=== PATIENT | female | born 1940 | race Caucasian/White ===

== ENCOUNTER 2017-05-24 19:36 | Inpatient (IN) | payer MEDICARE, OTHER ==
[2017-05-24 19:54] LABS: Glucose,Whole Blood 84 mg/dL (75-99)
--- NOTE | 2017-05-24 19:54 | ED ---
General Adult HPI - General Chief complaint: Recheck/Abnormal Lab/Rx Stated complaint: anemia Time Seen by Provider: 05/24/17 19:44 Source: patient, EMS, RN notes reviewed, old records reviewed Mode of arrival: EMS - History of Present Illness Initial comments: This is a 76-year-old female to the ER for evaluation of blood loss per staff. Patient's poor historian, sure she is near complains of weakness but states she is always weak. No chest pain or shortness breath or developing no fevers. Patient was transferred for nursing staff and care as well as patient's outpatient family doctor at [facility] for evaluation regarding chronic illness - Related Data Home Medications Medication Instructions Recorded Confirmed Acetaminophen Tab [Tylenol] 500 mg PO Q6H PRN 12/28/15 05/24/17 Ammonium Lactate Lotion 1 applic TOPICAL HS 12/28/15 05/24/17 [Lac-Hydrin 12% Lotion] Atorvastatin [Lipitor] 40 mg PO HS 12/28/15 05/24/17 Bismuth Subsalicylate 524 mg PO Q4H PRN 12/28/15 05/24/17 [Pepto-Bismol] Brimonidine Tartrate/Timolol 1 drop BOTH EYES BID 12/28/15 05/24/17 [Combigan 0.2%/0.5% Ophth Soln] Calcium Carb-Vit D 500Mg-200Un 1 tab PO BID 12/28/15 05/24/17 [Oscal 500+D] Carvedilol [Coreg] 25 mg PO BID-W/MEALS 12/28/15 05/24/17 Donepezil HCl [Aricept] 10 mg PO HS 12/28/15 05/24/17 Insulin Glargine [Lantus] 32 unit SQ HS@2100 12/28/15 05/24/17 Ipratropium-Albuterol Nebulize 3 ml INHALATION RT-Q4H PRN 12/28/15 05/24/17 [Duoneb 0.5 mg-3 mg/3 ml Soln] Latanoprost Ophth [Xalatan 0.005%] 1 drop BOTH EYES HS 12/28/15 05/24/17 Multivitamins, Thera [Multivitamin 1 tab PO DAILY 12/28/15 05/24/17 (formulary)] Nystatin 100,000 Unit/gm Powd 1 applic TOPICAL BID 12/28/15 05/24/17 [Mycostatin Powder] [place]-3 Acid Ethyl Esters [Lovaza] 1 gm PO BID 12/28/15 05/24/17 Pioglitazone HCl [Actos] 15 mg PO DAILY 12/28/15 05/24/17 Sertraline [Zoloft] 75 mg PO HS 12/28/15 05/24/17 Albuterol Nebulized [Ventolin 2.5 mg INHALATION RT-Q6H PRN 01/11/16 05/24/17 Nebulized] Collagenase [Santyl] 1 applic TOPICAL HS 01/11/16 05/24/17 Arginaid Extra 240 ml PO BID 05/24/17 05/24/17 Aspirin EC [Ecotrin Low Dose] 81 mg PO DAILY 05/24/17 05/24/17 Cholecalciferol (Vitamin D3) 2,000 unit PO DAILY 05/24/17 05/24/17 [Vitamin D3] Ferrous Sulfate [Feosol] 325 mg PO BID 05/24/17 05/24/17 Furosemide [Lasix] 20 mg PO DAILY 05/24/17 05/24/17 HYDROcodone/APAP 5-325MG [Robson 1 tab PO Q6HR PRN 05/24/17 05/24/17 5-325] Insulin Glargine [Lantus] 36 unit SQ QAM@0600 05/24/17 05/24/17 Insulin Lispro [humaLOG Kwikpen] 10 unit SQ BID@0800,1100 05/24/17 05/24/17 Insulin Lispro [humaLOG Kwikpen] 12 unit SQ DAILY@1700 05/24/17 05/24/17 Insulin Lispro [humaLOG Kwikpen] See Protocol SQ AC-TID 05/24/17 05/24/17 Lisinopril [Zestril] 2.5 mg PO DAILY 05/24/17 05/24/17 Magnesium Hydroxide [Milk of 2,400 mg PO DAILY PRN 05/24/17 05/24/17 Magnesia] Potassium Chloride ER [K-Dur 10] 10 meq PO DAILY 05/24/17 05/24/17 Allergies Allergy/AdvReac Type Severity Reaction Status Date / Time Quinolones Allergy Unknown Verified 08/02/17 19:55 Review of Systems ROS Statement: Those systems with pertinent positive or pertinent negative responses have been documented in the HPI. ROS Other: All systems not noted in ROS Statement are negative. Past Medical History Past Medical History: Coronary Artery Disease (CAD), Heart Failure, Dementia, Diabetes Mellitus, Eye Disorder, GERD/Reflux, Hyperlipidemia, Hypertension, Memory Impairment, Osteoarthritis (OA), Pneumonia Additional Past Medical History / Comment(s): 01-11-16 admitted with uti/sepsis Glaucoma, severe degenerative arthritis with secondary debility to the point where the patient is unable to ambulate,charcot feet morbid obesity, urinary incontinence with frequent urinary tract. infection - skin breakdown to buttocks, carpal tunnel disease and MRSA in the past. RT UPPER ARM CELLULITIS, rt breast mass,pvd,bronchitis, sinus problems, carpal tunnel, past fx lt ankle History of Any Multi-Drug Resistant Organisms: ESBL, Other MDRO Date of last positivie culture/infection: 01/31/17 MDRO Source:: urine Past Surgical History: Adenoidectomy, Bladder Surgery, Heart Catheterization, Hernia Repair, Hysterectomy, Pacemaker, Tonsillectomy Additional Past Surgical History / Comment(s): arthroscopy laser sx for glaucoma bashir eyes, Cataract extraction with intraocular lens implantations, varicose vein stripping.rt breast bx(mass), colonoscopy, lt knee Past Anesthesia/Blood Transfusion Reactions: No Reported Reaction Type of Cardiac Device: Permanent Pacemaker Device Placement Date:: 2011 Past Psychological History: No Psychological Hx Reported, Depression Smoking Status: Never smoker Past Alcohol Use History: None Reported Past Drug Use History: None Reported - Past Family History Daughter(s) Family Medical History: Cancer, Diabetes Mellitus, Hypertension General Exam Limitations: altered mental status, physical limitation General appearance: alert, in no apparent distress, obese Head exam: Present: atraumatic, normocephalic, normal inspection Eye exam: Present: normal appearance, PERRL, EOMI. Absent: scleral icterus, conjunctival injection, periorbital swelling ENT exam: Present: normal exam, mucous membranes moist Neck exam: Present: normal inspection. Absent: tenderness, meningismus, lymphadenopathy Respiratory exam: Present: normal lung sounds bilaterally. Absent: respiratory distress, wheezes, rales, rhonchi, stridor Cardiovascular Exam: Present: regular rate, normal rhythm, normal heart sounds. Absent: systolic murmur, diastolic murmur, rubs, gallop, clicks GI/Abdominal exam: Present: soft, normal bowel sounds. Absent: distended, tenderness, guarding, rebound, rigid Extremities exam: Present: normal inspection, full ROM, normal capillary refill. Absent: tenderness, pedal edema, joint swelling, calf tenderness Back exam: Present: normal inspection Neurological exam: Present: alert, oriented X3, CN II-XII intact Psychiatric exam: Present: normal affect, normal mood Skin exam: Present: warm, dry, intact, normal color. Absent: rash Course Vital Signs 05/24/17 05/24/17 05/24/17 19:38 20:37 20:52 Temperature 97.3 F L Pulse Rate 76 59 L Pulse Rate [ 59 L Bilateral Radial] Respiratory 18 18 Rate Blood Pressure 97/52 86/47 O2 Sat by Pulse 94 L 95 Oximetry - Reevaluation(s) Reevaluation #1: 05/24/17 20:[address] Grossman who states patient is admitted to the hospital secondary to excessive blood loss EKG Findings - EKG Comments: EKG Findings:: EKG shows paced rhythm rate of 73, SD 134, QRS 2 18, QTC 519 Medical Decision Making - Medical Decision Making 76. ER for evaluation regarding bleeding, significant bleeding from her sacral ulcer, wound bed wounds that are chronic. Anemia, weakness. Patient admitted for trending of hemoglobin as blood loss is apparently excessive per staffing. - Lab Data Result diagrams: 05/24/17 19:55 05/24/17 19:55 Lab Results 05/24/17 05/24/17 05/24/17 Range/Units 19:53 19:55 19:55 WBC 9.1 (3.8-10.6) k/uL RBC 2.54 L (3.80-5.40) m/uL Hgb 7.2 L (11.4-16.0) gm/dL Hct 22.0 L (34.0-46.0) % MCV 86.8 (80.0-100.0) fL MCH 28.5 (25.0-35.0) pg MCHC 32.8 (31.0-37.0) g/dL RDW 17.4 H (11.5-15.5) % Plt Count 321 (150-450) k/uL Neutrophils % 81 % Lymphocytes % 9 % Monocytes % 5 % Eosinophils % 4 % Basophils % 0 % Neutrophils # 7.4 (1.3-7.7) k/uL Lymphocytes # 0.8 L (1.0-4.8) k/uL Monocytes # 0.5 (0-1.0) k/uL Eosinophils # 0.3 (0-0.7) k/uL Basophils # 0.0 (0-0.2) k/uL Hypochromasia Slight Poikilocytosis Slight Anisocytosis Slight PT (9.0-12.0) sec INR (<1.2) APTT (22.0-30.0) sec Sodium (137-145) mmol/L Potassium (3.5-5.1) mmol/L Chloride (98-107) mmol/L Carbon Dioxide (22-30) mmol/L Anion Gap mmol/L BUN (7-17) mg/dL Creatinine (0.52-1.04) mg/dL Est GFR (MDRD) Af Amer (>60 ml/min/1.73 sqM) Est GFR (MDRD) Non-Af (>60 ml/min/1.73 sqM) Glucose (74-99) mg/dL POC Glucose (mg/dL) 84 (75-99) mg/dL POC Glu Tester Compressed Gases ID Raquel Contreras Calcium (8.4-10.2) mg/dL Phosphorus (2.5-4.5) mg/dL Magnesium (1.6-2.3) mg/dL Total Bilirubin (0.2-1.3) mg/dL AST (14-36) U/L ALT (9-52) U/L Alkaline Phosphatase (38-126) U/L Total Creatine Kinase <20 L (30-135) U/L CK-MB (CK-2) 0.6 (0.0-2.4) ng/mL CK-MB (CK-2) Rel Index 0.0 Troponin I <0.012 (0.000-0.034) ng/mL Total Protein (6.3-8.2) g/dL Albumin (3.5-5.0) g/dL 05/24/17 05/24/17 Range/Units 19:55 19:55 WBC (3.8-10.6) k/uL RBC (3.80-5.40) m/uL Hgb (11.4-16.0) gm/dL Hct (34.0-46.0) % MCV (80.0-100.0) fL MCH (25.0-35.0) pg MCHC (31.0-37.0) g/dL RDW (11.5-15.5) % Plt Count (150-450) k/uL Neutrophils % % Lymphocytes % % Monocytes % % Eosinophils % % Basophils % % Neutrophils # (1.3-7.7) k/uL Lymphocytes # (1.0-4.8) k/uL Monocytes # (0-1.0) k/uL Eosinophils # (0-0.7) k/uL Basophils # (0-0.2) k/uL Hypochromasia Poikilocytosis Anisocytosis PT 10.5 (9.0-12.0) sec INR 1.0 (<1.2) APTT 20.6 L (22.0-30.0) sec Sodium 135 L (137-145) mmol/L Potassium 4.9 (3.5-5.1) mmol/L Chloride 100 (98-107) mmol/L Carbon Dioxide 29 (22-30) mmol/L Anion Gap 6 mmol/L BUN 55 H (7-17) mg/dL Creatinine 1.20 H (0.52-1.04) mg/dL Est GFR (MDRD) Af Amer 53 (>60 ml/min/1.73 sqM) Est GFR (MDRD) Non-Af 44 (>60 ml/min/1.73 sqM) Glucose 70 L (74-99) mg/dL POC Glucose (mg/dL) (75-99) mg/dL POC Glu Tester Compressed Gases ID Calcium 9.2 (8.4-10.2) mg/dL Phosphorus 3.3 (2.5-4.5) mg/dL Magnesium 2.3 (1.6-2.3) mg/dL Total Bilirubin 0.3 (0.2-1.3) mg/dL AST 27 (14-36) U/L ALT 29 (9-52) U/L Alkaline Phosphatase 85 (38-126) U/L Total Creatine Kinase (30-135) U/L CK-MB (CK-2) (0.0-2.4) ng/mL CK-MB (CK-2) Rel Index Troponin I (0.000-0.034) ng/mL Total Protein 4.9 L (6.3-8.2) g/dL Albumin 2.4 L (3.5-5.0) g/dL Disposition Clinical Impression: Anemia Narrative: bleeding from sacral ulcer Disposition: ADMITTED IP TO THIS HOSP Condition: Fair Referrals: Cb Grossman MD [Primary Care Provider] - 1-2 days
[2017-05-24] MEDS ORDERED: SODIUM CHLORIDE 0.9% 1,000 ML IV STA (20:06)
[2017-05-24 20:25] LABS: Anisocytosis Slight; Basophils % (A) 0 %; CH 28.6; Eosinophils # (A) 0.3 k/uL (0-0.7); Eosinophils % (A) 4 %; HDW 3.97; HGB 7.2 gm/dL (11.4-16.0); Hypochromasia Slight; Luc % (Auto) 1; Lymphocytes # (A) 0.8 k/uL (1.0-4.8); Lymphocytes % (A) 9 %; MCH 28.5 pg (25.0-35.0); MCHC 32.8 g/dL (31.0-37.0); MCV 86.8 fL (80.0-100.0); Mean Platelet Volume 6.9; Monocytes # (A) 0.5 k/uL (0-1.0); Monocytes % (A) 5 %; Neutrophils # (A) 7.4 k/uL (1.3-7.7); Neutrophils % (A) 81 %; Poikilocytosis Slight; RBC 2.54 m/uL (3.80-5.40); RDW 17.4 % (11.5-15.5); WBC 9.1 k/uL (3.8-10.6); WBC (Perox) 9.74
[2017-05-24 20:33] LABS: Prothrombin Time 10.5 sec (9.0-12.0)
[2017-05-24 20:39] LABS: Calcium 9.2 mg/dL (8.4-10.2); Magnesium 2.3 mg/dL (1.6-2.3); Phosphorous 3.3 mg/dL (2.5-4.5); Potassium 4.9 mmol/L (3.5-5.1); Total Bilirubin 0.3 mg/dL (0.2-1.3); Total Protein 4.9 g/dL (6.3-8.2)
[2017-05-24 20:45] LABS: Creatine Kinase <20 U/L (30-135); Partial Thromboplastin Time 20.6 sec (22.0-30.0)
[2017-05-24 20:58] LABS: Creatine Kinase MB 0.6 ng/mL (0.0-2.4); Troponin I <0.012 ng/mL (0.000-0.034)
[2017-05-24 21:14] LABS: Amorphous Sediment,Urine Rare /hpf; Appearance,Urine Turbid (Clear); Bacteria,Urine Many /hpf; Bilirubin,Urine Negative (Negative); Glucose,Urine (UA) Negative (Negative); Ketones,Urine Negative (Negative); Leukocyte Esterase,Urine Large (Negative); Mucus,Urine Few /hpf; Nitrite,Urine Negative (Negative); PH, Urine 6.5 (5.0-8.0); Particle Count 77737; Protein,Urine 2+ (Negative); RBC,Urine 129 /hpf (0-5); Specific Gravity,Urine 1.013 (1.001-1.035); UA Billing (MACRO vs. MICRO) MICRO; Urobilinogen,Urine <2.0 mg/dL (<2.0); WBC,Urine >182 /hpf (0-5)
[2017-05-24 23:29] LABS: Glucose,Whole Blood 90 mg/dL (75-99)
[2017-05-25] MEDS ORDERED: MAGNESIUM HYDROXIDE 2,400 MG/10 ML CUP PO PRN (03:03)
[2017-05-25] MEDS ORDERED: ALBUTEROL NEBULIZED 2.5 MG/3 ML INHALATION PRN (03:03)
[2017-05-25] MEDS ORDERED: ACETAMINOPHEN TAB 500 MG TAB PO PRN (03:03)
[2017-05-25] MEDS ORDERED: BISMUTH SUBSALICYLATE 4,192 MG/240 ML BOTTLE PO PRN (03:03)
[2017-05-25] MEDS ORDERED: IPRATROPIUM-ALBUTEROL 3 ML NEB INHALATION PRN (03:03)
[2017-05-25] MEDS: HYDROcodone/APAP 5-325MG 1 EACH TAB PO PRN (03:42)
[2017-05-25 05:27] LABS: Glucose,Whole Blood 102 mg/dL (75-99)
[2017-05-25 05:39] LABS: Anisocytosis Slight; Basophils % (A) 0 %; CH 28.5; CHCM 32.2; Eosinophils # (A) 0.2 k/uL (0-0.7); Eosinophils % (A) 3 %; HCT 24.5 % (34.0-46.0); HDW 3.79; HGB 7.7 gm/dL (11.4-16.0); Hypochromasia Slight; Luc # (Auto) 0.09; Luc % (Auto) 1; Lymphocytes # (A) 0.9 k/uL (1.0-4.8); Lymphocytes % (A) 13 %; MCH 27.8 pg (25.0-35.0); MCHC 31.3 g/dL (31.0-37.0); MCV 88.9 fL (80.0-100.0); Mean Platelet Volume 7.2; Monocytes # (A) 0.4 k/uL (0-1.0); Monocytes % (A) 6 %; Neutrophils # (A) 5.1 k/uL (1.3-7.7); Neutrophils % (A) 77 %; Poikilocytosis Slight; RBC 2.76 m/uL (3.80-5.40); RDW 16.9 % (11.5-15.5); WBC 6.6 k/uL (3.8-10.6); WBC (Perox) 6.87
[2017-05-25 05:46] LABS: ALT 29 U/L (9-52); AST 25 U/L (14-36); Alkaline Phosphatase 75 U/L (38-126); Anion Gap 7 mmol/L; Blood Urea Nitrogen 49 mg/dL (7-17); Calcium 8.5 mg/dL (8.4-10.2); Carbon Dioxide 27 mmol/L (22-30); Chloride 102 mmol/L (98-107); Glucose 94 mg/dL (74-99); Non-African American GFR(MDRD) 54 (>60 ml/min/1.73 sqM); Potassium 4.8 mmol/L (3.5-5.1); Sodium 136 mmol/L (137-145); Total Bilirubin 0.3 mg/dL (0.2-1.3); Total Protein 4.3 g/dL (6.3-8.2)
[2017-05-25] MEDS ORDERED: INSULIN GLARGINE 100 UNIT/ML 10 ML VIAL SQ SCH (06:00)
[2017-05-25 07:28] LABS: Glucose,Whole Blood 104 mg/dL (75-99)
[2017-05-25] MEDS: CARVEDILOL 12.5 MG TAB PO SCH ×3 (08:38→17:39)
[2017-05-25] MEDS: INSULIN LISPRO (humaLOG) 300 UNIT/3 ML VIAL SQ SCH ×7 (08:38→21:50)
[2017-05-25] MEDS: NYSTATIN 100,000 UNIT/GM POWD 15 GM TOPICAL SCH ×2 (08:59→21:12)
[2017-05-25] MEDS ORDERED: ARGINAID EXTRA PO SCH (09:00)
[2017-05-25] MEDS ORDERED: NON-FORMULARY DRUG (Omega-3 Acid Ethyl Esters [Lovaza] 1 GM) PO SCH (09:00)
[2017-05-25] MEDS ORDERED: CALCIUM CARB-VIT D 500MG-200UN 1 EACH TAB PO SCH (09:00)
[2017-05-25] MEDS: BRIMONIDINE TARTRATE 0.2% DROPS 5 ML BTL BOTH EYES SCH ×2 (09:00→21:11)
[2017-05-25] MEDS ORDERED: PIOGLITAZONE 15 MG TAB PO SCH (09:00)
[2017-05-25] MEDS ORDERED: LISINOPRIL 2.5 MG TAB PO SCH (09:00)
[2017-05-25] MEDS: MULTIVITAMINS, THERA 1 EACH TAB PO SCH (09:01)
[2017-05-25] MEDS: CHOLECALCIFEROL 1,000 UNIT TAB PO SCH (09:01)
[2017-05-25] MEDS: POTASSIUM CHLORIDE ER 10 MEQ TAB.ER.PRT PO SCH (09:02)
[2017-05-25] MEDS: FUROSEMIDE 20 MG TAB PO SCH (09:02)
[2017-05-25] MEDS: FERROUS SULFATE 325 MG TAB PO SCH ×2 (09:03→21:11)
[2017-05-25] MEDS: ASPIRIN 81 MG CHEW PO SCH (09:03)
[2017-05-25] MEDS: TIMOLOL 0.5% OPHTH DROPS 5 ML BTL BOTH EYES SCH ×2 (09:05→21:12)
[2017-05-25] MEDS ORDERED: ENOXAPARIN 40 MG/0.4 ML SYRINGE SQ SCH (09:30)
[2017-05-25 12:09] LABS: Glucose,Whole Blood 108 mg/dL (75-99)
[2017-05-25 12:10] LABS: Hemoglobin A1C 5.6 % (4.2-6.1)
--- NOTE | 2017-05-25 14:21 | P.GSCN ---
History of Present Illness Consult date: 05/25/17 Reason for Consult: Sacral decubitus ulcer may need debridement History of present illness: 76-year-old female being seen at the request of the attending for surgical eval for possible incision and drainage in a patient who has chronic nonhealing sacral decubitus ulcer the wound bed noted to be showing excessive bleeding with blood loss. Given the above clinical presentation care providers at the [facility] facility were advised to transfer the patient to the emergency room at [facility] for further evaluation. Patient was transferred for monitoring of the hemoglobin blood loss apparently was excessive per care providers at the [facility] facility. The excessive bleeding was coming from the chronic nonhealing sacral decubitus ulcer the hemoglobin on admission was 7.2. Reviewing labs show that the hemoglobin on February 2017 was 12. Physical exam does show a extensive nonhealing sacral decubitus ulcer which is showing excessive bloody drainage from the site. The area is red and tender to the touch no odor noted patient is a poor historian not certain of the duration of the ulcerative area. Patient does have limited mobility is not able to carry out activities of daily living is wheelchair bedbound and lives at an [facility] facility. Review of Systems Not able to adequately obtain patient has poor past medical history recall Past Medical History Past Medical History: Coronary Artery Disease (CAD), Heart Failure, Dementia, Diabetes Mellitus, Eye Disorder, GERD/Reflux, Hyperlipidemia, Hypertension, Memory Impairment, Osteoarthritis (OA), Pneumonia Additional Past Medical History / Comment(s): 3 admitted with uti/sepsis Glaucoma, severe degenerative arthritis with secondary debility to the point where the patient is unable to ambulate,charcot feet morbid obesity, urinary incontinence with frequent urinary tract. infection - skin breakdown to buttocks, carpal tunnel disease and MRSA in the past. RT UPPER ARM CELLULITIS, rt breast mass,pvd,bronchitis, sinus problems, carpal tunnel, past fx lt ankle History of Any Multi-Drug Resistant Organisms: ESBL, Other MDRO Year Discovered:: 01/31/17 MDRO Source:: urine Past Surgical History: Adenoidectomy, Bladder Surgery, Heart Catheterization, Hernia Repair, Hysterectomy, Pacemaker, Tonsillectomy Additional Past Surgical History / Comment(s): arthroscopy laser sx for glaucoma bashir eyes, Cataract extraction with intraocular lens implantations, varicose vein stripping.rt breast bx(mass), colonoscopy, lt knee Past Anesthesia/Blood Transfusion Reactions: No Reported Reaction Type of Cardiac Device: Permanent Pacemaker Device Placement Date:: 2011 Past Psychological History: No Psychological Hx Reported, Depression Additional Psychological History / Comment(s): per [facility] paperwork, major depressive disorder , mood disorder. pt lost a son in 1998(committed suicide and 2014 her daughter from cancer). Smoking Status: Never smoker Past Alcohol Use History: None Reported Additional Past Alcohol Use History / Comment(s): Patient is currently residing at [facility] in the [place]. She did not work outside of the home. She does not have any history of tobacco use but 2nd hand smoked(both parents smoked and her smoked) no alcohol abuse. Past Drug Use History: None Reported - Past Family History Daughter(s) Family Medical History: Cancer, Diabetes Mellitus, Hypertension Medications and Allergies Home Medications Medication Instructions Recorded Confirmed Type Acetaminophen Tab [Tylenol] 500 mg PO Q6H PRN 12/28/15 05/24/17 History Ammonium Lactate Lotion 1 applic TOPICAL HS 12/28/15 05/24/17 History [Lac-Hydrin 12% Lotion] Atorvastatin [Lipitor] 40 mg PO HS 12/28/15 05/24/17 History Bismuth Subsalicylate 524 mg PO Q4H PRN 12/28/15 05/24/17 History [Pepto-Bismol] Brimonidine Tartrate/Timolol 1 drop BOTH EYES BID 12/28/15 05/24/17 History [Combigan 0.2%/0.5% Ophth Soln] Calcium Carb-Vit D 500Mg-200Un 1 tab PO BID 12/28/15 05/24/17 History [Oscal 500+D] Carvedilol [Coreg] 25 mg PO BID-W/MEALS 12/28/15 05/24/17 History Donepezil HCl [Aricept] 10 mg PO HS 12/28/15 05/24/17 History Insulin Glargine [Lantus] 32 unit SQ HS@2100 12/28/15 05/24/17 History Ipratropium-Albuterol Nebulize 3 ml INHALATION RT-Q4H PRN 12/28/15 05/24/17 History [Duoneb 0.5 mg-3 mg/3 ml Soln] Latanoprost Ophth [Xalatan 0.005%] 1 drop BOTH EYES HS 12/28/15 05/24/17 History Multivitamins, Thera [Multivitamin 1 tab PO DAILY 12/28/15 05/24/17 History (formulary)] Nystatin 100,000 Unit/gm Powd 1 applic TOPICAL BID 12/28/15 05/24/17 History [Mycostatin Powder] [place]-3 Acid Ethyl Esters [Lovaza] 1 gm PO BID 12/28/15 05/24/17 History Pioglitazone HCl [Actos] 15 mg PO DAILY 12/28/15 05/24/17 History Sertraline [Zoloft] 75 mg PO HS 12/28/15 05/24/17 History Albuterol Nebulized [Ventolin 2.5 mg INHALATION RT-Q6H PRN 01/11/16 05/24/17 History Nebulized] Collagenase [Santyl] 1 applic TOPICAL HS 01/11/16 05/24/17 History Arginaid Extra 240 ml PO BID 05/24/17 05/24/17 History Aspirin EC [Ecotrin Low Dose] 81 mg PO DAILY 05/24/17 05/24/17 History Cholecalciferol (Vitamin D3) 2,000 unit PO DAILY 05/24/17 05/24/17 History [Vitamin D3] Ferrous Sulfate [Feosol] 325 mg PO BID 05/24/17 05/24/17 History Furosemide [Lasix] 20 mg PO DAILY 05/24/17 05/24/17 History HYDROcodone/APAP 5-325MG [[place] 1 tab PO Q6HR PRN 05/24/17 05/24/17 History 5-325] Insulin Glargine [Lantus] 36 unit SQ QAM@0600 05/24/17 05/24/17 History Insulin Lispro [humaLOG Kwikpen] 10 unit SQ BID@0800,1100 05/24/17 05/24/17 History Insulin Lispro [humaLOG Kwikpen] 12 unit SQ DAILY@1700 05/24/17 05/24/17 History Insulin Lispro [humaLOG Kwikpen] See Protocol SQ AC-TID 05/24/17 05/24/17 History Lisinopril [Zestril] 2.5 mg PO DAILY 05/24/17 05/24/17 History Magnesium Hydroxide [Milk of 2,400 mg PO DAILY PRN 05/24/17 05/24/17 History Magnesia] Potassium Chloride ER [K-Dur 10] 10 meq PO DAILY 05/24/17 05/24/17 History Allergies Allergy/AdvReac Type Severity Reaction Status Date / Time Quinolones Allergy Unknown Verified 05/24/17 19:55 Surgical - Exam Vital Signs Temp Pulse Resp BP Pulse Ox 97.3 F L 76 18 97/52 94 L 05/24/17 19:38 05/24/17 19:38 05/24/17 19:38 05/24/17 19:38 05/24/17 19:38 GENERAL APPEARANCE: 76-year-old female patient is alert, oriented, to self only in no acute distress. Is pleasant cooperative VITAL SIGNS: Reviewed HEENT: Head is normocephalic and atraumatic. Pupils are equal and reactive. The nares are patent. Oropharynx is clear without lesions. NECK: Supple without lymphadenopathy. Traches midline. HEART: S1, S2. Regular rate and rhythm. No murmur noted LUNGS: No crackles or wheezes are heard. Adequate air movement bilaterally nasal cannula 2 L sats are 99% no cough noted ABDOMEN: Soft obese, nontender, nondistended with good bowel sounds. No peritoneal signs. No palpable organomegaly or masses. Indwelling Baires catheter in place no skin excoriation to skin folds EXTREMITIES: Normal skin color and turgor. No cyanosis, rash, ulceration, clubbing or edema. Radial pedal pulses are 2/4 bilaterally.charot feet Skin no skin excoriation to the skin folds sacral area shows an extensive decubitus ulcer nonhealing red draining bloody drainage no odor Results - Labs 05/25/17 05:16 05/25/17 05:16 Abnormal Lab Results - Last 24 Hours (Table) 05/24/17 05/24/17 05/24/17 Range/Units 19:55 19:55 19:55 RBC 2.54 L (3.80-5.40) m/uL Hgb 7.2 L (11.4-16.0) gm/dL Hct 22.0 L (34.0-46.0) % RDW 17.4 H (11.5-15.5) % Lymphocytes # 0.8 L (1.0-4.8) k/uL APTT (22.0-30.0) sec Sodium 135 L (137-145) mmol/L BUN 55 H (7-17) mg/dL Creatinine 1.20 H (0.52-1.04) mg/dL Glucose 70 L (74-99) mg/dL POC Glucose (mg/dL) (75-99) mg/dL Total Creatine Kinase <20 L (30-135) U/L Total Protein 4.9 L (6.3-8.2) g/dL Albumin 2.4 L (3.5-5.0) g/dL Prealbumin (18-36) mg/dL Urine Appearance (Clear) Urine Protein (Negative) Urine Blood (Negative) Ur Leukocyte Esterase (Negative) Urine RBC (0-5) /hpf Urine WBC (0-5) /hpf Urine WBC Clumps (None) /hpf Amorphous Sediment (None) /hpf Urine Bacteria (None) /hpf Urine Mucus (None) /hpf Crossmatch 05/24/17 05/24/17 05/24/17 Range/Units 19:55 19:55 20:58 RBC (3.80-5.40) m/uL Hgb (11.4-16.0) gm/dL Hct (34.0-46.0) % RDW (11.5-15.5) % Lymphocytes # (1.0-4.8) k/uL APTT 20.6 L (22.0-30.0) sec Sodium (137-145) mmol/L BUN (7-17) mg/dL Creatinine (0.52-1.04) mg/dL Glucose (74-99) mg/dL POC Glucose (mg/dL) (75-99) mg/dL Total Creatine Kinase (30-135) U/L Total Protein (6.3-8.2) g/dL Albumin (3.5-5.0) g/dL Prealbumin (18-36) mg/dL Urine Appearance Turbid H (Clear) Urine Protein 2+ H (Negative) Urine Blood Large H (Negative) Ur Leukocyte Esterase Large H (Negative) Urine RBC 129 H (0-5) /hpf Urine WBC >182 H (0-5) /hpf Urine WBC Clumps Many H (None) /hpf Amorphous Sediment Rare H (None) /hpf Urine Bacteria Many H (None) /hpf Urine Mucus Few H (None) /hpf Crossmatch See Detail 05/25/17 05/25/17 05/25/17 Range/Units 05:16 05:16 05:16 RBC 2.76 L (3.80-5.40) m/uL Hgb 7.7 L (11.4-16.0) gm/dL Hct 24.5 L (34.0-46.0) % RDW 16.9 H (11.5-15.5) % Lymphocytes # 0.9 L (1.0-4.8) k/uL APTT (22.0-30.0) sec Sodium 136 L (137-145) mmol/L BUN 49 H (7-17) mg/dL Creatinine (0.52-1.04) mg/dL Glucose (74-99) mg/dL POC Glucose (mg/dL) (75-99) mg/dL Total Creatine Kinase (30-135) U/L Total Protein 4.3 L (6.3-8.2) g/dL Albumin 2.1 L (3.5-5.0) g/dL Prealbumin 8 L (18-36) mg/dL Urine Appearance (Clear) Urine Protein (Negative) Urine Blood (Negative) Ur Leukocyte Esterase (Negative) Urine RBC (0-5) /hpf Urine WBC (0-5) /hpf Urine WBC Clumps (None) /hpf Amorphous Sediment (None) /hpf Urine Bacteria (None) /hpf Urine Mucus (None) /hpf Crossmatch 05/25/17 05/25/17 05/25/17 Range/Units 05:24 07:24 12:04 RBC (3.80-5.40) m/uL Hgb (11.4-16.0) gm/dL Hct (34.0-46.0) % RDW (11.5-15.5) % Lymphocytes # (1.0-4.8) k/uL APTT (22.0-30.0) sec Sodium (137-145) mmol/L BUN (7-17) mg/dL Creatinine (0.52-1.04) mg/dL Glucose (74-99) mg/dL POC Glucose (mg/dL) 102 H 104 H 108 H (75-99) mg/dL Total Creatine Kinase (30-135) U/L Total Protein (6.3-8.2) g/dL Albumin (3.5-5.0) g/dL Prealbumin (18-36) mg/dL Urine Appearance (Clear) Urine Protein (Negative) Urine Blood (Negative) Ur Leukocyte Esterase (Negative) Urine RBC (0-5) /hpf Urine WBC (0-5) /hpf Urine WBC Clumps (None) /hpf Amorphous Sediment (None) /hpf Urine Bacteria (None) /hpf Urine Mucus (None) /hpf Crossmatch Microbiology - Last 24 Hours (Table) 05/24/17 20:58 Urine Culture - Preliminary Urine,Catheterized Diabetes panel 05/24/17 05/25/17 05/25/17 Range/Units 19:55 05:16 05:16 Sodium 135 L 136 L (137-145) mmol/L Potassium 4.9 4.8 (3.5-5.1) mmol/L Chloride 100 102 (98-107) mmol/L Carbon Dioxide 29 27 (22-30) mmol/L BUN 55 H 49 H (7-17) mg/dL Creatinine 1.20 H 1.00 (0.52-1.04) mg/dL Glucose 70 L 94 (74-99) mg/dL Hemoglobin A1c 5.6 (4.2-6.1) % Calcium 9.2 8.5 (8.4-10.2) mg/dL AST 27 25 (14-36) U/L ALT 29 29 (9-52) U/L Alkaline Phosphatase 85 75 (38-126) U/L Total Protein 4.9 L 4.3 L (6.3-8.2) g/dL Albumin 2.4 L 2.1 L (3.5-5.0) g/dL Calcium panel 05/24/17 05/25/17 Range/Units 19:55 05:16 Calcium 9.2 8.5 (8.4-10.2) mg/dL Phosphorus 3.3 (2.5-4.5) mg/dL Albumin 2.4 L 2.1 L (3.5-5.0) g/dL Pituitary panel 05/24/17 05/25/17 Range/Units 19:55 05:16 Sodium 135 L 136 L (137-145) mmol/L Potassium 4.9 4.8 (3.5-5.1) mmol/L Chloride 100 102 (98-107) mmol/L Carbon Dioxide 29 27 (22-30) mmol/L BUN 55 H 49 H (7-17) mg/dL Creatinine 1.20 H 1.00 (0.52-1.04) mg/dL Glucose 70 L 94 (74-99) mg/dL Calcium 9.2 8.5 (8.4-10.2) mg/dL Adrenal panel 05/24/17 05/25/17 Range/Units 19:55 05:16 Sodium 135 L 136 L (137-145) mmol/L Potassium 4.9 4.8 (3.5-5.1) mmol/L Chloride 100 102 (98-107) mmol/L Carbon Dioxide 29 27 (22-30) mmol/L BUN 55 H 49 H (7-17) mg/dL Creatinine 1.20 H 1.00 (0.52-1.04) mg/dL Glucose 70 L 94 (74-99) mg/dL Calcium 9.2 8.5 (8.4-10.2) mg/dL Total Bilirubin 0.3 0.3 (0.2-1.3) mg/dL AST 27 25 (14-36) U/L ALT 29 29 (9-52) U/L Alkaline Phosphatase 85 75 (38-126) U/L Total Protein 4.9 L 4.3 L (6.3-8.2) g/dL Albumin 2.4 L 2.1 L (3.5-5.0) g/dL Assessment and Plan Plan: Impression Present on admission acute blood loss anemia symptomatic suspect due to large sacral decubitus ulcer with excessive oozing of blood necessitating 1 unit of packed red blood cells to be infused via peripheral vein Morbid obesity BMI 46 Chronic debility not able to carry out activities of daily living Alzheimer's dementia without behavioral disturbance charotfoot chronic depressive disorder nonspecified Plan schedule patient for debridement of the multiple sacral decubitus ulcers with possible wound VAC to be placed on May 26 Monitor hemoglobin address as indicated Nothing by mouth after midnight for planned procedure DVT and GI prophylaxis Check a pre-albumin level with a consult for nutritional support for possible nutritional supplements Further recommendations pending will follow surgical course Repeat labs in the morning Transfuse 1 more unit of packed red blood cells for hemoglobin of 7.7 Thank you for allowing us to participate in the surgical management of your patient The above impression and plan of care have been discussed and directed by signing physician. Yas Prakash nurse practitioner acting as scribe for signing physician.
--- NOTE | 2017-05-25 16:28 | P.HPIM ---
History of Present Illness H&P Date: 05/25/17 Chief Complaint: Bleeding infected decubitus ulcer This is a 76 year old patient of Dr. Grossman resident of [facility]. Patient's chronic stable medical conditions include diabetes, Alzheimer's, heart disease, CHF, hypertension, osteoarthritis, permanent pacemaker, chocolate foot, depression, obesity, urinary incontinence, major depression,. Patient is a vague also simple questions but history is given by the at the bedside. Patient admitted with multiple decubitus ulcers some of the more bleeding. According to the patient's appetite has not been good. For quite some time. Only like to eat deserts. Patient's bili much bedbound. Does recognize family. According of life is not good. Patient's blood pressure was running a bit low patient's anemic and hence is being transfused blood. GEN.: Tired EYES: None HEENT: None NECK: None RESPIRATORY: None CARDIOVASCULAR: None GASTROINTESTINAL: None GENITOURINARY: Urinary incontinence MUSCULOSKELETAL: Pain in the joints LYMPHATICS: None HEMATOLOGICAL: Some bleeding from the decub wounds PSYCHIATRY: Forgetful NEUROLOGICAL: Charcot foot, nonambulatory MUSCULOSKELETAL: Pain in different joints Past medical history: Diabetes, Alzheimer's dementia, medical debility, coronary artery disease, congestive heart failure, hypertension, [place] arthritis, permanent pacemaker, Charcot foot, depression, obesity, urinary incontinence, decub wounds, major depression. Past surgical history: Adenoidectomy, bladder surgery, hernia repair, hysterectomy, power and pacemaker , tonsillectomy, laser treatment for glaucoma both the eyes, cataract extraction , medical's with stripping, right breast mass, Social history: This nonsmoker drink alcohol. Resident of [facility]. Family history: Cancer, diabetes, hypertension Home medications, Reviewed in the computer On examination: VITAL SIGNS: [97.5, 61, 16, 92/49, that 8% on 3 L, blood pressure down to 80 x 43] GENERAL: [Well-built, BMI 46.5 laying in bed awake]. EYES: [Pupils equal. Conjunctiva marlena]l. HEENT: [External appearance of nose and ears normal, oral cavity grossly normal] . NECK: [JVD not raised; masses not palpable]. HEART: [First and second heart sounds are normal; no edema]. LUNGS:[ Respiratory rate normal; decreased breath sounds]. ABDOMEN: [Soft, nontender, liver spleen not palpable, no masses palpable]. LYMPHATICS: [No lymph nodes palpable in the axilla and neck]. PSYCH: [Awake on seeing simple questions, cannot tell where she is or what she is here for]l. NEUROLOGICAL: [Cranial nerves grossly intact; no facial asymmetry, limited part of lower extremity, decreased sensation distally MUSCULAR skeletal: Evidence of osteoarthritis in multiple joints Dermatological: See nursing note for description of decubitus ulcers Investigations: White count 9.1, hemoglobin 7.2, potassium 4.9,. 55, creatinine 1.20 albumin 2.4 UA infected appearing Assessment: -Infected decubital ulcers in the lower back, present on admission -Acute symptomatic blood loss anemia from blood loss from bleeding decub ulcers requiring blood transfusion -Hypertension from blood loss -Diabetes mellitus type 2 chronically on insulin -Alzheimer's dementia late onset type -Chronic medical debility from multiple medical problems -Coronary artery disease -Chronic congestive heart failure EF not known -History of hypertension -Primary osteoarthritis multiple joints bilateral -Permanent pacemaker -Charcot foot -Morbid obesity BMI more than 40 -Chronic urinary incontinence -Major depression not otherwise specified -Moderate protein calorie malnutrition from decreased oral intake severe hypoalbuminemia -Chronic urinary stress incontinence -Anorexia due to multiple medical problems and probably side effect of medications Plan: Patient's home medications will be resumed. Patient did get the transfuse 1 unit of blood. Gen. surgery was consulted who will proceed with wound debridement in the morning. Had a lengthy talk with the . Medications are reviewed. Prognosis is guarded. Will stop patient's Actos.. Patient Zestril. Since sugars are running low will cut back the dose of Lantus. cut back the dose of Coreg Advanced care planning: End-of-life care was discussed with the hospice had been [place]. He is thinking about talking to hospice increased according life is not good we'll see how the wound care treatment goals otherwise he is open to looking into hospice. Patient scored status will be DO NOT RESUSCITATE. Time spent in this was about 20 minutes in addition to the H&P Past Medical History Past Medical History: Coronary Artery Disease (CAD), Heart Failure, Dementia, Diabetes Mellitus, Eye Disorder, GERD/Reflux, Hyperlipidemia, Hypertension, Memory Impairment, Osteoarthritis (OA), Pneumonia Additional Past Medical History / Comment(s): 3-21-16 admitted with uti/sepsis Glaucoma, severe degenerative arthritis with secondary debility to the point where the patient is unable to ambulate,charcot feet morbid obesity, urinary incontinence with frequent urinary tract. infection - skin breakdown to buttocks, carpal tunnel disease and MRSA in the past. RT UPPER ARM CELLULITIS, rt breast mass,pvd,bronchitis, sinus problems, carpal tunnel, past fx lt ankle History of Any Multi-Drug Resistant Organisms: ESBL, Other MDRO Date of last positivie culture/infection: 01/31/17 MDRO Source:: urine Past Surgical History: Adenoidectomy, Bladder Surgery, Heart Catheterization, Hernia Repair, Hysterectomy, Pacemaker, Tonsillectomy Additional Past Surgical History / Comment(s): arthroscopy laser sx for glaucoma bashir eyes, Cataract extraction with intraocular lens implantations, varicose vein stripping.rt breast bx(mass), colonoscopy, lt knee Past Anesthesia/Blood Transfusion Reactions: No Reported Reaction Type of Cardiac Device: Permanent Pacemaker Device Placement Date:: 2011 Past Psychological History: No Psychological Hx Reported, Depression Additional Psychological History / Comment(s): per [facility] paperwork, major depressive disorder , mood disorder. pt lost a son in 1998(committed suicide and 2014 her daughter from cancer). Smoking Status: Never smoker Past Alcohol Use History: None Reported Additional Past Alcohol Use History / Comment(s): Patient is currently residing at [facility] in the [place]. She did not work outside of the home. She does not have any history of tobacco use but 2nd hand smoked(both parents smoked and her smoked) no alcohol abuse. Past Drug Use History: None Reported - Past Family History Daughter(s) Family Medical History: Cancer, Diabetes Mellitus, Hypertension Medications and Allergies Home Medications Medication Instructions Recorded Confirmed Type Acetaminophen Tab [Tylenol] 500 mg PO Q6H PRN 12/28/15 05/24/17 History Ammonium Lactate Lotion 1 applic TOPICAL HS 12/28/15 05/24/17 History [Lac-Hydrin 12% Lotion] Atorvastatin [Lipitor] 40 mg PO HS 12/28/15 05/24/17 History Bismuth Subsalicylate 524 mg PO Q4H PRN 12/28/15 05/24/17 History [Pepto-Bismol] Brimonidine Tartrate/Timolol 1 drop BOTH EYES BID 12/28/15 05/24/17 History [Combigan 0.2%/0.5% Ophth Soln] Calcium Carb-Vit D 500Mg-200Un 1 tab PO BID 12/28/15 05/24/17 History [Oscal 500+D] Carvedilol [Coreg] 25 mg PO BID-W/MEALS 12/28/15 05/24/17 History Donepezil HCl [Aricept] 10 mg PO HS 12/28/15 05/24/17 History Insulin Glargine [Lantus] 32 unit SQ HS@2100 12/28/15 05/24/17 History Ipratropium-Albuterol Nebulize 3 ml INHALATION RT-Q4H PRN 12/28/15 05/24/17 History [Duoneb 0.5 mg-3 mg/3 ml Soln] Latanoprost Ophth [Xalatan 0.005%] 1 drop BOTH EYES HS 12/28/15 05/24/17 History Multivitamins, Thera [Multivitamin 1 tab PO DAILY 12/28/15 05/24/17 History (formulary)] Nystatin 100,000 Unit/gm Powd 1 applic TOPICAL BID 12/28/15 05/24/17 History [Mycostatin Powder] Elmira-3 Acid Ethyl Esters [Lovaza] 1 gm PO BID 12/28/15 05/24/17 History Pioglitazone HCl [Actos] 15 mg PO DAILY 12/28/15 05/24/17 History Sertraline [Zoloft] 75 mg PO HS 12/28/15 05/24/17 History Albuterol Nebulized [Ventolin 2.5 mg INHALATION RT-Q6H PRN 01/11/16 05/24/17 History Nebulized] Collagenase [Santyl] 1 applic TOPICAL HS 01/11/16 05/24/17 History Arginaid Extra 240 ml PO BID 05/24/17 05/24/17 History Aspirin EC [Ecotrin Low Dose] 81 mg PO DAILY 05/24/17 05/24/17 History Cholecalciferol (Vitamin D3) 2,000 unit PO DAILY 05/24/17 05/24/17 History [Vitamin D3] Ferrous Sulfate [Feosol] 325 mg PO BID 05/24/17 05/24/17 History Furosemide [Lasix] 20 mg PO DAILY 05/24/17 05/24/17 History HYDROcodone/APAP 5-325MG [Cyrus 1 tab PO Q6HR PRN 05/24/17 05/24/17 History 5-325] Insulin Glargine [Lantus] 36 unit SQ QAM@0600 05/24/17 05/24/17 History Insulin Lispro [humaLOG Kwikpen] 10 unit SQ BID@0800,1100 05/24/17 05/24/17 History Insulin Lispro [humaLOG Kwikpen] 12 unit SQ DAILY@1700 05/24/17 05/24/17 History Insulin Lispro [humaLOG Kwikpen] See Protocol SQ AC-TID 05/24/17 05/24/17 History Lisinopril [Zestril] 2.5 mg PO DAILY 05/24/17 05/24/17 History Magnesium Hydroxide [Milk of 2,400 mg PO DAILY PRN 05/24/17 05/24/17 History Magnesia] Potassium Chloride ER [K-Dur 10] 10 meq PO DAILY 05/24/17 05/24/17 History Allergies Allergy/AdvReac Type Severity Reaction Status Date / Time Quinolones Allergy Unknown Verified 05/24/17 19:55 Physical Exam Vitals: Results CBC & Chem 7: 05/25/17 05:16 05/25/17 05:16
[2017-05-25] MEDS ORDERED: INSULIN LISPRO (humaLOG) 300 UNIT/3 ML VIAL SQ SCH (17:00)
[2017-05-25 17:21] LABS: Glucose,Whole Blood 141 mg/dL (75-99)
[2017-05-25] MEDS: COLLAGENASE 250 UNIT/GM OINTMENT 30 GM TUBE TOPICAL SCH (21:11)
[2017-05-25] MEDS: LATANOPROST 0.005% OPHTH DROPS 2.5 ML BTL BOTH EYES SCH (21:11)
[2017-05-25] MEDS: AMMONIUM LACTATE 12% LOTION 225 GM BTL TOPICAL SCH (21:11)
[2017-05-25] MEDS: SERTRALINE 25 MG TAB PO SCH (21:11)
[2017-05-25] MEDS: ATORVASTATIN 40 MG TAB PO SCH (21:11)
[2017-05-25] MEDS: FAMOTIDINE 20 MG/2 ML VIAL IV SCH (21:11)
[2017-05-25] MEDS: DONEPEZIL 10 MG TAB PO SCH (21:11)
[2017-05-25] MEDS ORDERED: LIDOCAINE 1% 20 ML VIAL (10MG/ML) FOR IV START INTRADERMA PRN (21:19)
[2017-05-25] MEDS ORDERED: fentaNYL (PF) 50 MCG/ML 2 ML AMP IV PRN (21:19)
[2017-05-25] MEDS: LACTATED RINGERS 1,000 ML IV SCH (21:41)
[2017-05-25] MEDS: INSULIN GLARGINE 100 UNIT/ML 10 ML VIAL SQ SCH ×2 (21:49)
[2017-05-25 22:16] LABS: Glucose,Whole Blood 168 mg/dL (75-99)
[2017-05-26] MEDS: HYDROcodone/APAP 5-325MG 1 EACH TAB PO PRN (02:37)
[2017-05-26 07:05] LABS: Glucose,Whole Blood 153 mg/dL (75-99)
[2017-05-26] MEDS: INSULIN LISPRO (humaLOG) 300 UNIT/3 ML VIAL SQ SCH ×7 (07:43→22:06)
[2017-05-26] MEDS: CARVEDILOL 12.5 MG TAB PO SCH ×2 (07:43→17:49)
[2017-05-26] MEDS: FAMOTIDINE 20 MG/2 ML VIAL IV SCH ×2 (07:48→22:05)
[2017-05-26] MEDS: TIMOLOL 0.5% OPHTH DROPS 5 ML BTL BOTH EYES SCH ×2 (07:48→22:03)
[2017-05-26] MEDS: NYSTATIN 100,000 UNIT/GM POWD 15 GM TOPICAL SCH ×2 (07:55→22:04)
[2017-05-26] MEDS: BRIMONIDINE TARTRATE 0.2% DROPS 5 ML BTL BOTH EYES SCH ×2 (07:55→22:05)
[2017-05-26 09:50] LABS: Anisocytosis Slight; Basophils % (A) 1 %; CH 28.2; CHCM 31.8; Eosinophils # (A) 0.3 k/uL (0-0.7); Eosinophils % (A) 5 %; HCT 26.1 % (34.0-46.0); HDW 3.77; HGB 8.1 gm/dL (11.4-16.0); Hypochromasia Moderate; Luc # (Auto) 0.11; Luc % (Auto) 2; Lymphocytes # (A) 0.8 k/uL (1.0-4.8); Lymphocytes % (A) 12 %; MCH 27.8 pg (25.0-35.0); MCHC 31.2 g/dL (31.0-37.0); Mean Platelet Volume 6.9; Monocytes # (A) 0.4 k/uL (0-1.0); Monocytes % (A) 6 %; Neutrophils # (A) 4.7 k/uL (1.3-7.7); Neutrophils % (A) 75 %; Poikilocytosis Slight; RBC 2.93 m/uL (3.80-5.40); RDW 17.3 % (11.5-15.5); WBC 6.3 k/uL (3.8-10.6)
[2017-05-26 10:19] LABS: ALT 27 U/L (9-52); AST 19 U/L (14-36); Alkaline Phosphatase 67 U/L (38-126); Anion Gap 4 mmol/L; Blood Urea Nitrogen 37 mg/dL (7-17); Calcium 8.4 mg/dL (8.4-10.2); Carbon Dioxide 29 mmol/L (22-30); Chloride 104 mmol/L (98-107); Glucose 118 mg/dL (74-99); Non-African American GFR(MDRD) >60 (>60 ml/min/1.73 sqM); Potassium 4.6 mmol/L (3.5-5.1); Sodium 137 mmol/L (137-145); Total Bilirubin 0.4 mg/dL (0.2-1.3)
[2017-05-26] MEDS: LACTATED RINGERS 1,000 ML IV SCH ×2 (12:10→22:04)
[2017-05-26 12:23] LABS: Glucose,Whole Blood 119 mg/dL (75-99)
[2017-05-26] MEDS ORDERED: MIDAZOLAM 2 MG/2 ML VIAL ONE (12:29)
[2017-05-26] MEDS ORDERED: PROPOFOL 10 MG/ML 20 ML VIAL IV ONE (12:29)
[2017-05-26] MEDS ORDERED: fentaNYL (PF) 50 MCG/ML 2 ML AMP ONE (12:29)
[2017-05-26] MEDS ORDERED: GLYCOPYRROLATE 0.2 MG/ML 2 ML VIAL ONE (12:29)
[2017-05-26] MEDS ORDERED: NEOSTIGMINE 1 MG/ML 10 ML VIAL ONE (12:29)
[2017-05-26] MEDS ORDERED: ROCURONIUM BROMIDE 10 MG/ML 10 ML VIAL IV ONE (12:29)
[2017-05-26] MEDS ORDERED: LACTATED RINGERS 1,000 ML IV ONE (12:29)
[2017-05-26] MEDS ORDERED: SODIUM CHLORIDE 0.9% 50 ML with ceFAZolin 3,000 MG IV ONE ×2 (12:50)
--- NOTE | 2017-05-26 14:09 | P.OP ---
Date of Procedure: 05/26/17 Preoperative Diagnosis: 1. Multiple sacral decubitus ulcers 2. Type 2 diabetes mellitus 3. Morbid obesity BMI 46.5 4. Dementia 5. Severe protein energy malnutrition- Prealbumin of 9 Postoperative Diagnosis: Same Procedure(s) Performed: Sharp excisional debridement of sacral decubitus ulcer 3 Application of wound VAC Implants: NA Anesthesia: ESTEBAN Surgeon: Mariah Ward Pathology: other Condition: stable Disposition: PACU Indications for Procedure: 76 years old female with multiple comorbid conditions presents with multiple sacral pressure ulcers. Informed consent obtained and family elected to undergo surgical debridement in the operating room Operative Findings: Stage III pressure ulcersx3 involving skin, subcutaneous tissue and fascia. Post surgical debridement right gluteal ulcer measures 6 x 6 x 1 cm, left gluteal ulcer measures 8.5 x 5 x 1.5 cm and sacral ulcer measures 5 x 8 x 1 cm. There is excoriation and cellulitis involving the entire lower back, gluteal region and upper thighs Description of Procedure: The patient was brought to the operating room and placed in supine position. Gen. anesthesia with endotracheal intubation was performed as per anesthesia team. She was then positioned prone. A timeout was performed to verify correct patient and correct procedure. Patient was confirmed to receive perioperative IV antibiotics. Betadine was used to prep the skin followed by application of sterile drapes. Using cut mode on Bovie electrocautery sharp excisional debridement was performed to remove the necrotic skin, subcutaneous fat and fascia until fresh bleeding was obtained. Hemostasis was checked. The cavities were irrigated with pulse lavage irrigation and all the necrotic skin, subcutaneous tissue and fascia were removed. Stage III pressure ulcer involving skin, subcutaneous tissue and fascia. Post surgical debridement right gluteal ulcer measures 6 x 6 x 1 cm, left gluteal ulcer measures 8.5 x 5 x 1.5 cm and sacral ulcer measures 5 x 8 x 1 cm. There is excoriation and cellulitis involving the entire lower back, gluteal region and upper thighs. Santyl was applied at the base of the wound. Adaptic dressing was applied. Wound VAC was applied to the 3 ulcers and were connected using standard black granulofoam protecting the skin. The wound VAC was connected to a pressure of 125 mm of Hg.
[2017-05-26 14:38] LABS: Glucose,Whole Blood 145 mg/dL (75-99)
[2017-05-26 17:35] LABS: Glucose,Whole Blood 166 mg/dL (75-99)
[2017-05-26] MEDS: FUROSEMIDE 20 MG TAB PO SCH (17:48)
[2017-05-26] MEDS: POTASSIUM CHLORIDE ER 10 MEQ TAB.ER.PRT PO SCH (17:48)
[2017-05-26] MEDS: FERROUS SULFATE 325 MG TAB PO SCH ×2 (17:48→22:06)
[2017-05-26] MEDS: CHOLECALCIFEROL 1,000 UNIT TAB PO SCH (17:48)
[2017-05-26] MEDS: MULTIVITAMINS, THERA 1 EACH TAB PO SCH (17:48)
[2017-05-26] MEDS: ASPIRIN 81 MG CHEW PO SCH (17:50)
[2017-05-26 21:00] LABS: Glucose,Whole Blood 135 mg/dL (75-99)
[2017-05-26] MEDS: SERTRALINE 25 MG TAB PO SCH (22:03)
[2017-05-26] MEDS: AMMONIUM LACTATE 12% LOTION 225 GM BTL TOPICAL SCH (22:04)
[2017-05-26] MEDS: LATANOPROST 0.005% OPHTH DROPS 2.5 ML BTL BOTH EYES SCH (22:04)
[2017-05-26] MEDS: COLLAGENASE 250 UNIT/GM OINTMENT 30 GM TUBE TOPICAL SCH (22:05)
[2017-05-26] MEDS: ATORVASTATIN 40 MG TAB PO SCH (22:05)
[2017-05-26] MEDS: DONEPEZIL 10 MG TAB PO SCH (22:06)
[2017-05-26] MEDS: INSULIN GLARGINE 100 UNIT/ML 10 ML VIAL SQ SCH ×2 (22:15)
[2017-05-27 07:51] LABS: Glucose,Whole Blood 98 mg/dL (75-99)
[2017-05-27] MEDS: INSULIN LISPRO (humaLOG) 300 UNIT/3 ML VIAL SQ SCH ×7 (08:41→21:40)
[2017-05-27] MEDS: COLLAGENASE 250 UNIT/GM OINTMENT 30 GM TUBE TOPICAL SCH ×2 (08:44→21:37)
[2017-05-27] MEDS: FAMOTIDINE 20 MG/2 ML VIAL IV SCH (08:49)
[2017-05-27] MEDS: FUROSEMIDE 20 MG TAB PO SCH (08:49)
[2017-05-27] MEDS: POTASSIUM CHLORIDE ER 10 MEQ TAB.ER.PRT PO SCH (08:49)
[2017-05-27] MEDS: MULTIVITAMINS, THERA 1 EACH TAB PO SCH (08:49)
[2017-05-27] MEDS: CHOLECALCIFEROL 1,000 UNIT TAB PO SCH (08:49)
[2017-05-27] MEDS: FERROUS SULFATE 325 MG TAB PO SCH ×2 (08:49→21:43)
[2017-05-27] MEDS: CARVEDILOL 12.5 MG TAB PO SCH ×2 (08:50→17:16)
[2017-05-27] MEDS: BRIMONIDINE TARTRATE 0.2% DROPS 5 ML BTL BOTH EYES SCH ×2 (08:50→21:44)
[2017-05-27] MEDS: NYSTATIN 100,000 UNIT/GM POWD 15 GM TOPICAL SCH ×2 (08:51→21:44)
[2017-05-27] MEDS: TIMOLOL 0.5% OPHTH DROPS 5 ML BTL BOTH EYES SCH ×2 (08:52→21:43)
[2017-05-27 09:06] LABS: Anisocytosis Slight; Basophils % (A) 0 %; CH 27.8; CHCM 31.9; Eosinophils # (A) 0.3 k/uL (0-0.7); Eosinophils % (A) 3 %; HCT 29.5 % (34.0-46.0); HGB 9.3 gm/dL (11.4-16.0); Hypochromasia Moderate; Luc # (Auto) 0.08; Luc % (Auto) 1; Lymphocytes # (A) 0.7 k/uL (1.0-4.8); Lymphocytes % (A) 8 %; MCH 27.7 pg (25.0-35.0); MCHC 31.6 g/dL (31.0-37.0); MCV 87.6 fL (80.0-100.0); Mean Platelet Volume 6.1; Monocytes # (A) 0.4 k/uL (0-1.0); Monocytes % (A) 4 %; Neutrophils # (A) 7.7 k/uL (1.3-7.7); Neutrophils % (A) 83 %; Poikilocytosis Slight; RBC 3.37 m/uL (3.80-5.40); RDW 16.9 % (11.5-15.5); WBC 9.3 k/uL (3.8-10.6); WBC (Perox) 9.65
--- NOTE | 2017-05-27 09:56 | P.PN ---
Progress Note - Text Patient seen and evaluated. Dressing clean dry and intact. Wound VAC seal intact. Multiple macerations and ecchymosis along the skin and skin folds. Wound VAC dressing changes Monday. No additional surgical intervention needed at this time.
--- NOTE | 2017-05-27 11:38 | PN ---
DATE OF SERVICE: 05/26/2017 PRESENTING COMPLAINT: Infected decub ulcers. INTERVAL HISTORY: This is a patient with multiple decub ulcers. Migdalia to the OR today, had a debridement done. Post procedure back in the room, laying in bed, awaiting her meal. at the bedside. decided to make her full code The patient currently denies any pain. REVIEW OF SYSTEMS: Was attempted but patient does not give much of a ( ). CURRENT MEDICATIONS: Reviewed and include Santyl. On examination, temperature 96.8, pulse 71, respirations 20, blood pressure 140/ 79, pulse ox 93% on 2 liters. GENERAL APPEARANCE: Laying in bed, awake. EYES: Conjunctivae pale. NECK: JVP not raised. Mass not palpable. RESPIRATORY EFFORT: Normal. LUNGS: Decreased breath sounds. CARDIOVASCULAR: First and second sound normal. No edema. ABDOMEN: Soft, nontender. Liver and spleen not palpable. PSYCHIATRY: Awake. Answering simple questions. INVESTIGATIONS: White count 6.3, hemoglobin 8.1. Potassium 4.6. Accu-Cheks are noted. ASSESSMENT: 1. Multiple infected decubitus ulcers of the lower back, present on admission, status post debridement. 2. Acute symptomatic blood loss anemia from blood loss from bleeding decubitus ulcers, requiring blood transfusion. 3. Hypotension from blood loss. 4. Diabetes mellitus type 2, currently on insulin. 5. Alzheimer's dementia, late onset type. 6. Medical debility from multiple medical problems. 7. Coronary artery disease. 8. Chronic congestive heart failure, ejection fraction not known. 9. History of essential hypertension. 10. Primary osteoarthritis of multiple joints bilateral. 11. Permanent pacemaker. 12. Charcot foot. 13. Morbid obesity, body mass index 40. 14. Chronic urinary stress incontinence. 15. Major depression, not otherwise specified. 16. Moderate protein-calorie malnutrition with decreased oral intake and severe hypoalbuminemia. 17. Anorexia due to multiple medical problems and probably side effects to medications. 18. CODE STATUS: FULL. PLAN: Plan was discussed with the at the bedside. He wants a full code. Continue current medication and treatment plan. Await further input from surgery and go from there. [facility] INSANEM[facility]
[2017-05-27 12:02] LABS: Glucose,Whole Blood 98 mg/dL (75-99)
[2017-05-27 17:39] LABS: Glucose,Whole Blood 134 mg/dL (75-99)
--- NOTE | 2017-05-27 18:53 | P.PN ---
<Isa Arriaza - Last Filed: 05/27/17 18:19> Progress Note - Text DATE OF SERVICE: 05/27/2017 PRESENTING COMPLAINT: Infected decubitus ulcers INTERVAL HISTORY: 76-year-old female with multiple decubitus ulcers from a [facility]. Postop day 1 from scar. Excisional debridement of sacral decubitus ulcer 3 and application of a wound VAC. 05/27/2017: Lying in bed, arousable to verbal stimuli. Somewhat lethargic, Pale-appearing. Wound VAC in place, small amount of drainage noted. No family at the bedside. He ate about 50% of her breakfast per the nursing staff, currently bedbound, BM yesterday. REVIEW OF SYSTEMS: Done for constitutional ,cardiovascular, GI, pulmonary with relevant findings as above. CURRENT MEDICATIONS Stella, albuterol, Lipitor, Coreg, Aricept, Pepcid, Lasix, Lantus, Zoloft. PHYSICAL EXAM VITAL SIGNS: Temperature 97.4, pulse 61, blood pressure 144/90 respiratory rate 14, oxygen saturation 95% on 2 L GENERAL APPEARANCE:. Lying in bed, somewhat lethargic, pale-appearing. EYES: Pupils equal. Conjunctiva pale. NECK: JVD not raised. Mass not palpable. RESPIRATORY: Respiratory effort normal. Diminished to auscultation. CARDIOVASCULAR: First and second sounds normal. Generalized edema. ABDOMEN: Soft. Liver and spleen not palpable. No tenderness. No mass palpable. PSYCHIATRY: Alert and oriented x3. Mood and affect lethargic. INTEGUMENT: Negative pressure wound VAC in place with occlusive dressing small amount of dark drainage noted in the wound VAC. INVESTIGATIONS: White blood cell count 9.3, hemoglobin 9.3, Accu-Cheks noted. ASSESSMENT: -Multiple infected decubitus ulcers of the lower back, present on admission, status post debridement .-Acute symptomatic blood loss anemia from bleeding decubitus ulcers, rib requiring blood transfusion. -Hypertension from blood loss. -Diabetes mellitus type 2 currently on insulin. -Alzheimer's dementia, late onset type. -Medical debility from multiple medical problems. -Coronary artery disease. -Chronic just heart failure, ejection fraction unknown. -History of essential hypertension. -Primary osteoarthritis of multiple joints bilateral. -Permanent pacemaker. -Charcot foot -Morbid obesity, body mass index 40. -Chronic urinary stress incontinence. -Major depression not otherwise specified. -Moderate protein calorie malnutrition with decreased oral intake and severe hypoalbuminemia -Anorexia due to multiple medical problems and probably side effects of medication CODE STATUS: Full PLAN: Continue wound VAC therapy, anticipate wound VAC change on Monday. Continue current medication and treatment plan. Plan of care discussed with the patient and at the bedside, will continue to monitor closely. [employer] statement: Patient was seen and examined by nurse practitioner Isa Arriaza and all elements of the case discussed with attending Dr. Mcdaniels <Gonzales Mcdaniels - Last Filed: 05/27/17 20:12> Progress Note - Text Attending note. Date of service-06/06/2017 This patient was seen and examined by me . I reviewed the note of my nurse practitioner, Ms. Arriaza. Discussed with her, additional findings as below. This patient with multiple problems who initially was DO NOT RESUSCITATE but has been has made a full code again. Status post wound debridement. Eating about 25% laying in bed comfortable has been at the bedside On examination: Lungs-decreased breath sounds, patient of a constant simple questions. Wound VAC in place Investigations: Hemoglobin 9.3 Assessment and plan: Multiple medical problems including status post debridement of the wound. Discussed guarded prognosis and her . Looking at getting the patient back to the ECF on Monday
[2017-05-27 21:30] LABS: Glucose,Whole Blood 187 mg/dL (75-99)
[2017-05-27] MEDS: AMMONIUM LACTATE 12% LOTION 225 GM BTL TOPICAL SCH (21:37)
[2017-05-27] MEDS: INSULIN GLARGINE 100 UNIT/ML 10 ML VIAL SQ SCH (21:40)
[2017-05-27] MEDS: DONEPEZIL 10 MG TAB PO SCH (21:41)
[2017-05-27] MEDS: ATORVASTATIN 40 MG TAB PO SCH (21:42)
[2017-05-27] MEDS: SERTRALINE 25 MG TAB PO SCH (21:42)
[2017-05-27] MEDS: LATANOPROST 0.005% OPHTH DROPS 2.5 ML BTL BOTH EYES SCH (21:43)
[2017-05-27] MEDS: FAMOTIDINE 20 MG TAB PO SCH (21:47)
[2017-05-27] MEDS: LACTATED RINGERS 1,000 ML IV SCH (21:48)
[2017-05-28 07:44] LABS: Glucose,Whole Blood 155 mg/dL (75-99)
[2017-05-28] MEDS: BRIMONIDINE TARTRATE 0.2% DROPS 5 ML BTL BOTH EYES SCH ×2 (08:23→21:32)
[2017-05-28] MEDS: POTASSIUM CHLORIDE ER 10 MEQ TAB.ER.PRT PO SCH (08:24)
[2017-05-28] MEDS: FERROUS SULFATE 325 MG TAB PO SCH ×2 (08:24→21:35)
[2017-05-28] MEDS: FUROSEMIDE 20 MG TAB PO SCH (08:24)
[2017-05-28] MEDS: CARVEDILOL 12.5 MG TAB PO SCH ×2 (08:24→16:51)
[2017-05-28] MEDS: TIMOLOL 0.5% OPHTH DROPS 5 ML BTL BOTH EYES SCH ×2 (08:24→21:31)
[2017-05-28] MEDS: FAMOTIDINE 20 MG TAB PO SCH ×2 (08:24→21:35)
[2017-05-28] MEDS: MULTIVITAMINS, THERA 1 EACH TAB PO SCH (08:24)
[2017-05-28] MEDS: CHOLECALCIFEROL 1,000 UNIT TAB PO SCH (08:24)
[2017-05-28] MEDS: NYSTATIN 100,000 UNIT/GM POWD 15 GM TOPICAL SCH ×2 (08:25→21:30)
[2017-05-28] MEDS: INSULIN LISPRO (humaLOG) 300 UNIT/3 ML VIAL SQ SCH ×7 (08:25→21:33)
[2017-05-28] MEDS: COLLAGENASE 250 UNIT/GM OINTMENT 30 GM TUBE TOPICAL SCH ×2 (08:26→21:32)
[2017-05-28 09:51] LABS: Anisocytosis Slight; Basophils % (A) 0 %; CH 28.2; Eosinophils # (A) 0.1 k/uL (0-0.7); Eosinophils % (A) 2 %; HCT 26.9 % (34.0-46.0); HDW 3.67; HGB 8.3 gm/dL (11.4-16.0); Hypochromasia Slight; Luc # (Auto) 0.08; Luc % (Auto) 1; Lymphocytes # (A) 0.5 k/uL (1.0-4.8); Lymphocytes % (A) 7 %; MCH 27.4 pg (25.0-35.0); MCV 88.3 fL (80.0-100.0); Mean Platelet Volume 6.6; Monocytes # (A) 0.4 k/uL (0-1.0); Monocytes % (A) 5 %; Neutrophils # (A) 6.8 k/uL (1.3-7.7); Neutrophils % (A) 85 %; Poikilocytosis Slight; RBC 3.05 m/uL (3.80-5.40); RDW 17.1 % (11.5-15.5); WBC 7.9 k/uL (3.8-10.6); WBC (Perox) 8.33
[2017-05-28 10:15] LABS: Anion Gap 3 mmol/L; Blood Urea Nitrogen 19 mg/dL (7-17); Calcium 8.5 mg/dL (8.4-10.2); Carbon Dioxide 31 mmol/L (22-30); Chloride 103 mmol/L (98-107); Glucose 140 mg/dL (74-99); Non-African American GFR(MDRD) >60 (>60 ml/min/1.73 sqM); Potassium 4.2 mmol/L (3.5-5.1); Sodium 137 mmol/L (137-145)
[2017-05-28 12:16] LABS: Glucose,Whole Blood 145 mg/dL (75-99)
--- NOTE | 2017-05-28 12:56 | P.PN ---
Progress Note - Text Patient seen and evaluated. Wound VAC intact dressing. Agreeable discharge to facility tomorrow with wound VAC dressing changes.
--- NOTE | 2017-05-28 16:46 | P.PN ---
Subjective Principal diagnosis: History of sacral debridement Patient is postop day 1 status post debridement of sacrum by Dr. Ward. Wound VAC intact. No reports of new fevers or chills. Objective - Vital Signs Vital signs: Vital Signs Temp 97.4 F L 05/27/17 07:00 Pulse 106 H 05/27/17 07:00 Resp 14 05/27/17 07:00 BP 144/90 05/27/17 07:00 Pulse Ox 95 05/27/17 07:00 Intake & Output 05/26/17 05/27/17 05/27/17 18:59 06:59 18:59 Intake Total 1100 Output Total 860 600 Balance 240 -600 Weight 120 kg Intake: IV 1100 Oral 0 Output: Urine 850 600 Estimated Blood Loss 10 Other: Voiding Method Indwelling Catheter Indwelling Catheter # Bowel Movements 0 - Exam GENERAL: Well developed and in no acute distress. HEENT: No sclera icterus. Extraocular movements grossly intact. Moist buccal mucosa. Head is atraumatic, normocephalic. Hears conversational speech. No nasal drainage. NECK: Supple without lymphadenopathy. CHEST: Non-labored respirations and equal bilateral excursions. CARDIOVASCULAR: Regular rate and rhythm. Palpable 2+ radial pulses. ABDOMEN: Soft, nontender. Nondistended. MUSCULOSKELETAL: No clubbing, cyanosis or edema. NEUROLOGIC: Generalized weakness. PSYCH: Slow mentation Oriented to self. SKIN: Moderate ecchymoses along the left hand and digits. Wound VAC intact along sacrum. Multiple macerations and ecchymosis along the skin and skin folds. - Labs CBC & Chem 7: 05/28/17 09:14 05/28/17 09:14 Labs: Abnormal Lab Results - Last 24 Hours (Table) 05/24/17 05/26/17 05/26/17 Range/Units 19:55 09:23 09:23 RBC 2.93 L (3.80-5.40) m/uL Hgb 8.1 L (11.4-16.0) gm/dL Hct 26.1 L (34.0-46.0) % RDW 17.3 H (11.5-15.5) % Lymphocytes # 0.8 L (1.0-4.8) k/uL BUN 37 H (7-17) mg/dL Glucose 118 H (74-99) mg/dL POC Glucose (mg/dL) (75-99) mg/dL Total Protein 4.0 L (6.3-8.2) g/dL Albumin 1.9 L (3.5-5.0) g/dL Crossmatch See Detail 05/26/17 05/26/17 05/26/17 Range/Units 12:09 14:25 17:27 RBC (3.80-5.40) m/uL Hgb (11.4-16.0) gm/dL Hct (34.0-46.0) % RDW (11.5-15.5) % Lymphocytes # (1.0-4.8) k/uL BUN (7-17) mg/dL Glucose (74-99) mg/dL POC Glucose (mg/dL) 119 H 145 H 166 H (75-99) mg/dL Total Protein (6.3-8.2) g/dL Albumin (3.5-5.0) g/dL Crossmatch 05/26/17 05/27/17 Range/Units 20:56 08:25 RBC 3.37 L (3.80-5.40) m/uL Hgb 9.3 L (11.4-16.0) gm/dL Hct 29.5 L (34.0-46.0) % RDW 16.9 H (11.5-15.5) % Lymphocytes # 0.7 L (1.0-4.8) k/uL BUN (7-17) mg/dL Glucose (74-99) mg/dL POC Glucose (mg/dL) 135 H (75-99) mg/dL Total Protein (6.3-8.2) g/dL Albumin (3.5-5.0) g/dL Crossmatch Microbiology - Last 24 Hours (Table) 05/26/17 13:24 Gram Stain - Preliminary Tissue - Other Tissue Culture - Preliminary 05/26/17 13:24 Anaerobic Culture - Preliminary Tissue - Other Assessment and Plan (1) Sacral decubitus ulcer Status: Acute (2) Intertriginous candidiasis Status: Acute (3) Mental status change Status: Acute (4) Morbid obesity Status: Acute Plan: 1. Wound VAC dressing changes Monday. 2. No additional surgical intervention needed at this time.
--- NOTE | 2017-05-28 16:48 | P.PN ---
Subjective Principal diagnosis: History of sacral debridement Patient is postop day 2 status post debridement of sacrum by Dr. Ward. No new issues overnight. Wound VAC intact without malfunction. Objective - Vital Signs Vital signs: Vital Signs Temp 98.4 F 05/28/17 07:00 Pulse 61 05/28/17 07:00 Resp 14 05/28/17 07:00 BP 108/46 05/28/17 07:00 Pulse Ox 100 05/28/17 07:00 Intake & Output 05/27/17 05/28/17 05/28/17 18:59 06:59 18:59 Output Total 650 400 Balance -650 -400 Weight 124 kg Output: Urine 650 400 Other: Voiding Method Indwelling Catheter Indwelling Catheter - Exam GENERAL: Well developed and in no acute distress. HEENT: No sclera icterus. Extraocular movements grossly intact. Moist buccal mucosa. Head is atraumatic, normocephalic. Hears conversational speech. No nasal drainage. NECK: Supple without lymphadenopathy. CHEST: Non-labored respirations and equal bilateral excursions. CARDIOVASCULAR: Regular rate and rhythm. Palpable 2+ radial pulses. ABDOMEN: Soft, nontender. Nondistended. MUSCULOSKELETAL: No clubbing, cyanosis or edema. NEUROLOGIC: Generalized weakness. PSYCH: Slow mentation Oriented to self. SKIN: Wound VAC intact along sacrum. - Labs CBC & Chem 7: 05/28/17 09:14 05/28/17 09:14 Labs: Abnormal Lab Results - Last 24 Hours (Table) 05/27/17 05/27/17 05/28/17 Range/Units 17:35 21:18 07:42 RBC (3.80-5.40) m/uL Hgb (11.4-16.0) gm/dL Hct (34.0-46.0) % RDW (11.5-15.5) % Lymphocytes # (1.0-4.8) k/uL Carbon Dioxide (22-30) mmol/L BUN (7-17) mg/dL Glucose (74-99) mg/dL POC Glucose (mg/dL) 134 H 187 H 155 H (75-99) mg/dL 05/28/17 05/28/17 05/28/17 Range/Units 09:14 09:14 12:13 RBC 3.05 L (3.80-5.40) m/uL Hgb 8.3 L (11.4-16.0) gm/dL Hct 26.9 L (34.0-46.0) % RDW 17.1 H (11.5-15.5) % Lymphocytes # 0.5 L (1.0-4.8) k/uL Carbon Dioxide 31 H (22-30) mmol/L BUN 19 H (7-17) mg/dL Glucose 140 H (74-99) mg/dL POC Glucose (mg/dL) 145 H (75-99) mg/dL Microbiology - Last 24 Hours (Table) 05/26/17 13:24 Gram Stain - Preliminary Tissue - Other Tissue Culture - Preliminary Gram Neg Bacilli Assessment and Plan (1) Sacral decubitus ulcer Status: Acute (2) Mental status change Status: Acute (3) Morbid obesity Status: Acute Plan: 1. Wound VAC dressing changes Monday. 2. Patient may be discharged home with follow-up at the wound care center.
[2017-05-28 17:35] LABS: Glucose,Whole Blood 217 mg/dL (75-99)
--- NOTE | 2017-05-28 17:59 | P.PN ---
Progress Note - Text DATE OF SERVICE: 05/28/2017 PRESENTING COMPLAINT: Infected decubitus ulcers INTERVAL HISTORY: 76-year-old female with multiple decubitus ulcers from a long term. Postop day 2 from sharp Excisional debridement of sacral decubitus ulcer 3 and application of a wound VAC. 05/27/2017: Lying in bed, arousable to verbal stimuli. Somewhat lethargic, Pale-appearing. Wound VAC in place, small amount of drainage noted. No family at the bedside. He ate about 50% of her breakfast per the nursing staff, currently bedbound, BM yesterday. 05/28/2017: Lying In bed arousable, breakfast in front of the patient, attempt by ARBITRATOR to have patient eat she flatly refused. According to nursing staff patient does better with family present, this was evidenced at lunch. Wound VAC in place draining dark burgundy drainage, last BM was yesterday. REVIEW OF SYSTEMS: Done for constitutional ,cardiovascular, GI, pulmonary, integument with relevant findings as above. CURRENT MEDICATIONS [place], albuterol, Lipitor, Coreg, Aricept, Pepcid, Lasix, Lantus, Zoloft. PHYSICAL EXAM VITAL SIGNS: Temperature 98.4, pulse 61, respiratory rate 16, blood pressure 108/46, oxygen saturation 100% on 2 L GENERAL APPEARANCE:. Sitting up in bed, somewhat lethargic, pale-appearing. EYES: Pupils equal. Conjunctiva pale. NECK: JVD not raised. Mass not palpable. RESPIRATORY: Respiratory effort normal. Diminished to auscultation. CARDIOVASCULAR: First and second sounds normal. Generalized edema. ABDOMEN: Soft. Liver and spleen not palpable. No tenderness. No mass palpable. PSYCHIATRY: Alert and oriented x3. Mood and affect lethargic. INTEGUMENT: Negative pressure wound VAC in place with occlusive dressing small amount of dark maroon drainage noted in the wound VAC. INVESTIGATIONS: Hemoglobin 8.3, sodium 137, potassium 4.2, BUN 19, creatinine 0.69, Accu-Cheks noted ASSESSMENT: -Multiple infected decubitus ulcers of the lower back, present on admission, status post debridement .-Acute symptomatic blood loss anemia from bleeding decubitus ulcers, requiring blood transfusion. -Hypotension from blood loss. -Diabetes mellitus type 2 currently on insulin. -Alzheimer's dementia, late onset type. -Medical debility from multiple medical problems. -Coronary artery disease. -Chronic just heart failure, ejection fraction unknown. -History of essential hypertension. -Primary osteoarthritis of multiple joints bilateral. -Permanent pacemaker. -Charcot foot secondary to diabetes -Morbid obesity, body mass index 40. -Chronic urinary stress incontinence. -Major depression not otherwise specified. -Moderate protein calorie malnutrition with decreased oral intake and severe hypoalbuminemia -Anorexia due to multiple medical problems and probably side effects of medication -Multiple medical problems including status post debridement of the wound CODE STATUS: Full PLAN: Continue wound VAC therapy, anticipate wound VAC change on Monday patient will transfer back to [facility].surgery is agreeable with this plan.Plan of care discussed with the patient and at the bedside, will continue to monitor closely. 1715: Called by nursing regarding had concerns about patient's current condition and today's hemoglobin. Explained hemoglobin parameters, when we typically transfuse, and criteria used to evaluate symptomatic versus nonsymptomatic hemoglobin drops. Vital signs currently stable, no tachycardia no hypotension, drainage from wound VAC is appropriate. stated "I do not agree with this and feel she should be transfused". ARBITRATOR explained she has no clinical indication for transfusion. Prognosis is poor, patient has been pale and lethargic since day of admission, discussions have been had with regarding this. Offered to have attending physician Dr. Mcdaniels speak with him and he refused stating "He is going to say the same thing you just said ". then stated "We will see what my automatic vulcanizing operator has to say about this." ARBITRATOR statement: Patient was seen and examined by nurse practitioner Isa Arriaza and all elements of the case discussed with attending Dr. Mcdaniels
[2017-05-28 20:50] LABS: Glucose,Whole Blood 181 mg/dL (75-99)
[2017-05-28] MEDS: LACTATED RINGERS 1,000 ML IV SCH (21:31)
[2017-05-28] MEDS: SERTRALINE 25 MG TAB PO SCH (21:31)
[2017-05-28] MEDS: LATANOPROST 0.005% OPHTH DROPS 2.5 ML BTL BOTH EYES SCH (21:32)
[2017-05-28] MEDS: AMMONIUM LACTATE 12% LOTION 225 GM BTL TOPICAL SCH (21:32)
[2017-05-28] MEDS: INSULIN GLARGINE 100 UNIT/ML 10 ML VIAL SQ SCH (21:33)
[2017-05-28] MEDS: ATORVASTATIN 40 MG TAB PO SCH (21:34)
[2017-05-28] MEDS: DONEPEZIL 10 MG TAB PO SCH (21:35)
[2017-05-28] MEDS: HYDROcodone/APAP 5-325MG 1 EACH TAB PO PRN (21:46)
[2017-05-29 07:03] LABS: Glucose,Whole Blood 138 mg/dL (75-99)
[2017-05-29] MEDS: INSULIN LISPRO (humaLOG) 300 UNIT/3 ML VIAL SQ SCH ×4 (07:52→12:46)
[2017-05-29] MEDS: COLLAGENASE 250 UNIT/GM OINTMENT 30 GM TUBE TOPICAL SCH (07:53)
[2017-05-29] MEDS: CARVEDILOL 12.5 MG TAB PO SCH (08:20)
[2017-05-29] MEDS: TIMOLOL 0.5% OPHTH DROPS 5 ML BTL BOTH EYES SCH (08:21)
[2017-05-29] MEDS: FUROSEMIDE 20 MG TAB PO SCH (08:22)
[2017-05-29] MEDS: CHOLECALCIFEROL 1,000 UNIT TAB PO SCH (08:22)
[2017-05-29] MEDS: FERROUS SULFATE 325 MG TAB PO SCH (08:23)
[2017-05-29] MEDS: BRIMONIDINE TARTRATE 0.2% DROPS 5 ML BTL BOTH EYES SCH (08:23)
[2017-05-29] MEDS: FAMOTIDINE 20 MG TAB PO SCH (08:23)
[2017-05-29] MEDS: MULTIVITAMINS, THERA 1 EACH TAB PO SCH (08:24)
[2017-05-29] MEDS: POTASSIUM CHLORIDE ER 10 MEQ TAB.ER.PRT PO SCH (08:24)
[2017-05-29] MEDS: NYSTATIN 100,000 UNIT/GM POWD 15 GM TOPICAL SCH (08:25)
[2017-05-29] MEDS ORDERED: SILVER NITRATE APPLICATOR 1 EACH STICK..EA. TOPICAL ONE (08:44)
[2017-05-29 08:53] LABS: Anisocytosis Slight; Basophils % (A) 0 %; CH 27.6; CHCM 31.6; Eosinophils # (A) 0.3 k/uL (0-0.7); Eosinophils % (A) 3 %; HCT 28.4 % (34.0-46.0); HDW 3.75; HGB 9.1 gm/dL (11.4-16.0); Hypochromasia Moderate; Luc # (Auto) 0.11; Luc % (Auto) 1; Lymphocytes # (A) 0.8 k/uL (1.0-4.8); Lymphocytes % (A) 8 %; MCH 28.1 pg (25.0-35.0); MCV 87.7 fL (80.0-100.0); Mean Platelet Volume 6.5; Monocytes # (A) 0.4 k/uL (0-1.0); Monocytes % (A) 4 %; Neutrophils # (A) 7.5 k/uL (1.3-7.7); Neutrophils % (A) 83 %; Poikilocytosis Slight; RBC 3.24 m/uL (3.80-5.40); RDW 16.4 % (11.5-15.5); WBC 9.1 k/uL (3.8-10.6); WBC (Perox) 9.08
[2017-05-29] MEDS: HYDROcodone/APAP 5-325MG 1 EACH TAB PO PRN ×2 (08:55→15:37)
[2017-05-29 09:11] LABS: Anion Gap 5 mmol/L; Blood Urea Nitrogen 20 mg/dL (7-17); Calcium 8.5 mg/dL (8.4-10.2); Carbon Dioxide 30 mmol/L (22-30); Chloride 103 mmol/L (98-107); Glucose 138 mg/dL (74-99); Non-African American GFR(MDRD) >60 (>60 ml/min/1.73 sqM); Potassium 4.2 mmol/L (3.5-5.1); Sodium 138 mmol/L (137-145)
[2017-05-29 11:53] LABS: Glucose,Whole Blood 285 mg/dL (75-99)
--- NOTE | 2017-05-29 13:11 | P.PN ---
Subjective 76-year-old female being seen on rounds this morning. The discharge plan is in progress. Patient's postop day 3 debridement of a large sacral decubitus ulcer by Dr. Ward. The wound VAC was placed there were no evidence of any malfunctioning. The plan today is for the patient be transferred back to the [facility] facility. Patient's initial presentation was multiple decubitus ulcers from a [facility]. Patient underwent a debridement of the sacral decubitus ulcers 3 with an application of a wound VAC. Hemoglobin this morning 9.1 hemoglobin the day before 8.3. No active bleeding noted from the sacral decubitus ulcers Objective - Vital Signs Vital signs: Vital Signs Temp 97.5 F L 05/29/17 07:00 Pulse 61 05/29/17 07:00 Resp 18 05/29/17 07:00 BP 116/58 05/29/17 07:00 Pulse Ox 100 05/29/17 07:00 Intake & Output 05/28/17 05/29/17 05/29/17 18:59 06:59 18:59 Intake Total 300 240 Output Total 600 500 Balance -600 -200 240 Weight 125.5 kg Intake: Oral 300 240 Output: Urine 600 500 Other: Voiding Method Indwelling Catheter Indwelling Catheter - Exam Physical exam 76-year-old female resting in bed awake alert oriented to self and place Lungs diminished at the bases posterior otherwise adequate air movement sats 100 % on 2 L no cough noted no shortness of breath Heart S1-S2 audible irregular Abdomen obese soft not distended indwelling Baires catheter in place no stool no reports of nausea vomiting Extremities no edema noted Skin wound VAC removed inspected the 3 decubitus ulcers wet-to-dry dressings placed scant amount of bloody drainage noted from the decubitus ulcers stage III pressure ulcers 3 involving the skin and subcutaneous tissue and fascia. Debridement of the right gluteal ulcer measured 6 x 6 x 1 cm, left gluteal ulcer measured 8.5 x 5 by 1.5 cm and the sacral ulcer measured 5 x 8 x 1 cm. There is cellulitis involving the entire lower back and gluteal region and the upper thighs with excoriation noted skin excoriation to the skin folds in the inner thigh - Labs CBC & Chem 7: 05/29/17 08:33 05/29/17 08:33 Labs: Abnormal Lab Results - Last 24 Hours (Table) 05/28/17 05/28/17 05/29/17 Range/Units 17:32 20:44 06:57 RBC (3.80-5.40) m/uL Hgb (11.4-16.0) gm/dL Hct (34.0-46.0) % RDW (11.5-15.5) % Lymphocytes # (1.0-4.8) k/uL BUN (7-17) mg/dL Glucose (74-99) mg/dL POC Glucose (mg/dL) 217 H 181 H 138 H (75-99) mg/dL 05/29/17 05/29/17 05/29/17 Range/Units 08:33 08:33 11:45 RBC 3.24 L (3.80-5.40) m/uL Hgb 9.1 L (11.4-16.0) gm/dL Hct 28.4 L (34.0-46.0) % RDW 16.4 H (11.5-15.5) % Lymphocytes # 0.8 L (1.0-4.8) k/uL BUN 20 H (7-17) mg/dL Glucose 138 H (74-99) mg/dL POC Glucose (mg/dL) 285 H (75-99) mg/dL Microbiology - Last 24 Hours (Table) 05/26/17 13:24 Gram Stain - Preliminary Tissue - Other Tissue Culture - Preliminary Gram Neg Bacilli Klebsiella oxytoca Gram Neg Bacilli#2 05/26/17 13:24 Anaerobic Culture - Preliminary Tissue - Other Assessment and Plan Plan: Impression Present on admission acute blood loss anemia symptomatic suspect due to large sacral decubitus ulcer with excessive oozing of blood necessitating 2 unit of packed red blood cells to be infused via peripheral vein Morbid obesity BMI 46 Chronic debility not able to carry out activities of daily living Alzheimer's dementia without behavioral disturbance charotfoot chronic depressive disorder nonspecified Status post debridement May 26 with application of wound VAC of stage III pressure ulcers involving skin and subcutaneous tissue and fascia Plan No further surgical intervention warranted at this time we'll sign off and re- eval as indicated Defer to the timing of the discharge to medicine service Wound VAC at the [facility] facility to the 3 ulcerative areas Santyl applied to the base of the long Keep offloading the sacral area patient would benefit from an air mattress at the [facility] facility The above impression and plan of care have been discussed and directed by signing physician. Yas Prakash nurse practitioner acting as scribe for signing physician.
[2017-05-29 13:20] VITALS: BMI 47.5
[2017-05-29 14:44] VITALS: BP 131/63; PULSE 64; RESP 16; TEMP 98.9
--- NOTE | 2017-05-29 15:35 | P.DS ---
Providers Date of admission: 05/24/17 20:27 Expected date of discharge: 05/29/17 Attending physician: Gonzales Mcdaniels Consults: 05/25/17 03:18 Consult Physician Urgent Consulting Provider: Mariah Ward Reason/Comments: wound Do you want consulting provider notified?: Yes Primary care physician: Cb Grossman Hospital Course: Final diagnoses: -Multiple infected decubitus ulcers of the sacrum, present on admission, status post debridement .-Acute symptomatic blood loss anemia from bleeding decubitus ulcers, requiring blood transfusion. -Hypotension from blood loss. -Diabetes mellitus type 2 currently on insulin. -Alzheimer's dementia, late onset type. -Medical debility from multiple medical problems. -Coronary artery disease. -Chronic congestive heart failure, ejection fraction unknown. Probably from underlying coronary artery disease -History of essential hypertension. -Primary osteoarthritis of multiple joints bilateral. -Permanent pacemaker. -Charcot foot secondary to diabetes -Morbid obesity, body mass index 40. -Chronic urinary stress incontinence. -Major depression not otherwise specified. -Moderate protein calorie malnutrition with decreased oral intake and severe hypoalbuminemia -Anorexia due to multiple medical problems and probably side effects of medication -Multiple medical problems including status post debridement of the wound CODE STATUS: Full Consultation: Dr. Ward from general surgery Hospital course: This patient transferred from [facility], with multiple medical pollens. Bruising decubitus ulcers. IND was carried out by Dr. Ward. Patient did drop her hemoglobin and blood was transfused as per surgery. Patient overall prognosis is poor. Cardiolite has not been good. Because of Alzheimer's patient barely able to communicate but can answer simple questions. Had a family meeting with the patient's and son. Detail and all prognosis was poor. upon presentation did inform us that he had initially agreed to hospice at the [facility] patient then was reported to 4 though this seemed to been complaining back to his going towards hospice. Patient for many years according to her son has been selective about what she eats. Oral overall prognosis does not remain good. I did talk to Dr. Dr. Grossman patient's PCP yesterday evening and told him what my discussion with the family. Hospice would be the way to go Physical exam: Lungs decreased breath sounds, cardiovascular first seconds are normal, decub ulcers in the sacral area. Psych patient is able to answer simple questions more so yes and no. Patient denies being in pain Patient Condition at Discharge: Fair Plan - Discharge Summary New Discharge Prescriptions: New Acetaminophen Tab [Tylenol] 500 mg PO Q6H PRN tab PRN Reason: Pain Atorvastatin [Lipitor] 40 mg PO HS tab Bismuth Subsalicylate [Bismatrol] 524 mg PO Q4H PRN bottle PRN Reason: Gi Upset Brimonidine Tartrate [Alphagan P 0.2% Ophth Soln] 1 drops BOTH EYES BID bottle Carvedilol [Coreg*] 12.5 mg PO BID-W/MEALS tab Collagenase [Santyl] 1 applic TOPICAL DAILY dose Donepezil [Aricept] 10 mg PO HS tab Famotidine [Pepcid] 20 mg PO BID tab Ferrous Sulfate [Iron (65 MG Elemental)] 325 mg PO BID tab Furosemide [Lasix] 20 mg PO DAILY tab HYDROcodone/APAP 5-325MG [[place] 5-325] 1 each PO Q6HR PRN #20 tab PRN Reason: Severe Pain Insulin Glargine [Lantus] 24 unit SQ HS vial Latanoprost Ophth [Xalatan 0.005%] 1 drops BOTH EYES HS bottle Magnesium Hydroxide [Milk of Magnesia Concentrate] 2,400 mg PO DAILY PRN dose PRN Reason: Constipation Nystatin 100,000 Unit/gm Powd [Mycostatin Powder] 1 applic TOPICAL BID dose Potassium Chloride ER [K-Dur 10] 10 meq PO DAILY tab Sertraline [Zoloft] 75 mg PO HS tab Timolol 0.5% Ophth Soln [Timoptic 0.5% Ophth Soln] 1 drops BOTH EYES BID bottle Continue Ammonium Lactate Lotion [Lac-Hydrin 12% Lotion] 1 applic TOPICAL HS [place]-3 Acid Ethyl Esters [Lovaza] 1 gm PO BID Calcium Carb-Vit D 500Mg-200Un [Oscal 500+D] 1 tab PO BID Multivitamins, Thera [Multivitamin (formulary)] 1 tab PO DAILY Insulin Lispro [humaLOG Kwikpen] See Protocol SQ AC-TID Insulin Lispro [humaLOG Kwikpen] 10 unit SQ BID@0800,1100 Insulin Lispro [humaLOG Kwikpen] 12 unit SQ DAILY@1700 Cholecalciferol (Vitamin D3) [Vitamin D3] 2,000 unit PO DAILY Aspirin EC [Ecotrin Low Dose] 81 mg PO DAILY Discontinued Nystatin 100,000 Unit/gm Powd [Mycostatin Powder] 1 applic TOPICAL BID Bismuth Subsalicylate [Pepto-Bismol] 524 mg PO Q4H PRN PRN Reason: Gi Upset Acetaminophen Tab [Tylenol] 500 mg PO Q6H PRN PRN Reason: Pain Ipratropium-Albuterol Nebulize [Duoneb 0.5 mg-3 mg/3 ml Soln] 3 ml INHALATION RT-Q4H PRN PRN Reason: Cough/Congestion Carvedilol [Coreg] 25 mg PO BID-W/MEALS Brimonidine Tartrate/Timolol [Combigan 0.2%/0.5% Ophth Soln] 1 drop BOTH EYES BID Sertraline [Zoloft] 75 mg PO HS Latanoprost Ophth [Xalatan 0.005%] 1 drop BOTH EYES HS Atorvastatin [Lipitor] 40 mg PO HS Insulin Glargine [Lantus] 32 unit SQ HS@2100 Pioglitazone HCl [Actos] 15 mg PO DAILY Donepezil HCl [Aricept] 10 mg PO HS Albuterol Nebulized [Ventolin Nebulized] 2.5 mg INHALATION RT-Q6H PRN PRN Reason: Shortness Of Breath Collagenase [Santyl] 1 applic TOPICAL HS Magnesium Hydroxide [Milk of Magnesia] 2,400 mg PO DAILY PRN PRN Reason: Constipation HYDROcodone/APAP 5-325MG [[place] 5-325] 1 tab PO Q6HR PRN PRN Reason: Severe Pain Ferrous Sulfate [Feosol] 325 mg PO BID Potassium Chloride ER [K-Dur 10] 10 meq PO DAILY Lisinopril [Zestril] 2.5 mg PO DAILY Insulin Glargine [Lantus] 36 unit SQ QAM@0600 Furosemide [Lasix] 20 mg PO DAILY Arginaid Extra 240 ml PO BID Discharge Medication List Ammonium Lactate Lotion [Lac-Hydrin 12% Lotion] 1 applic TOPICAL HS 12/28/15 [ History] Calcium Carb-Vit D 500Mg-200Un [Oscal 500+D] 1 tab PO BID 12/28/15 [History] Multivitamins, Thera [Multivitamin (formulary)] 1 tab PO DAILY 12/28/15 [History ] [place]-3 Acid Ethyl Esters [Lovaza] 1 gm PO BID 12/28/15 [History] Aspirin EC [Ecotrin Low Dose] 81 mg PO DAILY 05/24/17 [History] Cholecalciferol (Vitamin D3) [Vitamin D3] 2,000 unit PO DAILY 05/24/17 [History] Insulin Lispro [humaLOG Kwikpen] 10 unit SQ BID@0800,1100 05/24/17 [History] Insulin Lispro [humaLOG Kwikpen] 12 unit SQ DAILY@1700 05/24/17 [History] Insulin Lispro [humaLOG Kwikpen] See Protocol SQ AC-TID 05/24/17 [History] Acetaminophen Tab [Tylenol] 500 mg PO Q6H PRN tab 05/29/17 [Rx] Atorvastatin [Lipitor] 40 mg PO HS tab 05/29/17 [Rx] Bismuth Subsalicylate [Bismatrol] 524 mg PO Q4H PRN bottle 05/29/17 [Rx] Brimonidine Tartrate [Alphagan P 0.2% Ophth Soln] 1 drops BOTH EYES BID bottle 05/29/17 [Rx] Carvedilol [Coreg*] 12.5 mg PO BID-W/MEALS tab 05/29/17 [Rx] Collagenase [Santyl] 1 applic TOPICAL DAILY dose 05/29/17 [Rx] Donepezil [Aricept] 10 mg PO HS tab 05/29/17 [Rx] Famotidine [Pepcid] 20 mg PO BID tab 05/29/17 [Rx] Ferrous Sulfate [Iron (65 MG Elemental)] 325 mg PO BID tab 05/29/17 [Rx] Furosemide [Lasix] 20 mg PO DAILY tab 05/29/17 [Rx] HYDROcodone/APAP 5-325MG [[place] 5-325] 1 each PO Q6HR PRN #20 tab 05/29/17 [Rx] Insulin Glargine [Lantus] 24 unit SQ HS vial 05/29/17 [Rx] Latanoprost Ophth [Xalatan 0.005%] 1 drops BOTH EYES HS bottle 05/29/17 [Rx] Magnesium Hydroxide [Milk of Magnesia Concentrate] 2,400 mg PO DAILY PRN dose 05/29/17 [Rx] Nystatin 100,000 Unit/gm Powd [Mycostatin Powder] 1 applic TOPICAL BID dose 05/08 [Rx] Potassium Chloride ER [K-Dur 10] 10 meq PO DAILY tab 05/29/17 [Rx] Sertraline [Zoloft] 75 mg PO HS tab 05/29/17 [Rx] Timolol 0.5% Ophth Soln [Timoptic 0.5% Ophth Soln] 1 drops BOTH EYES BID bottle 05/29/17 [Rx] Follow up Appointment(s)/Referral(s): Cb Grossman MD [Primary Care Provider] - 05/30/17 [facility], [NON-STAFF] - 1 Week Patient Instructions/Handouts: Heart Failure (DC), Type 2 Diabetes in Adults ( DC), Anemia (DC) Activity/Diet/Wound Care/Special Instructions: Cardiac, diabetic diet. Change positions every 2 hours, Head of bead elevated. ESBL contact isolation Wound vac settings: 125 mm/hg Medium Sacral wound Granulofoam black Change M-W-F Right gluteal [id number] Left gluteal 8.5x5x1.5cm Santyl at base of wound with adaptic 2L O2 nasal cannula Gong inserted for sacral wound and incontinence on 05/24/17, maintain gong at ECF per their WOC nurse and physicians recommendations Discharge Disposition: TRANSFER TO SNF/ECF
[2017-05-29 16:56] LABS: Glucose,Whole Blood 204 mg/dL (75-99)
--- NOTE | 2017-05-30 03:29 | PN ---
DATE OF SERVICE: 05/28/2017 ATTENDING NOTE This patient was seen and examined by me. I discussed with my nurse practitioner Ms. Arriaza. INTERVAL HISTORY: This patient had multiple medical problems, had debridement of her ulcers. Lying in bed. Did eat some meal today. ON EXAMINATION: LUNGS: Decreased breath sounds. CARDIOVASCULAR: First and second sounds normal. Denies pain. INVESTIGATIONS: White count 7.9, hemoglobin 8.3. Potassium 4.2. ASSESSMENT: Multiple medical problems including decubitus ulcers. Prognosis not good. was at the bedside. I had a family meeting with the and the son in the evening which lasted close to 45 minutes. Several issues were present. The patient's son did state that he felt that mother was not cared for properly for several years and her nutrition was not the way she wanted and she did not make good choices and he does understand when the patient goes back to the longterm she will be in hospice. He wants better nutrition to be given. We did explain that patient is already getting supplements and as I discussed with the patient's the patient only wants to have desserts and this has been going on for a long time. The patient does seem to eat better when family is present. The son says he does not have time for the same. He does understand overall guarded prognosis for the patient. At this time the followings were decided. 1. Patient will go back to [facility] tomorrow. 2. I will speak to Dr. Grossman who will coordinate with the kitchen, nutritional dietitian and the nurse to see that patient's nutrition is taken care of. 3. will come and aid in the feeding of the patient. 4. Son does feel that patient should be hospice along with the father, but at this point it is not to be done until she gets back to [facility] and they will talk ( ) with Dr. Grossman. JENNIFER
== END 2017-05-29 17:10 | DRG 570 ==
LOC: EC 19:36 → 4MS4W 20:27 → OBSVTOIN 20:27 → 4MS4W 05-26 15:48
PROVIDERS: ADMIT Hospitalist; ATTEND Hospitalist
PROC: 30233N1 Transfusion of Nonautologous Red Blood Cells into Peripheral Vein, Percutaneous Approach (ICD-10-PCS; 2017-05-25)
PROC: 0JB70ZZ Excision of Back Subcutaneous Tissue and Fascia, Open Approach (ICD-10-PCS; principal; 2017-05-26 10:15)
DX: L89.153 Pressure ulcer of sacral region, stage 3 (principal); E43 Unspecified severe protein-calorie malnutrition; E11.610 Type 2 diabetes mellitus with diabetic neuropathic arthropathy; E11.51 Type 2 diabetes mellitus with diabetic peripheral angiopathy without gangrene; I11.0 Hypertensive heart disease with heart failure; D62 Acute posthemorrhagic anemia; G30.1 Alzheimer's disease with late onset; I50.9 Heart failure, unspecified; Z68.42 Body mass index [BMI] 45.0-49.9, adult; L03.312 Cellulitis of back [any part except buttock and flank]; F02.80 Dementia in other diseases classified elsewhere, unspecified severity, without behavioral disturbance, psychotic disturbance, mood disturbance, and anxiety; D50.0 Iron deficiency anemia secondary to blood loss (chronic); E66.01 Morbid (severe) obesity due to excess calories; I25.10 Atherosclerotic heart disease of native coronary artery without angina pectoris; M19.91 Primary osteoarthritis, unspecified site; F32.9 Major depressive disorder, single episode, unspecified; K21.9 Gastro-esophageal reflux disease without esophagitis; E78.5 Hyperlipidemia, unspecified; H40.9 Unspecified glaucoma; N39.3 Stress incontinence (female) (male); Z79.82 Long term (current) use of aspirin; Z79.4 Long term (current) use of insulin; Z79.899 Other long term (current) drug therapy; Z86.14 Personal history of Methicillin resistant Staphylococcus aureus infection; Z95.0 Presence of cardiac pacemaker; Z90.710 Acquired absence of both cervix and uterus; Z98.42 Cataract extraction status, left eye; Z98.41 Cataract extraction status, right eye; Z96.1 Presence of intraocular lens; Z88.8 Allergy status to other drugs, medicaments and biological substances; Z83.3 Family history of diabetes mellitus; B37.2 Candidiasis of skin and nail; Z74.01 Bed confinement status
CPT/HCPCS: 36415; 80048; 80053; 81001; 82550; 82553; 83036; 83735; 84100; 84134; 84484; 85025; 85610; 85730; 86850; 86900; 86901; 86920; 87070; 87075; 87077; 87086; 87186; 87205; 93005; 94002; 94760; 96360; 99285

== ENCOUNTER 2017-06-04 14:39 | Inpatient (IN) | payer MEDICARE, OTHER ==
[2017-06-04 14:53] LABS: Glucose,Whole Blood >600 mg/dL (75-99)
[2017-06-04] MEDS ORDERED: IV VANCOMYCIN PER PHARMACY 1 EACH MISC MISCELLANE PRN (15:01)
[2017-06-04] MEDS ORDERED: PIPERACILLIN-TAZOBACTAM 3.375 GM in DEXTROSE/WATER 1 50ML.BAG IVPB STA (15:01)
--- NOTE | 2017-06-04 15:08 | ED ---
Fever HPI - General Chief Complaint: Fever Stated Complaint: sepsis Time Seen by Provider: 06/04/17 14:39 Source: patient, EMS, RN notes reviewed Mode of arrival: EMS - History of Present Illness Initial Comments: This is a 76-year-old female who was sent in for evaluation for fever and infection of decubitus ulceration. [facility] There appears be cellulitis along with the at least stage III decubitus ulcers. Patient has no cough she does have a history of dementia. She has had decreased oral intake. She was given Tylenol she did have a temperature 101 this morning also started on oral Keflex without any resolution. Per history she is a no code supportive care only. MD Complaint: fever, other - Related Data Home Medications Medication Instructions Recorded Confirmed Ammonium Lactate Lotion 1 applic TOPICAL HS 12/28/15 06/04/17 [Lac-Hydrin 12% Lotion] Calcium Carb-Vit D 500Mg-200Un 1 tab PO BID 12/28/15 06/04/17 [Oscal 500+D] Multivitamins, Thera [Multivitamin 1 tab PO DAILY 12/28/15 06/04/17 (formulary)] [place]-3 Acid Ethyl Esters [Lovaza] 1 gm PO BID 12/28/15 06/04/17 Aspirin EC [Ecotrin Low Dose] 81 mg PO QAM 05/24/17 06/04/17 Cholecalciferol (Vitamin D3) 2,000 unit PO DAILY 05/24/17 06/04/17 [Vitamin D3] Insulin Lispro [humaLOG Kwikpen] 10 unit SQ BID@0800,1100 05/24/17 06/04/17 Insulin Lispro [humaLOG Kwikpen] 12 unit SQ DAILY@1700 05/24/17 06/04/17 Albuterol Nebulized [Ventolin 2.5 mg INHALATION RT-QID PRN 06/04/17 06/04/17 Nebulized] Amino Acids/Protein Hydrolys 30 ml PO QAM 06/04/17 06/04/17 [Pro-Stat Supplement] Bismuth Subsalicylate [Bismatrol] 524 mg PO Q4H PRN 06/04/17 06/04/17 Cephalexin [Keflex] 500 mg PO Q8HR 06/04/17 06/04/17 Furosemide [Lasix] 20 mg PO QAM 06/04/17 06/04/17 HYDROcodone/APAP 5-325MG [[place] 1 tab PO Q6HR PRN 06/04/17 06/04/17 5-325] Insulin Glargine,Hum.rec.anlog 24 unit SQ HS 06/04/17 06/04/17 [Lantus Solostar] Lactose-Reduced Food [Ensure Plus] 120 ml PO BID 06/04/17 06/04/17 Nystatin 100,000 Unit/gm Powd 1 applic TOPICAL BID 06/04/17 06/04/17 [Mycostatin Powder] Potassium Chloride ER [K-Dur 10] 10 meq PO QAM 06/04/17 06/04/17 oxyCODONE ER [OxyCONTIN 10MG E.R] 10 mg PO Q12HR 06/04/17 06/04/17 Previous Rx's Medication Instructions Recorded Acetaminophen Tab [Tylenol] 500 mg PO Q6H PRN tab 05/29/17 Atorvastatin [Lipitor] 40 mg PO HS tab 05/29/17 Brimonidine Tartrate [Alphagan P 1 drops BOTH EYES BID bottle 05/29/17 0.2% Ophth Soln] Carvedilol [Coreg*] 12.5 mg PO BID-W/MEALS tab 05/29/17 Donepezil [Aricept] 10 mg PO HS tab 05/29/17 Famotidine [Pepcid] 20 mg PO BID tab 05/29/17 Ferrous Sulfate [Iron (65 MG 325 mg PO BID tab 05/29/17 Elemental)] Latanoprost Ophth [Xalatan 0.005%] 1 drops BOTH EYES HS bottle 05/29/17 Magnesium Hydroxide [Milk of 2,400 mg PO DAILY PRN dose 05/29/17 Magnesia Concentrate] Sertraline [Zoloft] 75 mg PO HS tab 05/29/17 Timolol 0.5% Ophth Soln [Timoptic 1 drops BOTH EYES BID bottle 05/29/17 0.5% Ophth Soln] Allergies Allergy/AdvReac Type Severity Reaction Status Date / Time Quinolones Allergy Unknown Verified 05/24/17 19:55 Review of Systems ROS Statement: Those systems with pertinent positive or pertinent negative responses have been documented in the HPI. ROS Other: All systems not noted in ROS Statement are negative. Limitations: ROS unobtainable due to patients medical condition Past Medical History Past Medical History: Coronary Artery Disease (CAD), Heart Failure, Dementia, Diabetes Mellitus, Eye Disorder, GERD/Reflux, Hyperlipidemia, Hypertension, Memory Impairment, Osteoarthritis (OA), Pneumonia Additional Past Medical History / Comment(s): 01-11-16 admitted with uti/sepsis Glaucoma, severe degenerative arthritis with secondary debility to the point where the patient is unable to ambulate,charcot feet morbid obesity, urinary incontinence with frequent urinary tract. infection - skin breakdown to buttocks, carpal tunnel disease and MRSA in the past. RT UPPER ARM CELLULITIS, rt breast mass,pvd,bronchitis, sinus problems, carpal tunnel, past fx lt ankle History of Any Multi-Drug Resistant Organisms: ESBL, Other MDRO Date of last positivie culture/infection: 05/26/17 MDRO Source:: tissue ESBL E.COLI AND KL,OXYTOCA Past Surgical History: Adenoidectomy, Bladder Surgery, Heart Catheterization, Hernia Repair, Hysterectomy, Pacemaker, Tonsillectomy Additional Past Surgical History / Comment(s): arthroscopy laser sx for glaucoma bashir eyes, Cataract extraction with intraocular lens implantations, varicose vein stripping.rt breast bx(mass), colonoscopy, lt knee Past Anesthesia/Blood Transfusion Reactions: No Reported Reaction Type of Cardiac Device: Permanent Pacemaker Device Placement Date:: 2011 Past Psychological History: No Psychological Hx Reported, Depression Smoking Status: Never smoker Past Alcohol Use History: None Reported Past Drug Use History: None Reported - Past Family History Daughter(s) Family Medical History: Cancer, Diabetes Mellitus, Hypertension General Exam - General Exam Comments Initial Comments: This is a well-developed morbidly obese female who is lethargic General appearance: alert, lethargic Head exam: Present: atraumatic, normocephalic, normal inspection Eye exam: Present: normal appearance, PERRL, EOMI. Absent: scleral icterus, conjunctival injection, periorbital swelling ENT exam: Present: mucous membranes dry Neck exam: Present: normal inspection. Absent: tenderness, meningismus, lymphadenopathy Respiratory exam: Present: decreased breath sounds. Absent: respiratory distress, wheezes, rales, rhonchi, stridor Cardiovascular Exam: Present: regular rate, normal rhythm, normal heart sounds. Absent: systolic murmur, diastolic murmur, rubs, gallop, clicks GI/Abdominal exam: Present: soft, normal bowel sounds, other (Obese abdomen). Absent: distended, tenderness, guarding, rebound, rigid Rectal exam: Present: heme (+) stool, other (Sacral decubitus ulcer with localized cellulitis.) Extremities exam: Present: full ROM, normal capillary refill, other (Ecchymosis seen to the right hand secondary to hematoma likely from prior blood draws). Absent: tenderness, pedal edema, joint swelling, calf tenderness Back exam: Present: other (Sacral decubiti is mentioned above) Neurological exam: Present: alert, altered, CN II-XII intact Psychiatric exam: Present: other (Unable to accurately perform) Skin exam: Present: warm, dry. Absent: intact, rash Course Vital Signs 06/04/17 06/04/17 06/04/17 14:44 15:01 15:16 Temperature 98.5 F Pulse Rate 74 72 70 Respiratory 18 16 16 Rate Blood Pressure 94/50 85/47 90/51 O2 Sat by Pulse 98 95 95 Oximetry 06/04/17 06/04/17 06/04/17 15:24 15:31 15:46 Temperature Pulse Rate 71 73 76 Respiratory 16 18 16 Rate Blood Pressure 90/46 91/50 95/47 O2 Sat by Pulse 95 95 95 Oximetry - Reevaluation(s) Reevaluation #1: 06/04/17 16:02 I did discuss findings with the patient's family. Reevaluation #2: 06/04/17 16:02 I did discuss case with Dr. Mazariegos. Dr. Ward will be consulted. Medical Decision Making - Lab Data Result diagrams: 06/04/17 15:00 06/04/17 15:00 Lab Results 06/04/17 06/04/17 06/04/17 Range/Units 14:50 15:00 15:00 WBC 7.3 (3.8-10.6) k/uL RBC 2.80 L (3.80-5.40) m/uL Hgb 7.7 L (11.4-16.0) gm/dL Hct 26.0 L (34.0-46.0) % MCV 93.0 D (80.0-100.0) fL MCH 27.6 (25.0-35.0) pg MCHC 29.6 L (31.0-37.0) g/dL RDW 16.7 H (11.5-15.5) % Plt Count 277 (150-450) k/uL Neutrophils % 96 % Lymphocytes % 2 % Monocytes % 1 % Eosinophils % 0 % Basophils % 0 % Neutrophils # 7.0 (1.3-7.7) k/uL Lymphocytes # 0.1 L (1.0-4.8) k/uL Monocytes # 0.1 (0-1.0) k/uL Eosinophils # 0.0 (0-0.7) k/uL Basophils # 0.0 (0-0.2) k/uL Hypochromasia Marked Poikilocytosis Slight Anisocytosis Slight PT (9.0-12.0) sec INR (<1.2) APTT (22.0-30.0) sec Sodium (137-145) mmol/L Potassium (3.5-5.1) mmol/L Chloride (98-107) mmol/L Carbon Dioxide (22-30) mmol/L Anion Gap mmol/L BUN (7-17) mg/dL Creatinine (0.52-1.04) mg/dL Est GFR (MDRD) Af Amer (>60 ml/min/1.73 sqM) Est GFR (MDRD) Non-Af (>60 ml/min/1.73 sqM) Glucose (74-99) mg/dL POC Glucose (mg/dL) >600 H (75-99) mg/dL POC Glu Weld Technician ID Tima Iyer Plasma Lactic Acid Roni (0.7-2.0) mmol/L Calcium (8.4-10.2) mg/dL Total Bilirubin (0.2-1.3) mg/dL AST (14-36) U/L ALT (9-52) U/L Alkaline Phosphatase (38-126) U/L Total Creatine Kinase <20 L (30-135) U/L Total Protein (6.3-8.2) g/dL Albumin (3.5-5.0) g/dL Urine Color Urine Appearance (Clear) Urine pH (5.0-8.0) Ur Specific [place] (1.001-1.035) Urine Protein (Negative) Urine Glucose (UA) (Negative) Urine Ketones (Negative) Urine Blood (Negative) Urine Nitrite (Negative) Urine Bilirubin (Negative) Urine Urobilinogen (<2.0) mg/dL Ur Leukocyte Esterase (Negative) Urine RBC (0-5) /hpf Urine WBC (0-5) /hpf Urine WBC Clumps (None) /hpf Ur Squamous Epith Cells (0-4) /hpf Amorphous Sediment (None) /hpf Urine Bacteria (None) /hpf Hyaline Casts (0-2) /lpf Granular Casts (0) /lpf Urine Mucus (None) /hpf 06/04/17 06/04/17 06/04/17 Range/Units 15:00 15:00 15:00 WBC (3.8-10.6) k/uL RBC (3.80-5.40) m/uL Hgb (11.4-16.0) gm/dL Hct (34.0-46.0) % MCV (80.0-100.0) fL MCH (25.0-35.0) pg MCHC (31.0-37.0) g/dL RDW (11.5-15.5) % Plt Count (150-450) k/uL Neutrophils % % Lymphocytes % % Monocytes % % Eosinophils % % Basophils % % Neutrophils # (1.3-7.7) k/uL Lymphocytes # (1.0-4.8) k/uL Monocytes # (0-1.0) k/uL Eosinophils # (0-0.7) k/uL Basophils # (0-0.2) k/uL Hypochromasia Poikilocytosis Anisocytosis PT 10.8 (9.0-12.0) sec INR 1.1 (<1.2) APTT 20.3 L (22.0-30.0) sec Sodium 135 L (137-145) mmol/L Potassium 4.5 (3.5-5.1) mmol/L Chloride 101 (98-107) mmol/L Carbon Dioxide 24 (22-30) mmol/L Anion Gap 10 mmol/L BUN 46 H (7-17) mg/dL Creatinine 1.00 (0.52-1.04) mg/dL Est GFR (MDRD) Af Amer >60 (>60 ml/min/1.73 sqM) Est GFR (MDRD) Non-Af 54 (>60 ml/min/1.73 sqM) Glucose 718 H* (74-99) mg/dL POC Glucose (mg/dL) (75-99) mg/dL POC Glu Weld Technician ID Plasma Lactic Acid Roni 4.0 H* (0.7-2.0) mmol/L Calcium 8.5 (8.4-10.2) mg/dL Total Bilirubin 0.3 (0.2-1.3) mg/dL AST 61 H (14-36) U/L ALT 36 (9-52) U/L Alkaline Phosphatase 142 H (38-126) U/L Total Creatine Kinase (30-135) U/L Total Protein 4.1 L (6.3-8.2) g/dL Albumin 1.9 L (3.5-5.0) g/dL Urine Color Urine Appearance (Clear) Urine pH (5.0-8.0) Ur Specific [place] (1.001-1.035) Urine Protein (Negative) Urine Glucose (UA) (Negative) Urine Ketones (Negative) Urine Blood (Negative) Urine Nitrite (Negative) Urine Bilirubin (Negative) Urine Urobilinogen (<2.0) mg/dL Ur Leukocyte Esterase (Negative) Urine RBC (0-5) /hpf Urine WBC (0-5) /hpf Urine WBC Clumps (None) /hpf Ur Squamous Epith Cells (0-4) /hpf Amorphous Sediment (None) /hpf Urine Bacteria (None) /hpf Hyaline Casts (0-2) /lpf Granular Casts (0) /lpf Urine Mucus (None) /hpf 06/04/17 Range/Units 15:00 WBC (3.8-10.6) k/uL RBC (3.80-5.40) m/uL Hgb (11.4-16.0) gm/dL Hct (34.0-46.0) % MCV (80.0-100.0) fL MCH (25.0-35.0) pg MCHC (31.0-37.0) g/dL RDW (11.5-15.5) % Plt Count (150-450) k/uL Neutrophils % % Lymphocytes % % Monocytes % % Eosinophils % % Basophils % % Neutrophils # (1.3-7.7) k/uL Lymphocytes # (1.0-4.8) k/uL Monocytes # (0-1.0) k/uL Eosinophils # (0-0.7) k/uL Basophils # (0-0.2) k/uL Hypochromasia Poikilocytosis Anisocytosis PT (9.0-12.0) sec INR (<1.2) APTT (22.0-30.0) sec Sodium (137-145) mmol/L Potassium (3.5-5.1) mmol/L Chloride (98-107) mmol/L Carbon Dioxide (22-30) mmol/L Anion Gap mmol/L BUN (7-17) mg/dL Creatinine (0.52-1.04) mg/dL Est GFR (MDRD) Af Amer (>60 ml/min/1.73 sqM) Est GFR (MDRD) Non-Af (>60 ml/min/1.73 sqM) Glucose (74-99) mg/dL POC Glucose (mg/dL) (75-99) mg/dL POC Glu Weld Technician ID Plasma Lactic Acid Roni (0.7-2.0) mmol/L Calcium (8.4-10.2) mg/dL Total Bilirubin (0.2-1.3) mg/dL AST (14-36) U/L ALT (9-52) U/L Alkaline Phosphatase (38-126) U/L Total Creatine Kinase (30-135) U/L Total Protein (6.3-8.2) g/dL Albumin (3.5-5.0) g/dL Urine Color Yellow Urine Appearance Cloudy H (Clear) Urine pH 5.0 (5.0-8.0) Ur Specific [place] 1.015 (1.001-1.035) Urine Protein Trace H (Negative) Urine Glucose (UA) 4+ H (Negative) Urine Ketones Negative (Negative) Urine Blood Small H (Negative) Urine Nitrite Positive H (Negative) Urine Bilirubin Negative (Negative) Urine Urobilinogen 2.0 (<2.0) mg/dL Ur Leukocyte Esterase Large H (Negative) Urine RBC 11 H (0-5) /hpf Urine WBC 132 H (0-5) /hpf Urine WBC Clumps Occasional H (None) /hpf Ur Squamous Epith Cells 3 (0-4) /hpf Amorphous Sediment Occasional H (None) /hpf Urine Bacteria Many H (None) /hpf Hyaline Casts 12 H (0-2) /lpf Granular Casts 35 (0) /lpf Urine Mucus Occasional H (None) /hpf - EKG Data -: EKG Interpreted by Me (AV dual pacemaker rhythm of 69 SD interval 134 QRS 204 QT since QTC of ) Critical Care Time Critical Care Time: Yes Critical Care Time: 39 minutes of critical care time which includes initial monitoring of the EMS run and discussed with paramedics discussion with the sending physician. Review of old charting reevaluation patient and discussed with the patient and her . Initial orders documentation of the above. Disposition Clinical Impression: Sepsis affecting skin, Urinary tract infection, Anemia, Dehydration, Uncontrolled diabetes mellitus, Decubitus skin ulcer Disposition: ADMITTED IP TO THIS HOSP Condition: Serious Referrals: Cb Grossman MD [Primary Care Provider] - 1-2 days
[2017-06-04] MEDS ORDERED: VANCOMYCIN 2,000 MG in SODIUM CHLORIDE 0.9% 500 ML IVPB STA (15:14)
[2017-06-04] MEDS: SODIUM CHLORIDE 0.9% 500 ML IV SCH ×3 (15:15→16:57)
[2017-06-04 15:22] LABS: Anisocytosis Slight; Basophils % (A) 0 %; CH 26.8; CHCM 28.9; Eosinophils % (A) 0 %; HDW 3.54; HGB 7.7 gm/dL (11.4-16.0); Hypochromasia Marked; Luc # (Auto) 0.02; Luc % (Auto) 0; Lymphocytes # (A) 0.1 k/uL (1.0-4.8); Lymphocytes % (A) 2 %; MCH 27.6 pg (25.0-35.0); MCHC 29.6 g/dL (31.0-37.0); Mean Platelet Volume 7.3; Monocytes # (A) 0.1 k/uL (0-1.0); Monocytes % (A) 1 %; Neutrophils % (A) 96 %; Poikilocytosis Slight; RDW 16.7 % (11.5-15.5); WBC 7.3 k/uL (3.8-10.6); WBC (Perox) 7.29
[2017-06-04 15:25] LABS: Amorphous Sediment,Urine Occasional /hpf; Appearance,Urine Cloudy (Clear); Bacteria,Urine Many /hpf; Bilirubin,Urine Negative (Negative); Glucose,Urine (UA) 4+ (Negative); Granular Casts,Urine 35 /lpf (0); Ketones,Urine Negative (Negative); Leukocyte Esterase,Urine Large (Negative); Mucus,Urine Occasional /hpf; Nitrite,Urine Positive (Negative); Particle Count 37593; Protein,Urine Trace (Negative); RBC,Urine 11 /hpf (0-5); Specific Gravity,Urine 1.015 (1.001-1.035); Squamous Epithelial Cell,Urine 3 /hpf (0-4); UA Billing (MACRO vs. MICRO) MICRO; WBC,Urine 132 /hpf (0-5)
[2017-06-04 15:33] LABS: ALT 36 U/L (9-52); AST 61 U/L (14-36); Alkaline Phosphatase 142 U/L (38-126); Anion Gap 10 mmol/L; Blood Urea Nitrogen 46 mg/dL (7-17); Calcium 8.5 mg/dL (8.4-10.2); Carbon Dioxide 24 mmol/L (22-30); Chloride 101 mmol/L (98-107); Non-African American GFR(MDRD) 54 (>60 ml/min/1.73 sqM); Potassium 4.5 mmol/L (3.5-5.1); Sodium 135 mmol/L (137-145); Total Bilirubin 0.3 mg/dL (0.2-1.3); Total Protein 4.1 g/dL (6.3-8.2)
[2017-06-04 15:37] LABS: INR 1.1 (<1.2); Prothrombin Time 10.8 sec (9.0-12.0)
--- NOTE | 2017-06-04 15:46 | XR ---
EXAMINATION TYPE: XR chest 1V portable DATE OF EXAM: 06/04/2017 COMPARISON: December 14 2015. HISTORY: Chest pain TECHNIQUE: Single frontal view of the chest is obtained. FINDINGS: There is minimal cardiac device with 4 leads in the heart. This is unchanged. Lung bases a re obscured. There is no pneumothorax. The cardiac silhouette is mildly enlarged and stable. IMPRESSION: Suboptimal examination. No acute process.
[2017-06-04 15:49] LABS: Glucose 718 mg/dL (74-99)
[2017-06-04 15:53] LABS: Creatine Kinase <20 U/L (30-135)
[2017-06-04 15:55] LABS: Partial Thromboplastin Time 20.3 sec (22.0-30.0)
[2017-06-04] MEDS ORDERED: INSULIN REGULAR 100 UNIT/ML VIAL IV ONE (15:59)
[2017-06-04 16:06] LABS: Creatine Kinase MB 0.5 ng/mL (0.0-2.4)
[2017-06-04 16:07] LABS: Troponin I 0.058 ng/mL (0.000-0.034)
[2017-06-04] MEDS ORDERED: MAGNESIUM HYDROXIDE 2,400 MG/10 ML CUP PO PRN (16:09)
[2017-06-04] MEDS ORDERED: ACETAMINOPHEN TAB 500 MG TAB PO PRN (16:09)
[2017-06-04] MEDS ORDERED: BISMUTH SUBSALICYLATE 4,192 MG/240 ML BOTTLE PO PRN (16:09)
[2017-06-04] MEDS ORDERED: ALBUTEROL NEBULIZED 2.5 MG/3 ML INHALATION PRN (16:09)
[2017-06-04] MEDS ORDERED: Magnesium Replacement Protocol 1 EACH MISC MISCELLANE PRN (16:11)
[2017-06-04] MEDS ORDERED: Potassium Replacement Protocol 1 EACH MISC MISCELLANE PRN (16:11)
[2017-06-04] MEDS ORDERED: INSULIN REGULAR BOLUS (FROM DRIP BAG) IV ONE (16:11)
[2017-06-04 16:46] LABS: Glucose,Whole Blood >600 mg/dL (75-99)
[2017-06-04] MEDS: INSULIN REGULAR 100 UNIT in SODIUM CHLORIDE 0.9% 100 ML IV SCH (17:26)
[2017-06-04 17:37] LABS: Glucose,Whole Blood 577 mg/dL (75-99)
[2017-06-04 18:30] LABS: Glucose,Whole Blood 592 mg/dL (75-99)
[2017-06-04 19:39] LABS: Glucose,Whole Blood 554 mg/dL (75-99)
[2017-06-04] MEDS: CARVEDILOL 12.5 MG TAB PO SCH (19:42)
[2017-06-04] MEDS: SODIUM CHLORIDE 0.9% 1,000 ML IV SCH ×4 (20:11→20:32)
[2017-06-04] MEDS ORDERED: SODIUM CHLORIDE 0.9% 250 ML IV ONE (20:13)
[2017-06-04 20:36] LABS: Glucose,Whole Blood 529 mg/dL (75-99)
[2017-06-04] MEDS ORDERED: NON-FORMULARY DRUG (Omega-3 Acid Ethyl Esters [Lovaza] 1 GM) PO SCH (21:00)
[2017-06-04 21:33] LABS: Glucose,Whole Blood 497 mg/dL (75-99)
[2017-06-04 22:44] LABS: Glucose,Whole Blood 479 mg/dL (75-99)
[2017-06-05 00:09] LABS: Glucose,Whole Blood 416 mg/dL (75-99)
[2017-06-05] MEDS: PIPERACILLIN-TAZOBACTAM 3.375 GM in DEXTROSE/WATER 1 50ML.BAG IVPB SCH ×3 (00:57→17:53)
[2017-06-05] MEDS: INSULIN REGULAR 100 UNIT in SODIUM CHLORIDE 0.9% 100 ML IV SCH (00:57)
[2017-06-05 01:03] LABS: Glucose,Whole Blood 328 mg/dL (75-99)
[2017-06-05] MEDS: ATORVASTATIN 40 MG TAB PO SCH ×2 (01:59→20:12)
[2017-06-05] MEDS: DONEPEZIL 10 MG TAB PO SCH ×2 (01:59→20:13)
[2017-06-05] MEDS: CALCIUM CARB-VIT D 500MG-200UN 1 EACH TAB PO SCH ×3 (01:59→20:13)
[2017-06-05] MEDS: FAMOTIDINE 20 MG TAB PO SCH ×2 (02:00→12:28)
[2017-06-05] MEDS: HEPARIN SODIUM,PORCINE 5,000 UNIT/ML 1 ML VIAL SQ SCH ×3 (02:00→21:15)
[2017-06-05] MEDS: SODIUM CHLORIDE 0.9% 1,000 ML IV SCH ×7 (02:00→21:17)
[2017-06-05] MEDS: AMMONIUM LACTATE 12% LOTION 225 GM BTL TOPICAL SCH (02:09)
[2017-06-05] MEDS: FERROUS SULFATE 325 MG TAB PO SCH ×3 (02:09→20:13)
[2017-06-05] MEDS: BRIMONIDINE TARTRATE 0.2% DROPS 5 ML BTL BOTH EYES SCH ×3 (02:09→21:16)
[2017-06-05] MEDS: LATANOPROST 0.005% OPHTH DROPS 2.5 ML BTL BOTH EYES SCH ×2 (02:09→21:16)
[2017-06-05 02:10] LABS: Glucose,Whole Blood 289 mg/dL (75-99)
[2017-06-05] MEDS: TIMOLOL 0.5% OPHTH DROPS 5 ML BTL BOTH EYES SCH ×3 (02:10→21:17)
[2017-06-05] MEDS: oxyCODONE ER 10 MG TAB.ER.12H PO SCH ×3 (02:11→21:16)
[2017-06-05] MEDS: SERTRALINE 25 MG TAB PO SCH ×2 (02:11→20:13)
[2017-06-05] MEDS: NYSTATIN 100,000 UNIT/GM POWD 15 GM TOPICAL SCH ×3 (02:12→22:50)
[2017-06-05] MEDS ORDERED: INSULIN REGULAR 100 UNIT in SODIUM CHLORIDE 0.9% 100 ML IV SCH (02:30)
[2017-06-05 03:11] LABS: Glucose,Whole Blood 200 mg/dL (75-99)
[2017-06-05 04:12] LABS: Glucose,Whole Blood 166 mg/dL (75-99)
[2017-06-05 05:17] LABS: Glucose,Whole Blood 137 mg/dL (75-99)
[2017-06-05 06:06] LABS: Glucose,Whole Blood 120 mg/dL (75-99)
[2017-06-05] MEDS: CARVEDILOL 12.5 MG TAB PO SCH (06:47)
[2017-06-05 07:20] LABS: Glucose,Whole Blood 123 mg/dL (75-99)
[2017-06-05] MEDS ORDERED: INSULIN LISPRO (humaLOG) 300 UNIT/3 ML VIAL SQ SCH ×2 (07:30→12:30)
[2017-06-05 08:27] LABS: Anion Gap 6 mmol/L; Blood Urea Nitrogen 47 mg/dL (7-17); Calcium 8.5 mg/dL (8.4-10.2); Carbon Dioxide 25 mmol/L (22-30); Chloride 108 mmol/L (98-107); Glucose 125 mg/dL (74-99); Non-African American GFR(MDRD) 52 (>60 ml/min/1.73 sqM); Potassium 4.7 mmol/L (3.5-5.1); Sodium 139 mmol/L (137-145)
[2017-06-05 08:29] LABS: Glucose,Whole Blood 134 mg/dL (75-99)
[2017-06-05 08:55] LABS: Anisocytosis Slight; Basophils % (A) 0 %; CH 26.8; CHCM 30.7; Eosinophils % (A) 0 %; HCT 26.1 % (34.0-46.0); HDW 3.73; HGB 8.2 gm/dL (11.4-16.0); Hypochromasia Marked; Luc # (Auto) 0.12; Luc % (Auto) 1; Lymphocytes # (A) 0.2 k/uL (1.0-4.8); Lymphocytes % (A) 2 %; MCH 27.4 pg (25.0-35.0); MCHC 31.3 g/dL (31.0-37.0); Mean Platelet Volume 7.3; Monocytes # (A) 0.3 k/uL (0-1.0); Monocytes % (A) 3 %; Neutrophils % (A) 94 %; Poikilocytosis Slight; RBC 2.98 m/uL (3.80-5.40); RDW 16.6 % (11.5-15.5); WBC 11.7 k/uL (3.8-10.6); WBC (Perox) 12.35
[2017-06-05 09:00] LABS: MCV 87.6 fL (80.0-100.0)
[2017-06-05] MEDS ORDERED: NON-FORMULARY DRUG (Amino Acids/Protein Hydrolys [Pro-Stat Supplement] 30 ML) PO SCH (09:00)
[2017-06-05] MEDS ORDERED: SODIUM CHLORIDE 0.9% 500 ML IV ONE ×3 (09:14→12:27)
[2017-06-05] MEDS: PANTOPRAZOLE 40 MG/10 ML VIAL IV SCH (10:39)
[2017-06-05] MEDS: FUROSEMIDE 20 MG TAB PO SCH (10:41)
[2017-06-05] MEDS: INSULIN LISPRO (humaLOG) 300 UNIT/3 ML VIAL SQ SCH ×3 (10:44→17:59)
[2017-06-05 11:03] LABS: Glucose,Whole Blood 152 mg/dL (75-99)
[2017-06-05] MEDS ORDERED: ACETAMINOPHEN IV (For NPO) 1,000 MG in EMPTY BAG 1 BAG IVPB ONE (11:24)
[2017-06-05 11:55] LABS: Hemoglobin A1C 6.3 % (4.2-6.1)
[2017-06-05] MEDS ORDERED: ACETAMINOPHEN IV (For NPO) 1,000 MG in EMPTY BAG 1 BAG IVPB PRN (12:03)
[2017-06-05 12:05] LABS: Glucose,Whole Blood 152 mg/dL (75-99)
--- NOTE | 2017-06-05 12:23 | P.GSCN ---
<Yas Prakash - Last Filed: 06/05/17 12:06> History of Present Illness Consult date: 06/05/17 History of present illness: 76-year-old female was transferred via EMS from the [facility] facility after care providers were concerned patient had had decreased oral intake febrile. Patient has a known stage III decubitus ulcer. Patient was seen in the emergency room admitted to the services of the attending with a surgical consultation requested. It was noted that the patient was seen on May 25 for a surgical consultation by The reason for the consult was for a sacral decubitus ulcer stage III which needed debridement. On May 26 Dr. Ward did a debridement of the multiple sacral decubitus ulcers with a wound VAC placed. At that time there were no further surgical recommendations. On admission to the emergency room the temp is 98.5 patient was hypotensive systolic blood pressure in the 80s there is a large stage III sacral decubitus ulcer with localized cellulitis dressing to the site moderate amount of serous drainage did note this morning the nursing staff activated A team. Patient's systolic blood pressure was in the 70s heart rate in the 80s patient was less responsive. Did note the patient has advanced directives indicating patient is a no CODE STATUS. The spouse is at the bedside. Dr. Ward did discuss with the spouse that there would be no further surgical recommendations no further debridement of the sacral decubitus ulcer at this time patient does open eyes to name only Review of Systems Not able to obtain patient can give no adequate recall Past Medical History Past Medical History: Coronary Artery Disease (CAD), Heart Failure, Dementia, Diabetes Mellitus, Eye Disorder, GERD/Reflux, Hyperlipidemia, Hypertension, Memory Impairment, Osteoarthritis (OA), Pneumonia Additional Past Medical History / Comment(s): 01-11-16 admitted with uti/sepsis Glaucoma, severe degenerative arthritis with secondary debility to the point where the patient is unable to ambulate,charcot feet morbid obesity, urinary incontinence with frequent urinary tract. infection - skin breakdown to buttocks, carpal tunnel disease and MRSA in the past. RT UPPER ARM CELLULITIS, rt breast mass,pvd,bronchitis, sinus problems, carpal tunnel, past fx lt ankle History of Any Multi-Drug Resistant Organisms: ESBL, Other MDRO Year Discovered:: 05/26/17 MDRO Source:: tissue ESBL E.COLI AND KL,OXYTOCA Past Surgical History: Adenoidectomy, Bladder Surgery, Heart Catheterization, Hernia Repair, Hysterectomy, Pacemaker, Tonsillectomy Additional Past Surgical History / Comment(s): arthroscopy laser sx for glaucoma bashir eyes, Cataract extraction with intraocular lens implantations, varicose vein stripping.rt breast bx(mass), colonoscopy, lt knee Past Anesthesia/Blood Transfusion Reactions: No Reported Reaction Type of Cardiac Device: Permanent Pacemaker Device Placement Date:: 2011 Past Psychological History: No Psychological Hx Reported, Depression Additional Psychological History / Comment(s): per [facility] paperwork, major depressive disorder , mood disorder. pt lost a son in 1998(committed suicide and 2014 her daughter from cancer). Smoking Status: Never smoker Past Alcohol Use History: None Reported Additional Past Alcohol Use History / Comment(s): Patient is currently residing at [facility] in the [place]. She did not work outside of the home. She does not have any history of tobacco use but 2nd hand smoked(both parents smoked and her smoked) no alcohol abuse. Past Drug Use History: None Reported - Past Family History Daughter(s) Family Medical History: Cancer, Diabetes Mellitus, Hypertension Medications and Allergies Home Medications Medication Instructions Recorded Confirmed Type Ammonium Lactate Lotion 1 applic TOPICAL HS 12/28/15 06/04/17 History [Lac-Hydrin 12% Lotion] Calcium Carb-Vit D 500Mg-200Un 1 tab PO BID 12/28/15 06/04/17 History [Oscal 500+D] Multivitamins, Thera [Multivitamin 1 tab PO DAILY 12/28/15 06/04/17 History (formulary)] [place]-3 Acid Ethyl Esters [Lovaza] 1 gm PO BID 12/28/15 06/04/17 History Aspirin EC [Ecotrin Low Dose] 81 mg PO QAM 05/24/17 06/04/17 History Cholecalciferol (Vitamin D3) 2,000 unit PO DAILY 05/24/17 06/04/17 History [Vitamin D3] Albuterol Nebulized [Ventolin 2.5 mg INHALATION RT-QID PRN 06/04/17 06/04/17 History Nebulized] Amino Acids/Protein Hydrolys 30 ml PO QAM 06/04/17 06/04/17 History [Pro-Stat Supplement] Bismuth Subsalicylate [Bismatrol] 524 mg PO Q4H PRN 06/04/17 06/04/17 History Furosemide [Lasix] 20 mg PO QAM 06/04/17 06/04/17 History Lactose-Reduced Food [Ensure Plus] 120 ml PO BID 06/04/17 06/04/17 History Nystatin 100,000 Unit/gm Powd 1 applic TOPICAL BID 06/04/17 06/04/17 History [Mycostatin Powder] Potassium Chloride ER [K-Dur 10] 10 meq PO QAM 06/04/17 06/04/17 History Allergies Allergy/AdvReac Type Severity Reaction Status Date / Time Quinolones Allergy Unknown Verified 05/24/17 19:55 Surgical - Exam Vital Signs Temp Pulse Resp BP Pulse Ox 98.5 F 74 18 94/50 98 06/04/17 14:44 06/04/17 14:44 06/04/17 14:44 06/04/17 14:44 06/04/17 14:44 GENERAL APPEARANCE: 76-year-old female patient is obese lethargic opens eyes to name only VITAL SIGNS: Reviewed HEENT: Head is normocephalic and atraumatic. Pupils are equal and reactive. The nares are patent. Oropharynx is clear without lesions. NECK: Supple without lymphadenopathy. Traches midline. HEART: S1, S2. Regular rate and rhythm. No murmur noted LUNGS: No crackles or wheezes are heard. Posterior diminished at the bases ABDOMEN: Soft, obese nontender, nondistended with good bowel sounds. No peritoneal signs. No palpable organomegaly or masses. EXTREMITIES: Bilateral edema to the upper and lower extremities med boots on to the bilateral lower extremities skin there is a large stage III sacral decubitus pressure ulcer with a dressing pressure ulcer with a dressing to the site Results - Labs 06/05/17 08:03 06/05/17 07:58 Abnormal Lab Results - Last 24 Hours (Table) 06/04/17 06/04/17 06/04/17 Range/Units 14:50 15:00 15:00 WBC (3.8-10.6) k/uL RBC 2.80 L (3.80-5.40) m/uL Hgb 7.7 L (11.4-16.0) gm/dL Hct 26.0 L (34.0-46.0) % MCHC 29.6 L (31.0-37.0) g/dL RDW 16.7 H (11.5-15.5) % Neutrophils # (1.3-7.7) k/uL Lymphocytes # 0.1 L (1.0-4.8) k/uL APTT (22.0-30.0) sec Sodium (137-145) mmol/L Chloride (98-107) mmol/L BUN (7-17) mg/dL Glucose (74-99) mg/dL POC Glucose (mg/dL) >600 H (75-99) mg/dL Plasma Lactic Acid Roni (0.7-2.0) mmol/L AST (14-36) U/L Alkaline Phosphatase (38-126) U/L Total Creatine Kinase <20 L (30-135) U/L Troponin I 0.058 H* (0.000-0.034) ng/mL Total Protein (6.3-8.2) g/dL Albumin (3.5-5.0) g/dL Urine Appearance (Clear) Urine Protein (Negative) Urine Glucose (UA) (Negative) Urine Blood (Negative) Urine Nitrite (Negative) Ur Leukocyte Esterase (Negative) Urine RBC (0-5) /hpf Urine WBC (0-5) /hpf Urine WBC Clumps (None) /hpf Amorphous Sediment (None) /hpf Urine Bacteria (None) /hpf Hyaline Casts (0-2) /lpf Urine Mucus (None) /hpf Stool Occult Blood (Negative) 06/04/17 06/04/17 06/04/17 Range/Units 15:00 15:00 15:00 WBC (3.8-10.6) k/uL RBC (3.80-5.40) m/uL Hgb (11.4-16.0) gm/dL Hct (34.0-46.0) % MCHC (31.0-37.0) g/dL RDW (11.5-15.5) % Neutrophils # (1.3-7.7) k/uL Lymphocytes # (1.0-4.8) k/uL APTT 20.3 L (22.0-30.0) sec Sodium 135 L (137-145) mmol/L Chloride (98-107) mmol/L BUN 46 H (7-17) mg/dL Glucose 718 H* (74-99) mg/dL POC Glucose (mg/dL) (75-99) mg/dL Plasma Lactic Acid Roni 4.0 H* (0.7-2.0) mmol/L AST 61 H (14-36) U/L Alkaline Phosphatase 142 H (38-126) U/L Total Creatine Kinase (30-135) U/L Troponin I (0.000-0.034) ng/mL Total Protein 4.1 L (6.3-8.2) g/dL Albumin 1.9 L (3.5-5.0) g/dL Urine Appearance (Clear) Urine Protein (Negative) Urine Glucose (UA) (Negative) Urine Blood (Negative) Urine Nitrite (Negative) Ur Leukocyte Esterase (Negative) Urine RBC (0-5) /hpf Urine WBC (0-5) /hpf Urine WBC Clumps (None) /hpf Amorphous Sediment (None) /hpf Urine Bacteria (None) /hpf Hyaline Casts (0-2) /lpf Urine Mucus (None) /hpf Stool Occult Blood (Negative) 06/04/17 06/04/17 06/04/17 Range/Units 15:00 15:30 16:44 WBC (3.8-10.6) k/uL RBC (3.80-5.40) m/uL Hgb (11.4-16.0) gm/dL Hct (34.0-46.0) % MCHC (31.0-37.0) g/dL RDW (11.5-15.5) % Neutrophils # (1.3-7.7) k/uL Lymphocytes # (1.0-4.8) k/uL APTT (22.0-30.0) sec Sodium (137-145) mmol/L Chloride (98-107) mmol/L BUN (7-17) mg/dL Glucose (74-99) mg/dL POC Glucose (mg/dL) >600 H (75-99) mg/dL Plasma Lactic Acid Roni (0.7-2.0) mmol/L AST (14-36) U/L Alkaline Phosphatase (38-126) U/L Total Creatine Kinase (30-135) U/L Troponin I (0.000-0.034) ng/mL Total Protein (6.3-8.2) g/dL Albumin (3.5-5.0) g/dL Urine Appearance Cloudy H (Clear) Urine Protein Trace H (Negative) Urine Glucose (UA) 4+ H (Negative) Urine Blood Small H (Negative) Urine Nitrite Positive H (Negative) Ur Leukocyte Esterase Large H (Negative) Urine RBC 11 H (0-5) /hpf Urine WBC 132 H (0-5) /hpf Urine WBC Clumps Occasional H (None) /hpf Amorphous Sediment Occasional H (None) /hpf Urine Bacteria Many H (None) /hpf Hyaline Casts 12 H (0-2) /lpf Urine Mucus Occasional H (None) /hpf Stool Occult Blood Positive H (Negative) 06/04/17 06/04/17 06/04/17 Range/Units 17:34 18:27 19:37 WBC (3.8-10.6) k/uL RBC (3.80-5.40) m/uL Hgb (11.4-16.0) gm/dL Hct (34.0-46.0) % MCHC (31.0-37.0) g/dL RDW (11.5-15.5) % Neutrophils # (1.3-7.7) k/uL Lymphocytes # (1.0-4.8) k/uL APTT (22.0-30.0) sec Sodium (137-145) mmol/L Chloride (98-107) mmol/L BUN (7-17) mg/dL Glucose (74-99) mg/dL POC Glucose (mg/dL) 577 H 592 H 554 H (75-99) mg/dL Plasma Lactic Acid Roni (0.7-2.0) mmol/L AST (14-36) U/L Alkaline Phosphatase (38-126) U/L Total Creatine Kinase (30-135) U/L Troponin I (0.000-0.034) ng/mL Total Protein (6.3-8.2) g/dL Albumin (3.5-5.0) g/dL Urine Appearance (Clear) Urine Protein (Negative) Urine Glucose (UA) (Negative) Urine Blood (Negative) Urine Nitrite (Negative) Ur Leukocyte Esterase (Negative) Urine RBC (0-5) /hpf Urine WBC (0-5) /hpf Urine WBC Clumps (None) /hpf Amorphous Sediment (None) /hpf Urine Bacteria (None) /hpf Hyaline Casts (0-2) /lpf Urine Mucus (None) /hpf Stool Occult Blood (Negative) 06/04/17 06/04/17 06/04/17 Range/Units 20:34 21:31 22:41 WBC (3.8-10.6) k/uL RBC (3.80-5.40) m/uL Hgb (11.4-16.0) gm/dL Hct (34.0-46.0) % MCHC (31.0-37.0) g/dL RDW (11.5-15.5) % Neutrophils # (1.3-7.7) k/uL Lymphocytes # (1.0-4.8) k/uL APTT (22.0-30.0) sec Sodium (137-145) mmol/L Chloride (98-107) mmol/L BUN (7-17) mg/dL Glucose (74-99) mg/dL POC Glucose (mg/dL) 529 H 497 H 479 H (75-99) mg/dL Plasma Lactic Acid Roni (0.7-2.0) mmol/L AST (14-36) U/L Alkaline Phosphatase (38-126) U/L Total Creatine Kinase (30-135) U/L Troponin I (0.000-0.034) ng/mL Total Protein (6.3-8.2) g/dL Albumin (3.5-5.0) g/dL Urine Appearance (Clear) Urine Protein (Negative) Urine Glucose (UA) (Negative) Urine Blood (Negative) Urine Nitrite (Negative) Ur Leukocyte Esterase (Negative) Urine RBC (0-5) /hpf Urine WBC (0-5) /hpf Urine WBC Clumps (None) /hpf Amorphous Sediment (None) /hpf Urine Bacteria (None) /hpf Hyaline Casts (0-2) /lpf Urine Mucus (None) /hpf Stool Occult Blood (Negative) 06/05/17 06/05/17 06/05/17 Range/Units 00:07 01:01 01:58 WBC (3.8-10.6) k/uL RBC (3.80-5.40) m/uL Hgb (11.4-16.0) gm/dL Hct (34.0-46.0) % MCHC (31.0-37.0) g/dL RDW (11.5-15.5) % Neutrophils # (1.3-7.7) k/uL Lymphocytes # (1.0-4.8) k/uL APTT (22.0-30.0) sec Sodium (137-145) mmol/L Chloride (98-107) mmol/L BUN (7-17) mg/dL Glucose (74-99) mg/dL POC Glucose (mg/dL) 416 H 328 H 289 H (75-99) mg/dL Plasma Lactic Acid Roni (0.7-2.0) mmol/L AST (14-36) U/L Alkaline Phosphatase (38-126) U/L Total Creatine Kinase (30-135) U/L Troponin I (0.000-0.034) ng/mL Total Protein (6.3-8.2) g/dL Albumin (3.5-5.0) g/dL Urine Appearance (Clear) Urine Protein (Negative) Urine Glucose (UA) (Negative) Urine Blood (Negative) Urine Nitrite (Negative) Ur Leukocyte Esterase (Negative) Urine RBC (0-5) /hpf Urine WBC (0-5) /hpf Urine WBC Clumps (None) /hpf Amorphous Sediment (None) /hpf Urine Bacteria (None) /hpf Hyaline Casts (0-2) /lpf Urine Mucus (None) /hpf Stool Occult Blood (Negative) 06/05/17 06/05/17 06/05/17 Range/Units 03:09 03:59 05:05 WBC (3.8-10.6) k/uL RBC (3.80-5.40) m/uL Hgb (11.4-16.0) gm/dL Hct (34.0-46.0) % MCHC (31.0-37.0) g/dL RDW (11.5-15.5) % Neutrophils # (1.3-7.7) k/uL Lymphocytes # (1.0-4.8) k/uL APTT (22.0-30.0) sec Sodium (137-145) mmol/L Chloride (98-107) mmol/L BUN (7-17) mg/dL Glucose (74-99) mg/dL POC Glucose (mg/dL) 200 H 166 H 137 H (75-99) mg/dL Plasma Lactic Acid Roni (0.7-2.0) mmol/L AST (14-36) U/L Alkaline Phosphatase (38-126) U/L Total Creatine Kinase (30-135) U/L Troponin I (0.000-0.034) ng/mL Total Protein (6.3-8.2) g/dL Albumin (3.5-5.0) g/dL Urine Appearance (Clear) Urine Protein (Negative) Urine Glucose (UA) (Negative) Urine Blood (Negative) Urine Nitrite (Negative) Ur Leukocyte Esterase (Negative) Urine RBC (0-5) /hpf Urine WBC (0-5) /hpf Urine WBC Clumps (None) /hpf Amorphous Sediment (None) /hpf Urine Bacteria (None) /hpf Hyaline Casts (0-2) /lpf Urine Mucus (None) /hpf Stool Occult Blood (Negative) 06/05/17 06/05/17 06/05/17 Range/Units 06:05 07:00 07:58 WBC (3.8-10.6) k/uL RBC (3.80-5.40) m/uL Hgb (11.4-16.0) gm/dL Hct (34.0-46.0) % MCHC (31.0-37.0) g/dL RDW (11.5-15.5) % Neutrophils # (1.3-7.7) k/uL Lymphocytes # (1.0-4.8) k/uL APTT (22.0-30.0) sec Sodium (137-145) mmol/L Chloride 108 H (98-107) mmol/L BUN 47 H (7-17) mg/dL Glucose 125 H (74-99) mg/dL POC Glucose (mg/dL) 120 H 123 H (75-99) mg/dL Plasma Lactic Acid Roni (0.7-2.0) mmol/L AST (14-36) U/L Alkaline Phosphatase (38-126) U/L Total Creatine Kinase (30-135) U/L Troponin I (0.000-0.034) ng/mL Total Protein (6.3-8.2) g/dL Albumin (3.5-5.0) g/dL Urine Appearance (Clear) Urine Protein (Negative) Urine Glucose (UA) (Negative) Urine Blood (Negative) Urine Nitrite (Negative) Ur Leukocyte Esterase (Negative) Urine RBC (0-5) /hpf Urine WBC (0-5) /hpf Urine WBC Clumps (None) /hpf Amorphous Sediment (None) /hpf Urine Bacteria (None) /hpf Hyaline Casts (0-2) /lpf Urine Mucus (None) /hpf Stool Occult Blood (Negative) 06/05/17 06/05/17 06/05/17 Range/Units 08:03 08:09 10:43 WBC 11.7 H (3.8-10.6) k/uL RBC 2.98 L (3.80-5.40) m/uL Hgb 8.2 L (11.4-16.0) gm/dL Hct 26.1 L (34.0-46.0) % MCHC (31.0-37.0) g/dL RDW 16.6 H (11.5-15.5) % Neutrophils # 11.0 H (1.3-7.7) k/uL Lymphocytes # 0.2 L (1.0-4.8) k/uL APTT (22.0-30.0) sec Sodium (137-145) mmol/L Chloride (98-107) mmol/L BUN (7-17) mg/dL Glucose (74-99) mg/dL POC Glucose (mg/dL) 134 H 152 H (75-99) mg/dL Plasma Lactic Acid Roni (0.7-2.0) mmol/L AST (14-36) U/L Alkaline Phosphatase (38-126) U/L Total Creatine Kinase (30-135) U/L Troponin I (0.000-0.034) ng/mL Total Protein (6.3-8.2) g/dL Albumin (3.5-5.0) g/dL Urine Appearance (Clear) Urine Protein (Negative) Urine Glucose (UA) (Negative) Urine Blood (Negative) Urine Nitrite (Negative) Ur Leukocyte Esterase (Negative) Urine RBC (0-5) /hpf Urine WBC (0-5) /hpf Urine WBC Clumps (None) /hpf Amorphous Sediment (None) /hpf Urine Bacteria (None) /hpf Hyaline Casts (0-2) /lpf Urine Mucus (None) /hpf Stool Occult Blood (Negative) 06/05/17 Range/Units 11:43 WBC (3.8-10.6) k/uL RBC (3.80-5.40) m/uL Hgb (11.4-16.0) gm/dL Hct (34.0-46.0) % MCHC (31.0-37.0) g/dL RDW (11.5-15.5) % Neutrophils # (1.3-7.7) k/uL Lymphocytes # (1.0-4.8) k/uL APTT (22.0-30.0) sec Sodium (137-145) mmol/L Chloride (98-107) mmol/L BUN (7-17) mg/dL Glucose (74-99) mg/dL POC Glucose (mg/dL) 152 H (75-99) mg/dL Plasma Lactic Acid Roni (0.7-2.0) mmol/L AST (14-36) U/L Alkaline Phosphatase (38-126) U/L Total Creatine Kinase (30-135) U/L Troponin I (0.000-0.034) ng/mL Total Protein (6.3-8.2) g/dL Albumin (3.5-5.0) g/dL Urine Appearance (Clear) Urine Protein (Negative) Urine Glucose (UA) (Negative) Urine Blood (Negative) Urine Nitrite (Negative) Ur Leukocyte Esterase (Negative) Urine RBC (0-5) /hpf Urine WBC (0-5) /hpf Urine WBC Clumps (None) /hpf Amorphous Sediment (None) /hpf Urine Bacteria (None) /hpf Hyaline Casts (0-2) /lpf Urine Mucus (None) /hpf Stool Occult Blood (Negative) Microbiology - Last 24 Hours (Table) 06/04/17 15:30 Gram Stain - Preliminary Coccyx Wound Culture - Preliminary 06/04/17 15:00 Urine Culture - Preliminary Urine,Catheterized Diabetes panel 06/04/17 06/05/17 Range/Units 15:00 07:58 Sodium 135 L 139 (137-145) mmol/L Potassium 4.5 4.7 (3.5-5.1) mmol/L Chloride 101 108 H (98-107) mmol/L Carbon Dioxide 24 25 (22-30) mmol/L BUN 46 H 47 H (7-17) mg/dL Creatinine 1.00 1.04 (0.52-1.04) mg/dL Glucose 718 H* 125 H (74-99) mg/dL Calcium 8.5 8.5 (8.4-10.2) mg/dL AST 61 H (14-36) U/L ALT 36 (9-52) U/L Alkaline Phosphatase 142 H (38-126) U/L Total Protein 4.1 L (6.3-8.2) g/dL Albumin 1.9 L (3.5-5.0) g/dL Calcium panel 06/04/17 06/05/17 Range/Units 15:00 07:58 Calcium 8.5 8.5 (8.4-10.2) mg/dL Albumin 1.9 L (3.5-5.0) g/dL Pituitary panel 06/04/17 06/05/17 Range/Units 15:00 07:58 Sodium 135 L 139 (137-145) mmol/L Potassium 4.5 4.7 (3.5-5.1) mmol/L Chloride 101 108 H (98-107) mmol/L Carbon Dioxide 24 25 (22-30) mmol/L BUN 46 H 47 H (7-17) mg/dL Creatinine 1.00 1.04 (0.52-1.04) mg/dL Glucose 718 H* 125 H (74-99) mg/dL Calcium 8.5 8.5 (8.4-10.2) mg/dL Adrenal panel 06/04/17 06/05/17 Range/Units 15:00 07:58 Sodium 135 L 139 (137-145) mmol/L Potassium 4.5 4.7 (3.5-5.1) mmol/L Chloride 101 108 H (98-107) mmol/L Carbon Dioxide 24 25 (22-30) mmol/L BUN 46 H 47 H (7-17) mg/dL Creatinine 1.00 1.04 (0.52-1.04) mg/dL Glucose 718 H* 125 H (74-99) mg/dL Calcium 8.5 8.5 (8.4-10.2) mg/dL Total Bilirubin 0.3 (0.2-1.3) mg/dL AST 61 H (14-36) U/L ALT 36 (9-52) U/L Alkaline Phosphatase 142 H (38-126) U/L Total Protein 4.1 L (6.3-8.2) g/dL Albumin 1.9 L (3.5-5.0) g/dL Assessment and Plan Plan: Impression Present on admission stage IV sacral decubitus ulcer with localized cellulitis Morbid obesity BMI 45 Hypotensive present on admission Alzheimer's dementia late onset Medical debility from multi-medical problems Multiple infected decubitus ulcer of the sacrum present on admission status post debridement May 26 Present on admission acute blood loss anemia suspect due to sacral decubitus ulcer sites oozing blood Present on admission febrile leukocytosis hypotensive sepsis suspect due to stage IV sacral decubitus pressure ulcer Plan CODE STATUS noted patient is a no code with attempt to optimize comfort measures There is no surgical intervention warranted this time will re-eval on an as- needed basis Wound care will be Santyl no wound VAC Nutritional support possible nutritional supplements as indicated Monitor hemoglobin attempt keep greater than 7.5 Continue with the current medical regime per medicine service defer to The above impression and plan of care have been discussed and directed by signing physician. Yas Prakash nurse practitioner acting as scribe for signing physician. <Mariah Wrad - Last Filed: 06/14/17 10:44> Surgical - Exam Vital Signs Temp Pulse Resp BP Pulse Ox 98.5 F 74 18 94/50 98 06/04/17 14:44 06/04/17 14:44 06/04/17 14:44 06/04/17 14:44 06/04/17 14:44 Results - Labs 06/12/17 05:17 06/13/17 07:40 Assessment and Plan Plan: Patient examined. Wound care with Santyl application. Presssure offloading mattress. No further surgical intervention
[2017-06-05] MEDS: MULTIVITAMINS, THERA 1 EACH TAB PO SCH (12:28)
[2017-06-05] MEDS: CHOLECALCIFEROL 1,000 UNIT TAB PO SCH (12:28)
[2017-06-05] MEDS: ASPIRIN 81 MG CHEW PO SCH (12:28)
[2017-06-05] MEDS: POTASSIUM CHLORIDE ER 10 MEQ TAB.ER.PRT PO SCH (12:29)
--- NOTE | 2017-06-05 13:47 | HP ---
CHIEF COMPLAINT: Fever and sacral decubitus. HISTORY OF PRESENT ILLNESS: This 76-year-old woman with the past medical history of CAD, CHF, dementia, diabetes mellitus, GERD, being followed by Dr. Grossman, is a resident of [facility]. The patient was complaining of decubitus ulcer for some time. The patient was recently admitted to [facility] with features of a decubitus ulcer. The patient underwent debridement by Dr. Ward. The patient also had symptomatic blood loss from the anemia from the decubitus ulcer. Patient had transfusion. The patient went to [facility]. The patient currently running fever and because of possibility of sepsis, the patient was sent to [facility] and admitted for further evaluation and treatment. Currently the patient is stuporous, unable to get current history. Most of the history is taken by discussion with the staff and ER physician, review of the chart as well as discussion with the at the bedside as well as Dr. Grossman on the phone. Blood glucose level was 718 on admission. PAST MEDICAL HISTORY: History of CHF, dementia, history of hypertension, hyperlipidemia, history of memory impairment. HOME MEDICATIONS: 1. OxyContin 10 mg p.o. b.i.d. 2. Timolol 0.0 b.i.d. 3 . Zoloft 75 mg q.h.s. 4. K-Dur 10 mEq p.o. q.h.s. 5. Lovaza 1 mg p.o. b.i.d. 6. Mycostatin b.i.d. 7. Multivitamin one p.o. daily. 8. Xalatan 0.04 in both eyes q.h.s. 9. Ensure p.o. b.i.d. 11. Lantus 24 units subcu q.h.s. 12. [place] 5 mg p.o. q 6.h. p.r.n. 13. Lasix 20 mg q h.s. 14. Iron 325 mg p.o. b.i.d. 15. Pepcid 20 mg p.o. b.i.d 17. Aricept 10 mg q.h.s. 18. Vitamin D 2,000 daily. 19. Keflex 500 mg p.o. 20. Coreg 12.5 mg p.o. b.i.d. 22. Alphagan. 23. Bismatrol 524 mg q24h. 24. Lipitor 40 mg q6. 25. Ecotrin 81 mg q.a.m. 26. Amino acids. 27. Albuterol. 28. Tylenol. ALLERGIES: QUINOLONES. Family history, social history and review of systems could not be taken at length because of the patient's change in mental status. There is family history of diabetes and hypertension. PHYSICAL EXAMINATION: The patient is stuporous. Pulse 70, blood pressure 109/ 50, respirations 24, temperature 99 degrees, pulse ox 96% on 4 liters. HEENT: Conjunctivae normal. Oral mucosa is dry. NECK: No jugular venous distention. No thyroid enlargement. CARDIOVASCULAR: S1/.S2. RESPIRATIONS: Diminished breath sounds, especially at the bases. A few scattered rhonchi and crackles. Expiratory wheezing also present. ABDOMEN: Soft, obese, nontender. No mass palpable. LEGS: No edema, no swelling. NERVOUS SYSTEM: Diffusely weak. BACK: Sacral decubitus ulceration, erythema and discharge was present. LABS: Glucose 592. Albumin is 7.9. Cortisol is 45. Hemoglobin 7.6. ASSESSMENT: 1. Decubitus ulcer, sacral, stage 3-4, present on admission with sepsis. 2. Change in mental status, metabolic encephalopathy. 3. Diabetes mellitus type 2, uncontrolled with hyperglycemic state, nonketotic state. 4. Gait dysfunction. 5. Dementia. 6. History of hypertension. 7. History of hyperlipidemia. 8. Obesity with body mass index of 37.8. 9. NO CODE, NO CPR, NO VENT. RECOMMENDATIONS AND DISCUSSION: [id number] woman presented with multiple complex medical issues, will monitor the patient closely, continue current medications, continue symptomatic treatment. Otherwise, at this time I would recommend broad spectrum IV antibiotics/ The patient will be started on vancomycin and Zosyn and I will also get surgical evaluation. Otherwise, guarded prognosis because of multiple complex medical issues. Further recommendations to follow. Discussed with the family at length and prognosis guarded. Currently the patient is no code, no CPR, no vent. [facility]
[2017-06-05] MEDS: NOREPINEPHRIN 4 MG-0.9% NS PMX 4 MG/250 ML ML IV SCH (14:09)
[2017-06-05] MEDS ORDERED: NALOXONE 0.4 MG/ML 1 ML VIAL IV PRN (14:27)
[2017-06-05] MEDS: VANCOMYCIN 1,750 MG in SODIUM CHLORIDE 0.9% 250 ML IVPB SCH (14:42)
--- NOTE | 2017-06-05 14:58 | P.CNPUL ---
History of Present Illness Consult date: 06/05/17 Requesting physician: Rasta Mazariegos Reason for consult: other (Critical care management) Chief complaint: Altered mental status History of present illness: This is a 76-year-old female patient who resides at [facility] on the [facility]. She has a history of dementia, hypertension, hyperlipidemia, congestive heart failure status post Bi V pacemaker implantation , diabetes mellitus, morbid obesity, chronic stage III decubitus ulcers. She was recently discharged from here on 05/29/2017 secondary to polymicrobial infection of the decubitus ulcer which included E. coli, Klebsiella oxytoca, Proteus mirabilis along with blood loss anemia from the bleeding decubitus ulcers. She is status post debridement and wound VAC placement and she was returned to [facility] with some discussion regarding possible hospice. The patient was brought back here again yesterday afternoon with concerns regarding cellulitis along with the stage III decubitus ulcers and the development of fever. She was originally on the selective care unit. Today she had altered mental status and hypotension blood pressure 68/36 and an A was called and she was transferred here to the intensive care unit. We're consulted for the same. Initial lactate 4.0, currently 1.9. She has received 5 L of fluid resuscitation. Presently, she is only arousing to painful stimuli. She's been initiated on norepinephrine to keep the mean arterial pressure greater than 65. Her respirations are shallow and she's been initiated on BiPAP 10/5 at 50% FiO2. Her and son are at the bedside. They are agreeing to the DO NOT RESUSCITATE/DO NOT INTUBATE CODE STATUS however they would like full supportive care for now. She has been initiated on vancomycin and Zosyn. Her chest x-ray did not reveal any acute pulmonary process. Blood, urine and wound cultures are pending. Her white count is 11.7. Hemoglobin 8.2. Creatinine 1.04. Review of Systems ROS unobtainable: due to mental status Past Medical History Past Medical History: Coronary Artery Disease (CAD), Heart Failure, Dementia, Diabetes Mellitus, Eye Disorder, GERD/Reflux, Hyperlipidemia, Hypertension, Memory Impairment, Osteoarthritis (OA), Pneumonia Additional Past Medical History / Comment(s): 01-11-16 admitted with uti/sepsis Glaucoma, severe degenerative arthritis with secondary debility to the point where the patient is unable to ambulate,charcot feet morbid obesity, urinary incontinence with frequent urinary tract. infection - skin breakdown to buttocks, carpal tunnel disease and MRSA in the past. RT UPPER ARM CELLULITIS, rt breast mass,pvd,bronchitis, sinus problems, carpal tunnel, past fx lt ankle History of Any Multi-Drug Resistant Organisms: ESBL, Other MDRO Date of last positivie culture/infection: 05/26/17 MDRO Source:: tissue ESBL E.COLI AND KL,OXYTOCA Past Surgical History: Adenoidectomy, Bladder Surgery, Heart Catheterization, Hernia Repair, Hysterectomy, Pacemaker, Tonsillectomy Additional Past Surgical History / Comment(s): arthroscopy laser sx for glaucoma bashir eyes, Cataract extraction with intraocular lens implantations, varicose vein stripping.rt breast bx(mass), colonoscopy, lt knee Past Anesthesia/Blood Transfusion Reactions: No Reported Reaction Type of Cardiac Device: Permanent Pacemaker Device Placement Date:: 2011 Past Psychological History: No Psychological Hx Reported, Depression Additional Psychological History / Comment(s): per [facility] paperwork, major depressive disorder , mood disorder. pt lost a son in 1998(committed suicide and 2014 her daughter from cancer). Smoking Status: Never smoker Past Alcohol Use History: None Reported Additional Past Alcohol Use History / Comment(s): Patient is currently residing at [facility] in the [place]. She did not work outside of the home. She does not have any history of tobacco use but 2nd hand smoked(both parents smoked and her smoked) no alcohol abuse. Past Drug Use History: None Reported - Past Family History Daughter(s) Family Medical History: Cancer, Diabetes Mellitus, Hypertension Medications and Allergies Home Medications Medication Instructions Recorded Confirmed Type Ammonium Lactate Lotion 1 applic TOPICAL HS 12/28/15 06/04/17 History [Lac-Hydrin 12% Lotion] Calcium Carb-Vit D 500Mg-200Un 1 tab PO BID 12/28/15 06/04/17 History [Oscal 500+D] Multivitamins, Thera [Multivitamin 1 tab PO DAILY 12/28/15 06/04/17 History (formulary)] [place]-3 Acid Ethyl Esters [Lovaza] 1 gm PO BID 12/28/15 06/04/17 History Aspirin EC [Ecotrin Low Dose] 81 mg PO QAM 05/24/17 06/04/17 History Cholecalciferol (Vitamin D3) 2,000 unit PO DAILY 05/24/17 06/04/17 History [Vitamin D3] Insulin Lispro [humaLOG Kwikpen] 10 unit SQ BID@0800,1100 05/24/17 06/04/17 History Insulin Lispro [humaLOG Kwikpen] 12 unit SQ DAILY@1700 05/24/17 06/04/17 History Albuterol Nebulized [Ventolin 2.5 mg INHALATION RT-QID PRN 06/04/17 06/04/17 History Nebulized] Amino Acids/Protein Hydrolys 30 ml PO QAM 06/04/17 06/04/17 History [Pro-Stat Supplement] Bismuth Subsalicylate [Bismatrol] 524 mg PO Q4H PRN 06/04/17 06/04/17 History Cephalexin [Keflex] 500 mg PO Q8HR 06/04/17 06/04/17 History Furosemide [Lasix] 20 mg PO QAM 06/04/17 06/04/17 History HYDROcodone/APAP 5-325MG [[place] 1 tab PO Q6HR PRN 06/04/17 06/04/17 History 5-325] Insulin Glargine,Hum.rec.anlog 24 unit SQ HS 06/04/17 06/04/17 History [Lantus Solostar] Lactose-Reduced Food [Ensure Plus] 120 ml PO BID 06/04/17 06/04/17 History Nystatin 100,000 Unit/gm Powd 1 applic TOPICAL BID 06/04/17 06/04/17 History [Mycostatin Powder] Potassium Chloride ER [K-Dur 10] 10 meq PO QAM 06/04/17 06/04/17 History oxyCODONE ER [OxyCONTIN 10MG E.R] 10 mg PO Q12HR 06/04/17 06/04/17 History Allergies Allergy/AdvReac Type Severity Reaction Status Date / Time Quinolones Allergy Unknown Verified 05/24/17 19:55 Physical Exam Vitals: Vital Signs Temp Pulse Pulse Resp BP BP Pulse Ox 06/05/17 12:30 20 68/36 96 06/05/17 12:00 71 18 73/40 06/05/17 11:21 99.2 F 06/05/17 09:50 71 18 72/39 98 06/05/17 09:30 87/43 06/05/17 09:00 76/32 06/05/17 08:49 78 06/05/17 08:30 77 06/05/17 08:00 100.1 F H 85 18 73/40 98 06/05/17 04:00 100.4 F H 82 24 164/100 98 06/04/17 22:46 97.9 F 66 22 119/54 95 06/04/17 21:36 60 22 98/52 96 06/04/17 20:21 64 18 92/53 96 06/04/17 19:55 64 22 97/52 98 06/04/17 18:23 98.3 F 61 22 97/61 98 06/04/17 17:33 99.0 F 70 24 109/50 96 06/04/17 17:00 80 24 93/64 96 06/04/17 16:30 72 22 100/58 96 06/04/17 16:00 74 18 93/50 96 06/04/17 15:46 76 16 95/47 95 06/04/17 15:31 73 18 91/50 95 06/04/17 15:24 71 16 90/46 95 06/04/17 15:16 70 16 90/51 95 06/04/17 15:01 72 16 85/47 95 06/04/17 14:44 98.5 F 74 18 94/50 98 Intake and Output 06/04/17 06/05/17 06/05/17 22:59 06:59 14:59 Intake Total 63.603 48.155 Output Total 100 Balance 63.603 -51.845 Intake: Intake, IV Titration 63.603 48.155 Amount Insulin Regular 100 unit 63.603 38.589 In Sodium Chloride 0.9% 100 ml @ 0.1 UNITS/KG/HR 10.07 mls/hr IV .Q10H2M DELORIS Rx#:[id number] Insulin Regular 100 unit 9.566 In Sodium Chloride 0.9% 100 ml @ Titrate IV .Q0M DELORIS Rx#:[id number] Output: Urine 100 Other: Voiding Method Indwelling Catheter Indwelling Catheter Weight 99.79 kg 119.7 kg 119.7 kg Patient Weight 06/06/17 06:59 Weight 119.7 kg GENERAL EXAM: Morbidly obese. Arouses to painful stimuli only. HEAD: Normocephalic. EYES: Normal reaction of pupils, equal size. NOSE: Clear with pink turbinates. THROAT: There is crowding the posterior pharynx. No erythema or exudates. NECK: Short. No masses, no JVD. CHEST: No chest wall deformity. LUNGS: Equal air entry with no crackles, wheeze, rhonchi or dullness. CVS: S1 and S2 normal with no audible murmurs, regular rhythm. ABDOMEN: Obese unable to appreciate organs, normal bowel sounds, no guarding or rigidity. SKIN: Stage III decubiti on the coccyx multiple areas of ecchymosis Extremities: There is 2-3+ peripheral edema. No clubbing, no cyanosis. Peripheral pulses are intact. Results - Laboratory Findings CBC and BMP: 06/05/17 08:03 06/05/17 07:58 PT/INR, D-dimer PT 10.8 sec (9.0-12.0) 06/04/17 15:00 INR 1.1 (<1.2) 06/04/17 15:00 Abnormal lab findings: Abnormal Labs 06/04/17 06/04/17 06/04/17 14:50 15:00 15:00 WBC RBC 2.80 L Hgb 7.7 L Hct 26.0 L MCHC 29.6 L RDW 16.7 H Neutrophils # Lymphocytes # 0.1 L APTT Sodium Chloride BUN Glucose POC Glucose (mg/dL) >600 H Hemoglobin A1c Plasma Lactic Acid Roni AST Alkaline Phosphatase Total Creatine Kinase <20 L Troponin I 0.058 H* Total Protein Albumin Urine Appearance Urine Protein Urine Glucose (UA) Urine Blood Urine Nitrite Ur Leukocyte Esterase Urine RBC Urine WBC Urine WBC Clumps Amorphous Sediment Urine Bacteria Hyaline Casts Urine Mucus Stool Occult Blood 06/04/17 06/04/17 06/04/17 15:00 15:00 15:00 WBC RBC Hgb Hct MCHC RDW Neutrophils # Lymphocytes # APTT 20.3 L Sodium 135 L Chloride BUN 46 H Glucose 718 H* POC Glucose (mg/dL) Hemoglobin A1c Plasma Lactic Acid Roin 4.0 H* AST 61 H Alkaline Phosphatase 142 H Total Creatine Kinase Troponin I Total Protein 4.1 L Albumin 1.9 L Urine Appearance Urine Protein Urine Glucose (UA) Urine Blood Urine Nitrite Ur Leukocyte Esterase Urine RBC Urine WBC Urine WBC Clumps Amorphous Sediment Urine Bacteria Hyaline Casts Urine Mucus Stool Occult Blood 06/04/17 06/04/17 06/04/17 15:00 15:00 15:30 WBC RBC Hgb Hct MCHC RDW Neutrophils # Lymphocytes # APTT Sodium Chloride BUN Glucose POC Glucose (mg/dL) Hemoglobin A1c 6.3 H Plasma Lactic Acid Roni AST Alkaline Phosphatase Total Creatine Kinase Troponin I Total Protein Albumin Urine Appearance Cloudy H Urine Protein Trace H Urine Glucose (UA) 4+ H Urine Blood Small H Urine Nitrite Positive H Ur Leukocyte Esterase Large H Urine RBC 11 H Urine WBC 132 H Urine WBC Clumps Occasional H Amorphous Sediment Occasional H Urine Bacteria Many H Hyaline Casts 12 H Urine Mucus Occasional H Stool Occult Blood Positive H 06/04/17 06/04/17 06/04/17 16:44 17:34 18:27 WBC RBC Hgb Hct MCHC RDW Neutrophils # Lymphocytes # APTT Sodium Chloride BUN Glucose POC Glucose (mg/dL) >600 H 577 H 592 H Hemoglobin A1c Plasma Lactic Acid Roni AST Alkaline Phosphatase Total Creatine Kinase Troponin I Total Protein Albumin Urine Appearance Urine Protein Urine Glucose (UA) Urine Blood Urine Nitrite Ur Leukocyte Esterase Urine RBC Urine WBC Urine WBC Clumps Amorphous Sediment Urine Bacteria Hyaline Casts Urine Mucus Stool Occult Blood 06/04/17 06/04/17 06/04/17 19:37 20:34 21:31 WBC RBC Hgb Hct MCHC RDW Neutrophils # Lymphocytes # APTT Sodium Chloride BUN Glucose POC Glucose (mg/dL) 554 H 529 H 497 H Hemoglobin A1c Plasma Lactic Acid Roni AST Alkaline Phosphatase Total Creatine Kinase Troponin I Total Protein Albumin Urine Appearance Urine Protein Urine Glucose (UA) Urine Blood Urine Nitrite Ur Leukocyte Esterase Urine RBC Urine WBC Urine WBC Clumps Amorphous Sediment Urine Bacteria Hyaline Casts Urine Mucus Stool Occult Blood 06/04/17 06/05/17 06/05/17 22:41 00:07 01:01 WBC RBC Hgb Hct MCHC RDW Neutrophils # Lymphocytes # APTT Sodium Chloride BUN Glucose POC Glucose (mg/dL) 479 H 416 H 328 H Hemoglobin A1c Plasma Lactic Acid Roni AST Alkaline Phosphatase Total Creatine Kinase Troponin I Total Protein Albumin Urine Appearance Urine Protein Urine Glucose (UA) Urine Blood Urine Nitrite Ur Leukocyte Esterase Urine RBC Urine WBC Urine WBC Clumps Amorphous Sediment Urine Bacteria Hyaline Casts Urine Mucus Stool Occult Blood 06/05/17 06/05/17 06/05/17 01:58 03:09 03:59 WBC RBC Hgb Hct MCHC RDW Neutrophils # Lymphocytes # APTT Sodium Chloride BUN Glucose POC Glucose (mg/dL) 289 H 200 H 166 H Hemoglobin A1c Plasma Lactic Acid Roni AST Alkaline Phosphatase Total Creatine Kinase Troponin I Total Protein Albumin Urine Appearance Urine Protein Urine Glucose (UA) Urine Blood Urine Nitrite Ur Leukocyte Esterase Urine RBC Urine WBC Urine WBC Clumps Amorphous Sediment Urine Bacteria Hyaline Casts Urine Mucus Stool Occult Blood 06/05/17 06/05/17 06/05/17 05:05 06:05 07:00 WBC RBC Hgb Hct MCHC RDW Neutrophils # Lymphocytes # APTT Sodium Chloride BUN Glucose POC Glucose (mg/dL) 137 H 120 H 123 H Hemoglobin A1c Plasma Lactic Acid Roni AST Alkaline Phosphatase Total Creatine Kinase Troponin I Total Protein Albumin Urine Appearance Urine Protein Urine Glucose (UA) Urine Blood Urine Nitrite Ur Leukocyte Esterase Urine RBC Urine WBC Urine WBC Clumps Amorphous Sediment Urine Bacteria Hyaline Casts Urine Mucus Stool Occult Blood 06/05/17 06/05/17 06/05/17 07:58 08:03 08:09 WBC 11.7 H RBC 2.98 L Hgb 8.2 L Hct 26.1 L MCHC RDW 16.6 H Neutrophils # 11.0 H Lymphocytes # 0.2 L APTT Sodium Chloride 108 H BUN 47 H Glucose 125 H POC Glucose (mg/dL) 134 H Hemoglobin A1c Plasma Lactic Acid Roni AST Alkaline Phosphatase Total Creatine Kinase Troponin I Total Protein Albumin Urine Appearance Urine Protein Urine Glucose (UA) Urine Blood Urine Nitrite Ur Leukocyte Esterase Urine RBC Urine WBC Urine WBC Clumps Amorphous Sediment Urine Bacteria Hyaline Casts Urine Mucus Stool Occult Blood 06/05/17 06/05/17 10:43 11:43 WBC RBC Hgb Hct MCHC RDW Neutrophils # Lymphocytes # APTT Sodium Chloride BUN Glucose POC Glucose (mg/dL) 152 H 152 H Hemoglobin A1c Plasma Lactic Acid Roni AST Alkaline Phosphatase Total Creatine Kinase Troponin I Total Protein Albumin Urine Appearance Urine Protein Urine Glucose (UA) Urine Blood Urine Nitrite Ur Leukocyte Esterase Urine RBC Urine WBC Urine WBC Clumps Amorphous Sediment Urine Bacteria Hyaline Casts Urine Mucus Stool Occult Blood - Diagnostic Findings Chest x-ray: image reviewed (No acute pulmonary process.) Assessment and Plan Plan: Impression: #1 Altered mental status secondary to suspected sepsis with hypotension secondary to decubitus ulcers with recent cultures positive for Proteus mirabilis, E. coli, Klebsiella oxytoca. #2 Septic shock with hypotension requiring pressor support. #3 Acute hypoxic respiratory failure secondary to above. Currently on BiPAP 10/ 5 at 50% FiO2. #4 Acute on chronic anemia, current hemoglobin 8.2. #5 Coronary artery disease. #6 History of congestive heart failure, status post biventricular pacemaker. #7 Hypertension, history of. #8 Hyperlipidemia. #9 Diabetes mellitus. #10 Alzheimer's dementia. #11 group home resident, bedridden. #12 Poor overall functional performance secondary to the above-mentioned multiple comorbidities. Plan: The patient was seen and evaluated by Dr. Avalos. We did initiate norepinephrine to maintain mean arterial pressures greater than 65. She remains on vancomycin and Zosyn for now. We will initiate BiPAP support. ID has been consulted. Surgical services have been consulted on the decubitus ulcers and there is no plans for intervention at this point. The patient's and son are at the bedside. She will remain a DO NOT RESUSCITATE/DO NOT INTUBATE CODE STATUS. They're considering possible hospice which was brought up at her last admission as well. Social work is involved in the case. In the interim, we'll continue with full supportive care. We'll make further recommendations based on her clinical status. Time with Patient: Greater than 30
[2017-06-05] MEDS: IPRATROPIUM-ALBUTEROL 3 ML NEB INHALATION SCH ×3 (16:10→23:21)
[2017-06-05] MEDS: COLLAGENASE 250 UNIT/GM OINTMENT 30 GM TUBE TOPICAL SCH (16:42)
[2017-06-05 18:00] LABS: Glucose,Whole Blood 189 mg/dL (75-99)
--- NOTE | 2017-06-05 22:12 | P.CONS ---
History of Present Illness - Reason for Consult Consult date: 06/05/17 - Chief Complaint Increasing weakness ,altered mental status - History of Present Illness 83-year-old female who is comfortable but a poor historian HEENT: Anicteric conjunctiva are pink and moist nasal mucosa grossly intact without significant lesions, there is no thrush. Oral cavity is dry Neck: The neck is supple without significant lymphadenopathy or thyromegaly. Lungs: Symmetrical air entry. Few basilar crackles are heard. Heart: Irregular with a soft S4 There is no significant murmur click or rub, PMI was nondisplaced. Abdomen: Ostomy is noted to be in place and functioning well. Extensive abdominal wall herniation is noted that his peristomal in nature Positive bowel sounds soft and nontender without palpable masses or organomegaly. There was no guarding or rebound. Extremities: The upper extremities have equal pulses they are symmetric, no significant petechiae or telangiectasia. No splinter hemorrhages were noted. Lower extremities have some trace edema. Evidence of some bruising apparently from recent fall Neuro: She is arousable, she is oriented to person only, attempts to answer questions but has a bit of echolalia however is able to move extremities spontaneously, no cesilia hallucinations at this time Review of Systems ROS unobtainable: due to mental status Past Medical History Past Medical History: Coronary Artery Disease (CAD), Heart Failure, Dementia, Diabetes Mellitus, Eye Disorder, GERD/Reflux, Hyperlipidemia, Hypertension, Memory Impairment, Osteoarthritis (OA), Pneumonia Additional Past Medical History / Comment(s): 01-11-16 admitted with uti/sepsis Glaucoma, severe degenerative arthritis with secondary debility to the point where the patient is unable to ambulate,charcot feet morbid obesity, urinary incontinence with frequent urinary tract. infection - skin breakdown to buttocks, carpal tunnel disease and MRSA in the past. RT UPPER ARM CELLULITIS, rt breast mass,pvd,bronchitis, sinus problems, carpal tunnel, past fx lt ankle History of Any Multi-Drug Resistant Organisms: ESBL, Other MDRO Year Discovered:: 05/26/17 MDRO Source:: tissue ESBL E.COLI AND KL,OXYTOCA Past Surgical History: Adenoidectomy, Bladder Surgery, Heart Catheterization, Hernia Repair, Hysterectomy, Pacemaker, Tonsillectomy Additional Past Surgical History / Comment(s): arthroscopy laser sx for glaucoma bashir eyes, Cataract extraction with intraocular lens implantations, varicose vein stripping.rt breast bx(mass), colonoscopy, lt knee Past Anesthesia/Blood Transfusion Reactions: No Reported Reaction Type of Cardiac Device: Permanent Pacemaker Device Placement Date:: 2011 Past Psychological History: No Psychological Hx Reported, Depression Additional Psychological History / Comment(s): per [facility] paperwork, major depressive disorder , mood disorder. pt lost a son in 1998(committed suicide and 2014 her daughter from cancer). Smoking Status: Never smoker Past Alcohol Use History: None Reported Additional Past Alcohol Use History / Comment(s): Patient is currently residing at [facility] in the [place]. She did not work outside of the home. She does not have any history of tobacco use but 2nd hand smoked(both parents smoked and her smoked) no alcohol abuse. Past Drug Use History: None Reported - Past Family History Daughter(s) Family Medical History: Cancer, Diabetes Mellitus, Hypertension Medications and Allergies Home Medications and Allergies Comment(s): Current Medications Acetaminophen (Tylenol Tab) 500 mg PO Q6H PRN PRN Reason: Pain Hydrocodone Bitart/Acetaminophen (Solon 5-325) 1 each PO Q6HR PRN PRN Reason: Severe Pain Albuterol Sulfate (Ventolin Nebulized) 2.5 mg INHALATION RT-QID PRN PRN Reason: Shortness Of Breath Last Admin: 06/05/17 08:30 Dose: 2.5 mg Albuterol/Ipratropium (Duoneb 0.5 Mg-3 Mg/3 Ml Soln) 3 ml INHALATION RT-Q4H [facility] Last Admin: 06/05/17 19:29 Dose: 3 ml Aspirin (Aspirin) 81 mg PO QAM [facility] Last Admin: 06/05/17 12:28 Dose: Not Given Atorvastatin Calcium (Lipitor) 40 mg PO HS [facility] Last Admin: 06/05/17 20:12 Dose: Not Given Bismuth Subsalicylate (Bismatrol) 524 mg PO Q4H PRN PRN Reason: Indigestion Brimonidine Tartrate (Alphagan P 0.2% Ophth Soln) 1 drops BOTH EYES BID [facility] Last Admin: 06/05/17 21:16 Dose: 1 drops Calcium Carbonate (Oscal 500+D) 1 each PO BID [facility] Last Admin: 06/05/17 20:13 Dose: Not Given Cholecalciferol (Vitamin D3) 2,000 unit PO DAILY [facility] Last Admin: 06/05/17 12:28 Dose: Not Given Collagenase (Santyl) 1 applic TOPICAL DAILY [facility] Last Admin: 06/05/17 16:42 Dose: Not Given Donepezil HCl (Aricept) 10 mg PO HS [facility] Last Admin: 06/05/17 20:13 Dose: Not Given Famotidine (Pepcid) 20 mg PO DAILY [facility] Ferrous Sulfate (Feosol) 325 mg PO BID [facility] Last Admin: 06/05/17 20:13 Dose: Not Given Furosemide (Lasix) 20 mg PO QAM [facility] Last Admin: 06/05/17 10:41 Dose: Not Given Heparin Sodium (Porcine) (Heparin) 5,000 unit SQ Q12HR [facility] Last Admin: 06/05/17 21:15 Dose: 5,000 unit Piperacillin/Tazobactam/ (Dextrose 3.375 gm/ IV Solution) 50 mls @ 12.5 mls/hr IVPB Q8HR [facility] Last Admin: 06/05/17 17:53 Dose: 12.5 mls/hr Vancomycin HCl 1,750 mg/ (Sodium Chloride) 250 mls @ 125 mls/hr IVPB Q16H [facility] Last Admin: 06/05/17 14:42 Dose: 125 mls/hr Sodium Chloride (Saline 0.9%) 1,000 mls @ 75 mls/hr IV .[id number] [facility] Last Admin: 06/05/17 21:17 Dose: 75 mls/hr Acetaminophen 1,000 mg/ IV (Solution) 100 mls @ 400 mls/hr IVPB Q6HR PRN PRN Reason: Fever and/ or Pain Stop: 06/06/17 12:14 Norepinephrine Bitartrate (Levophed-0.9% Nacl 4 Mg/250ml Pmx) 4 mg in 250 mls @ 0 mls/hr IV .Q0M [facility]; Titrate PRN Reason: Protocol Last Titration: 06/05/17 17:33 Dose: 8 mcg/min, 30 mls/hr Insulin Human Lispro (Humalog) 0 unit SQ Q6H [facility] PRN Reason: Protocol Last Admin: 06/05/17 17:59 Dose: 3 unit Lactic Acid (Lac-Hydrin 12%) 1 applic TOPICAL [facility] Last Admin: 06/05/17 02:09 Dose: Not Given Latanoprost (Xalatan 0.005%) 1 drops BOTH EYES [facility] Last Admin: 06/05/17 21:16 Dose: 1 drops Magnesium Hydroxide (Milk Of Magnesia) 2,400 mg PO DAILY PRN PRN Reason: Constipation Miscellaneous Information (Magnesium Per Protocol) 1 each MISCELLANE DAILY PRN ; Protocol PRN Reason: Per Protocol Miscellaneous Information (Potassium Per Protocol) 1 each MISCELLANE DAILY PRN PRN Reason: Per Protocol Multivitamins (Theragran) 1 each PO DAILY [facility] Last Admin: 06/05/17 12:28 Dose: Not Given Naloxone HCl (Narcan) 0.2 mg IV Q2M PRN PRN Reason: Opioid Reversal Nystatin (Mycostatin Powder) 1 applic TOPICAL BID [facility] Last Admin: 06/05/17 10:28 Dose: 1 applic Oxycodone HCl (Oxycontin 10mg E.R.) 10 mg PO Q12HR [facility] Last Admin: 06/05/17 21:16 Dose: Not Given Pantoprazole Sodium (Protonix) 40 mg IV DAILY [facility] Last Admin: 06/05/17 10:39 Dose: 40 mg Potassium Chloride (K-Dur 10) 10 meq PO QAM [facility] Last Admin: 06/05/17 12:29 Dose: Not Given Sertraline HCl (Zoloft) 75 mg PO [facility] Last Admin: 06/05/17 20:13 Dose: Not Given Timolol Maleate (Timoptic) 1 drops BOTH EYES BID [facility] Last Admin: 06/05/17 21:17 Dose: 1 drops Home Medications Medication Instructions Recorded Confirmed Type Ammonium Lactate Lotion 1 applic TOPICAL 12/28/15 06/04/17 History [Lac-Hydrin 12% Lotion] Calcium Carb-Vit D 500Mg-200Un 1 tab PO BID 12/28/15 06/04/17 History [Oscal 500+D] Multivitamins, Thera [Multivitamin 1 tab PO DAILY 12/28/15 06/04/17 History (formulary)] [place]-3 Acid Ethyl Esters [Lovaza] 1 gm PO BID 12/28/15 06/04/17 History Aspirin EC [Ecotrin Low Dose] 81 mg PO QAM 05/24/17 06/04/17 History Cholecalciferol (Vitamin D3) 2,000 unit PO DAILY 05/24/17 06/04/17 History [Vitamin D3] Insulin Lispro [humaLOG Kwikpen] 10 unit SQ BID@0800,1100 05/24/17 06/04/17 History Insulin Lispro [humaLOG Kwikpen] 12 unit SQ DAILY@1700 05/24/17 06/04/17 History Albuterol Nebulized [Ventolin 2.5 mg INHALATION RT-QID PRN 06/04/17 06/04/17 History Nebulized] Amino Acids/Protein Hydrolys 30 ml PO QAM 06/04/17 06/04/17 History [Pro-Stat Supplement] Bismuth Subsalicylate [Bismatrol] 524 mg PO Q4H PRN 06/04/17 06/04/17 History Cephalexin [Keflex] 500 mg PO Q8HR 06/04/17 06/04/17 History Furosemide [Lasix] 20 mg PO QAM 06/04/17 06/04/17 History HYDROcodone/APAP 5-325MG [Solon 1 tab PO Q6HR PRN 06/04/17 06/04/17 History 5-325] Insulin Glargine,Hum.rec.anlog 24 unit SQ HS 06/04/17 06/04/17 History [Lantus Solostar] Lactose-Reduced Food [Ensure Plus] 120 ml PO BID 06/04/17 06/04/17 History Nystatin 100,000 Unit/gm Powd 1 applic TOPICAL BID 06/04/17 06/04/17 History [Mycostatin Powder] Potassium Chloride ER [K-Dur 10] 10 meq PO QAM 06/04/17 06/04/17 History oxyCODONE ER [OxyCONTIN 10MG E.R] 10 mg PO Q12HR 06/04/17 06/04/17 History Allergies Allergy/AdvReac Type Severity Reaction Status Date / Time Quinolones Allergy Unknown Verified 05/24/17 19:55 Physical Exam Vitals: Vital Signs Temp Pulse Pulse Resp BP BP Pulse Ox 06/05/17 19:50 59 L 06/05/17 19:31 60 06/05/17 19:00 59 L 13 117/59 100 06/05/17 18:30 59 L 12 112/56 99 06/05/17 18:00 59 L 12 97/46 100 06/05/17 17:45 59 L 18 112/50 100 06/05/17 17:30 60 13 72/42 100 06/05/17 17:15 59 L 11 L 93/48 100 06/05/17 17:00 59 L 13 78/42 98 06/05/17 16:45 59 L 12 87/47 100 06/05/17 16:30 59 L 13 81/46 06/05/17 16:21 66 06/05/17 16:15 59 L 18 78/41 99 06/05/17 16:13 59 L 06/05/17 16:00 97.2 F L 59 L 12 79/46 98 06/05/17 15:45 59 L 11 L 121/65 99 06/05/17 15:30 59 L 16 104/46 97 06/05/17 15:15 59 L 16 109/49 95 06/05/17 15:00 60 59 L 14 118/55 99 06/05/17 14:45 60 14 105/52 98 06/05/17 14:30 61 15 72/43 91 L 06/05/17 14:15 59 L 14 81/42 98 06/05/17 14:00 97.8 F 59 L 10 L 76/37 92 L 06/05/17 12:30 20 68/36 96 06/05/17 12:00 71 18 73/40 06/05/17 11:21 99.2 F 06/05/17 09:50 71 18 72/39 98 06/05/17 09:30 87/43 06/05/17 09:00 76/32 06/05/17 08:49 78 06/05/17 08:30 77 06/05/17 08:00 100.1 F H 85 18 73/40 98 06/05/17 04:00 100.4 F H 82 24 164/100 98 06/04/17 22:46 97.9 F 66 22 119/54 95 Intake and Output 06/05/17 06/05/17 06/05/17 06:59 14:59 22:59 Intake Total 48.155 328.75 511.562 Output Total 400 125 Balance -351.845 328.75 386.562 Intake: IV 325 425 Piperacillin-Tazobactam 3 50 .375 gm In Dextrose/Water 1 50ml.bag @ 12.5 mls/hr IVPB Q8HR [facility] Rx#: [id number] Sodium Chloride 0.9% 1, 75 375 000 ml @ 75 mls/hr IV . [id number] [facility] Rx#:[id number] Vancomycin 1,750 mg In 250 Sodium Chloride 0.9% 250 ml @ 125 mls/hr IVPB Q16H [facility] Rx#:[id number] Intake, IV Titration 48.155 3.75 86.562 Amount Insulin Regular 100 unit 38.589 In Sodium Chloride 0.9% 100 ml @ 0.1 UNITS/KG/HR 10.07 mls/hr IV .Q10H2M [facility] Rx#:[id number] Insulin Regular 100 unit 9.566 In Sodium Chloride 0.9% 100 ml @ Titrate IV .Q0M [facility] Rx#:[id number] Norepinephrin 4 mg-0.9% 3.75 86.562 Ns Pmx 4 mg In 250 ml @ Titrate IV .Q0M [facility] Rx#: [id number] Output: Urine 400 125 Other: Voiding Method Indwelling Catheter Indwelling Catheter Indwelling Catheter Weight 119.7 kg 119.7 kg Patient Weight 06/06/17 06:59 Weight 119.7 kg Superobese 76-year-old female who has BiPAP in place and seems comfortable. With the assistance of nursing staff she is rolled so that her pressure ulcerations can be evaluated. Of note she does hold onto the rail on her hand is placed onto it. She however is really not communicating any other fashion. She did cry out in pain upon initially being moved and then settle down rapidly. HEENT: Anicteric conjunctiva are pink and moist nasal mucosa grossly intact without significant lesions, there is no thrush. Dentition is poor Neck: The neck is supple without significant lymphadenopathy or thyromegaly. Lungs: Symmetrical air entry with basilar crackles no bronchial sounds no dullness. Heart: Heart rate is slow at just 60,. She 100% paced by the monitor. Audible S1 and S2 soft S4 no murmur click or rub Abdomen: Superobese Positive bowel sounds soft and nontender without palpable masses or organomegaly. There was no guarding or rebound. Extremities: The extremities have some generalized edema and no significant open ulcerations are seen. The heels are intact at this time. Neuro: Patient has BiPAP in place. Follow no commands. However when she was rolled to her side she did hold onto the rail. Skin: Patient is evidence the extensive pressor ulceration to the coccyx and buttocks. Please see the nursing documentation for the photography and measurements of these extensive ulcerations are grossly necrotic. There is still some odor. There some surrounding erythema. Results CBC & Chem 7: 06/05/17 08:03 06/05/17 07:58 Labs: Abnormal Lab Results - Last 24 Hours (Table) 06/04/17 06/04/17 06/05/17 Range/Units 15:00 22:41 00:07 WBC (3.8-10.6) k/uL RBC (3.80-5.40) m/uL Hgb (11.4-16.0) gm/dL Hct (34.0-46.0) % RDW (11.5-15.5) % Neutrophils # (1.3-7.7) k/uL Lymphocytes # (1.0-4.8) k/uL Chloride (98-107) mmol/L BUN (7-17) mg/dL Glucose (74-99) mg/dL POC Glucose (mg/dL) 479 H 416 H (75-99) mg/dL Hemoglobin A1c 6.3 H (4.2-6.1) % 06/05/17 06/05/17 06/05/17 Range/Units 01:01 01:58 03:09 WBC (3.8-10.6) k/uL RBC (3.80-5.40) m/uL Hgb (11.4-16.0) gm/dL Hct (34.0-46.0) % RDW (11.5-15.5) % Neutrophils # (1.3-7.7) k/uL Lymphocytes # (1.0-4.8) k/uL Chloride (98-107) mmol/L BUN (7-17) mg/dL Glucose (74-99) mg/dL POC Glucose (mg/dL) 328 H 289 H 200 H (75-99) mg/dL Hemoglobin A1c (4.2-6.1) % 06/05/17 06/05/17 06/05/17 Range/Units 03:59 05:05 06:05 WBC (3.8-10.6) k/uL RBC (3.80-5.40) m/uL Hgb (11.4-16.0) gm/dL Hct (34.0-46.0) % RDW (11.5-15.5) % Neutrophils # (1.3-7.7) k/uL Lymphocytes # (1.0-4.8) k/uL Chloride (98-107) mmol/L BUN (7-17) mg/dL Glucose (74-99) mg/dL POC Glucose (mg/dL) 166 H 137 H 120 H (75-99) mg/dL Hemoglobin A1c (4.2-6.1) % 06/05/17 06/05/17 06/05/17 Range/Units 07:00 07:58 08:03 WBC 11.7 H (3.8-10.6) k/uL RBC 2.98 L (3.80-5.40) m/uL Hgb 8.2 L (11.4-16.0) gm/dL Hct 26.1 L (34.0-46.0) % RDW 16.6 H (11.5-15.5) % Neutrophils # 11.0 H (1.3-7.7) k/uL Lymphocytes # 0.2 L (1.0-4.8) k/uL Chloride 108 H (98-107) mmol/L BUN 47 H (7-17) mg/dL Glucose 125 H (74-99) mg/dL POC Glucose (mg/dL) 123 H (75-99) mg/dL Hemoglobin A1c (4.2-6.1) % 06/05/17 06/05/17 06/05/17 Range/Units 08:09 10:43 11:43 WBC (3.8-10.6) k/uL RBC (3.80-5.40) m/uL Hgb (11.4-16.0) gm/dL Hct (34.0-46.0) % RDW (11.5-15.5) % Neutrophils # (1.3-7.7) k/uL Lymphocytes # (1.0-4.8) k/uL Chloride (98-107) mmol/L BUN (7-17) mg/dL Glucose (74-99) mg/dL POC Glucose (mg/dL) 134 H 152 H 152 H (75-99) mg/dL Hemoglobin A1c (4.2-6.1) % 06/05/17 Range/Units 17:58 WBC (3.8-10.6) k/uL RBC (3.80-5.40) m/uL Hgb (11.4-16.0) gm/dL Hct (34.0-46.0) % RDW (11.5-15.5) % Neutrophils # (1.3-7.7) k/uL Lymphocytes # (1.0-4.8) k/uL Chloride (98-107) mmol/L BUN (7-17) mg/dL Glucose (74-99) mg/dL POC Glucose (mg/dL) 189 H (75-99) mg/dL Hemoglobin A1c (4.2-6.1) % Microbiology - Last 24 Hours (Table) 06/04/17 15:00 Blood Culture - Preliminary Blood No Growth after 24 hours 06/04/17 15:30 Gram Stain - Preliminary Coccyx Wound Culture - Preliminary 06/04/17 15:00 Urine Culture - Preliminary Urine,Catheterized Laboratory Results WBC 11.7 k/uL (3.8-10.6) H 06/05/17 08:03 RBC 2.98 m/uL (3.80-5.40) L 06/05/17 08:03 Hgb 8.2 gm/dL (11.4-16.0) L 06/05/17 08:03 Hct 26.1 % (34.0-46.0) L 06/05/17 08:03 MCV 87.6 fL (80.0-100.0) D 06/05/17 08:03 MCH 27.4 pg (25.0-35.0) 06/05/17 08:03 MCHC 31.3 g/dL (31.0-37.0) 06/05/17 08:03 RDW 16.6 % (11.5-15.5) H 06/05/17 08:03 Plt Count 225 k/uL (150-450) 06/05/17 08:03 Neutrophils % 94 % 06/05/17 08:03 Lymphocytes % 2 % 06/05/17 08:03 Monocytes % 3 % 06/05/17 08:03 Eosinophils % 0 % 06/05/17 08:03 Basophils % 0 % 06/05/17 08:03 Neutrophils # 11.0 k/uL (1.3-7.7) H 06/05/17 08:03 Lymphocytes # 0.2 k/uL (1.0-4.8) L 06/05/17 08:03 Monocytes # 0.3 k/uL (0-1.0) 06/05/17 08:03 Eosinophils # 0.0 k/uL (0-0.7) 06/05/17 08:03 Basophils # 0.0 k/uL (0-0.2) 06/05/17 08:03 Hypochromasia Marked 06/05/17 08:03 Poikilocytosis Slight 06/05/17 08:03 Anisocytosis Slight 06/05/17 08:03 PT 10.8 sec (9.0-12.0) 06/04/17 15:00 INR 1.1 (<1.2) 06/04/17 15:00 APTT 20.3 sec (22.0-30.0) L 06/04/17 15:00 Sodium 139 mmol/L (137-145) 06/05/17 07:58 Potassium 4.7 mmol/L (3.5-5.1) 06/05/17 07:58 Chloride 108 mmol/L (98-107) H 06/05/17 07:58 Carbon Dioxide 25 mmol/L (22-30) 06/05/17 07:58 Anion Gap 6 mmol/L 06/05/17 07:58 BUN 47 mg/dL (7-17) H 06/05/17 07:58 Creatinine 1.04 mg/dL (0.52-1.04) 06/05/17 07:58 Est GFR (MDRD) Af Amer >60 (>60 ml/min/1.73 sqM) 06/05/17 07:58 Est GFR (MDRD) Non-Af 52 (>60 ml/min/1.73 sqM) 06/05/17 07:58 Glucose 125 mg/dL (74-99) H 06/05/17 07:58 POC Glucose (mg/dL) 189 mg/dL (75-99) H 06/05/17 17:58 POC Glu [employer] Clerk Andra Harrison 06/05/17 17:[address] Glu mg/dL 134 mg/dL 06/04/17 15:00 Hemoglobin A1c 6.3 % (4.2-6.1) H 06/04/17 15:00 Lactic Ac Sepsis Rflx Y 06/04/17 15:50 Plasma Lactic Acid Roni 1.9 mmol/L (0.7-2.0) 06/04/17 19:04 Calcium 8.5 mg/dL (8.4-10.2) 06/05/17 07:58 Total Bilirubin 0.3 mg/dL (0.2-1.3) 06/04/17 15:00 AST 61 U/L (14-36) H 06/04/17 15:00 ALT 36 U/L (9-52) 06/04/17 15:00 Alkaline Phosphatase 142 U/L (38-126) H 06/04/17 15:00 Total Creatine Kinase <20 U/L (30-135) L 06/04/17 15:00 CK-MB (CK-2) 0.5 ng/mL (0.0-2.4) 06/04/17 15:00 CK-MB (CK-2) Rel Index 0.0 06/04/17 15:00 Troponin I 0.058 ng/mL (0.000-0.034) H* 06/04/17 15:00 Total Protein 4.1 g/dL (6.3-8.2) L 06/04/17 15:00 Albumin 1.9 g/dL (3.5-5.0) L 06/04/17 15:00 Cortisol 45 ug/dL 06/04/17 15:00 Urine Color Yellow 06/04/17 15:00 Urine Appearance Cloudy (Clear) H 06/04/17 15:00 Urine pH 5.0 (5.0-8.0) 06/04/17 15:00 Ur Specific [place] 1.015 (1.001-1.035) 06/04/17 15:00 Urine Protein Trace (Negative) H 06/04/17 15:00 Urine Glucose (UA) 4+ (Negative) H 06/04/17 15:00 Urine Ketones Negative (Negative) 06/04/17 15:00 Urine Blood Small (Negative) H 06/04/17 15:00 Urine Nitrite Positive (Negative) H 06/04/17 15:00 Urine Bilirubin Negative (Negative) 06/04/17 15:00 Urine Urobilinogen 2.0 mg/dL (<2.0) 06/04/17 15:00 Ur Leukocyte Esterase Large (Negative) H 06/04/17 15:00 Urine RBC 11 /hpf (0-5) H 06/04/17 15:00 Urine WBC 132 /hpf (0-5) H 06/04/17 15:00 Urine WBC Clumps Occasional /hpf (None) H 06/04/17 15:00 Ur Squamous Epith Cells 3 /hpf (0-4) 06/04/17 15:00 Amorphous Sediment Occasional /hpf (None) H 06/04/17 15:00 Urine Bacteria Many /hpf (None) H 06/04/17 15:00 Hyaline Casts 12 /lpf (0-2) H 06/04/17 15:00 Granular Casts 35 /lpf (0) 06/04/17 15:00 Urine Mucus Occasional /hpf (None) H 06/04/17 15:00 Stool Occult Blood Positive (Negative) H 06/04/17 15:30 Acetone, Qual Negative (Negative) 06/04/17 15:00 Blood Type O Positive 06/04/17 15:00 Blood Type Recheck No 06/04/17 15:00 Antibody Screen NEGATIVE 06/04/17 15:00 Spec Expiration Date 06/07/2017 - 23006/04/17 15:00 Microbiology 06/04/17 15:00 Blood Blood Culture - Preliminary No Growth after 24 hours 06/04/17 15:30 Coccyx Gram Stain - Preliminary 06/04/17 15:30 Coccyx Wound Culture - Preliminary 06/04/17 15:00 Urine,Catheterized Urine Culture - Preliminary Recent wound culture shows evidence of E. coli ESBL, Klebsiella oxytoca ESBL, and Proteus mirabilis. Assessment and Plan (1) Shock, septic, Gram negative Narrative/Plan: 76-year-old female who suffers from superobesity and also medical complaints presents from extended care facility with altered mental status. He does appear to admission the patient had evidence of sepsis and then evidence of shock in that she had lack of improvement after fluid resuscitation and required vasopressor therapy. She is progressed on to respiratory failure requiring BiPAP. She is a DO NOT INTUBATE status. Status discussed with the family. Discussing that pressure ulceration in this situation is a symptom of a person that is chronically ill and declining. The current bout of sepsis is likely related to the infection from the pressure ulcerations. But her progressively declining medical condition remains etiology of the pressure ulcerations. Consequently other procedures are not possible at this point in time. She certainly has surgical debridement. Antibiotic therapy is initiated with Zosyn which recent cultures reveal evidence of susceptibility. Local wound care with Dakin solution will be started. She's on air mattress. Ongoing turning. Supportive care. Her prognosis is extremely poor. Status: Acute (2) Pressure ulcer of coccygeal region, stage 4 Status: Acute
[2017-06-05 23:59] LABS: Glucose,Whole Blood 217 mg/dL (75-99)
[2017-06-06] MEDS: INSULIN LISPRO (humaLOG) 300 UNIT/3 ML VIAL SQ SCH ×5 (00:26→23:59)
[2017-06-06] MEDS: SODIUM HYPOCHLORITE 0.5% 480 ML BOT MISCELLANE SCH ×3 (00:26→22:02)
[2017-06-06] MEDS: AMMONIUM LACTATE 12% LOTION 225 GM BTL TOPICAL SCH ×3 (00:27→21:59)
[2017-06-06] MEDS: NOREPINEPHRIN 4 MG-0.9% NS PMX 4 MG/250 ML ML IV SCH ×2 (00:38→12:19)
[2017-06-06] MEDS: PIPERACILLIN-TAZOBACTAM 3.375 GM in DEXTROSE/WATER 1 50ML.BAG IVPB SCH ×4 (02:45→23:59)
[2017-06-06] MEDS: IPRATROPIUM-ALBUTEROL 3 ML NEB INHALATION SCH ×6 (03:24→23:29)
[2017-06-06 04:59] LABS: Anisocytosis Slight; Basophils % (A) 0 %; CH 26.9; CHCM 29.4; Eosinophils # (A) 0.1 k/uL (0-0.7); Eosinophils % (A) 1 %; HCT 27.4 % (34.0-46.0); HDW 3.62; HGB 8.3 gm/dL (11.4-16.0); Hypochromasia Marked; Luc # (Auto) 0.27; Luc % (Auto) 2; Lymphocytes # (A) 0.7 k/uL (1.0-4.8); Lymphocytes % (A) 5 %; MCH 27.6 pg (25.0-35.0); MCHC 30.1 g/dL (31.0-37.0); MCV 91.8 fL (80.0-100.0); Mean Platelet Volume 7.6; Monocytes # (A) 0.4 k/uL (0-1.0); Monocytes % (A) 3 %; Neutrophils # (A) 12.6 k/uL (1.3-7.7); Neutrophils % (A) 89 %; Poikilocytosis Slight; RBC 2.99 m/uL (3.80-5.40); WBC 14.1 k/uL (3.8-10.6); WBC (Perox) 13.93
[2017-06-06 05:11] LABS: Anion Gap 6 mmol/L; Blood Urea Nitrogen 45 mg/dL (7-17); Calcium 8.5 mg/dL (8.4-10.2); Carbon Dioxide 23 mmol/L (22-30); Chloride 113 mmol/L (98-107); Glucose 192 mg/dL (74-99); Magnesium 1.9 mg/dL (1.6-2.3); Non-African American GFR(MDRD) >60 (>60 ml/min/1.73 sqM); Phosphorous 3.2 mg/dL (2.5-4.5); Potassium 4.8 mmol/L (3.5-5.1); Sodium 142 mmol/L (137-145)
[2017-06-06] MEDS: VANCOMYCIN 1,750 MG in SODIUM CHLORIDE 0.9% 250 ML IVPB SCH ×2 (05:44→22:04)
[2017-06-06 05:53] LABS: Glucose,Whole Blood 200 mg/dL (75-99)
[2017-06-06] MEDS: MAGNESIUM SULFATE-D5W PMX 1 GM in DEXTROSE/WATER 1 100ML.BAG IVPB SCH ×2 (07:08→07:48)
--- NOTE | 2017-06-06 07:39 | XR ---
EXAMINATION TYPE: XR chest 1V DATE OF EXAM: 06/06/2017 HISTORY: Shortness of breath. COMPARISON: June 04, 2017 TECHNIQUE: Single view of the chest is submitted. FINDINGS: Demonstrated are scattered senescent parenchymal change. There is no evidence for focal infiltrate. The heart is enlarged without evidence for overt failure. Hilar and mediastinal structures are within normal limits. Degenerative changes are seen of the dorsal spine. IMPRESSION: 1. Chronic changes without evidence for acute pulmonary disease.
[2017-06-06] MEDS: COLLAGENASE 250 UNIT/GM OINTMENT 30 GM TUBE TOPICAL SCH (07:48)
[2017-06-06] MEDS: BRIMONIDINE TARTRATE 0.2% DROPS 5 ML BTL BOTH EYES SCH ×2 (07:49→22:00)
[2017-06-06] MEDS: POTASSIUM CHLORIDE ER 10 MEQ TAB.ER.PRT PO SCH (07:50)
[2017-06-06] MEDS: CHOLECALCIFEROL 1,000 UNIT TAB PO SCH (07:50)
[2017-06-06] MEDS: FERROUS SULFATE 325 MG TAB PO SCH ×2 (07:51→21:59)
[2017-06-06] MEDS: ASPIRIN 81 MG CHEW PO SCH (07:52)
[2017-06-06] MEDS: CALCIUM CARB-VIT D 500MG-200UN 1 EACH TAB PO SCH ×2 (07:53→21:59)
[2017-06-06] MEDS: PANTOPRAZOLE 40 MG/10 ML VIAL IV SCH (07:53)
[2017-06-06] MEDS: HEPARIN SODIUM,PORCINE 5,000 UNIT/ML 1 ML VIAL SQ SCH ×2 (07:53→22:01)
[2017-06-06] MEDS: TIMOLOL 0.5% OPHTH DROPS 5 ML BTL BOTH EYES SCH ×2 (07:54→22:00)
[2017-06-06] MEDS: MULTIVITAMINS, THERA 1 EACH TAB PO SCH (07:54)
[2017-06-06] MEDS: FUROSEMIDE 20 MG TAB PO SCH (07:54)
[2017-06-06] MEDS: NYSTATIN 100,000 UNIT/GM POWD 15 GM TOPICAL SCH ×2 (07:56→22:01)
[2017-06-06] MEDS: oxyCODONE ER 10 MG TAB.ER.12H PO SCH ×2 (07:58→22:04)
--- NOTE | 2017-06-06 08:15 | PN ---
DATE OF SERVICE: 06/05/2017 This 76-year-old woman who was admitted with fever, sacral decubitus and sepsis also hypotensive. A team was today this morning. The patient continues to be unresponsive. The patient was seen by Dr. Ward's team and recommended no further debridement of the sacral wound at this time. PAST MEDICAL HISTORY: Reviewed. REVIEW OF SYSTEMS: Could not be taken. The patient is unresponsive. The current medications are reviewed and include: 1. Tylenol 500 mg q.6 p.r.n. 2. Oakes 5 mg. 3. DuoNeb q.i.d. and p.r.n. 4. Lipitor. 5. Alphagan. 6. Vitamin D3. 7. Os-Talat. 8. Santyl. 9. Aricept. 10. Pepcid. 11. Lasix. 12. Humalog. 13. Xalatan. 14. Milk of magnesia. 15. Multivitamins. 16. Narcan. PHYSICAL EXAMINATION: Patient is unresponsive. Pulse is 59, blood pressure 78/ 42, respirations 13, temperature normal, pulse ox 98% on BiPAP. HEENT: Conjunctivae normal. Oral mucosa moist. NECK: No jugular venous distention. No carotid bruit. No lymph node enlargement. CARDIOVASCULAR: S1 and S2, muffled. RESPIRATORY: Breath sounds diminished at the bases. A few scattered rhonchi and crackles. ABDOMEN: Soft, obese, nontender. LEGS: edema. NERVOUS SYSTEM: Diffusely weak. The patient has significant sacral decubitus ulcers. Otherwise, nervous system unresponsive, could not be examined. SKIN: As mentioned earlier. LAB INVESTIGATIONS: WBC 11.7, hemoglobin 8.2. Accu-Cheks noted. ASSESSMENT: 1. Decubitus ulcers, sacral, stage III to IV, polymicrobial jaz with sepsis and septic shock and hypotension; severe sepsis and septic shock. 2. Change in mental status, acute metabolic encephalopathy secondary to sepsis. 3. Diabetes mellitus type 2 uncontrolled with hyperglycemia state, nonketotic state secondary to sepsis. 4. Acute hypoxic respiratory failure, possibly secondary to sepsis. 5. Gait dysfunction. 6. Dementia. 7. Hypertension history. 8. Hyperlipidemia. 9. Obesity with body mass index of 37.8. 10. NO CODE, NO CPR, NO VENT. RECOMMENDATIONS AND DISCUSSION: Recommend to continue current medications, continue symptomatic treatment. Will transfer the patient to ICU. IV fluids. The patient has had. I would also recommend pressor support if the pressure is low. Dr. Avalos will be consulted for ICU management. Otherwise, broad- spectrum IV antibiotics. Infectious Disease also will be consulted. Further recommendations to follow. We will hold the blood pressure medications at this time. DVT prophylaxis. MTDD
[2017-06-06] MEDS ORDERED: FAMOTIDINE 20 MG TAB PO SCH (09:00)
--- NOTE | 2017-06-06 10:40 | P.PN ---
Subjective Principal diagnosis: Acute septic shock This is a 76-year-old female patient who resides at [facility] on the [facility]. She has a history of dementia, hypertension, hyperlipidemia, congestive heart failure status post Bi V pacemaker implantation , diabetes mellitus, morbid obesity, chronic stage III decubitus ulcers. She was recently discharged from here on 05/29/2017 secondary to polymicrobial infection of the decubitus ulcer which included E. coli, Klebsiella oxytoca, Proteus mirabilis along with blood loss anemia from the bleeding decubitus ulcers. She is status post debridement and wound VAC placement and she was returned to [facility] with some discussion regarding possible hospice. The patient was brought back here again yesterday afternoon with concerns regarding cellulitis along with the stage III decubitus ulcers and the development of fever. She was originally on the selective care unit. Today she had altered mental status and hypotension blood pressure 68/36 and an A was called and she was transferred here to the intensive care unit. We're consulted for the same. Initial lactate 4.0, currently 1.9. She has received 5 L of fluid resuscitation. Presently, she is only arousing to painful stimuli. She's been initiated on norepinephrine to keep the mean arterial pressure greater than 65. Her respirations are shallow and she's been initiated on BiPAP 10/5 at 50% FiO2. Her and son are at the bedside. They are agreeing to the DO NOT RESUSCITATE/DO NOT INTUBATE CODE STATUS however they would like full supportive care for now. She has been initiated on vancomycin and Zosyn. Her chest x-ray did not reveal any acute pulmonary process. Blood, urine and wound cultures are pending. Her white count is 11.7. Hemoglobin 8.2. Creatinine 1.04. Patient was reevaluated today on 06/06/2017, remains on norepinephrine at 9 mcg/ m. Blood pressure seems to be marginal, patient continues to have good urine output, mental status seems to be a bit improved, chest x-ray shows no evidence of acute pulmonary disease, she does have chronic changes WBC count is 14.1 hemoglobin 8.3 electrolytes are normal BUN is 45 creatinine is 0.80. Urine output has been excellent. Preliminary report on the blood cultures is positive for gram-negative bacilli which is expected. Feistel identification and sensitivity is pending. Patient mental status seems to be a bit improved, however she looks generally weak and frail and pale. Objective - Vital Signs Vital signs: Vital Signs Temp 96.4 F L 06/06/17 09:00 Pulse 59 L 06/06/17 10:00 Resp 14 06/06/17 10:00 BP 93/41 06/06/17 10:00 Pulse Ox 100 06/06/17 10:00 Intake & Output 06/05/17 06/06/17 06/06/17 18:59 06:59 18:59 Intake Total 069.337 5377.688 300 Output Total 85 695 230 Balance 680.312 664.688 70 Weight 119.7 kg 128.3 kg Intake: IV 675 1200 300 Piperacillin-Tazobactam 3 50 50 .375 gm In Dextrose/Water 1 50ml.bag @ 12.5 mls/hr IVPB Q8HR [facility] Rx#: [id number] Sodium Chloride 0.9% 1, 375 900 300 000 ml @ 75 mls/hr IV . [id number] [facility] Rx#:[id number] Vancomycin 1,750 mg In 250 250 Sodium Chloride 0.9% 250 ml @ 125 mls/hr IVPB Q16H [facility] Rx#:[id number] Intake, IV Titration 90.312 159.688 Amount Norepinephrin 4 mg-0.9% 90.312 159.688 Ns Pmx 4 mg In 250 ml @ Titrate IV .Q0M [facility] Rx#: [id number] Output: Urine 85 695 230 Other: Voiding Method Indwelling Catheter Indwelling Catheter Indwelling Catheter # Bowel Movements 0 0 - Exam GENERAL EXAM: Morbidly obese. Arouses to painful stimuli only. HEAD: Normocephalic. EYES: Normal reaction of pupils, equal size. NOSE: Clear with pink turbinates. THROAT: There is crowding the posterior pharynx. No erythema or exudates. NECK: Short. No masses, no JVD. CHEST: No chest wall deformity. LUNGS: Equal air entry with no crackles, wheeze, rhonchi or dullness. CVS: S1 and S2 normal with no audible murmurs, regular rhythm. ABDOMEN: Obese unable to appreciate organs, normal bowel sounds, no guarding or rigidity. SKIN: Stage III decubiti on the coccyx multiple areas of ecchymosis Extremities: There is 2-3+ peripheral edema. No clubbing, no cyanosis. Peripheral pulses are intact. - Labs CBC & Chem 7: 06/06/17 04:39 06/06/17 04:39 Labs: Abnormal Lab Results - Last 24 Hours (Table) 06/04/17 06/05/17 06/05/17 Range/Units 15:00 10:43 11:43 WBC (3.8-10.6) k/uL RBC (3.80-5.40) m/uL Hgb (11.4-16.0) gm/dL Hct (34.0-46.0) % MCHC (31.0-37.0) g/dL RDW (11.5-15.5) % Neutrophils # (1.3-7.7) k/uL Lymphocytes # (1.0-4.8) k/uL Chloride (98-107) mmol/L BUN (7-17) mg/dL Glucose (74-99) mg/dL POC Glucose (mg/dL) 152 H 152 H (75-99) mg/dL Hemoglobin A1c 6.3 H (4.2-6.1) % 06/05/17 06/05/17 06/06/17 Range/Units 17:58 23:57 04:39 WBC 14.1 H (3.8-10.6) k/uL RBC 2.99 L (3.80-5.40) m/uL Hgb 8.3 L (11.4-16.0) gm/dL Hct 27.4 L (34.0-46.0) % MCHC 30.1 L (31.0-37.0) g/dL RDW 17.0 H (11.5-15.5) % Neutrophils # 12.6 H (1.3-7.7) k/uL Lymphocytes # 0.7 L (1.0-4.8) k/uL Chloride (98-107) mmol/L BUN (7-17) mg/dL Glucose (74-99) mg/dL POC Glucose (mg/dL) 189 H 217 H (75-99) mg/dL Hemoglobin A1c (4.2-6.1) % 06/06/17 06/06/17 Range/Units 04:39 05:51 WBC (3.8-10.6) k/uL RBC (3.80-5.40) m/uL Hgb (11.4-16.0) gm/dL Hct (34.0-46.0) % MCHC (31.0-37.0) g/dL RDW (11.5-15.5) % Neutrophils # (1.3-7.7) k/uL Lymphocytes # (1.0-4.8) k/uL Chloride 113 H (98-107) mmol/L BUN 45 H (7-17) mg/dL Glucose 192 H (74-99) mg/dL POC Glucose (mg/dL) 200 H (75-99) mg/dL Hemoglobin A1c (4.2-6.1) % Microbiology - Last 24 Hours (Table) 06/04/17 15:00 Blood Culture Gram Stain - Preliminary Blood 06/04/17 15:00 Blood Culture - Preliminary Blood 06/04/17 15:00 Urine Culture - Final Urine,Catheterized Assessment and Plan Plan: #1 Altered mental status secondary to suspected sepsis with hypotension secondary to decubitus ulcers with recent cultures positive for Proteus mirabilis, E. coli, Klebsiella oxytoca. #2 Septic shock with hypotension requiring pressor support. #3 Acute hypoxic respiratory failure secondary to above. Currently on BiPAP 10/ 5 at 50% FiO2. #4 Acute on chronic anemia, current hemoglobin 8.2. #5 Coronary artery disease. #6 History of congestive heart failure, status post biventricular pacemaker. #7 Hypertension, history of. #8 Hyperlipidemia. #9 Diabetes mellitus. #10 Alzheimer's dementia. #11 assisted resident, bedridden. #12 Poor overall functional performance secondary to the above-mentioned multiple comorbidities. Plan: Continue present treatment plan including broad-spectrum antibiotics, she is now on vancomycin and Zosyn, continue norepinephrine, maintain a mean arterial pressure of 65, continue BiPAP as needed, patient remains DO NOT RESUSCITATE CODE STATUS, we will discuss with the family her condition again, and at one point I felt that the patient was being considered for hospice, however I will verify this with the family members specifically her . In the meantime we'll arrange for PICC line, and continue SUPPORTIVE care measures, but no intubation. Critical care time is 33 minutes. Time with Patient: Greater than 30
[2017-06-06 12:15] LABS: Glucose,Whole Blood 218 mg/dL (75-99)
[2017-06-06] MEDS: SODIUM CHLORIDE 0.9% 1,000 ML IV SCH (12:18)
[2017-06-06] MEDS ORDERED: LIDOCAINE 2% INJ 20 MG/ML (20 ML MDV) ONE (14:48)
[2017-06-06] MEDS ORDERED: LIDOCAINE 2% INJ 20 MG/ML SQ ONE ×2 (15:16→15:49)
--- NOTE | 2017-06-06 15:47 | XR ---
EXAMINATION TYPE: XR chest 1V portable DATE OF EXAM: 06/06/2017 COMPARISON: Prior chest x-ray 06/06/2017 HISTORY: PICC line placement TECHNIQUE: Single frontal view of the chest is obtained. FINDINGS: Interval placement of a PICC line in the left upper extremity shows coiling in the left up per extremity. No other interval change is evident.. IMPRESSION: PICC line placement as described
--- NOTE | 2017-06-06 16:28 | XR ---
EXAMINATION TYPE: XR chest 1V confirm line [facility] DATE OF EXAM: 06/06/2017 COMPARISON: Prior chest x-ray same date earlier time HISTORY: PICC line placement TECHNIQUE: Single frontal view of the chest is obtained. FINDINGS: There is been interval removal of left-sided PICC line. Right-sided PICC line has been tito ce, distal tip is coursing towards the innominate vein on the left. IMPRESSION: Interval PICC line reposition
--- NOTE | 2017-06-06 16:33 | XR ---
EXAMINATION TYPE: XR chest 1V confirm line [facility] DATE OF EXAM: 06/06/2017 COMPARISON: Prior chest x-ray 06/06/2017 HISTORY: Status post PICC line repositioned TECHNIQUE: Single frontal view of the chest is obtained. FINDINGS: There is been interval repositioning of the PICC line, distal tip is overlying the superio r vena cava. No other interval change. IMPRESSION: PICC line overlying the superior vena cava.
--- NOTE | 2017-06-06 17:50 | P.PN ---
Subjective Date of service 06/06/2017. Progress Note being dictated for Dr. Mazariegos. General history: This a 76-year-old female admitted in the ICU with severe sepsis, septic shock secondary to decubitus ulcers stages 3-4, polymicrobial jaz, hypotension, diabetes mellitus, acute hypoxic respiratory failure and multiple other medical issues. Chest x-ray reporting chronic changes without evidence of acute pulmonary disease.preliminary blood cultures reporting gram- negative bacilli .Maintained on antibiotics as per infectious disease. Maintaining mean arterial pressure of mid 60s on Levophed. Arousable to stimulation, confused. Family at bedside and states patient does not respond to their verbal probing. Unable to perform review of systems as patient currently on BiPAP, confused. Active Medications Acetaminophen (Tylenol Tab) 500 mg PO Q6H PRN PRN Reason: Pain Hydrocodone Bitart/Acetaminophen ([place] 5-325) 1 each PO Q6HR PRN PRN Reason: Severe Pain Albuterol Sulfate (Ventolin Nebulized) 2.5 mg INHALATION RT-QID PRN PRN Reason: Shortness Of Breath Last Admin: 06/05/17 08:30 Dose: 2.5 mg Albuterol/Ipratropium (Duoneb 0.5 Mg-3 Mg/3 Ml Soln) 3 ml INHALATION RT-Q4H [facility] Last Admin: 06/06/17 15:40 Dose: Not Given Aspirin (Aspirin) 81 mg PO QAM [facility] Last Admin: 06/06/17 07:52 Dose: 81 mg Atorvastatin Calcium (Lipitor) 40 mg PO HS [facility] Last Admin: 06/05/17 20:12 Dose: Not Given Bismuth Subsalicylate (Bismatrol) 524 mg PO Q4H PRN PRN Reason: Indigestion Brimonidine Tartrate (Alphagan P 0.2% Ophth Soln) 1 drops BOTH EYES BID [facility] Last Admin: 06/06/17 07:49 Dose: 1 drops Calcium Carbonate (Oscal 500+D) 1 each PO BID [facility] Last Admin: 06/06/17 07:53 Dose: 1 each Cholecalciferol (Vitamin D3) 2,000 unit PO DAILY [facility] Last Admin: 06/06/17 07:50 Dose: 2,000 unit Collagenase (Santyl) 1 applic TOPICAL DAILY [facility] Last Admin: 06/06/17 07:48 Dose: 1 applic Donepezil HCl (Aricept) 10 mg PO HS [facility] Last Admin: 06/05/17 20:13 Dose: Not Given Famotidine (Pepcid) 20 mg PO BID [facility] Ferrous Sulfate (Feosol) 325 mg PO BID [facility] Last Admin: 06/06/17 07:51 Dose: 325 mg Furosemide (Lasix) 20 mg PO QAM [facility] Last Admin: 06/06/17 07:54 Dose: 20 mg Heparin Sodium (Porcine) (Heparin) 5,000 unit SQ Q12HR [facility] Last Admin: 06/06/17 07:53 Dose: 5,000 unit Piperacillin/Tazobactam/ (Dextrose 3.375 gm/ IV Solution) 50 mls @ 12.5 mls/hr IVPB Q8HR [facility] Last Admin: 06/06/17 17:19 Dose: 12.5 mls/hr Vancomycin HCl 1,750 mg/ (Sodium Chloride) 250 mls @ 125 mls/hr IVPB Q16H [facility] Last Admin: 06/06/17 05:44 Dose: 125 mls/hr Sodium Chloride (Saline 0.9%) 1,000 mls @ 75 mls/hr IV .[id number] [facility] Last Admin: 06/06/17 12:18 Dose: 75 mls/hr Norepinephrine Bitartrate (Levophed-0.9% Nacl 4 Mg/250ml Pmx) 4 mg in 250 mls @ 0 mls/hr IV .Q0M [facility]; Titrate PRN Reason: Protocol Last Admin: 06/06/17 12:19 Dose: 8 mcg/min, 30 mls/hr Insulin Human Lispro (Humalog) 0 unit SQ Q6H [facility] PRN Reason: Protocol Last Admin: 06/06/17 12:17 Dose: 4 unit Lactic Acid (Lac-Hydrin 12%) 1 applic TOPICAL [facility] Last Admin: 06/06/17 00:38 Dose: 1 applic Latanoprost (Xalatan 0.005%) 1 drops BOTH EYES [facility] Last Admin: 06/05/17 21:16 Dose: 1 drops Magnesium Hydroxide (Milk Of Magnesia) 2,400 mg PO DAILY PRN PRN Reason: Constipation Miscellaneous Information (Magnesium Per Protocol) 1 each MISCELLANE DAILY PRN ; Protocol PRN Reason: Per Protocol Miscellaneous Information (Potassium Per Protocol) 1 each MISCELLANE DAILY PRN PRN Reason: Per Protocol Miscellaneous Information (Vancomycin Trough Due) 0 each MISCELLANE DIRECTED ONE Stop: 06/07/17 13:01 Multivitamins (Theragran) 1 each PO DAILY [facility] Last Admin: 06/06/17 07:54 Dose: 1 each Naloxone HCl (Narcan) 0.2 mg IV Q2M PRN PRN Reason: Opioid Reversal Nystatin (Mycostatin Powder) 1 applic TOPICAL BID [facility] Last Admin: 06/06/17 07:56 Dose: 1 applic Oxycodone HCl (Oxycontin 10mg E.R.) 10 mg PO Q12HR [facility] Last Admin: 06/06/17 07:58 Dose: 10 mg Pantoprazole Sodium (Protonix) 40 mg IV DAILY [facility] Last Admin: 06/06/17 07:53 Dose: 40 mg Potassium Chloride (K-Dur 10) 10 meq PO QAM [facility] Last Admin: 06/06/17 07:50 Dose: 10 meq Sertraline HCl (Zoloft) 75 mg PO HS [facility] Last Admin: 06/05/17 20:13 Dose: Not Given Sodium Chloride (Saline Flush) 20 ml IV Q4HR PRN PRN Reason: PICC Line Sodium Chloride (Saline Flush) 10 ml IV WEEKLY [facility] Sodium Chloride (Saline Flush) 10 ml IV Q4HR PRN PRN Reason: PICC Line Sodium Hypochlorite (Dakin's 0.5% (Full Strength)) 30 ml MISCELLANE BID [facility] Last Admin: 06/06/17 07:56 Dose: 30 ml Timolol Maleate (Timoptic) 1 drops BOTH EYES BID [facility] Last Admin: 06/06/17 07:54 Dose: 1 drops Objective - Vital Signs Vital signs: Vital Signs Temp 97.9 F 06/06/17 12:00 Pulse 59 L 06/06/17 13:30 Resp 11 L 06/06/17 13:30 BP 100/56 06/06/17 13:30 Pulse Ox 100 06/06/17 13:30 Intake & Output 06/05/17 06/06/17 06/06/17 18:59 06:59 18:59 Intake Total 514.802 5075.688 775 Output Total 85 695 535 Balance 680.312 664.688 240 Weight 119.7 kg 128.3 kg Intake: IV 675 1200 525 Piperacillin-Tazobactam 3 50 50 .375 gm In Dextrose/Water 1 50ml.bag @ 12.5 mls/hr IVPB Q8HR [facility] Rx#: [id number] Sodium Chloride 0.9% 1, 375 900 525 000 ml @ 75 mls/hr IV . [id number] [facility] Rx#:[id number] Vancomycin 1,750 mg In 250 250 Sodium Chloride 0.9% 250 ml @ 125 mls/hr IVPB Q16H [facility] Rx#:[id number] Intake, IV Titration 90.312 159.688 250 Amount Norepinephrin 4 mg-0.9% 90.312 159.688 250 Ns Pmx 4 mg In 250 ml @ Titrate IV .Q0M [facility] Rx#: [id number] Output: Urine 85 695 535 Other: Voiding Method Indwelling Catheter Indwelling Catheter Indwelling Catheter # Bowel Movements 0 0 - Exam PHYSICAL EXAM: VITAL SIGNS: As above GENERAL: [Sitting up in bed, on BiPAP confused, arousable to noxious stimuli] HEENT: [Pupils equal conjunctiva normal.] NECK: [Supple, no JVD] RESPIRATORY EFFORT:[ Increased] LUNGS: [Lower bases diminished, scattered rhonchi, no crackles, no wheezing] CARDIOVASCULAR[ regular S1-S2, telemetry 100% dual paced,] GI: [Abdomen soft, nontender, positive bowel sounds.] PSYCH/NEURO: Unable to assess, wearing BiPAP and confused [ SKIN: [Significant sacral decubitus ulcers as prior mentioned, please refer to chart pictures/documentation of sizes] ] Microbiology 06/04/17 15:30 Coccyx Gram Stain - Final 06/04/17 15:30 Coccyx Wound Culture - Final 06/04/17 15:00 Blood Blood Culture Gram Stain - Preliminary 06/04/17 15:00 Blood Blood Culture - Preliminary 06/04/17 15:00 Urine,Catheterized Urine Culture - Final - Labs CBC & Chem 7: 06/06/17 04:39 06/06/17 04:39 Labs: Abnormal Lab Results - Last 24 Hours (Table) 06/05/17 06/05/17 06/06/17 Range/Units 17:58 23:57 04:39 WBC 14.1 H (3.8-10.6) k/uL RBC 2.99 L (3.80-5.40) m/uL Hgb 8.3 L (11.4-16.0) gm/dL Hct 27.4 L (34.0-46.0) % MCHC 30.1 L (31.0-37.0) g/dL RDW 17.0 H (11.5-15.5) % Neutrophils # 12.6 H (1.3-7.7) k/uL Lymphocytes # 0.7 L (1.0-4.8) k/uL Chloride (98-107) mmol/L BUN (7-17) mg/dL Glucose (74-99) mg/dL POC Glucose (mg/dL) 189 H 217 H (75-99) mg/dL 06/06/17 06/06/17 06/06/17 Range/Units 04:39 05:51 12:13 WBC (3.8-10.6) k/uL RBC (3.80-5.40) m/uL Hgb (11.4-16.0) gm/dL Hct (34.0-46.0) % MCHC (31.0-37.0) g/dL RDW (11.5-15.5) % Neutrophils # (1.3-7.7) k/uL Lymphocytes # (1.0-4.8) k/uL Chloride 113 H (98-107) mmol/L BUN 45 H (7-17) mg/dL Glucose 192 H (74-99) mg/dL POC Glucose (mg/dL) 200 H 218 H (75-99) mg/dL Microbiology - Last 24 Hours (Table) 06/04/17 15:00 Blood Culture Gram Stain - Preliminary Blood 06/04/17 15:00 Blood Culture - Preliminary Blood 06/04/17 15:00 Urine Culture - Final Urine,Catheterized Assessment and Plan Plan: 1. Decubitus ulcers, sacral stage 3-4, polymicrobial jaz with severe sepsis, septic shock, hypotension. Recent cultures positive for Proteus mirabilis, E. coli, Klebsiella oxytoca. 2. Change in mental status, acute metabolic encephalopathy secondary to sepsis]. 3. [ Diabetes mellitus type 2, uncontrolled, nonketotic state secondary to sepsis]. 4. [ Acute hypoxic respiratory failure possibly secondary to sepsis]. 5. [ Dementia]. 6. [ Obesity, BMI 48.6]. 7. No code, no CPR, no vent Plan: Continue on current medication regime, vancomycin, Zosyn,, IV fluids, pressor support, monitoring and symptomatic treatment. PICC line placement pending. Prognosis guarded. Follow closely with pulmonary and infectious disease. Further recommendations to follow. The impression and plan of care has been dictated as directed. : I performed a H&P examination of this patient and discussed the same with the dictator. I agree with the dictator's note. Any additional findings/opinions/ etc. will be noted.
[2017-06-06 18:00] LABS: Glucose,Whole Blood 203 mg/dL (75-99)
[2017-06-06] MEDS: NOREPINEPHRIN 16 MG-0.9%NS PMX 16 MG/250 ML ML IV SCH (20:30)
--- NOTE | 2017-06-06 21:10 | P.PN ---
Subjective Principal diagnosis: Increasing weakness ,altered mental status 76-year-old female who suffers from superobesity and has multiple medical conditions that include dementia, coronary artery disease congestive heart failure and diabetes mellitus presents to Hospital from the extended care facility for altered mental status. The patient has a recent hospitalization where she was found evidence of pressure ulceration of the coccyx and buttocks. She underwent surgical debridement during that stay. She was treated with local wound care. However she now had a marked worsening of her status the time of admission. Evidence of sepsis with hypotension, did not respond to fluids and required vasopressor therapy showing evidence of septic shock. She has had difficulties with respiratory failure requiring BiPAP to be placed. With fluid resuscitation her lactic acid did decrease from 4.0-1.9. Wound cultures are available from the recent hospital stay. There is evidence of leukocytosis but fortunately no acute renal failure at this time More awake today Still on vasopressor therapy Objective - Vital Signs Vital signs: Vital Signs Temp 97.6 F 06/06/17 20:00 Pulse 59 L 06/06/17 20:30 Resp 12 06/06/17 20:30 BP 112/51 06/06/17 20:30 Pulse Ox 100 06/06/17 20:30 Intake & Output 06/06/17 06/06/17 06/07/17 06:59 18:59 06:59 Intake Total 3303.086 9158 150 Output Total 695 980 225 Balance 664.688 170 -75 Weight 128.3 kg Intake: IV 1200 900 150 Piperacillin-Tazobactam 3 50 .375 gm In Dextrose/Water 1 50ml.bag @ 12.5 mls/hr IVPB Q8HR [facility] Rx#: [id number] Sodium Chloride 0.9% 1, 900 900 150 000 ml @ 75 mls/hr IV . [id number] [facility] Rx#:[id number] Vancomycin 1,750 mg In 250 Sodium Chloride 0.9% 250 ml @ 125 mls/hr IVPB Q16H [facility] Rx#:[id number] Intake, IV Titration 159.688 250 Amount Norepinephrin 4 mg-0.9% 159.688 250 Ns Pmx 4 mg In 250 ml @ Titrate IV .Q0M [facility] Rx#: [id number] Output: Urine 695 980 225 Other: Voiding Method Indwelling Catheter Indwelling Catheter Indwelling Catheter # Bowel Movements 0 0 0 - Exam Superobese 76-year-old female who has BiPAP in place and seems comfortable. With the assistance of nursing staff she is rolled so that her pressure ulcerations can be evaluated. Of note she does hold onto the rail on her hand is placed onto it. She however is really not communicating any other fashion. She did cry out in pain upon initially being moved and then settle down rapidly. HEENT: Anicteric conjunctiva are pink and moist nasal mucosa grossly intact without significant lesions, there is no thrush. Dentition is poor Neck: The neck is supple without significant lymphadenopathy or thyromegaly. Lungs: Symmetrical air entry with basilar crackles no bronchial sounds no dullness. Heart: Heart rate is slow at just 60,. She 100% paced by the monitor. Audible S1 and S2 soft S4 no murmur click or rub Abdomen: Superobese Positive bowel sounds soft and nontender without palpable masses or organomegaly. There was no guarding or rebound. Extremities: The extremities have some generalized edema and no significant open ulcerations are seen. The heels are intact at this time. Neuro: Patient has BiPAP in place. more awake eyes open swallowed pills without problem Skin: Patient is evidence the extensive pressor ulceration to the coccyx and buttocks. Please see the nursing documentation for the photography and measurements of these extensive ulcerations are grossly necrotic. There is still some odor. There some surrounding erythema. - Labs CBC & Chem 7: 06/06/17 04:39 06/06/17 04:39 Labs: Abnormal Lab Results - Last 24 Hours (Table) 06/05/17 06/06/17 06/06/17 Range/Units 23:57 04:39 04:39 WBC 14.1 H (3.8-10.6) k/uL RBC 2.99 L (3.80-5.40) m/uL Hgb 8.3 L (11.4-16.0) gm/dL Hct 27.4 L (34.0-46.0) % MCHC 30.1 L (31.0-37.0) g/dL RDW 17.0 H (11.5-15.5) % Neutrophils # 12.6 H (1.3-7.7) k/uL Lymphocytes # 0.7 L (1.0-4.8) k/uL Chloride 113 H (98-107) mmol/L BUN 45 H (7-17) mg/dL Glucose 192 H (74-99) mg/dL POC Glucose (mg/dL) 217 H (75-99) mg/dL 06/06/17 06/06/17 06/06/17 Range/Units 05:51 12:13 17:57 WBC (3.8-10.6) k/uL RBC (3.80-5.40) m/uL Hgb (11.4-16.0) gm/dL Hct (34.0-46.0) % MCHC (31.0-37.0) g/dL RDW (11.5-15.5) % Neutrophils # (1.3-7.7) k/uL Lymphocytes # (1.0-4.8) k/uL Chloride (98-107) mmol/L BUN (7-17) mg/dL Glucose (74-99) mg/dL POC Glucose (mg/dL) 200 H 218 H 203 H (75-99) mg/dL Microbiology - Last 24 Hours (Table) 06/04/17 15:30 Gram Stain - Final Coccyx Wound Culture - Final 06/04/17 15:00 Blood Culture Gram Stain - Preliminary Blood 06/04/17 15:00 Blood Culture - Preliminary Blood 06/04/17 15:00 Urine Culture - Final Urine,Catheterized Laboratory Results WBC 14.1 k/uL (3.8-10.6) H 06/06/17 04:39 RBC 2.99 m/uL (3.80-5.40) L 06/06/17 04:39 Hgb 8.3 gm/dL (11.4-16.0) L 06/06/17 04:39 Hct 27.4 % (34.0-46.0) L 06/06/17 04:39 MCV 91.8 fL (80.0-100.0) 06/06/17 04:39 MCH 27.6 pg (25.0-35.0) 06/06/17 04:39 MCHC 30.1 g/dL (31.0-37.0) L 06/06/17 04:39 RDW 17.0 % (11.5-15.5) H 06/06/17 04:39 Plt Count 214 k/uL (150-450) 06/06/17 04:39 Neutrophils % 89 % 06/06/17 04:39 Lymphocytes % 5 % 06/06/17 04:39 Monocytes % 3 % 06/06/17 04:39 Eosinophils % 1 % 06/06/17 04:39 Basophils % 0 % 06/06/17 04:39 Neutrophils # 12.6 k/uL (1.3-7.7) H 06/06/17 04:39 Lymphocytes # 0.7 k/uL (1.0-4.8) L 06/06/17 04:39 Monocytes # 0.4 k/uL (0-1.0) 06/06/17 04:39 Eosinophils # 0.1 k/uL (0-0.7) 06/06/17 04:39 Basophils # 0.0 k/uL (0-0.2) 06/06/17 04:39 Hypochromasia Marked 06/06/17 04:39 Poikilocytosis Slight 06/06/17 04:39 Anisocytosis Slight 06/06/17 04:39 PT 10.8 sec (9.0-12.0) 06/04/17 15:00 INR 1.1 (<1.2) 06/04/17 15:00 APTT 20.3 sec (22.0-30.0) L 06/04/17 15:00 Sodium 142 mmol/L (137-145) 06/06/17 04:39 Potassium 4.8 mmol/L (3.5-5.1) 06/06/17 04:39 Chloride 113 mmol/L (98-107) H 06/06/17 04:39 Carbon Dioxide 23 mmol/L (22-30) 06/06/17 04:39 Anion Gap 6 mmol/L 06/06/17 04:39 BUN 45 mg/dL (7-17) H 06/06/17 04:39 Creatinine 0.80 mg/dL (0.52-1.04) 06/06/17 04:39 Est GFR (MDRD) Af Amer >60 (>60 ml/min/1.73 sqM) 06/06/17 04:39 Est GFR (MDRD) Non-Af >60 (>60 ml/min/1.73 sqM) 06/06/17 04:39 Glucose 192 mg/dL (74-99) H 06/06/17 04:39 POC Glucose (mg/dL) 203 mg/dL (75-99) H 06/06/17 17:57 POC Glu Bus Boy ID Andra Iyer 06/06/17 17:[address] Glu mg/dL 134 mg/dL 06/04/17 15:00 Hemoglobin A1c 6.3 % (4.2-6.1) H 06/04/17 15:00 Lactic Ac Sepsis Rflx Y 06/04/17 15:50 Plasma Lactic Acid Roni 1.9 mmol/L (0.7-2.0) 06/04/17 19:04 Calcium 8.5 mg/dL (8.4-10.2) 06/06/17 04:39 Phosphorus 3.2 mg/dL (2.5-4.5) 06/06/17 04:39 Magnesium 1.9 mg/dL (1.6-2.3) 06/06/17 04:39 Total Bilirubin 0.3 mg/dL (0.2-1.3) 06/04/17 15:00 AST 61 U/L (14-36) H 06/04/17 15:00 ALT 36 U/L (9-52) 06/04/17 15:00 Alkaline Phosphatase 142 U/L (38-126) H 06/04/17 15:00 Total Creatine Kinase <20 U/L (30-135) L 06/04/17 15:00 CK-MB (CK-2) 0.5 ng/mL (0.0-2.4) 06/04/17 15:00 CK-MB (CK-2) Rel Index 0.0 06/04/17 15:00 Troponin I 0.058 ng/mL (0.000-0.034) H* 06/04/17 15:00 Total Protein 4.1 g/dL (6.3-8.2) L 06/04/17 15:00 Albumin 1.9 g/dL (3.5-5.0) L 06/04/17 15:00 Cortisol 45 ug/dL 06/04/17 15:00 Urine Color Yellow 06/04/17 15:00 Urine Appearance Cloudy (Clear) H 06/04/17 15:00 Urine pH 5.0 (5.0-8.0) 06/04/17 15:00 Ur Specific [place] 1.015 (1.001-1.035) 06/04/17 15:00 Urine Protein Trace (Negative) H 06/04/17 15:00 Urine Glucose (UA) 4+ (Negative) H 06/04/17 15:00 Urine Ketones Negative (Negative) 06/04/17 15:00 Urine Blood Small (Negative) H 06/04/17 15:00 Urine Nitrite Positive (Negative) H 06/04/17 15:00 Urine Bilirubin Negative (Negative) 06/04/17 15:00 Urine Urobilinogen 2.0 mg/dL (<2.0) 06/04/17 15:00 Ur Leukocyte Esterase Large (Negative) H 06/04/17 15:00 Urine RBC 11 /hpf (0-5) H 06/04/17 15:00 Urine WBC 132 /hpf (0-5) H 06/04/17 15:00 Urine WBC Clumps Occasional /hpf (None) H 06/04/17 15:00 Ur Squamous Epith Cells 3 /hpf (0-4) 06/04/17 15:00 Amorphous Sediment Occasional /hpf (None) H 06/04/17 15:00 Urine Bacteria Many /hpf (None) H 06/04/17 15:00 Hyaline Casts 12 /lpf (0-2) H 06/04/17 15:00 Granular Casts 35 /lpf (0) 06/04/17 15:00 Urine Mucus Occasional /hpf (None) H 06/04/17 15:00 Stool Occult Blood Positive (Negative) H 06/04/17 15:30 Acetone, Qual Negative (Negative) 06/04/17 15:00 Blood Type O Positive 06/04/17 15:00 Blood Type Recheck No 06/04/17 15:00 Antibody Screen NEGATIVE 06/04/17 15:00 Spec Expiration Date 06/07/2017 - 229906/04/17 15:00 Microbiology 06/04/17 15:30 Coccyx Gram Stain - Final 06/04/17 15:30 Coccyx Wound Culture - Final 06/04/17 15:00 Blood Blood Culture Gram Stain - Preliminary 06/04/17 15:00 Blood Blood Culture - Preliminary 06/04/17 15:00 Urine,Catheterized Urine Culture - Final Assessment and Plan (1) Shock, septic, Gram negative Narrative/Plan: 76-year-old female who suffers from superobesity and also medical complaints presents from extended care facility with altered mental status. He does appear to admission the patient had evidence of sepsis and then evidence of shock in that she had lack of improvement after fluid resuscitation and required vasopressor therapy. She is progressed on to respiratory failure requiring BiPAP. She is a DO NOT INTUBATE status. Status discussed with the family. Discussing that pressure ulceration in this situation is a symptom of a person that is chronically ill and declining. The current bout of sepsis is likely related to the infection from the pressure ulcerations. But her progressively declining medical condition remains etiology of the pressure ulcerations. Consequently other procedures are not possible at this point in time. She certainly has surgical debridement. Antibiotic therapy is initiated with Zosyn which recent cultures reveal evidence of susceptibility. Local wound care with Dakin solution . She's on air mattress. Ongoing turning. Supportive care. Her prognosis is extremely poor. Status: Acute (2) Pressure ulcer of coccygeal region, stage 4 Status: Acute
[2017-06-06] MEDS: ATORVASTATIN 40 MG TAB PO SCH (21:59)
[2017-06-06] MEDS: DONEPEZIL 10 MG TAB PO SCH (21:59)
[2017-06-06] MEDS: FAMOTIDINE 20 MG TAB PO SCH (21:59)
[2017-06-06] MEDS: LATANOPROST 0.005% OPHTH DROPS 2.5 ML BTL BOTH EYES SCH (22:00)
[2017-06-06] MEDS: SERTRALINE 25 MG TAB PO SCH (22:02)
[2017-06-07] LABS: Glucose,Whole Blood 213 mg/dL (75-99)
[2017-06-07] MEDS: IPRATROPIUM-ALBUTEROL 3 ML NEB INHALATION SCH ×6 (03:30→23:17)
[2017-06-07 05:06] LABS: Anisocytosis Slight; Basophils % (A) 0 %; CH 27.1; CHCM 30.2; Eosinophils # (A) 0.1 k/uL (0-0.7); Eosinophils % (A) 1 %; HCT 27.6 % (34.0-46.0); HGB 8.3 gm/dL (11.4-16.0); Hypochromasia Marked; Luc # (Auto) 0.17; Luc % (Auto) 2; Lymphocytes # (A) 0.7 k/uL (1.0-4.8); Lymphocytes % (A) 6 %; MCHC 30.1 g/dL (31.0-37.0); MCV 89.9 fL (80.0-100.0); Mean Platelet Volume 8.1; Monocytes # (A) 0.3 k/uL (0-1.0); Monocytes % (A) 3 %; Neutrophils # (A) 9.9 k/uL (1.3-7.7); Neutrophils % (A) 89 %; Poikilocytosis Slight; RBC 3.07 m/uL (3.80-5.40); RDW 17.1 % (11.5-15.5); WBC 11.2 k/uL (3.8-10.6)
[2017-06-07 05:18] LABS: Anion Gap 13 mmol/L; Blood Urea Nitrogen 34 mg/dL (7-17); Carbon Dioxide 23 mmol/L (22-30); Chloride 109 mmol/L (98-107); Glucose 194 mg/dL (74-99); INR 1.2 (<1.2); Magnesium 2.2 mg/dL (1.6-2.3); Non-African American GFR(MDRD) >60 (>60 ml/min/1.73 sqM); Potassium 3.9 mmol/L (3.5-5.1); Prothrombin Time 12.1 sec (9.0-12.0); Sodium 145 mmol/L (137-145)
[2017-06-07 05:54] LABS: Glucose,Whole Blood 184 mg/dL (75-99)
[2017-06-07] MEDS: INSULIN LISPRO (humaLOG) 300 UNIT/3 ML VIAL SQ SCH ×4 (06:09→20:51)
[2017-06-07] MEDS: SODIUM CHLORIDE 0.9% 1,000 ML IV SCH ×3 (06:09→22:05)
[2017-06-07] MEDS: POTASSIUM CHLORIDE 10 MEQ in WATER FOR INJECTION 1 100ML.BAG IVPB SCH ×2 (07:01→07:56)
[2017-06-07] MEDS: HEPARIN SODIUM,PORCINE 5,000 UNIT/ML 1 ML VIAL SQ SCH ×2 (08:15→20:11)
[2017-06-07] MEDS: PANTOPRAZOLE 40 MG/10 ML VIAL IV SCH (08:15)
[2017-06-07] MEDS: PIPERACILLIN-TAZOBACTAM 3.375 GM in DEXTROSE/WATER 1 50ML.BAG IVPB SCH ×2 (08:21→16:40)
[2017-06-07] MEDS: BRIMONIDINE TARTRATE 0.2% DROPS 5 ML BTL BOTH EYES SCH ×2 (08:24→20:10)
[2017-06-07] MEDS: TIMOLOL 0.5% OPHTH DROPS 5 ML BTL BOTH EYES SCH ×2 (08:25→20:13)
[2017-06-07] MEDS: NYSTATIN 100,000 UNIT/GM POWD 15 GM TOPICAL SCH ×2 (08:25→20:15)
[2017-06-07] MEDS: SODIUM HYPOCHLORITE 0.5% 480 ML BOT MISCELLANE SCH (08:25)
[2017-06-07] MEDS: COLLAGENASE 250 UNIT/GM OINTMENT 30 GM TUBE TOPICAL SCH (08:26)
[2017-06-07] MEDS: MULTIVITAMINS, THERA 1 EACH TAB PO SCH (08:26)
[2017-06-07] MEDS: CALCIUM CARB-VIT D 500MG-200UN 1 EACH TAB PO SCH ×2 (08:27→20:11)
[2017-06-07] MEDS: FAMOTIDINE 20 MG TAB PO SCH ×2 (08:27→20:11)
[2017-06-07] MEDS: CHOLECALCIFEROL 1,000 UNIT TAB PO SCH (08:27)
[2017-06-07] MEDS: FUROSEMIDE 20 MG TAB PO SCH (08:28)
[2017-06-07] MEDS: ASPIRIN 81 MG CHEW PO SCH (08:28)
[2017-06-07] MEDS: FERROUS SULFATE 325 MG TAB PO SCH ×2 (08:28→20:11)
[2017-06-07] MEDS: POTASSIUM CHLORIDE ER 10 MEQ TAB.ER.PRT PO SCH (08:29)
[2017-06-07] MEDS: oxyCODONE ER 10 MG TAB.ER.12H PO SCH ×2 (08:29→20:50)
--- NOTE | 2017-06-07 08:43 | XR ---
EXAMINATION TYPE: XR chest 1V DATE OF EXAM: 06/07/2017 COMPARISON: 06/06/2017 HISTORY: 76-year-old female with heart failure TECHNIQUE: Single frontal view of the chest is obtained. FINDINGS: Right PICC tip obscured by overlying leads. Tip probably at the mid SVC level. Left anterior chest wa ll pacemaker generator with 2 right atrial and 2 right ventricular leads. Somewhat low lung volumes. Heart is mildly enlarged. Diffuse interstitial prominence. Increasing patc hy retrocardiac and peripheral left basilar opacity. IMPRESSION: 1. Slightly worsening lung volumes. There is cardiomegaly with pulmonary vascular congestion. 3. Possible small left effusion. There is worsening atelectasis and/or consolidation in the retrocard iac region.
--- NOTE | 2017-06-07 08:51 | IR ---
EXAMINATION TYPE: IR cvc insert >=5 years DATE OF EXAM: 06/06/2017 COMPARISON: NONE HISTORY: Infection, needs long-term intravenous access for antibiotics FINDINGS: Maximal barrier technique was utilized. Failed attempts performed on the left upper extremi ty likely due to pacemaker. The skin overlying the right basilic vein was localized with ultrasound a nd noted to be compressible and patent by ultrasound. An ultrasound image was obtained and submitted on patient's chart. Sterile technique utilized with the ultrasound machine. The skin overlying was p repped and draped and Lidocaine used for local anesthesia. A skin jing was made with a scalpel. Acc ess was gained to the vein under direct ultrasound guidance with a 21-gauge needle and a 0.018 inch w janie was advanced. Access site was dilated with a peel-away sheath and the catheter tailored to lengt h. Catheter advanced centrally and a post procedure chest x-ray verified placement with the tip with in the superior vena cava. Catheter was fixed to the skin with suture and a sterile dressing placed. Hemostasis achieved and the catheter was aspirated and flushed with sterile saline. The patient re mained in stable condition. IMPRESSION: STATUS POST ULTRASOUND GUIDED PICC LINE PLACEMENT, READY FOR USE. THIS PROCEDURE WAS PER FORMED BY THE UNDERSIGNED.
--- NOTE | 2017-06-07 11:27 | P.PN ---
Subjective Principal diagnosis: Acute septic shock This is a 76-year-old female patient who resides at [facility] on the [facility]. She has a history of dementia, hypertension, hyperlipidemia, congestive heart failure status post Bi V pacemaker implantation , diabetes mellitus, morbid obesity, chronic stage III decubitus ulcers. She was recently discharged from here on 05/29/2017 secondary to polymicrobial infection of the decubitus ulcer which included E. coli, Klebsiella oxytoca, Proteus mirabilis along with blood loss anemia from the bleeding decubitus ulcers. She is status post debridement and wound VAC placement and she was returned to [facility] with some discussion regarding possible hospice. The patient was brought back here again yesterday afternoon with concerns regarding cellulitis along with the stage III decubitus ulcers and the development of fever. She was originally on the selective care unit. Today she had altered mental status and hypotension blood pressure 68/36 and an A was called and she was transferred here to the intensive care unit. We're consulted for the same. Initial lactate 4.0, currently 1.9. She has received 5 L of fluid resuscitation. Presently, she is only arousing to painful stimuli. She's been initiated on norepinephrine to keep the mean arterial pressure greater than 65. Her respirations are shallow and she's been initiated on BiPAP 10/5 at 50% FiO2. Her and son are at the bedside. They are agreeing to the DO NOT RESUSCITATE/DO NOT INTUBATE CODE STATUS however they would like full supportive care for now. She has been initiated on vancomycin and Zosyn. Her chest x-ray did not reveal any acute pulmonary process. Blood, urine and wound cultures are pending. Her white count is 11.7. Hemoglobin 8.2. Creatinine 1.04. Patient was reevaluated today on 06/06/2017, remains on norepinephrine at 9 mcg/ m. Blood pressure seems to be marginal, patient continues to have good urine output, mental status seems to be a bit improved, chest x-ray shows no evidence of acute pulmonary disease, she does have chronic changes WBC count is 14.1 hemoglobin 8.3 electrolytes are normal BUN is 45 creatinine is 0.80. Urine output has been excellent. Preliminary report on the blood cultures is positive for gram-negative bacilli which is expected. [place] identification and sensitivity is pending. Patient mental status seems to be a bit improved, however she looks generally weak and frail and pale. Reevaluated today on 06/07/2017, remains on norepinephrine, present dose however is 7.5 mcg/m. Patient seems to be more awake, responsive and seems to be appropriate. She is off BiPAP, presently on nasal cannula at 5 L. Her O2 saturations are in the mid 90s. Urine output seems to be excellent. Labs were reviewed WBC count is 11.2 hemoglobin is 8.3 basic metabolic profile is relatively unremarkable, bicarb is 23. Blood sugar is 194. Chest x-ray is showing mild interstitial edema and left lower lobe atelectasis. Objective - Vital Signs Vital signs: Vital Signs Temp 99.7 F H 06/07/17 04:00 Pulse 59 L 06/07/17 07:30 Resp 16 06/07/17 07:00 BP 114/50 06/07/17 07:00 Pulse Ox 100 06/07/17 07:00 Intake & Output 06/06/17 06/07/17 06/07/17 18:59 06:59 18:59 Intake Total 1150 1362.283 175.646 Output Total 980 885 50 Balance 170 477.283 125.646 Weight 129.5 kg Intake: IV 900 1200 75 Piperacillin-Tazobactam 3 50 .375 gm In Dextrose/Water 1 50ml.bag @ 12.5 mls/hr IVPB Q8HR [facility] Rx#: [id number] Sodium Chloride 0.9% 1, 900 900 75 000 ml @ 75 mls/hr IV . [id number] [facility] Rx#:[id number] Vancomycin 1,750 mg In 250 Sodium Chloride 0.9% 250 ml @ 125 mls/hr IVPB Q16H [facility] Rx#:[id number] Intake, IV Titration 250 42.283 100.646 Amount Norepinephrin 16 mg-0.9% 42.283 100.646 Ns Pmx 16 mg In 250 ml @ Titrate IV .Q0M [facility] Rx#: [id number] Norepinephrin 4 mg-0.9% 250 Ns Pmx 4 mg In 250 ml @ Titrate IV .Q0M [facility] Rx#: [id number] Oral 120 Output: Urine 980 885 50 Other: Voiding Method Indwelling Catheter Indwelling Catheter # Bowel Movements 0 0 - Exam GENERAL EXAM: Morbidly obese. Arouses to painful stimuli only. HEAD: Normocephalic. EYES: Normal reaction of pupils, equal size. NOSE: Clear with pink turbinates. THROAT: There is crowding the posterior pharynx. No erythema or exudates. NECK: Short. No masses, no JVD. CHEST: No chest wall deformity. LUNGS: Equal air entry with no crackles, wheeze, rhonchi or dullness. CVS: S1 and S2 normal with no audible murmurs, regular rhythm. ABDOMEN: Obese unable to appreciate organs, normal bowel sounds, no guarding or rigidity. SKIN: Stage III decubiti on the coccyx multiple areas of ecchymosis Extremities: There is 2+ peripheral edema. No clubbing, no cyanosis. Peripheral pulses are intact. - Labs CBC & Chem 7: 06/07/17 05:00 06/07/17 05:00 Labs: Abnormal Lab Results - Last 24 Hours (Table) 06/06/17 06/06/17 06/06/17 Range/Units 12:13 17:57 23:57 WBC (3.8-10.6) k/uL RBC (3.80-5.40) m/uL Hgb (11.4-16.0) gm/dL Hct (34.0-46.0) % MCHC (31.0-37.0) g/dL RDW (11.5-15.5) % Neutrophils # (1.3-7.7) k/uL Lymphocytes # (1.0-4.8) k/uL PT (9.0-12.0) sec INR (<1.2) Chloride (98-107) mmol/L BUN (7-17) mg/dL Glucose (74-99) mg/dL POC Glucose (mg/dL) 218 H 203 H 213 H (75-99) mg/dL Calcium (8.4-10.2) mg/dL 06/07/17 06/07/17 06/07/17 Range/Units 05:00 05:00 05:00 WBC 11.2 H (3.8-10.6) k/uL RBC 3.07 L (3.80-5.40) m/uL Hgb 8.3 L (11.4-16.0) gm/dL Hct 27.6 L (34.0-46.0) % MCHC 30.1 L (31.0-37.0) g/dL RDW 17.1 H (11.5-15.5) % Neutrophils # 9.9 H (1.3-7.7) k/uL Lymphocytes # 0.7 L (1.0-4.8) k/uL PT 12.1 H (9.0-12.0) sec INR 1.2 H (<1.2) Chloride 109 H (98-107) mmol/L BUN 34 H (7-17) mg/dL Glucose 194 H (74-99) mg/dL POC Glucose (mg/dL) (75-99) mg/dL Calcium 8.0 L (8.4-10.2) mg/dL 06/07/17 Range/Units 05:52 WBC (3.8-10.6) k/uL RBC (3.80-5.40) m/uL Hgb (11.4-16.0) gm/dL Hct (34.0-46.0) % MCHC (31.0-37.0) g/dL RDW (11.5-15.5) % Neutrophils # (1.3-7.7) k/uL Lymphocytes # (1.0-4.8) k/uL PT (9.0-12.0) sec INR (<1.2) Chloride (98-107) mmol/L BUN (7-17) mg/dL Glucose (74-99) mg/dL POC Glucose (mg/dL) 184 H (75-99) mg/dL Calcium (8.4-10.2) mg/dL Microbiology - Last 24 Hours (Table) 06/04/17 15:30 Gram Stain - Final Coccyx Wound Culture - Final 06/04/17 15:00 Blood Culture Gram Stain - Preliminary Blood Assessment and Plan Plan: #1 Altered mental status secondary to suspected sepsis with hypotension secondary to decubitus ulcers with recent cultures positive for Proteus mirabilis, E. coli, Klebsiella oxytoca. #2 Septic shock with hypotension requiring pressor support. #3 Acute hypoxic respiratory failure secondary to above. Currently on BiPAP 10/ 5 at 50% FiO2. #4 Acute on chronic anemia, current hemoglobin 8.2. #5 Coronary artery disease. #6 History of congestive heart failure, status post biventricular pacemaker. #7 Hypertension, history of. #8 Hyperlipidemia. #9 Diabetes mellitus. #10 Alzheimer's dementia. #11 shelter resident, bedridden. #12 Poor overall functional performance secondary to the above-mentioned multiple comorbidities. 13 positive bacteremia with gram-negative bacilli, final identification and sensitivity is pending. Plan: Continue present treatment plan including broad-spectrum antibiotics, she is now on vancomycin and Zosyn, continue norepinephrine, maintain a mean arterial pressure of 65, continue BiPAP as needed, patient remains DO NOT RESUSCITATE CODE STATUS, overall the patient has made some improvement over the last couple of days, hence we'll continue present treatment plan, we will keep the patient in the ICU as long as she is requiring norepinephrine. Critical care time is 32 minutes. Time with Patient: Greater than 30
[2017-06-07 12:32] LABS: Glucose,Whole Blood 207 mg/dL (75-99)
[2017-06-07] MEDS ORDERED: VANCOMYCIN TROUGH DUE 1 EACH MISC MISCELLANE ONE (13:00)
[2017-06-07] MEDS: VANCOMYCIN 1,750 MG in SODIUM CHLORIDE 0.9% 250 ML IVPB SCH ×2 (13:35→22:04)
[2017-06-07 17:53] LABS: Glucose,Whole Blood 239 mg/dL (75-99)
[2017-06-07] MEDS: AMMONIUM LACTATE 12% LOTION 225 GM BTL TOPICAL SCH (20:10)
[2017-06-07] MEDS: ATORVASTATIN 40 MG TAB PO SCH (20:10)
[2017-06-07] MEDS: DONEPEZIL 10 MG TAB PO SCH (20:11)
[2017-06-07] MEDS: SERTRALINE 25 MG TAB PO SCH (20:12)
[2017-06-07] MEDS: LATANOPROST 0.005% OPHTH DROPS 2.5 ML BTL BOTH EYES SCH (20:12)
[2017-06-07 20:48] LABS: Glucose,Whole Blood 246 mg/dL (75-99)
[2017-06-08] MEDS: PIPERACILLIN-TAZOBACTAM 3.375 GM in DEXTROSE/WATER 1 50ML.BAG IVPB SCH ×3 (00:34→16:31)
[2017-06-08] MEDS: SODIUM HYPOCHLORITE 0.5% 480 ML BOT MISCELLANE SCH ×3 (00:34→20:47)
[2017-06-08] MEDS: IPRATROPIUM-ALBUTEROL 3 ML NEB INHALATION SCH ×6 (03:12→23:33)
[2017-06-08] MEDS: HYDROcodone/APAP 5-325MG 1 EACH TAB PO PRN (04:40)
[2017-06-08 05:20] LABS: Anisocytosis Slight; Basophils % (A) 0 %; CHCM 29.9; Eosinophils # (A) 0.2 k/uL (0-0.7); Eosinophils % (A) 2 %; HDW 3.66; HGB 8.1 gm/dL (11.4-16.0); Hypochromasia Marked; Luc # (Auto) 0.19; Luc % (Auto) 2; Lymphocytes # (A) 0.8 k/uL (1.0-4.8); Lymphocytes % (A) 8 %; MCH 27.2 pg (25.0-35.0); MCV 90.6 fL (80.0-100.0); Mean Platelet Volume 7.8; Monocytes # (A) 0.2 k/uL (0-1.0); Monocytes % (A) 2 %; Neutrophils # (A) 8.6 k/uL (1.3-7.7); Neutrophils % (A) 86 %; Poikilocytosis Slight; RBC 2.98 m/uL (3.80-5.40); RDW 17.3 % (11.5-15.5); WBC (Perox) 10.37
[2017-06-08] MEDS: NOREPINEPHRIN 16 MG-0.9%NS PMX 16 MG/250 ML ML IV SCH (05:24)
[2017-06-08 05:26] LABS: INR 1.2 (<1.2); Prothrombin Time 11.8 sec (9.0-12.0)
[2017-06-08 05:40] LABS: Anion Gap 5 mmol/L; Blood Urea Nitrogen 30 mg/dL (7-17); Calcium 8.2 mg/dL (8.4-10.2); Carbon Dioxide 25 mmol/L (22-30); Chloride 113 mmol/L (98-107); Glucose 239 mg/dL (74-99); Magnesium 1.9 mg/dL (1.6-2.3); Non-African American GFR(MDRD) >60 (>60 ml/min/1.73 sqM); Phosphorous 2.8 mg/dL (2.5-4.5); Potassium 3.9 mmol/L (3.5-5.1); Sodium 143 mmol/L (137-145)
[2017-06-08] MEDS ORDERED: POTASSIUM CHLORIDE ER 20 MEQ TAB.ER PO SCH (06:00)
[2017-06-08] MEDS: MAGNESIUM SULFATE-D5W PMX 1 GM in DEXTROSE/WATER 1 100ML.BAG IVPB SCH ×2 (06:27→07:53)
--- NOTE | 2017-06-08 07:23 | XR ---
EXAMINATION TYPE: XR chest 1V DATE OF EXAM: 06/08/2017 COMPARISON: 06/07/2017 HISTORY: 76-year-old female heart failure TECHNIQUE: Single frontal view of the chest is obtained. FINDINGS: Lung volumes remain low. Left anterior chest wall pacemaker generator with right atrial and 2 right v entricular leads. Right PICC tip appears to be at the cavoatrial junction. Heart remains enlarged wit h diffuse interstitial and vascular prominence and strandy atelectasis at the left base with patchy r etrocardiac opacity that shows slight improved aeration. IMPRESSION: 1. Continued hypoventilatory changes and suggestion of CHF with pulmonary vascular congestion. 2. Some improving aeration at the left base.
[2017-06-08 07:26] LABS: Glucose,Whole Blood 217 mg/dL (75-99)
[2017-06-08] MEDS: INSULIN LISPRO (humaLOG) 300 UNIT/3 ML VIAL SQ SCH ×4 (07:57→20:46)
[2017-06-08] MEDS: CALCIUM CARB-VIT D 500MG-200UN 1 EACH TAB PO SCH ×2 (08:00→20:45)
[2017-06-08] MEDS: ASPIRIN 81 MG CHEW PO SCH (08:00)
[2017-06-08] MEDS: BRIMONIDINE TARTRATE 0.2% DROPS 5 ML BTL BOTH EYES SCH ×2 (08:00→20:44)
[2017-06-08] MEDS: CHOLECALCIFEROL 1,000 UNIT TAB PO SCH (08:01)
[2017-06-08] MEDS: FUROSEMIDE 20 MG TAB PO SCH (08:02)
[2017-06-08] MEDS: MULTIVITAMINS, THERA 1 EACH TAB PO SCH (08:05)
[2017-06-08] MEDS: POTASSIUM CHLORIDE ER 10 MEQ TAB.ER.PRT PO SCH (08:05)
[2017-06-08] MEDS: FERROUS SULFATE 325 MG TAB PO SCH ×2 (08:05→20:46)
[2017-06-08] MEDS: FAMOTIDINE 20 MG TAB PO SCH ×2 (08:05→20:46)
[2017-06-08] MEDS: TIMOLOL 0.5% OPHTH DROPS 5 ML BTL BOTH EYES SCH ×2 (08:11→20:44)
[2017-06-08] MEDS: HEPARIN SODIUM,PORCINE 5,000 UNIT/ML 1 ML VIAL SQ SCH ×2 (08:12→20:46)
[2017-06-08] MEDS: NYSTATIN 100,000 UNIT/GM POWD 15 GM TOPICAL SCH ×2 (08:12→20:47)
[2017-06-08] MEDS: COLLAGENASE 250 UNIT/GM OINTMENT 30 GM TUBE TOPICAL SCH (08:12)
[2017-06-08] MEDS: oxyCODONE ER 10 MG TAB.ER.12H PO SCH ×2 (08:13→20:59)
[2017-06-08] MEDS ORDERED: FUROSEMIDE 10 MG/ML 4 ML VIAL IV STA (10:14)
--- NOTE | 2017-06-08 11:54 | P.PN ---
Subjective Principal diagnosis: Acute septic shock This is a 76-year-old female patient who resides at [facility] on the [facility]. She has a history of dementia, hypertension, hyperlipidemia, congestive heart failure status post Bi V pacemaker implantation , diabetes mellitus, morbid obesity, chronic stage III decubitus ulcers. She was recently discharged from here on 05/29/2017 secondary to polymicrobial infection of the decubitus ulcer which included E. coli, Klebsiella oxytoca, Proteus mirabilis along with blood loss anemia from the bleeding decubitus ulcers. She is status post debridement and wound VAC placement and she was returned to [facility] with some discussion regarding possible hospice. The patient was brought back here again yesterday afternoon with concerns regarding cellulitis along with the stage III decubitus ulcers and the development of fever. She was originally on the selective care unit. Today she had altered mental status and hypotension blood pressure 68/36 and an A was called and she was transferred here to the intensive care unit. We're consulted for the same. Initial lactate 4.0, currently 1.9. She has received 5 L of fluid resuscitation. Presently, she is only arousing to painful stimuli. She's been initiated on norepinephrine to keep the mean arterial pressure greater than 65. Her respirations are shallow and she's been initiated on BiPAP 10/5 at 50% FiO2. Her and son are at the bedside. They are agreeing to the DO NOT RESUSCITATE/DO NOT INTUBATE CODE STATUS however they would like full supportive care for now. She has been initiated on vancomycin and Zosyn. Her chest x-ray did not reveal any acute pulmonary process. Blood, urine and wound cultures are pending. Her white count is 11.7. Hemoglobin 8.2. Creatinine 1.04. Patient was reevaluated today on 06/06/2017, remains on norepinephrine at 9 mcg/ m. Blood pressure seems to be marginal, patient continues to have good urine output, mental status seems to be a bit improved, chest x-ray shows no evidence of acute pulmonary disease, she does have chronic changes WBC count is 14.1 hemoglobin 8.3 electrolytes are normal BUN is 45 creatinine is 0.80. Urine output has been excellent. Preliminary report on the blood cultures is positive for gram-negative bacilli which is expected. Feistel identification and sensitivity is pending. Patient mental status seems to be a bit improved, however she looks generally weak and frail and pale. Reevaluated today on 06/07/2017, remains on norepinephrine, present dose however is 7.5 mcg/m. Patient seems to be more awake, responsive and seems to be appropriate. She is off BiPAP, presently on nasal cannula at 5 L. Her O2 saturations are in the mid 90s. Urine output seems to be excellent. Labs were reviewed WBC count is 11.2 hemoglobin is 8.3 basic metabolic profile is relatively unremarkable, bicarb is 23. Blood sugar is 194. Chest x-ray is showing mild interstitial edema and left lower lobe atelectasis. Patient was reevaluated today on 06/08/2017, remains on about 5 g of norepinephrine, urine output is now marginal, hence Lasix will be given. Patient seems to be quite edematous, she is on nasal cannula, at 2 L and O2 saturation seems to be in the high 90s. Labs were reviewed, WBC count is 10 hemoglobin is 8.1 basic metabolic profile is relatively normal. Blood cultures are positive for Bacteroides species. Chest x-ray continues to show some pulmonary vascular congestion some improvement of aeration of the left base was noted. Objective - Vital Signs Vital signs: Vital Signs Temp 97.6 F 06/08/17 08:30 Pulse 59 L 06/08/17 10:30 Resp 24 06/08/17 10:30 BP 93/54 06/08/17 10:30 Pulse Ox 100 06/08/17 10:30 Intake & Output 06/07/17 06/08/17 06/08/17 18:59 06:59 18:59 Intake Total 8184.220 3046.066 692.112 Output Total 1205 670 95 Balance 065.269 0200.066 597.112 Weight 129.5 kg 124.6 kg Intake: IV 1000.0 1062.5 320.0 Magnesium Sulfate-D5w Pmx 200 1 gm In Dextrose/Water 1 100ml.bag @ 100 mls/hr IVPB Q1H [facility] Rx#: [id number] Piperacillin-Tazobactam 3 100.0 62.5 25.0 .375 gm In Dextrose/Water 1 50ml.bag @ 12.5 mls/hr IVPB Q8HR [facility] Rx#: [id number] Sodium Chloride 0.9% 1, 900 750 95 000 ml @ 75 mls/hr IV . [id number] [facility] Rx#:[id number] Vancomycin 1,750 mg In 250 Sodium Chloride 0.9% 250 ml @ 125 mls/hr IVPB Q16H [facility] Rx#:[id number] Intake, IV Titration 152.195 49.566 17.112 Amount Norepinephrin 16 mg-0.9% 152.195 49.566 17.112 Ns Pmx 16 mg In 250 ml @ Titrate IV .Q0M [facility] Rx#: [id number] Oral 709 600 355 Output: Urine 1205 670 95 Other: Voiding Method Indwelling Catheter Indwelling Catheter Indwelling Catheter - Exam GENERAL EXAM: Morbidly obese. Arouses to painful stimuli only. HEAD: Normocephalic. EYES: Normal reaction of pupils, equal size. NOSE: Clear with pink turbinates. THROAT: There is crowding the posterior pharynx. No erythema or exudates. NECK: Short. No masses, no JVD. CHEST: No chest wall deformity. LUNGS: Equal air entry with no crackles, wheeze, rhonchi or dullness. CVS: S1 and S2 normal with no audible murmurs, regular rhythm. ABDOMEN: Obese unable to appreciate organs, normal bowel sounds, no guarding or rigidity. SKIN: Stage III decubiti on the coccyx multiple areas of ecchymosis Extremities: There is 2+ peripheral edema. No clubbing, no cyanosis. Peripheral pulses are intact. - Labs CBC & Chem 7: 06/08/17 05:05 06/08/17 05:05 Labs: Abnormal Lab Results - Last 24 Hours (Table) 06/07/17 06/07/17 06/07/17 Range/Units 12:29 17:52 20:41 RBC (3.80-5.40) m/uL Hgb (11.4-16.0) gm/dL Hct (34.0-46.0) % MCHC (31.0-37.0) g/dL RDW (11.5-15.5) % Neutrophils # (1.3-7.7) k/uL Lymphocytes # (1.0-4.8) k/uL INR (<1.2) Chloride (98-107) mmol/L BUN (7-17) mg/dL Glucose (74-99) mg/dL POC Glucose (mg/dL) 207 H 239 H 246 H (75-99) mg/dL Calcium (8.4-10.2) mg/dL 06/08/17 06/08/17 06/08/17 Range/Units 05:05 05:05 05:05 RBC 2.98 L (3.80-5.40) m/uL Hgb 8.1 L (11.4-16.0) gm/dL Hct 27.0 L (34.0-46.0) % MCHC 30.0 L (31.0-37.0) g/dL RDW 17.3 H (11.5-15.5) % Neutrophils # 8.6 H (1.3-7.7) k/uL Lymphocytes # 0.8 L (1.0-4.8) k/uL INR 1.2 H (<1.2) Chloride 113 H (98-107) mmol/L BUN 30 H (7-17) mg/dL Glucose 239 H (74-99) mg/dL POC Glucose (mg/dL) (75-99) mg/dL Calcium 8.2 L (8.4-10.2) mg/dL 06/08/17 Range/Units 07:25 RBC (3.80-5.40) m/uL Hgb (11.4-16.0) gm/dL Hct (34.0-46.0) % MCHC (31.0-37.0) g/dL RDW (11.5-15.5) % Neutrophils # (1.3-7.7) k/uL Lymphocytes # (1.0-4.8) k/uL INR (<1.2) Chloride (98-107) mmol/L BUN (7-17) mg/dL Glucose (74-99) mg/dL POC Glucose (mg/dL) 217 H (75-99) mg/dL Calcium (8.4-10.2) mg/dL Microbiology - Last 24 Hours (Table) 06/04/17 15:00 Blood Culture Gram Stain - Final Blood Blood Culture - Final Bacteroides distasonis Assessment and Plan Plan: #1 Altered mental status secondary to suspected sepsis with hypotension secondary to decubitus ulcers with recent cultures positive for Proteus mirabilis, E. coli, Klebsiella oxytoca. #2 acute Septic shock with hypotension requiring pressor support. #3 Acute hypoxic respiratory failure secondary to above. Currently on BiPAP 10/ 5 at 50% FiO2. #4 Acute on chronic anemia, current hemoglobin 8.2. #5 Coronary artery disease. #6 History of congestive heart failure, status post biventricular pacemaker. #7 Hypertension, history of. #8 Hyperlipidemia. #9 Diabetes mellitus. #10 Alzheimer's dementia. #11 [facility] resident, bedridden. #12 Poor overall functional performance secondary to the above-mentioned multiple comorbidities. 13 positive bacteremia with positive blood cultures as noted above. Plan: Continue present treatment plan including broad-spectrum antibiotics, she is now on vancomycin and Zosyn, continue norepinephrine, maintain a mean arterial pressure of 65, continue oxygen via nasal cannula, patient remains DO NOT RESUSCITATE CODE STATUS, overall the patient has made some improvement over the last couple of days, hence we'll continue present treatment plan, we will keep the patient in the ICU as long as she is requiring norepinephrine. Critical care time is 32 minutes. Time with Patient: Greater than 30
[2017-06-08 12:08] LABS: Glucose,Whole Blood 281 mg/dL (75-99)
--- NOTE | 2017-06-08 15:06 | P.PN ---
Subjective Progress Note being dictated for Dr. Mazariegos. 06/06/2017. Interval history: This a 76-year-old female admitted in the ICU with severe sepsis, septic shock secondary to decubitus ulcers stages 3-4, polymicrobial jaz, hypotension, diabetes mellitus, acute hypoxic respiratory failure and multiple other medical issues. Chest x-ray reporting chronic changes without evidence of acute pulmonary disease.preliminary blood cultures reporting gram- negative bacilli .Maintained on antibiotics as per infectious disease. Maintaining mean arterial pressure of mid 60s on Levophed. Arousable to stimulation, confused. Family at bedside and states patient does not respond to their verbal probing. 06/07/17 weaned from BiPAP, now maintaining on 6 L nasal cannula. Chest x-ray reporting slightly worsening lung volumes, worsening atelectasis/consolidation. Much more alert, and oriented 2 ,consuming dietary supplements of ensure. Telemetry dual paced. Levophed weaning in progress, currently down to 5mcg. blood sugars currently 180s to 190s. Blood cultures positive for Bacteroides species. Review of systems: HEENT: Denies headache or focal deficits. Denies any dizziness or lightheadedness. Respiratory: Denies any increased shortness of breath. Cardiac: Denies any chest pain, palpitations. GI: Denies any nausea, vomiting, or diarrhea. Denies any abdominal tenderness. : Denies any dysuria. Psychiatry: Denies any anxiety or depression. Active Medications Generic Name Dose Route Start Last Admin Trade Name Freq PRN Reason Stop Dose Admin Acetaminophen 500 mg 06/04/17 16:09 Tylenol Tab PO Q6H PRN Pain Hydrocodone Bitart/Acetaminophen 1 each 06/04/17 16:09 Minot 5-325 PO Q6HR PRN Severe Pain Albuterol Sulfate 2.5 mg 06/04/17 16:09 06/05/17 08:30 Ventolin Nebulized INHALATION 2.5 mg RT-QID PRN Administration Shortness Of Breath Albuterol/Ipratropium 3 ml 06/05/17 16:00 06/07/17 15:54 Duoneb 0.5 Mg-3 Mg/3 Ml Soln INHALATION 3 ml RT-Q4H [facility] Administration Aspirin 81 mg 06/05/17 09:00 06/07/17 08:28 Aspirin PO 81 mg QAM [facility] Administration Atorvastatin Calcium 40 mg 06/04/17 21:00 06/06/17 21:59 Lipitor PO 40 mg HS [facility] Administration Bismuth Subsalicylate 524 mg 06/04/17 16:09 Bismatrol PO Q4H PRN Indigestion Brimonidine Tartrate 1 drops 06/04/17 21:00 06/07/17 08:24 Alphagan P 0.2% Ophth Soln BOTH EYES 1 drops BID [facility] Administration Calcium Carbonate 1 each 06/04/17 21:00 06/07/17 08:27 Oscal 500+D PO 1 each BID [facility] Administration Cholecalciferol 2,000 unit 06/05/17 09:00 06/07/17 08:27 Vitamin D3 PO 2,000 unit DAILY [facility] Administration Collagenase 1 applic 06/05/17 12:30 06/07/17 08:26 Santyl TOPICAL 1 applic DAILY [facility] Administration Donepezil HCl 10 mg 06/04/17 21:00 06/06/17 21:59 Aricept PO 10 mg HS [facility] Administration Famotidine 20 mg 06/06/17 21:00 06/07/17 08:27 Pepcid PO 20 mg BID [facility] Administration Ferrous Sulfate 325 mg 06/04/17 21:00 06/07/17 08:28 Feosol PO 325 mg BID [facility] Administration Furosemide 20 mg 06/05/17 09:00 06/07/17 08:28 Lasix PO 20 mg QAM [facility] Administration Heparin Sodium (Porcine) 5,000 unit 06/04/17 21:00 06/07/17 08:15 Heparin SQ 5,000 unit Q12HR [facility] Administration Piperacillin/Tazobactam/ 50 mls @ 12.5 mls/hr 06/05/17 00:00 06/07/17 16:40 Dextrose 3.375 gm/ IV Solution IVPB 12.5 mls/hr Q8HR [facility] Administration Sodium Chloride 1,000 mls @ 75 mls/hr 06/04/17 20:15 06/07/17 15:14 Saline 0.9% IV Not Given .[id number] [facility] Norepinephrine Bitartrate 16 mg in 250 mls @ 0 mls/hr 06/06/17 19:00 16:47 Levophed-0.9% Nacl 16 Mg/250ml Pmx IV 6 mcg/min .Q0M [facility] 5.625 mls/hr Protocol Titration Titrate Vancomycin HCl 1,750 mg/ 250 mls @ 125 mls/hr 06/07/17 22:00 Sodium Chloride IVPB Q24H [facility] Insulin Human Lispro 0 unit 06/05/17 18:00 06/07/17 17:53 Humalog SQ 5 unit Q6H [facility] Administration Protocol Lactic Acid 1 applic 06/04/17 21:00 06/06/17 21:59 Lac-Hydrin 12% TOPICAL 1 applic HS [facility] Administration Latanoprost 1 drops 06/04/17 21:00 06/06/17 22:00 Xalatan 0.005% BOTH EYES 1 drops HS [facility] Administration Magnesium Hydroxide 2,400 mg 06/04/17 16:09 Milk Of Magnesia PO DAILY PRN Constipation Miscellaneous Information 1 each 06/04/17 16:11 Magnesium Per Protocol MISCELLANE DAILY PRN Per Protocol Protocol Miscellaneous Information 1 each 06/04/17 16:11 Potassium Per Protocol MISCELLANE DAILY PRN Per Protocol Multivitamins 1 each 06/05/17 09:00 06/07/17 08:26 Theragran PO 1 each DAILY [facility] Administration Naloxone HCl 0.2 mg 06/05/17 14:27 Narcan IV Q2M PRN Opioid Reversal Nystatin 1 applic 06/04/17 21:00 06/07/17 08:25 Mycostatin Powder TOPICAL 1 applic BID [facility] Administration Oxycodone HCl 10 mg 06/04/17 21:00 06/07/17 08:29 Oxycontin 10mg E.R. PO Not Given Q12HR [facility] Potassium Chloride 10 meq 06/05/17 09:00 06/07/17 08:29 K-Dur 10 PO Not Given QAM [facility] Sertraline HCl 75 mg 06/04/17 21:00 06/06/17 22:02 Zoloft PO 75 mg HS [facility] Administration Sodium Chloride 20 ml 06/06/17 16:24 Saline Flush IV Q4HR PRN PICC Line Sodium Chloride 10 ml 06/13/17 09:00 Saline Flush IV WEEKLY [facility] Sodium Chloride 10 ml 06/06/17 16:24 Saline Flush IV Q4HR PRN PICC Line Sodium Hypochlorite 30 ml 06/05/17 22:30 06/07/17 08:25 Dakin's 0.5% (Full Strength) MISCELLANE 30 ml BID [facility] Administration Timolol Maleate 1 drops 06/04/17 21:00 06/07/17 08:25 Timoptic BOTH EYES 1 drops BID [facility] Administration Objective - Vital Signs Vital signs: Vital Signs Temp 98.2 F 06/07/17 16:00 Pulse 59 L 06/07/17 16:10 Resp 16 06/07/17 16:00 BP 120/62 06/07/17 16:00 Pulse Ox 100 06/07/17 16:00 Intake & Output 06/06/17 06/07/17 06/07/17 18:59 06:59 18:59 Intake Total 1150 3409.815 5607.945 Output Total 017 349 8308 Balance 170 477.283 292.945 Weight 129.5 kg 129.5 kg Intake: IV 900 1200 825.0 Piperacillin-Tazobactam 3 50 75.0 .375 gm In Dextrose/Water 1 50ml.bag @ 12.5 mls/hr IVPB Q8HR [facility] Rx#: [id number] Sodium Chloride 0.9% 1, 900 900 750 000 ml @ 75 mls/hr IV . [id number] [facility] Rx#:[id number] Vancomycin 1,750 mg In 250 Sodium Chloride 0.9% 250 ml @ 125 mls/hr IVPB Q16H [facility] Rx#:[id number] Intake, IV Titration 250 42.283 143.945 Amount Norepinephrin 16 mg-0.9% 42.283 143.945 Ns Pmx 16 mg In 250 ml @ Titrate IV .Q0M [facility] Rx#: [id number] Norepinephrin 4 mg-0.9% 250 Ns Pmx 4 mg In 250 ml @ Titrate IV .Q0M [facility] Rx#: [id number] Oral 120 354 Output: Urine 662 [id number] [id number] Other: Voiding Method Indwelling Catheter Indwelling Catheter Indwelling Catheter # Bowel Movements 0 0 - Exam PHYSICAL EXAM: VITAL SIGNS: As above GENERAL: [Sitting up in bed, more alert, no acute distress, off bipap HEENT: [Pupils equal conjunctiva normal. Oral mucosa moist] NECK: [Supple, no JVD] RESPIRATORY EFFORT:[ Increased] LUNGS: [Lower bases diminished, no rhonchi, no crackles, no wheezing] CARDIOVASCULAR[ regular S1-S2, telemetry 100% dual paced, positive edema] GI: [Abdomen obese, soft, nontender, positive bowel sounds. No guarding, no rigidity.] PSYCH/NEURO: alert and oriented X2, disoriented to year, moves all extremities, follows simple commands, no focal deficits SKIN: [Stage III sacral/coccyx decubitus ulcers as prior mentioned, please refer to chart pictures/documentation of sizes] ] Microbiology 06/04/17 15:00 Blood Blood Culture Gram Stain - Final 06/04/17 15:00 Blood Blood Culture - Final Bacteroides distasonis 06/04/17 15:30 Coccyx Gram Stain - Final 06/04/17 15:30 Coccyx Wound Culture - Final 06/04/17 15:00 Blood Blood Culture - Preliminary 06/04/17 15:00 Urine,Catheterized Urine Culture - Final - Labs CBC & Chem 7: 06/08/17 05:05 06/08/17 05:05 Labs: Abnormal Lab Results - Last 24 Hours (Table) 06/06/17 06/06/17 06/07/17 Range/Units 17:57 23:57 05:00 WBC 11.2 H (3.8-10.6) k/uL RBC 3.07 L (3.80-5.40) m/uL Hgb 8.3 L (11.4-16.0) gm/dL Hct 27.6 L (34.0-46.0) % MCHC 30.1 L (31.0-37.0) g/dL RDW 17.1 H (11.5-15.5) % Neutrophils # 9.9 H (1.3-7.7) k/uL Lymphocytes # 0.7 L (1.0-4.8) k/uL PT (9.0-12.0) sec INR (<1.2) Chloride (98-107) mmol/L BUN (7-17) mg/dL Glucose (74-99) mg/dL POC Glucose (mg/dL) 203 H 213 H (75-99) mg/dL Calcium (8.4-10.2) mg/dL 06/07/17 06/07/17 06/07/17 Range/Units 05:00 05:00 05:52 WBC (3.8-10.6) k/uL RBC (3.80-5.40) m/uL Hgb (11.4-16.0) gm/dL Hct (34.0-46.0) % MCHC (31.0-37.0) g/dL RDW (11.5-15.5) % Neutrophils # (1.3-7.7) k/uL Lymphocytes # (1.0-4.8) k/uL PT 12.1 H (9.0-12.0) sec INR 1.2 H (<1.2) Chloride 109 H (98-107) mmol/L BUN 34 H (7-17) mg/dL Glucose 194 H (74-99) mg/dL POC Glucose (mg/dL) 184 H (75-99) mg/dL Calcium 8.0 L (8.4-10.2) mg/dL 06/07/17 06/07/17 Range/Units 12:29 17:52 WBC (3.8-10.6) k/uL RBC (3.80-5.40) m/uL Hgb (11.4-16.0) gm/dL Hct (34.0-46.0) % MCHC (31.0-37.0) g/dL RDW (11.5-15.5) % Neutrophils # (1.3-7.7) k/uL Lymphocytes # (1.0-4.8) k/uL PT (9.0-12.0) sec INR (<1.2) Chloride (98-107) mmol/L BUN (7-17) mg/dL Glucose (74-99) mg/dL POC Glucose (mg/dL) 207 H 239 H (75-99) mg/dL Calcium (8.4-10.2) mg/dL Microbiology - Last 24 Hours (Table) 06/04/17 15:00 Blood Culture Gram Stain - Final Blood Blood Culture - Final Bacteroides distasonis 06/04/17 15:30 Gram Stain - Final Coccyx Wound Culture - Final Assessment and Plan Plan: 1. Decubitus ulcers, sacral stage 3-4, polymicrobial jaz with severe sepsis, septic shock, hypotension. Recent cultures positive for Proteus mirabilis, E. coli, Klebsiella oxytoca. Gram-negative bacilli Bacteremia-Bacteroides species. 2. Change in mental status, acute metabolic encephalopathy secondary to sepsis]. 3. [ Diabetes mellitus type 2, uncontrolled, nonketotic state secondary to sepsis]. 4. [ Acute hypoxic respiratory failure possibly secondary to sepsis]. 5. [ Dementia]. 6. [ Obesity, BMI 48.6]. 7. No code, no CPR, no vent Plan: Continue on current medication regime, vancomycin, Zosyn,,IV fluids, pressor support, monitoring and symptomatic treatment. Bacteremia-Bacteroides species, continue on Zosyn and vancomycin as per infectious disease. Pressor support weaning in progress. Prognosis guarded. Follow closely with pulmonary and infectious disease. Further recommendations to follow. The impression and plan of care has been dictated as directed. : I performed a H&P examination of this patient and discussed the same with the dictator. I agree with the dictator's note. Any additional findings/opinions/ etc. will be noted.
--- NOTE | 2017-06-08 15:30 | P.PN ---
Subjective Progress Note being dictated for Dr. Mazariegos. 06/06/2017. Interval history: This a 76-year-old female admitted in the ICU with severe sepsis, septic shock secondary to decubitus ulcers stages 3-4, polymicrobial jaz, hypotension, diabetes mellitus, acute hypoxic respiratory failure and multiple other medical issues. Chest x-ray reporting chronic changes without evidence of acute pulmonary disease.preliminary blood cultures reporting gram- negative bacilli .Maintained on antibiotics as per infectious disease. Maintaining mean arterial pressure of mid 60s on Levophed. Arousable to stimulation, confused. Family at bedside and states patient does not respond to their verbal probing. 06/07/17 weaned from BiPAP, now maintaining on 6 L nasal cannula. Chest x-ray reporting slightly worsening lung volumes, worsening atelectasis/consolidation. Much more alert, and oriented 2 ,consuming dietary supplements of ensure. Telemetry dual paced. Levophed weaning in progress, currently down to 5mcg. blood sugars currently 180s to 190s. Blood cultures positive for Bacteroides species. 06/08/2017 during the night required increased amounts of Levophed, weaned back down to 5 mics this morning. Received a single dose of Lasix for decreased urine output.. Remains off BiPAP and currently on 2 L nasal cannula. Chest x- ray reporting improved aeration left base. Tolerating full liquid diet along with ensure supplements, blood sugars increased in the 200s. Maintained on Zosyn and vancomycin for blood cultures- Bacteroides distasonis. Review of systems: HEENT: Denies headache or focal deficits. Denies any dizziness or lightheadedness. Respiratory: Improving shortness of breath. Cardiac: Denies any chest pain, palpitations. GI: Denies any nausea, vomiting, or diarrhea. Denies any abdominal tenderness. : Denies any dysuria. Psychiatry: Denies any anxiety or depression. Active Medications Generic Name Dose Route Start Last Admin Trade Name Freq PRN Reason Stop Dose Admin Acetaminophen 500 mg 06/04/17 16:09 Tylenol Tab PO Q6H PRN Pain Hydrocodone Bitart/Acetaminophen 1 each 06/04/17 16:09 [place] 5-325 PO Q6HR PRN Severe Pain Albuterol Sulfate 2.5 mg 06/04/17 16:09 06/05/17 08:30 Ventolin Nebulized INHALATION 2.5 mg RT-QID PRN Administration Shortness Of Breath Albuterol/Ipratropium 3 ml 06/05/17 16:00 06/07/17 15:54 Duoneb 0.5 Mg-3 Mg/3 Ml Soln INHALATION 3 ml RT-Q4H [facility] Administration Aspirin 81 mg 06/05/17 09:00 06/07/17 08:28 Aspirin PO 81 mg QAM [facility] Administration Atorvastatin Calcium 40 mg 06/04/17 21:00 06/06/17 21:59 Lipitor PO 40 mg HS [facility] Administration Bismuth Subsalicylate 524 mg 06/04/17 16:09 Bismatrol PO Q4H PRN Indigestion Brimonidine Tartrate 1 drops 06/04/17 21:00 06/07/17 08:24 Alphagan P 0.2% Ophth Soln BOTH EYES 1 drops BID [facility] Administration Calcium Carbonate 1 each 06/04/17 21:00 06/07/17 08:27 Oscal 500+D PO 1 each BID [facility] Administration Cholecalciferol 2,000 unit 06/05/17 09:00 06/07/17 08:27 Vitamin D3 PO 2,000 unit DAILY [facility] Administration Collagenase 1 applic 06/05/17 12:30 06/07/17 08:26 Santyl TOPICAL 1 applic DAILY [facility] Administration Donepezil HCl 10 mg 06/04/17 21:00 06/06/17 21:59 Aricept PO 10 mg HS [facility] Administration Famotidine 20 mg 06/06/17 21:00 06/07/17 08:27 Pepcid PO 20 mg BID [facility] Administration Ferrous Sulfate 325 mg 06/04/17 21:00 06/07/17 08:28 Feosol PO 325 mg BID [facility] Administration Furosemide 20 mg 06/05/17 09:00 06/07/17 08:28 Lasix PO 20 mg QAM [facility] Administration Heparin Sodium (Porcine) 5,000 unit 06/04/17 21:00 06/07/17 08:15 Heparin SQ 5,000 unit Q12HR [facility] Administration Piperacillin/Tazobactam/ 50 mls @ 12.5 mls/hr 06/05/17 00:00 06/07/17 16:40 Dextrose 3.375 gm/ IV Solution IVPB 12.5 mls/hr Q8HR [facility] Administration Sodium Chloride 1,000 mls @ 75 mls/hr 06/04/17 20:15 08/16/17 15:14 Saline 0.9% IV Not Given .[id number] [facility] Norepinephrine Bitartrate 16 mg in 250 mls @ 0 mls/hr 06/06/17 19:00 16:47 Levophed-0.9% Nacl 16 Mg/250ml Pmx IV 6 mcg/min .Q0M [facility] 5.625 mls/hr Protocol Titration Titrate Vancomycin HCl 1,750 mg/ 250 mls @ 125 mls/hr 06/07/17 22:00 Sodium Chloride IVPB Q24H [facility] Insulin Human Lispro 0 unit 06/05/17 18:00 06/07/17 17:53 Humalog SQ 5 unit Q6H [facility] Administration Protocol Lactic Acid 1 applic 06/04/17 21:00 06/06/17 21:59 Lac-Hydrin 12% TOPICAL 1 applic HS [facility] Administration Latanoprost 1 drops 06/04/17 21:00 06/06/17 22:00 Xalatan 0.005% BOTH EYES 1 drops HS [facility] Administration Magnesium Hydroxide 2,400 mg 06/04/17 16:09 Milk Of Magnesia PO DAILY PRN Constipation Miscellaneous Information 1 each 06/04/17 16:11 Magnesium Per Protocol MISCELLANE DAILY PRN Per Protocol Protocol Miscellaneous Information 1 each 06/04/17 16:11 Potassium Per Protocol MISCELLANE DAILY PRN Per Protocol Multivitamins 1 each 06/05/17 09:00 06/07/17 08:26 Theragran PO 1 each DAILY [facility] Administration Naloxone HCl 0.2 mg 06/05/17 14:27 Narcan IV Q2M PRN Opioid Reversal Nystatin 1 applic 06/04/17 21:00 06/07/17 08:25 Mycostatin Powder TOPICAL 1 applic BID [facility] Administration Oxycodone HCl 10 mg 06/04/17 21:00 06/07/17 08:29 Oxycontin 10mg E.R. PO Not Given Q12HR [facility] Potassium Chloride 10 meq 06/05/17 09:00 06/07/17 08:29 K-Dur 10 PO Not Given QAM [facility] Sertraline HCl 75 mg 06/04/17 21:00 06/06/17 22:02 Zoloft PO 75 mg HS [facility] Administration Sodium Chloride 20 ml 06/06/17 16:24 Saline Flush IV Q4HR PRN PICC Line Sodium Chloride 10 ml 06/13/17 09:00 Saline Flush IV WEEKLY [facility] Sodium Chloride 10 ml 06/06/17 16:24 Saline Flush IV Q4HR PRN PICC Line Sodium Hypochlorite 30 ml 06/05/17 22:30 06/07/17 08:25 Dakin's 0.5% (Full Strength) MISCELLANE 30 ml BID [facility] Administration Timolol Maleate 1 drops 06/04/17 21:00 06/07/17 08:25 Timoptic BOTH EYES 1 drops BID [facility] Administration Objective - Vital Signs Vital signs: Vital Signs Temp 97.6 F 06/08/17 12:00 Pulse 60 06/08/17 14:00 Resp 14 06/08/17 14:00 BP 135/63 06/08/17 14:00 Pulse Ox 100 06/08/17 14:00 Intake & Output 06/07/17 06/08/17 06/08/17 18:59 06:59 18:59 Intake Total 8405.229 1168.066 1119.051 Output Total 8539 198 3432 Balance 008.373 2486.066 -25.949 Weight 129.5 kg 124.6 kg 124.6 kg Intake: IV 1000.0 1062.5 720.0 Magnesium Sulfate-D5w Pmx 200 1 gm In Dextrose/Water 1 100ml.bag @ 100 mls/hr IVPB Q1H [facility] Rx#: [id number] Piperacillin-Tazobactam 3 100.0 62.5 50.0 .375 gm In Dextrose/Water 1 50ml.bag @ 12.5 mls/hr IVPB Q8HR [facility] Rx#: [id number] Sodium Chloride 0.9% 1, 900 750 470 000 ml @ 75 mls/hr IV . [id number] [facility] Rx#:[id number] Vancomycin 1,750 mg In 250 Sodium Chloride 0.9% 250 ml @ 125 mls/hr IVPB Q16H [facility] Rx#:[id number] Intake, IV Titration 152.195 49.566 44.051 Amount Norepinephrin 16 mg-0.9% 152.195 49.566 44.051 Ns Pmx 16 mg In 250 ml @ Titrate IV .Q0M [facility] Rx#: [id number] Oral 709 600 355 Output: Urine 6381 620 4833 Other: Voiding Method Indwelling Catheter Indwelling Catheter Indwelling Catheter # Bowel Movements 0 - Exam PHYSICAL EXAM: VITAL SIGNS: As above GENERAL: [Sitting up in bed, more alert, no acute distress HEENT: [Pupils equal conjunctiva normal. Oral mucosa moist] NECK: [Supple, no JVD] RESPIRATORY EFFORT:[normal LUNGS: [Lower bases diminished, no rhonchi, no crackles, no wheezing] CARDIOVASCULAR[ regular S1-S2, telemetry 100% dual paced, positive edema] GI: [Abdomen obese, soft, nontender, positive bowel sounds. No guarding, no rigidity.] PSYCH/NEURO: alert and oriented X2-3, moves all extremities, follows simple commands, no focal deficits SKIN: [Stage III sacral/coccyx decubitus ulcers as prior mentioned, please refer to chart pictures/documentation of sizes] ] Microbiology 06/04/17 15:00 Blood Blood Culture Gram Stain - Final 06/04/17 15:00 Blood Blood Culture - Final Bacteroides distasonis 06/04/17 15:30 Coccyx Gram Stain - Final 06/04/17 15:30 Coccyx Wound Culture - Final 06/04/17 15:00 Blood Blood Culture - Preliminary 06/04/17 15:00 Urine,Catheterized Urine Culture - Final - Labs CBC & Chem 7: 06/08/17 05:05 06/08/17 05:05 Labs: Abnormal Lab Results - Last 24 Hours (Table) 06/07/17 06/07/17 06/08/17 Range/Units 17:52 20:41 05:05 RBC 2.98 L (3.80-5.40) m/uL Hgb 8.1 L (11.4-16.0) gm/dL Hct 27.0 L (34.0-46.0) % MCHC 30.0 L (31.0-37.0) g/dL RDW 17.3 H (11.5-15.5) % Neutrophils # 8.6 H (1.3-7.7) k/uL Lymphocytes # 0.8 L (1.0-4.8) k/uL INR (<1.2) Chloride (98-107) mmol/L BUN (7-17) mg/dL Glucose (74-99) mg/dL POC Glucose (mg/dL) 239 H 246 H (75-99) mg/dL Calcium (8.4-10.2) mg/dL 06/08/17 06/08/17 06/08/17 Range/Units 05:05 05:05 07:25 RBC (3.80-5.40) m/uL Hgb (11.4-16.0) gm/dL Hct (34.0-46.0) % MCHC (31.0-37.0) g/dL RDW (11.5-15.5) % Neutrophils # (1.3-7.7) k/uL Lymphocytes # (1.0-4.8) k/uL INR 1.2 H (<1.2) Chloride 113 H (98-107) mmol/L BUN 30 H (7-17) mg/dL Glucose 239 H (74-99) mg/dL POC Glucose (mg/dL) 217 H (75-99) mg/dL Calcium 8.2 L (8.4-10.2) mg/dL 06/08/17 Range/Units 12:07 RBC (3.80-5.40) m/uL Hgb (11.4-16.0) gm/dL Hct (34.0-46.0) % MCHC (31.0-37.0) g/dL RDW (11.5-15.5) % Neutrophils # (1.3-7.7) k/uL Lymphocytes # (1.0-4.8) k/uL INR (<1.2) Chloride (98-107) mmol/L BUN (7-17) mg/dL Glucose (74-99) mg/dL POC Glucose (mg/dL) 281 H (75-99) mg/dL Calcium (8.4-10.2) mg/dL Microbiology - Last 24 Hours (Table) 06/04/17 15:00 Blood Culture Gram Stain - Final Blood Blood Culture - Final Bacteroides distasonis Assessment and Plan Plan: 1. Decubitus ulcers, sacral stage 3-4, polymicrobial jaz with severe sepsis, septic shock, hypotension. Recent cultures positive for Proteus mirabilis, E. coli, Klebsiella oxytoca. Gram-negative bacilli Bacteremia-Bacteroides distasonis. 2. Change in mental status, acute metabolic encephalopathy secondary to sepsis]. 3. [ Diabetes mellitus type 2, uncontrolled, nonketotic state secondary to sepsis]. 4. [ Acute hypoxic respiratory failure possibly secondary to sepsis]. 5. [ Dementia]. 6. [ Obesity, BMI 48.6]. 7. No code, no CPR, no vent Plan: Continue on current medication regime, vancomycin, Zosyn,IV fluids, pressor support, monitoring and symptomatic treatment. Bacteremia-Bacteroides species, antibiotics as per infectious disease. Prognosis guarded. Follow closely with pulmonary and infectious disease. Further recommendations to follow. The impression and plan of care has been dictated as directed. : I performed a H&P examination of this patient and discussed the same with the dictator. I agree with the dictator's note. Any additional findings/opinions/ etc. will be noted.
[2017-06-08] MEDS: SODIUM CHLORIDE 0.9% 1,000 ML IV SCH (16:32)
[2017-06-08] MEDS ORDERED: Potassium Replacement Protocol 1 EACH MISC MISCELLANE PRN (17:12)
[2017-06-08 17:29] LABS: Glucose,Whole Blood 204 mg/dL (75-99)
[2017-06-08] MEDS: POTASSIUM CHLORIDE 10 MEQ in WATER FOR INJECTION 1 100ML.BAG IVPB SCH ×2 (17:35→18:35)
[2017-06-08 20:09] LABS: Glucose,Whole Blood 227 mg/dL (75-99)
[2017-06-08] MEDS: ATORVASTATIN 40 MG TAB PO SCH (20:44)
[2017-06-08] MEDS: AMMONIUM LACTATE 12% LOTION 225 GM BTL TOPICAL SCH (20:44)
[2017-06-08] MEDS: LATANOPROST 0.005% OPHTH DROPS 2.5 ML BTL BOTH EYES SCH (20:44)
[2017-06-08] MEDS: DONEPEZIL 10 MG TAB PO SCH (20:46)
[2017-06-08] MEDS: SERTRALINE 25 MG TAB PO SCH (20:47)
[2017-06-08] MEDS: INSULIN GLARGINE 100 UNIT/ML 10 ML VIAL SQ SCH (20:59)
[2017-06-08] MEDS: VANCOMYCIN 1,750 MG in SODIUM CHLORIDE 0.9% 250 ML IVPB SCH (21:00)
--- NOTE | 2017-06-08 22:43 | P.PN ---
Subjective Principal diagnosis: Increasing weakness ,altered mental status 76-year-old female who suffers from superobesity and has multiple medical conditions that include dementia, coronary artery disease congestive heart failure and diabetes mellitus presents to Hospital from the extended care facility for altered mental status. The patient has a recent hospitalization where she was found evidence of pressure ulceration of the coccyx and buttocks. She underwent surgical debridement during that stay. She was treated with local wound care. However she now had a marked worsening of her status the time of admission. Evidence of sepsis with hypotension, did not respond to fluids and required vasopressor therapy showing evidence of septic shock. She has had difficulties with respiratory failure requiring BiPAP to be placed. With fluid resuscitation her lactic acid did decrease from 4.0-1.9. Wound cultures are available from the recent hospital stay. There is evidence of leukocytosis but fortunately no acute renal failure at this time More awake today Still on vasopressor therapy Objective - Vital Signs Vital signs: Vital Signs Temp 97.7 F 06/08/17 20:00 Pulse 60 06/08/17 22:00 Resp 26 H 06/08/17 22:00 BP 86/58 06/08/17 22:00 Pulse Ox 100 06/08/17 22:00 Intake & Output 06/08/17 06/08/17 06/09/17 06:59 18:59 06:59 Intake Total 6537.118 0126.551 887.5 Output Total 670 1895 560 Balance 1042.066 -277.449 327.5 Weight 124.6 kg 124.6 kg Intake: IV 1062.5 992.5 307.5 Magnesium Sulfate-D5w Pmx 200 1 gm In Dextrose/Water 1 100ml.bag @ 100 mls/hr IVPB Q1H [facility] Rx#: [id number] Piperacillin-Tazobactam 3 62.5 87.5 12.5 .375 gm In Dextrose/Water 1 50ml.bag @ 12.5 mls/hr IVPB Q8HR [facility] Rx#: [id number] Sodium Chloride 0.9% 1, 750 705 170 000 ml @ 75 mls/hr IV . [id number] [facility] Rx#:[id number] Vancomycin 1,750 mg In 250 125 Sodium Chloride 0.9% 250 ml @ 125 mls/hr IVPB Q16H [facility] Rx#:[id number] Intake, IV Titration 49.566 152.051 100 Amount Norepinephrin 16 mg-0.9% 49.566 52.051 Ns Pmx 16 mg In 250 ml @ Titrate IV .Q0M [facility] Rx#: [id number] Potassium Chloride 10 meq 100 100 In Water For Injection 1 100ml.bag @ 100 mls/hr IVPB Q1H [facility] Rx#: [id number] Oral 600 473 480 Output: Urine 670 1895 560 Other: Voiding Method Indwelling Catheter Indwelling Catheter Indwelling Catheter # Bowel Movements 0 - Exam Superobese 76-year-old female who is off BiPap With the assistance of nursing staff she is rolled so that her pressure ulcerations can be evaluated. HEENT: Anicteric conjunctiva are pink and moist nasal mucosa grossly intact without significant lesions, there is no thrush. Dentition is poor Neck: The neck is supple without significant lymphadenopathy or thyromegaly. Lungs: Symmetrical air entry with basilar crackles no bronchial sounds no dullness. Heart: Heart rate is slow at just 60,. She 100% paced by the monitor. Audible S1 and S2 soft S4 no murmur click or rub Abdomen: Superobese Positive bowel sounds soft and nontender without palpable masses or organomegaly. There was no guarding or rebound. Extremities: The extremities have some generalized edema and no significant open ulcerations are seen. The heels are intact at this time. Neuro: Patient . more awake eyes open swallowed pills without problem did have some speech upon questoning Skin: Patient is evidence the extensive pressor ulceration to the coccyx and buttocks. Please see the nursing documentation for the photography and measurements of these extensive ulcerations are grossly necrotic. There is still some odor. There some surrounding erythema. - Labs CBC & Chem 7: 06/08/17 05:05 06/08/17 21:15 Labs: Abnormal Lab Results - Last 24 Hours (Table) 06/08/17 06/08/17 06/08/17 Range/Units 05:05 05:05 05:05 RBC 2.98 L (3.80-5.40) m/uL Hgb 8.1 L (11.4-16.0) gm/dL Hct 27.0 L (34.0-46.0) % MCHC 30.0 L (31.0-37.0) g/dL RDW 17.3 H (11.5-15.5) % Neutrophils # 8.6 H (1.3-7.7) k/uL Lymphocytes # 0.8 L (1.0-4.8) k/uL INR 1.2 H (<1.2) Chloride 113 H (98-107) mmol/L BUN 30 H (7-17) mg/dL Glucose 239 H (74-99) mg/dL POC Glucose (mg/dL) (75-99) mg/dL Calcium 8.2 L (8.4-10.2) mg/dL 06/08/17 06/08/17 06/08/17 Range/Units 07:25 12:07 17:26 RBC (3.80-5.40) m/uL Hgb (11.4-16.0) gm/dL Hct (34.0-46.0) % MCHC (31.0-37.0) g/dL RDW (11.5-15.5) % Neutrophils # (1.3-7.7) k/uL Lymphocytes # (1.0-4.8) k/uL INR (<1.2) Chloride (98-107) mmol/L BUN (7-17) mg/dL Glucose (74-99) mg/dL POC Glucose (mg/dL) 217 H 281 H 204 H (75-99) mg/dL Calcium (8.4-10.2) mg/dL 06/08/17 Range/Units 20:07 RBC (3.80-5.40) m/uL Hgb (11.4-16.0) gm/dL Hct (34.0-46.0) % MCHC (31.0-37.0) g/dL RDW (11.5-15.5) % Neutrophils # (1.3-7.7) k/uL Lymphocytes # (1.0-4.8) k/uL INR (<1.2) Chloride (98-107) mmol/L BUN (7-17) mg/dL Glucose (74-99) mg/dL POC Glucose (mg/dL) 227 H (75-99) mg/dL Calcium (8.4-10.2) mg/dL Laboratory Results WBC 10.0 k/uL (3.8-10.6) 06/08/17 05:05 RBC 2.98 m/uL (3.80-5.40) L 06/08/17 05:05 Hgb 8.1 gm/dL (11.4-16.0) L 06/08/17 05:05 Hct 27.0 % (34.0-46.0) L 06/08/17 05:05 MCV 90.6 fL (80.0-100.0) 06/08/17 05:05 MCH 27.2 pg (25.0-35.0) 06/08/17 05:05 MCHC 30.0 g/dL (31.0-37.0) L 06/08/17 05:05 RDW 17.3 % (11.5-15.5) H 06/08/17 05:05 Plt Count 212 k/uL (150-450) 06/08/17 05:05 Neutrophils % 86 % 06/08/17 05:05 Lymphocytes % 8 % 06/08/17 05:05 Monocytes % 2 % 06/08/17 05:05 Eosinophils % 2 % 06/08/17 05:05 Basophils % 0 % 06/08/17 05:05 Neutrophils # 8.6 k/uL (1.3-7.7) H 06/08/17 05:05 Lymphocytes # 0.8 k/uL (1.0-4.8) L 06/08/17 05:05 Monocytes # 0.2 k/uL (0-1.0) 06/08/17 05:05 Eosinophils # 0.2 k/uL (0-0.7) 06/08/17 05:05 Basophils # 0.0 k/uL (0-0.2) 06/08/17 05:05 Hypochromasia Marked 06/08/17 05:05 Poikilocytosis Slight 06/08/17 05:05 Anisocytosis Slight 06/08/17 05:05 PT 11.8 sec (9.0-12.0) 06/08/17 05:05 INR 1.2 (<1.2) H 06/08/17 05:05 APTT 20.3 sec (22.0-30.0) L 06/04/17 15:00 Sodium 143 mmol/L (137-145) 06/08/17 05:05 Potassium 4.1 mmol/L (3.5-5.1) 06/08/17 21:15 Chloride 113 mmol/L (98-107) H 06/08/17 05:05 Carbon Dioxide 25 mmol/L (22-30) 06/08/17 05:05 Anion Gap 5 mmol/L 06/08/17 05:05 BUN 30 mg/dL (7-17) H 06/08/17 05:05 Creatinine 0.69 mg/dL (0.52-1.04) 06/08/17 05:05 Est GFR (MDRD) Af Amer >60 (>60 ml/min/1.73 sqM) 06/08/17 05:05 Est GFR (MDRD) Non-Af >60 (>60 ml/min/1.73 sqM) 06/08/17 05:05 Glucose 239 mg/dL (74-99) H 06/08/17 05:05 POC Glucose (mg/dL) 227 mg/dL (75-99) H 06/08/17 20:07 POC Glu Pull Over ID Ora Hendricks 06/08/17 20:[address] Glu mg/dL 134 mg/dL 06/04/17 15:00 Hemoglobin A1c 6.3 % (4.2-6.1) H 06/04/17 15:00 Lactic Ac Sepsis Rflx Y 06/04/17 15:50 Plasma Lactic Acid Roni 1.9 mmol/L (0.7-2.0) 06/04/17 19:04 Calcium 8.2 mg/dL (8.4-10.2) L 06/08/17 05:05 Phosphorus 2.8 mg/dL (2.5-4.5) 06/08/17 05:05 Magnesium 2.1 mg/dL (1.6-2.3) 06/08/17 16:28 Total Bilirubin 0.3 mg/dL (0.2-1.3) 06/04/17 15:00 AST 61 U/L (14-36) H 06/04/17 15:00 ALT 36 U/L (9-52) 06/04/17 15:00 Alkaline Phosphatase 142 U/L (38-126) H 06/04/17 15:00 Total Creatine Kinase <20 U/L (30-135) L 06/04/17 15:00 CK-MB (CK-2) 0.5 ng/mL (0.0-2.4) 06/04/17 15:00 CK-MB (CK-2) Rel Index 0.0 06/04/17 15:00 Troponin I 0.058 ng/mL (0.000-0.034) H* 06/04/17 15:00 Total Protein 4.1 g/dL (6.3-8.2) L 06/04/17 15:00 Albumin 1.9 g/dL (3.5-5.0) L 06/04/17 15:00 Cortisol 45 ug/dL 06/04/17 15:00 Urine Color Yellow 06/04/17 15:00 Urine Appearance Cloudy (Clear) H 06/04/17 15:00 Urine pH 5.0 (5.0-8.0) 06/04/17 15:00 Ur Specific [place] 1.015 (1.001-1.035) 06/04/17 15:00 Urine Protein Trace (Negative) H 06/04/17 15:00 Urine Glucose (UA) 4+ (Negative) H 06/04/17 15:00 Urine Ketones Negative (Negative) 06/04/17 15:00 Urine Blood Small (Negative) H 06/04/17 15:00 Urine Nitrite Positive (Negative) H 06/04/17 15:00 Urine Bilirubin Negative (Negative) 06/04/17 15:00 Urine Urobilinogen 2.0 mg/dL (<2.0) 06/04/17 15:00 Ur Leukocyte Esterase Large (Negative) H 06/04/17 15:00 Urine RBC 11 /hpf (0-5) H 06/04/17 15:00 Urine WBC 132 /hpf (0-5) H 06/04/17 15:00 Urine WBC Clumps Occasional /hpf (None) H 06/04/17 15:00 Ur Squamous Epith Cells 3 /hpf (0-4) 06/04/17 15:00 Amorphous Sediment Occasional /hpf (None) H 06/04/17 15:00 Urine Bacteria Many /hpf (None) H 06/04/17 15:00 Hyaline Casts 12 /lpf (0-2) H 06/04/17 15:00 Granular Casts 35 /lpf (0) 06/04/17 15:00 Urine Mucus Occasional /hpf (None) H 06/04/17 15:00 Stool Occult Blood Positive (Negative) H 06/04/17 15:30 Vancomycin Trough 27.1 ug/mL 06/07/17 12:49 Acetone, Qual Negative (Negative) 06/04/17 15:00 Blood Type O Positive 06/04/17 15:00 Blood Type Recheck No 06/04/17 15:00 Antibody Screen NEGATIVE 06/04/17 15:00 Spec Expiration Date 06/07/2017 - 229906/04/17 15:00 Microbiology 06/04/17 15:00 Blood Blood Culture Gram Stain - Final 06/04/17 15:00 Blood Blood Culture - Final Bacteroides distasonis 06/04/17 15:30 Coccyx Gram Stain - Final 06/04/17 15:30 Coccyx Wound Culture - Final 06/04/17 15:00 Blood Blood Culture - Preliminary 06/04/17 15:00 Urine,Catheterized Urine Culture - Final Assessment and Plan (1) Shock, septic, Gram negative Narrative/Plan: 76-year-old female who suffers from superobesity and also medical complaints presents from [facility] care [facility] with altered mental status. He does appear to admission the patient had evidence of sepsis and then evidence of shock in that she had lack of improvement after fluid resuscitation and required vasopressor therapy. She is progressed on to respiratory failure requiring BiPAP. She is a DO NOT INTUBATE status. Status discussed with the family. Discussing that pressure ulceration in this situation is a symptom of a person that is chronically ill and declining. The current bout of sepsis is likely related to the infection from the pressure ulcerations. But her progressively declining medical condition remains etiology of the pressure ulcerations. Consequently other procedures are not possible at this point in time. She certainly has surgical debridement. Antibiotic therapy is initiated with Zosyn which recent cultures reveal evidence of susceptibility. Local wound care with Dakin solution .Santyl discontinued She's on air mattress. Ongoing turning. Supportive care. Her prognosis is extremely poor. Status: Acute (2) Pressure ulcer of coccygeal region, stage 4 Status: Acute
[2017-06-09] MEDS: PIPERACILLIN-TAZOBACTAM 3.375 GM in DEXTROSE/WATER 1 50ML.BAG IVPB SCH ×3 (00:18→16:38)
[2017-06-09] MEDS: IPRATROPIUM-ALBUTEROL 3 ML NEB INHALATION SCH ×5 (03:27→19:17)
[2017-06-09 04:43] LABS: Anisocytosis Slight; Basophils % (A) 0 %; CH 26.3; Eosinophils # (A) 0.2 k/uL (0-0.7); Eosinophils % (A) 3 %; HDW 3.83; HGB 7.8 gm/dL (11.4-16.0); Hypochromasia Marked; Luc # (Auto) 0.17; Luc % (Auto) 2; Lymphocytes # (A) 0.8 k/uL (1.0-4.8); Lymphocytes % (A) 9 %; MCH 26.6 pg (25.0-35.0); MCHC 30.2 g/dL (31.0-37.0); MCV 88.2 fL (80.0-100.0); Mean Platelet Volume 7.4; Monocytes # (A) 0.3 k/uL (0-1.0); Monocytes % (A) 3 %; Neutrophils % (A) 84 %; Poikilocytosis Slight; RBC 2.95 m/uL (3.80-5.40); WBC 9.6 k/uL (3.8-10.6)
[2017-06-09 04:54] LABS: Anion Gap 5 mmol/L; Blood Urea Nitrogen 27 mg/dL (7-17); Calcium 8.3 mg/dL (8.4-10.2); Carbon Dioxide 25 mmol/L (22-30); Chloride 112 mmol/L (98-107); Glucose 149 mg/dL (74-99); Non-African American GFR(MDRD) >60 (>60 ml/min/1.73 sqM); Phosphorous 2.9 mg/dL (2.5-4.5); Potassium 4.1 mmol/L (3.5-5.1); Sodium 142 mmol/L (137-145)
[2017-06-09 07:29] LABS: Glucose,Whole Blood 138 mg/dL (75-99)
[2017-06-09] MEDS: SODIUM CHLORIDE 0.9% 1,000 ML IV SCH ×4 (08:18→22:38)
[2017-06-09] MEDS: INSULIN LISPRO (humaLOG) 300 UNIT/3 ML VIAL SQ SCH ×4 (08:18→22:14)
[2017-06-09] MEDS: ASPIRIN 81 MG CHEW PO SCH (08:19)
[2017-06-09] MEDS: TIMOLOL 0.5% OPHTH DROPS 5 ML BTL BOTH EYES SCH ×2 (08:19→22:14)
[2017-06-09] MEDS: CHOLECALCIFEROL 1,000 UNIT TAB PO SCH (08:20)
[2017-06-09] MEDS: BRIMONIDINE TARTRATE 0.2% DROPS 5 ML BTL BOTH EYES SCH ×2 (08:20→22:11)
[2017-06-09] MEDS: CALCIUM CARB-VIT D 500MG-200UN 1 EACH TAB PO SCH ×2 (08:20→22:11)
[2017-06-09] MEDS: FERROUS SULFATE 325 MG TAB PO SCH ×2 (08:21→22:13)
[2017-06-09] MEDS: FAMOTIDINE 20 MG TAB PO SCH ×2 (08:21→22:13)
[2017-06-09] MEDS: FUROSEMIDE 20 MG TAB PO SCH (08:22)
[2017-06-09] MEDS: NYSTATIN 100,000 UNIT/GM POWD 15 GM TOPICAL SCH ×2 (08:22→22:14)
[2017-06-09] MEDS: MULTIVITAMINS, THERA 1 EACH TAB PO SCH (08:22)
[2017-06-09] MEDS: HEPARIN SODIUM,PORCINE 5,000 UNIT/ML 1 ML VIAL SQ SCH ×2 (08:22→22:12)
[2017-06-09] MEDS: POTASSIUM CHLORIDE ER 10 MEQ TAB.ER.PRT PO SCH (08:22)
[2017-06-09] MEDS: SODIUM HYPOCHLORITE 0.5% 480 ML BOT MISCELLANE SCH ×2 (08:23→22:15)
[2017-06-09] MEDS: oxyCODONE ER 10 MG TAB.ER.12H PO SCH ×2 (08:26→22:22)
--- NOTE | 2017-06-09 09:00 | XR ---
EXAMINATION TYPE: XR chest 1V DATE OF EXAM: 06/09/2017 COMPARISON: 1717 HISTORY: Shortness of breath TECHNIQUE: Single frontal view of the chest is obtained. FINDINGS: New right upper lobe opacity is appreciated superior to the right minor fissure. There is right hemithorax volume loss suggesting right basilar atelectasis. Blunting of the chest phrenic angl es is appreciated relating to trace pleural effusion on the right and small pleural effusion on the l eft with associated left subsegmental compressive atelectasis. Degenerative changes of the glenohumer al joints, thoracic spine, and acromioclavicular joint are seen. Cardiac size is stable with a multil ead left-sided cardiac device. Right PICC is unchanged in position. Pulmonary vascular congestion has improved. IMPRESSION: 1. Improved pulmonary vascular congestion. 2. New right upper lobe opacity layering along the right minor fissure which may relate to loculated pleural effusion or new airspace disease. 3. Trace right and small left pleural effusions with bibasilar atelectasis.
[2017-06-09] MEDS ORDERED: FUROSEMIDE 10 MG/ML 4 ML VIAL IV STA (09:31)
[2017-06-09 09:41] VITALS: BMI 47.7
--- NOTE | 2017-06-09 11:41 | P.PN ---
Subjective Principal diagnosis: Acute septic shock This is a 76-year-old female patient who resides at [facility] on the [facility]. She has a history of dementia, hypertension, hyperlipidemia, congestive heart failure status post Bi V pacemaker implantation , diabetes mellitus, morbid obesity, chronic stage III decubitus ulcers. She was recently discharged from here on 05/29/2017 secondary to polymicrobial infection of the decubitus ulcer which included E. coli, Klebsiella oxytoca, Proteus mirabilis along with blood loss anemia from the bleeding decubitus ulcers. She is status post debridement and wound VAC placement and she was returned to [facility] with some discussion regarding possible hospice. The patient was brought back here again yesterday afternoon with concerns regarding cellulitis along with the stage III decubitus ulcers and the development of fever. She was originally on the selective care unit. Today she had altered mental status and hypotension blood pressure 68/36 and an A was called and she was transferred here to the intensive care unit. We're consulted for the same. Initial lactate 4.0, currently 1.9. She has received 5 L of fluid resuscitation. Presently, she is only arousing to painful stimuli. She's been initiated on norepinephrine to keep the mean arterial pressure greater than 65. Her respirations are shallow and she's been initiated on BiPAP 10/5 at 50% FiO2. Her and son are at the bedside. They are agreeing to the DO NOT RESUSCITATE/DO NOT INTUBATE CODE STATUS however they would like full supportive care for now. She has been initiated on vancomycin and Zosyn. Her chest x-ray did not reveal any acute pulmonary process. Blood, urine and wound cultures are pending. Her white count is 11.7. Hemoglobin 8.2. Creatinine 1.04. Patient was reevaluated today on 06/06/2017, remains on norepinephrine at 9 mcg/ m. Blood pressure seems to be marginal, patient continues to have good urine output, mental status seems to be a bit improved, chest x-ray shows no evidence of acute pulmonary disease, she does have chronic changes WBC count is 14.1 hemoglobin 8.3 electrolytes are normal BUN is 45 creatinine is 0.80. Urine output has been excellent. Preliminary report on the blood cultures is positive for gram-negative bacilli which is expected. Feistel identification and sensitivity is pending. Patient mental status seems to be a bit improved, however she looks generally weak and frail and pale. Reevaluated today on 06/07/2017, remains on norepinephrine, present dose however is 7.5 mcg/m. Patient seems to be more awake, responsive and seems to be appropriate. She is off BiPAP, presently on nasal cannula at 5 L. Her O2 saturations are in the mid 90s. Urine output seems to be excellent. Labs were reviewed WBC count is 11.2 hemoglobin is 8.3 basic metabolic profile is relatively unremarkable, bicarb is 23. Blood sugar is 194. Chest x-ray is showing mild interstitial edema and left lower lobe atelectasis. Patient was reevaluated today on 06/08/2017, remains on about 5 g of norepinephrine, urine output is now marginal, hence Lasix will be given. Patient seems to be quite edematous, she is on nasal cannula, at 2 L and O2 saturation seems to be in the high 90s. Labs were reviewed, WBC count is 10 hemoglobin is 8.1 basic metabolic profile is relatively normal. Blood cultures are positive for Bacteroides species. Chest x-ray continues to show some pulmonary vascular congestion some improvement of aeration of the left base was noted. Reevaluated today on 06/09/2017, patient is now off norepinephrine, good urine output, chest x-ray showing mild congestive changes, hence she'll get be given a dose of Lasix 40 mg 1 today. O2 saturation is excellent on 2 L nasal cannula. Labs were reviewed hemoglobin is 7.8. SGOT is 9.6 renal profile is normal basic metabolic profile is unremarkable. Objective - Vital Signs Vital signs: Vital Signs Temp 97.8 F 06/09/17 08:00 Pulse 59 L 06/09/17 11:15 Resp 19 06/09/17 10:00 BP 139/55 06/09/17 10:00 Pulse Ox 94 L 06/09/17 10:00 Intake & Output 06/08/17 06/09/17 06/09/17 18:59 06:59 18:59 Intake Total 8291.829 9970.129 300 Output Total 1895 985 320 Balance -277.449 640.129 -20 Weight 124.6 kg 126.3 kg 126.3 kg Intake: IV 992.5 1017.5 300 Magnesium Sulfate-D5w Pmx 200 1 gm In Dextrose/Water 1 100ml.bag @ 100 mls/hr IVPB Q1H [facility] Rx#: [id number] Piperacillin-Tazobactam 3 87.5 62.5 50 .375 gm In Dextrose/Water 1 50ml.bag @ 12.5 mls/hr IVPB Q8HR [facility] Rx#: [id number] Sodium Chloride 0.9% 1, 705 705 250 000 ml @ 50 mls/hr IV . Q20H [facility] Rx#:[id number] Vancomycin 1,750 mg In 250 Sodium Chloride 0.9% 250 ml @ 125 mls/hr IVPB Q16H [facility] Rx#:[id number] Intake, IV Titration 152.051 127.629 Amount Norepinephrin 16 mg-0.9% 52.051 27.629 Ns Pmx 16 mg In 250 ml @ Titrate IV .Q0M [facility] Rx#: [id number] Potassium Chloride 10 meq 100 100 In Water For Injection 1 100ml.bag @ 100 mls/hr IVPB Q1H [facility] Rx#: [id number] Oral 473 480 Output: Urine 1895 985 320 Other: Voiding Method Indwelling Catheter Indwelling Catheter Indwelling Catheter # Bowel Movements 0 - Exam GENERAL EXAM: Morbidly obese. Arouses to painful stimuli only. HEAD: Normocephalic. EYES: Normal reaction of pupils, equal size. NOSE: Clear with pink turbinates. THROAT: There is crowding the posterior pharynx. No erythema or exudates. NECK: Short. No masses, no JVD. CHEST: No chest wall deformity. LUNGS: Equal air entry with no crackles, wheeze, rhonchi or dullness. CVS: S1 and S2 normal with no audible murmurs, regular rhythm. ABDOMEN: Obese unable to appreciate organs, normal bowel sounds, no guarding or rigidity. SKIN: Stage III decubiti on the coccyx multiple areas of ecchymosis Extremities: There is 2+ peripheral edema. No clubbing, no cyanosis. Peripheral pulses are intact. - Labs CBC & Chem 7: 06/09/17 04:25 06/09/17 04:25 Labs: Abnormal Lab Results - Last 24 Hours (Table) 06/08/17 06/08/17 06/08/17 Range/Units 12:07 17:26 20:07 RBC (3.80-5.40) m/uL Hgb (11.4-16.0) gm/dL Hct (34.0-46.0) % MCHC (31.0-37.0) g/dL RDW (11.5-15.5) % Neutrophils # (1.3-7.7) k/uL Lymphocytes # (1.0-4.8) k/uL Chloride (98-107) mmol/L BUN (7-17) mg/dL Glucose (74-99) mg/dL POC Glucose (mg/dL) 281 H 204 H 227 H (75-99) mg/dL Calcium (8.4-10.2) mg/dL 06/09/17 06/09/17 06/09/17 Range/Units 04:25 04:25 07:27 RBC 2.95 L (3.80-5.40) m/uL Hgb 7.8 L (11.4-16.0) gm/dL Hct 26.0 L (34.0-46.0) % MCHC 30.2 L (31.0-37.0) g/dL RDW 17.0 H (11.5-15.5) % Neutrophils # 8.0 H (1.3-7.7) k/uL Lymphocytes # 0.8 L (1.0-4.8) k/uL Chloride 112 H (98-107) mmol/L BUN 27 H (7-17) mg/dL Glucose 149 H (74-99) mg/dL POC Glucose (mg/dL) 138 H (75-99) mg/dL Calcium 8.3 L (8.4-10.2) mg/dL Assessment and Plan Plan: #1 Altered mental status secondary to suspected sepsis with hypotension secondary to decubitus ulcers with recent cultures positive for Proteus mirabilis, E. coli, Klebsiella oxytoca. #2 acute Septic shock with hypotension requiring pressor support. #3 Acute hypoxic respiratory failure secondary to above. Currently on BiPAP 10/ 5 at 50% FiO2. #4 Acute on chronic anemia, current hemoglobin 8.2. #5 Coronary artery disease. #6 History of congestive heart failure, status post biventricular pacemaker. #7 Hypertension, history of. #8 Hyperlipidemia. #9 Diabetes mellitus. #10 Alzheimer's dementia. #11 snf resident, bedridden. #12 Poor overall functional performance secondary to the above-mentioned multiple comorbidities. 13 positive bacteremia with positive blood cultures as noted above. Plan: Continue present course of treatment, patient could be safely transferred out of the ICU today, she will be monitored on a monitored bed on selective, continue antibiotics as per infectious disease on the case, continue local care for the sacral decubitus ulcer, continue GI and DVT prophylaxis, prognosis remains guarded, but the patient does not need to stay in the ICU at this point. We'll continue to follow. Time with Patient: Less than 30
[2017-06-09 12:33] LABS: Glucose,Whole Blood 231 mg/dL (75-99)
[2017-06-09 17:00] LABS: Glucose,Whole Blood 191 mg/dL (75-99)
--- NOTE | 2017-06-09 19:25 | P.PN ---
Subjective Progress Note being dictated for Dr. Mazariegos. 06/06/2017. Interval history: This a 76-year-old female admitted in the ICU with severe sepsis, septic shock secondary to decubitus ulcers stages 3-4, polymicrobial jaz, hypotension, diabetes mellitus, acute hypoxic respiratory failure and multiple other medical issues. Chest x-ray reporting chronic changes without evidence of acute pulmonary disease.preliminary blood cultures reporting gram- negative bacilli .Maintained on antibiotics as per infectious disease. Maintaining mean arterial pressure of mid 60s on Levophed. Arousable to stimulation, confused. Family at bedside and states patient does not respond to their verbal probing. 06/07/17 weaned from BiPAP, now maintaining on 6 L nasal cannula. Chest x-ray reporting slightly worsening lung volumes, worsening atelectasis/consolidation. Much more alert, and oriented 2 ,consuming dietary supplements of ensure. Telemetry dual paced. Levophed weaning in progress, currently down to 5mcg. blood sugars currently 180s to 190s. Blood cultures positive for Bacteroides species. 06/08/2017 during the night required increased amounts of Levophed, weaned back down to 5 mics this morning. Received a single dose of Lasix for decreased urine output.. Remains off BiPAP and currently on 2 L nasal cannula. Chest x- ray reporting improved aeration left base. Tolerating full liquid diet along with ensure supplements, blood sugars increased in the 200s. Maintained on Zosyn and vancomycin for blood cultures- Bacteroides distasonis. 06/09/17 Levophed weaned off as of 0400, maintaining systolic blood pressures in the 130s, good urine output. Chest x-ray noted included possible new airspace disease . Received a dose of Lasix and home dose of oral Lasix resumed.reporting Maintained on Zosyn. Telemetry dual paced. Review of systems: Alert but currently not wanting to converse, in a patient with dementia. Active Medications Generic Name Dose Route Start Last Admin Trade Name Freq PRN Reason Stop Dose Admin Acetaminophen 500 mg 06/04/17 16:09 Tylenol Tab PO Q6H PRN Pain Hydrocodone Bitart/Acetaminophen 1 each 06/04/17 16:09 Blairs 5-325 PO Q6HR PRN Severe Pain Albuterol Sulfate 2.5 mg 06/04/17 16:09 06/05/17 08:30 Ventolin Nebulized INHALATION 2.5 mg RT-QID PRN Administration Shortness Of Breath Albuterol/Ipratropium 3 ml 06/05/17 16:00 06/07/17 15:54 Duoneb 0.5 Mg-3 Mg/3 Ml Soln INHALATION 3 ml RT-Q4H [facility] Administration Aspirin 81 mg 06/05/17 09:00 06/07/17 08:28 Aspirin PO 81 mg QAM [facility] Administration Atorvastatin Calcium 40 mg 06/04/17 21:00 06/06/17 21:59 Lipitor PO 40 mg HS [facility] Administration Bismuth Subsalicylate 524 mg 06/04/17 16:09 Bismatrol PO Q4H PRN Indigestion Brimonidine Tartrate 1 drops 06/04/17 21:00 06/07/17 08:24 Alphagan P 0.2% Ophth Soln BOTH EYES 1 drops BID [facility] Administration Calcium Carbonate 1 each 06/04/17 21:00 06/07/17 08:27 Oscal 500+D PO 1 each BID [facility] Administration Cholecalciferol 2,000 unit 06/05/17 09:00 06/07/17 08:27 Vitamin D3 PO 2,000 unit DAILY [facility] Administration Collagenase 1 applic 06/05/17 12:30 06/07/17 08:26 Santyl TOPICAL 1 applic DAILY [facility] Administration Donepezil HCl 10 mg 06/04/17 21:00 06/06/17 21:59 Aricept PO 10 mg HS [facility] Administration Famotidine 20 mg 06/06/17 21:00 06/07/17 08:27 Pepcid PO 20 mg BID [facility] Administration Ferrous Sulfate 325 mg 06/04/17 21:00 06/07/17 08:28 Feosol PO 325 mg BID [facility] Administration Furosemide 20 mg 06/05/17 09:00 06/07/17 08:28 Lasix PO 20 mg QAM [facility] Administration Heparin Sodium (Porcine) 5,000 unit 06/04/17 21:00 06/07/17 08:15 Heparin SQ 5,000 unit Q12HR [facility] Administration Piperacillin/Tazobactam/ 50 mls @ 12.5 mls/hr 06/05/17 00:00 06/07/17 16:40 Dextrose 3.375 gm/ IV Solution IVPB 12.5 mls/hr Q8HR [facility] Administration Sodium Chloride 1,000 mls @ 75 mls/hr 06/04/17 20:15 06/07/17 15:14 Saline 0.9% IV Not Given .[id number] [facility] Norepinephrine Bitartrate 16 mg in 250 mls @ 0 mls/hr 06/06/17 19:00 16:47 Levophed-0.9% Nacl 16 Mg/250ml Pmx IV 6 mcg/min .Q0M [facility] 5.625 mls/hr Protocol Titration Titrate Vancomycin HCl 1,750 mg/ 250 mls @ 125 mls/hr 06/07/17 22:00 Sodium Chloride IVPB Q24H [facility] Insulin Human Lispro 0 unit 06/05/17 18:00 06/07/17 17:53 Humalog SQ 5 unit Q6H [facility] Administration Protocol Lactic Acid 1 applic 06/04/17 21:00 06/06/17 21:59 Lac-Hydrin 12% TOPICAL 1 applic HS [facility] Administration Latanoprost 1 drops 06/04/17 21:00 06/06/17 22:00 Xalatan 0.005% BOTH EYES 1 drops HS [facility] Administration Magnesium Hydroxide 2,400 mg 06/04/17 16:09 Milk Of Magnesia PO DAILY PRN Constipation Miscellaneous Information 1 each 06/04/17 16:11 Magnesium Per Protocol MISCELLANE DAILY PRN Per Protocol Protocol Miscellaneous Information 1 each 06/04/17 16:11 Potassium Per Protocol MISCELLANE DAILY PRN Per Protocol Multivitamins 1 each 06/05/17 09:00 06/07/17 08:26 Theragran PO 1 each DAILY [facility] Administration Naloxone HCl 0.2 mg 06/05/17 14:27 Narcan IV Q2M PRN Opioid Reversal Nystatin 1 applic 06/04/17 21:00 06/07/17 08:25 Mycostatin Powder TOPICAL 1 applic BID [facility] Administration Oxycodone HCl 10 mg 06/04/17 21:00 06/07/17 08:29 Oxycontin 10mg E.R. PO Not Given Q12HR [facility] Potassium Chloride 10 meq 06/05/17 09:00 06/07/17 08:29 K-Dur 10 PO Not Given QAM [facility] Sertraline HCl 75 mg 06/04/17 21:00 06/06/17 22:02 Zoloft PO 75 mg HS [facility] Administration Sodium Chloride 20 ml 06/06/17 16:24 Saline Flush IV Q4HR PRN PICC Line Sodium Chloride 10 ml 06/13/17 09:00 Saline Flush IV WEEKLY [facility] Sodium Chloride 10 ml 06/06/17 16:24 Saline Flush IV Q4HR PRN PICC Line Sodium Hypochlorite 30 ml 06/05/17 22:30 06/07/17 08:25 Dakin's 0.5% (Full Strength) MISCELLANE 30 ml BID [facility] Administration Timolol Maleate 1 drops 06/04/17 21:00 06/07/17 08:25 Timoptic BOTH EYES 1 drops BID [facility] Administration Objective - Vital Signs Vital signs: Vital Signs Temp 97.8 F 06/09/17 08:00 Pulse 60 06/09/17 10:00 Resp 19 06/09/17 10:00 BP 139/55 06/09/17 10:00 Pulse Ox 94 L 06/09/17 10:00 Intake & Output 06/08/17 06/09/17 06/09/17 18:59 06:59 18:59 Intake Total 9025.281 3513.129 300 Output Total 1895 985 320 Balance -277.449 640.129 -20 Weight 124.6 kg 126.3 kg 126.3 kg Intake: IV 992.5 1017.5 300 Magnesium Sulfate-D5w Pmx 200 1 gm In Dextrose/Water 1 100ml.bag @ 100 mls/hr IVPB Q1H [facility] Rx#: [id number] Piperacillin-Tazobactam 3 87.5 62.5 50 .375 gm In Dextrose/Water 1 50ml.bag @ 12.5 mls/hr IVPB Q8HR [facility] Rx#: [id number] Sodium Chloride 0.9% 1, 705 705 250 000 ml @ 50 mls/hr IV . Q20H [facility] Rx#:[id number] Vancomycin 1,750 mg In 250 Sodium Chloride 0.9% 250 ml @ 125 mls/hr IVPB Q16H [facility] Rx#:[id number] Intake, IV Titration 152.051 127.629 Amount Norepinephrin 16 mg-0.9% 52.051 27.629 Ns Pmx 16 mg In 250 ml @ Titrate IV .Q0M [facility] Rx#: [id number] Potassium Chloride 10 meq 100 100 In Water For Injection 1 100ml.bag @ 100 mls/hr IVPB Q1H [facility] Rx#: [id number] Oral 473 480 Output: Urine 1895 985 320 Other: Voiding Method Indwelling Catheter Indwelling Catheter Indwelling Catheter # Bowel Movements 0 - Exam PHYSICAL EXAM: VITAL SIGNS: As above GENERAL: [Sitting up in bed, more alert, no acute distress HEENT: [Pupils equal conjunctiva normal. Oral mucosa moist] NECK: [Supple, no JVD] RESPIRATORY EFFORT:[normal LUNGS: [Lower bases diminished, no rhonchi, no crackles, no wheezing] CARDIOVASCULAR[ regular S1-S2, telemetry 100% dual paced, positive edema] GI: [Abdomen obese, soft, nontender, positive bowel sounds. No guarding, no rigidity.] PSYCH/NEURO: alert and oriented X2, moves all extremities, follows simple commands, no focal deficits SKIN: [Stage III sacral/coccyx decubitus ulcers as prior mentioned, please refer to chart pictures/documentation of sizes] ] Microbiology 06/04/17 15:00 Blood Blood Culture Gram Stain - Final 06/04/17 15:00 Blood Blood Culture - Final Bacteroides distasonis 06/04/17 15:30 Coccyx Gram Stain - Final 06/04/17 15:30 Coccyx Wound Culture - Final 06/04/17 15:00 Blood Blood Culture - Preliminary 06/04/17 15:00 Urine,Catheterized Urine Culture - Final - Labs CBC & Chem 7: 06/09/17 04:25 06/09/17 04:25 Labs: Abnormal Lab Results - Last 24 Hours (Table) 06/08/17 06/08/17 06/08/17 Range/Units 12:07 17:26 20:07 RBC (3.80-5.40) m/uL Hgb (11.4-16.0) gm/dL Hct (34.0-46.0) % MCHC (31.0-37.0) g/dL RDW (11.5-15.5) % Neutrophils # (1.3-7.7) k/uL Lymphocytes # (1.0-4.8) k/uL Chloride (98-107) mmol/L BUN (7-17) mg/dL Glucose (74-99) mg/dL POC Glucose (mg/dL) 281 H 204 H 227 H (75-99) mg/dL Calcium (8.4-10.2) mg/dL 06/09/17 06/09/17 06/09/17 Range/Units 04:25 04:25 07:27 RBC 2.95 L (3.80-5.40) m/uL Hgb 7.8 L (11.4-16.0) gm/dL Hct 26.0 L (34.0-46.0) % MCHC 30.2 L (31.0-37.0) g/dL RDW 17.0 H (11.5-15.5) % Neutrophils # 8.0 H (1.3-7.7) k/uL Lymphocytes # 0.8 L (1.0-4.8) k/uL Chloride 112 H (98-107) mmol/L BUN 27 H (7-17) mg/dL Glucose 149 H (74-99) mg/dL POC Glucose (mg/dL) 138 H (75-99) mg/dL Calcium 8.3 L (8.4-10.2) mg/dL Assessment and Plan Plan: 1. Decubitus ulcers, sacral stage 3-4, polymicrobial jaz with severe sepsis, septic shock, hypotension. Recent cultures positive for Proteus mirabilis, E. coli, Klebsiella oxytoca. Gram-negative bacilli Bacteremia-Bacteroides distasonis. 2. Change in mental status, acute metabolic encephalopathy secondary to sepsis]. 3. [ Diabetes mellitus type 2, uncontrolled, nonketotic state secondary to sepsis]. 4. [ Acute hypoxic respiratory failure possibly secondary to sepsis]. 5. [ Dementia]. 6. [ Obesity, BMI 48.6]. 7. No code, no CPR, no vent Plan: Continue on current medication regime, vancomycin, Zosyn, monitoring and symptomatic treatment.continue with Glucerna supplements between meals. Antibiotics as per infectious disease. Cleared by manager export for transfer out of ICU to [facility]. Prognosis guarded. Follow closely with pulmonary and infectious disease. The impression and plan of care has been dictated as directed. : I performed a H&P examination of this patient and discussed the same with the dictator. I agree with the dictator's note. Any additional findings/opinions/ etc. will be noted.
[2017-06-09 20:29] LABS: Glucose,Whole Blood 175 mg/dL (75-99)
[2017-06-09] MEDS: DONEPEZIL 10 MG TAB PO SCH (22:11)
[2017-06-09] MEDS: ATORVASTATIN 40 MG TAB PO SCH (22:11)
[2017-06-09] MEDS: INSULIN GLARGINE 100 UNIT/ML 10 ML VIAL SQ SCH (22:13)
[2017-06-09] MEDS: SERTRALINE 25 MG TAB PO SCH (22:13)
[2017-06-09] MEDS: LATANOPROST 0.005% OPHTH DROPS 2.5 ML BTL BOTH EYES SCH (22:15)
[2017-06-09] MEDS: AMMONIUM LACTATE 12% LOTION 225 GM BTL TOPICAL SCH (22:34)
[2017-06-09] MEDS: VANCOMYCIN 1,750 MG in SODIUM CHLORIDE 0.9% 250 ML IVPB SCH (22:37)
[2017-06-10] MEDS: PIPERACILLIN-TAZOBACTAM 3.375 GM in DEXTROSE/WATER 1 50ML.BAG IVPB SCH ×3 (01:30→17:30)
[2017-06-10 05:49] LABS: Glucose,Whole Blood 101 mg/dL (75-99)
[2017-06-10] MEDS: INSULIN LISPRO (humaLOG) 300 UNIT/3 ML VIAL SQ SCH ×4 (06:25→21:05)
[2017-06-10 06:53] LABS: Anisocytosis Slight; Basophils % (A) 0 %; CH 26.3; CHCM 29.9; Eosinophils # (A) 0.3 k/uL (0-0.7); Eosinophils % (A) 3 %; HCT 25.8 % (34.0-46.0); HDW 3.66; Hypochromasia Marked; Luc # (Auto) 0.23; Luc % (Auto) 2; Lymphocytes % (A) 9 %; MCH 27.2 pg (25.0-35.0); MCHC 30.8 g/dL (31.0-37.0); MCV 88.1 fL (80.0-100.0); Mean Platelet Volume 7.6; Monocytes # (A) 0.4 k/uL (0-1.0); Monocytes % (A) 3 %; Neutrophils # (A) 8.7 k/uL (1.3-7.7); Neutrophils % (A) 82 %; Poikilocytosis Slight; RBC 2.93 m/uL (3.80-5.40); RDW 16.9 % (11.5-15.5); WBC 10.6 k/uL (3.8-10.6); WBC (Perox) 11.43
[2017-06-10 06:58] LABS: Anion Gap 5 mmol/L; Blood Urea Nitrogen 22 mg/dL (7-17); Calcium 8.1 mg/dL (8.4-10.2); Carbon Dioxide 26 mmol/L (22-30); Chloride 111 mmol/L (98-107); Glucose 93 mg/dL (74-99); Magnesium 1.8 mg/dL (1.6-2.3); Non-African American GFR(MDRD) >60 (>60 ml/min/1.73 sqM); Phosphorous 2.9 mg/dL (2.5-4.5); Potassium 3.8 mmol/L (3.5-5.1); Sodium 142 mmol/L (137-145)
--- NOTE | 2017-06-10 07:53 | XR ---
EXAMINATION TYPE: XR chest 1V DATE OF EXAM: 06/10/2017 COMPARISON: Yesterday HISTORY: Heart failure TECHNIQUE: Single frontal view of the chest is obtained. FINDINGS: Heart is enlarged. There is a infiltrate in the right upper lobe in the right midlung fiel d. Thoracic aorta is atheromatous. There is no gross heart failure. There is left axillary pacemaker with the lead tips in the right ventricle. There is mild subsegmental atelectasis at the left lung ba se. IMPRESSION: Chest appears slightly improved compared to yesterday. No gross heart failure. Infiltrat e in the right lung is improved.
[2017-06-10] MEDS: IPRATROPIUM-ALBUTEROL 3 ML NEB INHALATION SCH ×4 (08:33→20:35)
[2017-06-10] MEDS: ASPIRIN 81 MG CHEW PO SCH (09:24)
[2017-06-10] MEDS: CHOLECALCIFEROL 1,000 UNIT TAB PO SCH (09:25)
[2017-06-10] MEDS: CALCIUM CARB-VIT D 500MG-200UN 1 EACH TAB PO SCH ×2 (09:25→21:05)
[2017-06-10] MEDS: BRIMONIDINE TARTRATE 0.2% DROPS 5 ML BTL BOTH EYES SCH ×2 (09:25→21:04)
[2017-06-10] MEDS: FAMOTIDINE 20 MG TAB PO SCH ×2 (09:25→21:05)
[2017-06-10] MEDS: FERROUS SULFATE 325 MG TAB PO SCH ×2 (09:25→21:05)
[2017-06-10] MEDS: MULTIVITAMINS, THERA 1 EACH TAB PO SCH (09:26)
[2017-06-10] MEDS: FUROSEMIDE 20 MG TAB PO SCH (09:26)
[2017-06-10] MEDS: TIMOLOL 0.5% OPHTH DROPS 5 ML BTL BOTH EYES SCH ×2 (09:26→21:04)
[2017-06-10] MEDS: POTASSIUM CHLORIDE ER 10 MEQ TAB.ER.PRT PO SCH (09:26)
[2017-06-10] MEDS: NYSTATIN 100,000 UNIT/GM POWD 15 GM TOPICAL SCH ×2 (09:26→21:04)
[2017-06-10] MEDS: HEPARIN SODIUM,PORCINE 5,000 UNIT/ML 1 ML VIAL SQ SCH ×2 (09:26→21:04)
[2017-06-10] MEDS: oxyCODONE ER 10 MG TAB.ER.12H PO SCH ×2 (09:29→21:06)
--- NOTE | 2017-06-10 11:26 | P.PN ---
Subjective Principal diagnosis: Acute septic shock This is a 76-year-old female patient who resides at [facility] on the [facility]. She has a history of dementia, hypertension, hyperlipidemia, congestive heart failure status post Bi V pacemaker implantation , diabetes mellitus, morbid obesity, chronic stage III decubitus ulcers. She was recently discharged from here on 05/29/2017 secondary to polymicrobial infection of the decubitus ulcer which included E. coli, Klebsiella oxytoca, Proteus mirabilis along with blood loss anemia from the bleeding decubitus ulcers. She is status post debridement and wound VAC placement and she was returned to [facility] with some discussion regarding possible hospice. The patient was brought back here again yesterday afternoon with concerns regarding cellulitis along with the stage III decubitus ulcers and the development of fever. She was originally on the selective care unit. Today she had altered mental status and hypotension blood pressure 68/36 and an A was called and she was transferred here to the intensive care unit. We're consulted for the same. Initial lactate 4.0, currently 1.9. She has received 5 L of fluid resuscitation. Presently, she is only arousing to painful stimuli. She's been initiated on norepinephrine to keep the mean arterial pressure greater than 65. Her respirations are shallow and she's been initiated on BiPAP 10/5 at 50% FiO2. Her and son are at the bedside. They are agreeing to the DO NOT RESUSCITATE/DO NOT INTUBATE CODE STATUS however they would like full supportive care for now. She has been initiated on vancomycin and Zosyn. Her chest x-ray did not reveal any acute pulmonary process. Blood, urine and wound cultures are pending. Her white count is 11.7. Hemoglobin 8.2. Creatinine 1.04. Patient was reevaluated today on 06/06/2017, remains on norepinephrine at 9 mcg/ m. Blood pressure seems to be marginal, patient continues to have good urine output, mental status seems to be a bit improved, chest x-ray shows no evidence of acute pulmonary disease, she does have chronic changes WBC count is 14.1 hemoglobin 8.3 electrolytes are normal BUN is 45 creatinine is 0.80. Urine output has been excellent. Preliminary report on the blood cultures is positive for gram-negative bacilli which is expected. Feistel identification and sensitivity is pending. Patient mental status seems to be a bit improved, however she looks generally weak and frail and pale. Reevaluated today on 06/07/2017, remains on norepinephrine, present dose however is 7.5 mcg/m. Patient seems to be more awake, responsive and seems to be appropriate. She is off BiPAP, presently on nasal cannula at 5 L. Her O2 saturations are in the mid 90s. Urine output seems to be excellent. Labs were reviewed WBC count is 11.2 hemoglobin is 8.3 basic metabolic profile is relatively unremarkable, bicarb is 23. Blood sugar is 194. Chest x-ray is showing mild interstitial edema and left lower lobe atelectasis. Patient was reevaluated today on 06/08/2017, remains on about 5 g of norepinephrine, urine output is now marginal, hence Lasix will be given. Patient seems to be quite edematous, she is on nasal cannula, at 2 L and O2 saturation seems to be in the high 90s. Labs were reviewed, WBC count is 10 hemoglobin is 8.1 basic metabolic profile is relatively normal. Blood cultures are positive for Bacteroides species. Chest x-ray continues to show some pulmonary vascular congestion some improvement of aeration of the left base was noted. Reevaluated today on 06/09/2017, patient is now off norepinephrine, good urine output, chest x-ray showing mild congestive changes, hence she'll get be given a dose of Lasix 40 mg 1 today. O2 saturation is excellent on 2 L nasal cannula. Labs were reviewed hemoglobin is 7.8. SGOT is 9.6 renal profile is normal basic metabolic profile is unremarkable. On 06/10/2017, patient continues to do relatively well, she is now on selective/ monitor bed, in no distress, asymptomatic. Hemodynamically stable. CBC showed WBC count 10.6 hemoglobin is 8.0 electrolytes and renal profile are normal. Blood sugar is 101. Urine output is good. And the patient is afebrile. Objective - Vital Signs Vital signs: Vital Signs Temp 98.1 F 06/10/17 09:21 Pulse 60 06/10/17 09:21 Resp 18 06/10/17 09:21 BP 131/68 06/10/17 09:21 Pulse Ox 100 06/10/17 09:21 Intake & Output 06/09/17 06/10/17 06/10/17 18:59 06:59 18:59 Intake Total 550 100 Output Total 1740 1350 Balance -1190 -1250 Weight 126.3 kg Intake: IV 550 Piperacillin-Tazobactam 3 50 .375 gm In Dextrose/Water 1 50ml.bag @ 12.5 mls/hr IVPB Q8HR [facility] Rx#: [id number] Sodium Chloride 0.9% 1, 500 000 ml @ 50 mls/hr IV . Q20H [facility] Rx#:[id number] Oral 100 Output: Urine 1740 1350 Other: Voiding Method Indwelling Catheter Indwelling Catheter Indwelling Catheter - Exam GENERAL EXAM: Morbidly obese. Awake, in no distress. HEAD: Normocephalic. EYES: Normal reaction of pupils, equal size. NOSE: Clear with pink turbinates. THROAT: There is crowding the posterior pharynx. No erythema or exudates. NECK: Short. No masses, no JVD. CHEST: No chest wall deformity. LUNGS: Equal air entry with no crackles, wheeze, rhonchi or dullness. CVS: S1 and S2 normal with no audible murmurs, regular rhythm. ABDOMEN: Obese unable to appreciate organs, normal bowel sounds, no guarding or rigidity. SKIN: Stage III decubiti on the coccyx multiple areas of ecchymosis Extremities: There is 1+ peripheral edema. No clubbing, no cyanosis. Peripheral pulses are intact. - Labs CBC & Chem 7: 06/10/17 05:25 06/10/17 05:19 Labs: Abnormal Lab Results - Last 24 Hours (Table) 06/09/17 06/09/17 06/09/17 Range/Units 12:31 16:52 20:28 RBC (3.80-5.40) m/uL Hgb (11.4-16.0) gm/dL Hct (34.0-46.0) % MCHC (31.0-37.0) g/dL RDW (11.5-15.5) % Neutrophils # (1.3-7.7) k/uL Chloride (98-107) mmol/L BUN (7-17) mg/dL POC Glucose (mg/dL) 231 H 191 H 175 H (75-99) mg/dL Calcium (8.4-10.2) mg/dL 06/10/17 06/10/17 06/10/17 Range/Units 05:19 05:25 05:48 RBC 2.93 L (3.80-5.40) m/uL Hgb 8.0 L (11.4-16.0) gm/dL Hct 25.8 L (34.0-46.0) % MCHC 30.8 L (31.0-37.0) g/dL RDW 16.9 H (11.5-15.5) % Neutrophils # 8.7 H (1.3-7.7) k/uL Chloride 111 H (98-107) mmol/L BUN 22 H (7-17) mg/dL POC Glucose (mg/dL) 101 H (75-99) mg/dL Calcium 8.1 L (8.4-10.2) mg/dL Assessment and Plan Plan: #1 Altered mental status secondary to suspected sepsis with hypotension secondary to decubitus ulcers with recent cultures positive for Proteus mirabilis, E. coli, Klebsiella oxytoca. #2 acute Septic shock with hypotension requiring pressor support. Presently the patient is hemodynamically stable. #3 Acute hypoxic respiratory failure secondary to above. Currently on nasal cannula not requiring BiPAP anymore. #4 Acute on chronic anemia, current hemoglobin 8.0 #5 Coronary artery disease. #6 History of congestive heart failure, status post biventricular pacemaker. #7 Hypertension, history of. #8 Hyperlipidemia. #9 Diabetes mellitus. #10 Alzheimer's dementia. #11 residential resident, bedridden. #12 Poor overall functional performance secondary to the above-mentioned multiple comorbidities. 13 positive bacteremia with positive blood cultures as noted above. Positive Bacteroides species and the blood. Plan: Continue present course of treatment, continue present antibiotics, IV fluids, O2 at 2 L nasal cannula, physical therapy is suggested, prognosis remains poor and guarded in spite of all her improvement and transferred out of the ICU. We' ll continue to follow. Time with Patient: Less than 30
[2017-06-10 12:25] LABS: Glucose,Whole Blood 90 mg/dL (75-99)
--- NOTE | 2017-06-10 13:36 | P.PN ---
Subjective Progress Note being dictated for Dr. Mazariegos. 06/06/2017. Interval history: This a 76-year-old female admitted in the ICU with severe sepsis, septic shock secondary to decubitus ulcers stages 3-4, polymicrobial jaz, hypotension, diabetes mellitus, acute hypoxic respiratory failure and multiple other medical issues. Chest x-ray reporting chronic changes without evidence of acute pulmonary disease.preliminary blood cultures reporting gram- negative bacilli .Maintained on antibiotics as per infectious disease. Maintaining mean arterial pressure of mid 60s on Levophed. Arousable to stimulation, confused. Family at bedside and states patient does not respond to their verbal probing. 06/07/17 weaned from BiPAP, now maintaining on 6 L nasal cannula. Chest x-ray reporting slightly worsening lung volumes, worsening atelectasis/consolidation. Much more alert, and oriented 2 ,consuming dietary supplements of ensure. Telemetry dual paced. Levophed weaning in progress, currently down to 5mcg. blood sugars currently 180s to 190s. Blood cultures positive for Bacteroides species. 06/08/2017 during the night required increased amounts of Levophed, weaned back down to 5 mics this morning. Received a single dose of Lasix for decreased urine output.. Remains off BiPAP and currently on 2 L nasal cannula. Chest x- ray reporting improved aeration left base. Tolerating full liquid diet along with ensure supplements, blood sugars increased in the 200s. Maintained on Zosyn and vancomycin for blood cultures- Bacteroides distasonis. 06/09/17 Levophed weaned off as of 0400, maintaining systolic blood pressures in the 130s, good urine output. Chest x-ray noted included possible new airspace disease . Received a dose of Lasix and home dose of oral Lasix resumed.reporting Maintained on Zosyn. Telemetry dual paced. 06/10/2017 transferred out of ICU and currently on telemetry unit. Maintained on specialty bed. Chest x-ray reporting improvement. Maintaining O2 sats of 98 %on 2 L nasal cannula. Blood sugars continue to improve, currently down to 90. Afebrile, WBC normal, hemoglobin 8. Objective - Vital Signs Vital signs: Vital Signs Temp 98.1 F 06/10/17 09:21 Pulse 76 06/10/17 12:12 Resp 16 06/10/17 11:45 BP 121/57 06/10/17 11:45 Pulse Ox 98 06/10/17 11:45 Intake & Output 06/09/17 06/10/17 06/10/17 18:59 06:59 18:59 Intake Total 550 100 Output Total 1740 1350 Balance -1190 -1250 Weight 126.3 kg Intake: IV 550 Piperacillin-Tazobactam 3 50 .375 gm In Dextrose/Water 1 50ml.bag @ 12.5 mls/hr IVPB Q8HR [facility] Rx#: [id number] Sodium Chloride 0.9% 1, 500 000 ml @ 50 mls/hr IV . Q20H [facility] Rx#:[id number] Oral 100 Output: Urine 1740 1350 Other: Voiding Method Indwelling Catheter Indwelling Catheter Indwelling Catheter - Exam PHYSICAL EXAM: VITAL SIGNS: As above GENERAL: [Sitting up in bed, no acute distress, sleepy HEENT: [Pupils equal conjunctiva normal. Oral mucosa moist] NECK: [Supple, no JVD] RESPIRATORY EFFORT:[normal LUNGS: [Lower bases diminished, no rhonchi, no crackles, no wheezing] CARDIOVASCULAR[ regular S1-S2, telemetry 100% dual paced, positive edema of all 4 extremities] GI: [Abdomen obese, soft, nontender, positive bowel sounds. No guarding, no rigidity.] PSYCH/NEURO: alert and oriented X2, moves all extremities, follows simple commands, no focal deficits SKIN: [Stage III sacral/coccyx decubitus ulcers as prior mentioned, please refer to chart pictures/documentation of sizes] ] Microbiology 06/04/17 15:00 Blood Blood Culture Gram Stain - Final 06/04/17 15:00 Blood Blood Culture - Final Bacteroides distasonis 06/04/17 15:30 Coccyx Gram Stain - Final 06/04/17 15:30 Coccyx Wound Culture - Final 06/04/17 15:00 Blood Blood Culture - Preliminary 06/04/17 15:00 Urine,Catheterized Urine Culture - Final - Labs CBC & Chem 7: 06/10/17 05:25 06/10/17 05:19 Labs: Abnormal Lab Results - Last 24 Hours (Table) 06/09/17 06/09/17 06/10/17 Range/Units 16:52 20:28 05:19 RBC (3.80-5.40) m/uL Hgb (11.4-16.0) gm/dL Hct (34.0-46.0) % MCHC (31.0-37.0) g/dL RDW (11.5-15.5) % Neutrophils # (1.3-7.7) k/uL Chloride 111 H (98-107) mmol/L BUN 22 H (7-17) mg/dL POC Glucose (mg/dL) 191 H 175 H (75-99) mg/dL Calcium 8.1 L (8.4-10.2) mg/dL 06/10/17 06/10/17 Range/Units 05:25 05:48 RBC 2.93 L (3.80-5.40) m/uL Hgb 8.0 L (11.4-16.0) gm/dL Hct 25.8 L (34.0-46.0) % MCHC 30.8 L (31.0-37.0) g/dL RDW 16.9 H (11.5-15.5) % Neutrophils # 8.7 H (1.3-7.7) k/uL Chloride (98-107) mmol/L BUN (7-17) mg/dL POC Glucose (mg/dL) 101 H (75-99) mg/dL Calcium (8.4-10.2) mg/dL Assessment and Plan Plan: 1. Decubitus ulcers, sacral stage 3-4, polymicrobial jaz with severe sepsis, septic shock, hypotension. Recent cultures positive for Proteus mirabilis, E. coli, Klebsiella oxytoca. Gram-negative bacilli Bacteremia-Bacteroides distasonis. 2. Change in mental status, acute metabolic encephalopathy secondary to sepsis]. 3. [ Diabetes mellitus type 2, uncontrolled, nonketotic state secondary to sepsis, early controlled]. 4. [ Acute hypoxic respiratory failure possibly secondary to sepsis, improved]. 5. [ Dementia]. 6. [ Obesity, BMI 48.6]. 7. No code, no CPR, no vent Plan: Continue on current medication regime, vancomycin, Zosyn, monitoring and symptomatic treatment.Lantus decreased to 21 units with close monitoring of Accu -Cheks .PT/OT .Antibiotics as per infectious disease. Prognosis guarded. The impression and plan of care has been dictated as directed. : I performed a H&P examination of this patient and discussed the same with the dictator. I agree with the dictator's note. Any additional findings/opinions/ etc. will be noted.
[2017-06-10 17:18] LABS: Glucose,Whole Blood 238 mg/dL (75-99)
[2017-06-10] MEDS: SODIUM CHLORIDE 0.9% 1,000 ML IV SCH (17:30)
[2017-06-10] MEDS: SODIUM HYPOCHLORITE 0.5% 480 ML BOT MISCELLANE SCH ×2 (17:30→21:12)
[2017-06-10 20:34] LABS: Glucose,Whole Blood 294 mg/dL (75-99)
[2017-06-10] MEDS ORDERED: VANCOMYCIN TROUGH DUE 1 EACH MISC MISCELLANE ONE (21:00)
[2017-06-10] MEDS: LATANOPROST 0.005% OPHTH DROPS 2.5 ML BTL BOTH EYES SCH (21:04)
[2017-06-10] MEDS: DONEPEZIL 10 MG TAB PO SCH (21:05)
[2017-06-10] MEDS: ATORVASTATIN 40 MG TAB PO SCH (21:05)
[2017-06-10] MEDS: SERTRALINE 25 MG TAB PO SCH (21:05)
[2017-06-10] MEDS: INSULIN GLARGINE 100 UNIT/ML 10 ML VIAL SQ SCH (21:05)
[2017-06-10] MEDS: AMMONIUM LACTATE 12% LOTION 225 GM BTL TOPICAL SCH (21:30)
[2017-06-11] MEDS: PIPERACILLIN-TAZOBACTAM 3.375 GM in DEXTROSE/WATER 1 50ML.BAG IVPB SCH ×4 (00:03→23:12)
[2017-06-11 06:08] LABS: Glucose,Whole Blood 152 mg/dL (75-99)
[2017-06-11 06:28] LABS: Anisocytosis Slight; Basophils % (A) 0 %; CH 27.2; CHCM 30.3; Eosinophils # (A) 0.3 k/uL (0-0.7); Eosinophils % (A) 3 %; HCT 26.3 % (34.0-46.0); HDW 3.63; HGB 7.8 gm/dL (11.4-16.0); Hypochromasia Marked; Luc # (Auto) 0.16; Luc % (Auto) 2; Lymphocytes % (A) 10 %; MCH 26.6 pg (25.0-35.0); MCHC 29.5 g/dL (31.0-37.0); MCV 90.1 fL (80.0-100.0); Mean Platelet Volume 7.6; Monocytes # (A) 0.3 k/uL (0-1.0); Monocytes % (A) 3 %; Neutrophils # (A) 8.4 k/uL (1.3-7.7); Neutrophils % (A) 83 %; Poikilocytosis Slight; RBC 2.92 m/uL (3.80-5.40); RDW 18.4 % (11.5-15.5); WBC 10.2 k/uL (3.8-10.6); WBC (Perox) 10.48
[2017-06-11] MEDS: INSULIN LISPRO (humaLOG) 300 UNIT/3 ML VIAL SQ SCH ×4 (06:30→21:08)
[2017-06-11] MEDS: VANCOMYCIN 1,750 MG in SODIUM CHLORIDE 0.9% 250 ML IVPB SCH (06:31)
[2017-06-11 06:45] LABS: Anion Gap 7 mmol/L; Blood Urea Nitrogen 19 mg/dL (7-17); Calcium 8.4 mg/dL (8.4-10.2); Carbon Dioxide 24 mmol/L (22-30); Chloride 110 mmol/L (98-107); Glucose 143 mg/dL (74-99); Non-African American GFR(MDRD) >60 (>60 ml/min/1.73 sqM); Potassium 4.3 mmol/L (3.5-5.1); Sodium 141 mmol/L (137-145)
[2017-06-11] MEDS: IPRATROPIUM-ALBUTEROL 3 ML NEB INHALATION SCH ×4 (08:00→19:30)
[2017-06-11] MEDS: oxyCODONE ER 10 MG TAB.ER.12H PO SCH ×2 (09:11→21:12)
[2017-06-11] MEDS: NYSTATIN 100,000 UNIT/GM POWD 15 GM TOPICAL SCH ×2 (09:11→21:07)
[2017-06-11] MEDS: BRIMONIDINE TARTRATE 0.2% DROPS 5 ML BTL BOTH EYES SCH ×2 (09:12→21:06)
[2017-06-11] MEDS: POTASSIUM CHLORIDE ER 10 MEQ TAB.ER.PRT PO SCH (09:12)
[2017-06-11] MEDS: TIMOLOL 0.5% OPHTH DROPS 5 ML BTL BOTH EYES SCH ×2 (09:12→21:07)
[2017-06-11] MEDS: ASPIRIN 81 MG CHEW PO SCH (09:12)
[2017-06-11] MEDS: CHOLECALCIFEROL 1,000 UNIT TAB PO SCH (09:12)
[2017-06-11] MEDS: CALCIUM CARB-VIT D 500MG-200UN 1 EACH TAB PO SCH ×2 (09:12→21:06)
[2017-06-11] MEDS: FUROSEMIDE 20 MG TAB PO SCH (09:13)
[2017-06-11] MEDS: FERROUS SULFATE 325 MG TAB PO SCH ×2 (09:13→21:07)
[2017-06-11] MEDS: HEPARIN SODIUM,PORCINE 5,000 UNIT/ML 1 ML VIAL SQ SCH ×2 (09:13→21:07)
[2017-06-11] MEDS: FAMOTIDINE 20 MG TAB PO SCH ×2 (09:13→21:07)
[2017-06-11] MEDS: MULTIVITAMINS, THERA 1 EACH TAB PO SCH (09:13)
--- NOTE | 2017-06-11 10:49 | P.PN ---
Subjective Principal diagnosis: Acute septic shock This is a 76-year-old female patient who resides at [facility] on the [facility]. She has a history of dementia, hypertension, hyperlipidemia, congestive heart failure status post Bi V pacemaker implantation , diabetes mellitus, morbid obesity, chronic stage III decubitus ulcers. She was recently discharged from here on 05/29/2017 secondary to polymicrobial infection of the decubitus ulcer which included E. coli, Klebsiella oxytoca, Proteus mirabilis along with blood loss anemia from the bleeding decubitus ulcers. She is status post debridement and wound VAC placement and she was returned to [facility] with some discussion regarding possible hospice. The patient was brought back here again yesterday afternoon with concerns regarding cellulitis along with the stage III decubitus ulcers and the development of fever. She was originally on the selective care unit. Today she had altered mental status and hypotension blood pressure 68/36 and an A was called and she was transferred here to the intensive care unit. We're consulted for the same. Initial lactate 4.0, currently 1.9. She has received 5 L of fluid resuscitation. Presently, she is only arousing to painful stimuli. She's been initiated on norepinephrine to keep the mean arterial pressure greater than 65. Her respirations are shallow and she's been initiated on BiPAP 10/5 at 50% FiO2. Her and son are at the bedside. They are agreeing to the DO NOT RESUSCITATE/DO NOT INTUBATE CODE STATUS however they would like full supportive care for now. She has been initiated on vancomycin and Zosyn. Her chest x-ray did not reveal any acute pulmonary process. Blood, urine and wound cultures are pending. Her white count is 11.7. Hemoglobin 8.2. Creatinine 1.04. Patient was reevaluated today on 06/06/2017, remains on norepinephrine at 9 mcg/ m. Blood pressure seems to be marginal, patient continues to have good urine output, mental status seems to be a bit improved, chest x-ray shows no evidence of acute pulmonary disease, she does have chronic changes WBC count is 14.1 hemoglobin 8.3 electrolytes are normal BUN is 45 creatinine is 0.80. Urine output has been excellent. Preliminary report on the blood cultures is positive for gram-negative bacilli which is expected. Feistel identification and sensitivity is pending. Patient mental status seems to be a bit improved, however she looks generally weak and frail and pale. Reevaluated today on 06/07/2017, remains on norepinephrine, present dose however is 7.5 mcg/m. Patient seems to be more awake, responsive and seems to be appropriate. She is off BiPAP, presently on nasal cannula at 5 L. Her O2 saturations are in the mid 90s. Urine output seems to be excellent. Labs were reviewed WBC count is 11.2 hemoglobin is 8.3 basic metabolic profile is relatively unremarkable, bicarb is 23. Blood sugar is 194. Chest x-ray is showing mild interstitial edema and left lower lobe atelectasis. Patient was reevaluated today on 06/08/2017, remains on about 5 g of norepinephrine, urine output is now marginal, hence Lasix will be given. Patient seems to be quite edematous, she is on nasal cannula, at 2 L and O2 saturation seems to be in the high 90s. Labs were reviewed, WBC count is 10 hemoglobin is 8.1 basic metabolic profile is relatively normal. Blood cultures are positive for Bacteroides species. Chest x-ray continues to show some pulmonary vascular congestion some improvement of aeration of the left base was noted. Reevaluated today on 06/09/2017, patient is now off norepinephrine, good urine output, chest x-ray showing mild congestive changes, hence she'll get be given a dose of Lasix 40 mg 1 today. O2 saturation is excellent on 2 L nasal cannula. Labs were reviewed hemoglobin is 7.8. SGOT is 9.6 renal profile is normal basic metabolic profile is unremarkable. On 06/10/2017, patient continues to do relatively well, she is now on selective/ monitor bed, in no distress, asymptomatic. Hemodynamically stable. CBC showed WBC count 10.6 hemoglobin is 8.0 electrolytes and renal profile are normal. Blood sugar is 101. Urine output is good. And the patient is afebrile. Reevaluated today on 06/11/2017, patient is basically about the same as yesterday. In bed, comfortable, in no distress, hemodynamically stable, afebrile. Urine output is good. Patient is responding well to the antibiotics given to her by infectious disease. Labs were reviewed hemoglobin is 7.8 WBC count is 10.2 electrolytes and renal profile are normal. Blood cultures and wound cultures have been reviewed. Objective - Vital Signs Vital signs: Vital Signs Temp 98.2 F 06/11/17 09:10 Pulse 60 06/11/17 09:10 Resp 16 06/11/17 09:10 BP 124/67 06/11/17 09:10 Pulse Ox 100 06/11/17 09:10 Intake & Output 06/10/17 06/11/17 06/11/17 18:59 06:59 18:59 Intake Total 650 600 Output Total 600 800 Balance 50 -200 Weight 126.8 kg Intake: IV 650 600 Piperacillin-Tazobactam 3 50 100 .375 gm In Dextrose/Water 1 50ml.bag @ 12.5 mls/hr IVPB Q8HR [facility] Rx#: [id number] Sodium Chloride 0.9% 1, 600 500 000 ml @ 50 mls/hr IV . Q20H [facility] Rx#:[id number] Output: Urine 600 800 Other: Voiding Method Indwelling Catheter Indwelling Catheter Indwelling Catheter # Voids 0 - Exam GENERAL EXAM: Morbidly obese. Awake, in no distress. HEAD: Normocephalic. EYES: Normal reaction of pupils, equal size. NOSE: Clear with pink turbinates. THROAT: There is crowding the posterior pharynx. No erythema or exudates. NECK: Short. No masses, no JVD. CHEST: No chest wall deformity. LUNGS: Equal air entry with no crackles, wheeze, rhonchi or dullness. CVS: S1 and S2 normal with no audible murmurs, regular rhythm. ABDOMEN: Obese unable to appreciate organs, normal bowel sounds, no guarding or rigidity. SKIN: Stage III decubiti on the coccyx multiple areas of ecchymosis Extremities: There is 1+ peripheral edema. No clubbing, no cyanosis. Peripheral pulses are intact. Neurologic: Alert and oriented, no focal neurologic deficit. - Labs CBC & Chem 7: 06/11/17 05:39 06/11/17 05:33 Labs: Abnormal Lab Results - Last 24 Hours (Table) 06/10/17 06/10/17 06/10/17 Range/Units 17:04 20:28 21:15 RBC (3.80-5.40) m/uL Hgb (11.4-16.0) gm/dL Hct (34.0-46.0) % MCHC (31.0-37.0) g/dL RDW (11.5-15.5) % Neutrophils # (1.3-7.7) k/uL Chloride (98-107) mmol/L BUN (7-17) mg/dL Glucose (74-99) mg/dL POC Glucose (mg/dL) 238 H 294 H (75-99) mg/dL Vancomycin Trough 30.4 H* ug/mL 06/11/17 06/11/17 06/11/17 Range/Units 05:33 05:39 06:05 RBC 2.92 L (3.80-5.40) m/uL Hgb 7.8 L (11.4-16.0) gm/dL Hct 26.3 L (34.0-46.0) % MCHC 29.5 L (31.0-37.0) g/dL RDW 18.4 H (11.5-15.5) % Neutrophils # 8.4 H (1.3-7.7) k/uL Chloride 110 H (98-107) mmol/L BUN 19 H (7-17) mg/dL Glucose 143 H (74-99) mg/dL POC Glucose (mg/dL) 152 H (75-99) mg/dL Vancomycin Trough ug/mL Assessment and Plan Plan: #1 Altered mental status secondary to suspected sepsis with hypotension secondary to decubitus ulcers with recent cultures positive for Proteus mirabilis, E. coli, Klebsiella oxytoca. #2 acute Septic shock with hypotension requiring pressor support. Presently the patient is hemodynamically stable. #3 Acute hypoxic respiratory failure secondary to above. Currently on nasal cannula not requiring BiPAP anymore. #4 Acute on chronic anemia, current hemoglobin 8.0 #5 Coronary artery disease. #6 History of congestive heart failure, status post biventricular pacemaker. #7 Hypertension, history of. #8 Hyperlipidemia. #9 Diabetes mellitus. #10 Alzheimer's dementia. #11 snf resident, bedridden. #12 Poor overall functional performance secondary to the above-mentioned multiple comorbidities. 13 positive bacteremia with positive blood cultures as noted above. Positive Bacteroides species and the blood. Plan: Continue present course of treatment, continue present antibiotics, IV fluids, O2 at 2 L nasal cannula, physical therapy is suggested, prognosis remains poor and guarded in spite of all her improvement we'll continue to follow. Time with Patient: Less than 30
[2017-06-11] MEDS: SODIUM CHLORIDE 0.9% 1,000 ML IV SCH (12:04)
[2017-06-11 12:24] LABS: Glucose,Whole Blood 116 mg/dL (75-99)
[2017-06-11 17:01] LABS: Glucose,Whole Blood 158 mg/dL (75-99)
[2017-06-11] MEDS: SODIUM HYPOCHLORITE 0.5% 480 ML BOT MISCELLANE SCH ×2 (17:12→21:09)
[2017-06-11 20:47] LABS: Glucose,Whole Blood 291 mg/dL (75-99)
[2017-06-11] MEDS: ATORVASTATIN 40 MG TAB PO SCH (21:06)
[2017-06-11] MEDS: LATANOPROST 0.005% OPHTH DROPS 2.5 ML BTL BOTH EYES SCH (21:07)
[2017-06-11] MEDS: DONEPEZIL 10 MG TAB PO SCH (21:07)
[2017-06-11] MEDS: SERTRALINE 25 MG TAB PO SCH (21:07)
[2017-06-11] MEDS: AMMONIUM LACTATE 12% LOTION 225 GM BTL TOPICAL SCH (21:08)
[2017-06-11] MEDS: INSULIN GLARGINE 100 UNIT/ML 10 ML VIAL SQ SCH (21:12)
[2017-06-12 06:07] LABS: Glucose,Whole Blood 155 mg/dL (75-99)
[2017-06-12 06:26] LABS: Anion Gap 3 mmol/L; Blood Urea Nitrogen 16 mg/dL (7-17); Calcium 8.3 mg/dL (8.4-10.2); Carbon Dioxide 27 mmol/L (22-30); Chloride 109 mmol/L (98-107); Glucose 135 mg/dL (74-99); Non-African American GFR(MDRD) >60 (>60 ml/min/1.73 sqM); Potassium 4.2 mmol/L (3.5-5.1); Sodium 139 mmol/L (137-145)
[2017-06-12 06:34] LABS: Anisocytosis Slight; Basophils % (A) 0 %; CH 27.1; CHCM 30.6; Eosinophils # (A) 0.3 k/uL (0-0.7); Eosinophils % (A) 3 %; HCT 26.1 % (34.0-46.0); HDW 3.68; HGB 7.9 gm/dL (11.4-16.0); Hypochromasia Marked; Luc # (Auto) 0.18; Luc % (Auto) 2; Lymphocytes # (A) 0.8 k/uL (1.0-4.8); Lymphocytes % (A) 9 %; MCHC 30.3 g/dL (31.0-37.0); MCV 89.1 fL (80.0-100.0); Mean Platelet Volume 7.9; Monocytes # (A) 0.3 k/uL (0-1.0); Monocytes % (A) 4 %; Neutrophils # (A) 7.4 k/uL (1.3-7.7); Neutrophils % (A) 82 %; Poikilocytosis Slight; RBC 2.93 m/uL (3.80-5.40); RDW 18.6 % (11.5-15.5); WBC (Perox) 9.26
[2017-06-12] MEDS: INSULIN LISPRO (humaLOG) 300 UNIT/3 ML VIAL SQ SCH ×4 (06:39→20:46)
[2017-06-12] MEDS: FAMOTIDINE 20 MG TAB PO SCH ×2 (07:37→20:46)
[2017-06-12] MEDS: PIPERACILLIN-TAZOBACTAM 3.375 GM in DEXTROSE/WATER 1 50ML.BAG IVPB SCH ×2 (07:37→16:49)
[2017-06-12] MEDS: BRIMONIDINE TARTRATE 0.2% DROPS 5 ML BTL BOTH EYES SCH ×2 (07:37→20:46)
[2017-06-12] MEDS: ASPIRIN 81 MG CHEW PO SCH (07:37)
[2017-06-12] MEDS: CHOLECALCIFEROL 1,000 UNIT TAB PO SCH (07:38)
[2017-06-12] MEDS: FERROUS SULFATE 325 MG TAB PO SCH ×2 (07:38→20:46)
[2017-06-12] MEDS: FUROSEMIDE 20 MG TAB PO SCH (07:38)
[2017-06-12] MEDS: NYSTATIN 100,000 UNIT/GM POWD 15 GM TOPICAL SCH ×2 (07:39→20:46)
[2017-06-12] MEDS: CALCIUM CARB-VIT D 500MG-200UN 1 EACH TAB PO SCH ×2 (07:39→20:46)
[2017-06-12] MEDS: HEPARIN SODIUM,PORCINE 5,000 UNIT/ML 1 ML VIAL SQ SCH ×2 (07:39→20:46)
[2017-06-12] MEDS: MULTIVITAMINS, THERA 1 EACH TAB PO SCH (07:39)
[2017-06-12] MEDS: POTASSIUM CHLORIDE ER 10 MEQ TAB.ER.PRT PO SCH (07:40)
[2017-06-12] MEDS: TIMOLOL 0.5% OPHTH DROPS 5 ML BTL BOTH EYES SCH ×2 (07:41→20:46)
[2017-06-12] MEDS: oxyCODONE ER 10 MG TAB.ER.12H PO SCH ×2 (07:47→20:47)
[2017-06-12] MEDS: IPRATROPIUM-ALBUTEROL 3 ML NEB INHALATION SCH ×4 (07:54→19:25)
[2017-06-12] MEDS: SODIUM CHLORIDE 0.9% 1,000 ML IV SCH (08:54)
[2017-06-12] MEDS: SODIUM HYPOCHLORITE 0.5% 480 ML BOT MISCELLANE SCH ×2 (10:22→20:52)
--- NOTE | 2017-06-12 11:18 | P.PN ---
Subjective Progress note dated 06/12/2017 76-year-old female with a history of mental status changes secondary to sepsis with hypotension. The cause of her sepsis as the etiology of her sepsis is thought to be related to decubitus ulcers. Blood cultures are apparently positive for Proteus mirabilis E. coli and Klebsiella. She also has a history of septic shock hypoxemic respiratory failure CAD chronic anemia CHF hypertension hyperlipidemia.diabetes dementia and general medical debility the patient seems to be resting comfortably. We'll continue to follow. Not able to give much of a history. Her prognosis is poor. Appears very pale. Not short of breath. Not complaining of any pain. Objective - Vital Signs Vital signs: Vital Signs Temp 98 F 06/12/17 07:49 Pulse 65 06/12/17 08:04 Resp 16 06/12/17 07:49 BP 132/56 06/12/17 07:49 Pulse Ox 100 06/12/17 08:19 Intake & Output 06/11/17 06/12/17 06/12/17 18:59 06:59 18:59 Intake Total 800 200 0 Output Total 1000 1700 Balance -200 -1500 0 Weight 125 kg Intake: IV 700 200 Piperacillin-Tazobactam 3 100 50 .375 gm In Dextrose/Water 1 50ml.bag @ 12.5 mls/hr IVPB Q8HR [facility] Rx#: [id number] Sodium Chloride 0.9% 1, 600 150 000 ml @ 50 mls/hr IV . Q20H [facility] Rx#:[id number] Oral 100 0 Output: Urine 1000 1700 Uretheral (Baires) 1700 Other: Voiding Method Indwelling Catheter Indwelling Catheter Indwelling Catheter # Voids 0 # Bowel Movements 0 - Exam No acute distress. No respiratory distress. HEENT examination is grossly unremarkable. Mucous membranes are dry. Neck supple. Full range of motion. No adenopathy or thyromegaly. Cardiovascular examination reveals regular rhythm rate. S1-S2 normal. Heart rate 90. No murmurs. No S3-S4. Lungs reveal a few scattered mild rhonchi. No wheezes or crackles. Abdomen soft bowel sounds are heard. Extremities are intact. Slight edema. No cyanosis or clubbing. Skin reveals areas of ecchymoses and decubitus ulcer over his her coccyx. Neurologic examination is difficult to evaluate. Alert. No focal deficits. - Labs CBC & Chem 7: 06/12/17 05:17 06/12/17 05:17 Labs: Abnormal Lab Results - Last 24 Hours (Table) 06/11/17 06/11/17 06/11/17 Range/Units 12:04 16:34 20:45 RBC (3.80-5.40) m/uL Hgb (11.4-16.0) gm/dL Hct (34.0-46.0) % MCHC (31.0-37.0) g/dL RDW (11.5-15.5) % Lymphocytes # (1.0-4.8) k/uL Chloride (98-107) mmol/L Glucose (74-99) mg/dL POC Glucose (mg/dL) 116 H 158 H 291 H (75-99) mg/dL Calcium (8.4-10.2) mg/dL 06/12/17 06/12/17 06/12/17 Range/Units 05:17 05:17 06:06 RBC 2.93 L (3.80-5.40) m/uL Hgb 7.9 L (11.4-16.0) gm/dL Hct 26.1 L (34.0-46.0) % MCHC 30.3 L (31.0-37.0) g/dL RDW 18.6 H (11.5-15.5) % Lymphocytes # 0.8 L (1.0-4.8) k/uL Chloride 109 H (98-107) mmol/L Glucose 135 H (74-99) mg/dL POC Glucose (mg/dL) 155 H (75-99) mg/dL Calcium 8.3 L (8.4-10.2) mg/dL Assessment and Plan (1) Anemia Status: Acute (2) Decubitus skin ulcer Status: Acute (3) Dehydration Status: Acute (4) Pressure ulcer of coccygeal region, stage 4 Status: Acute (5) Sepsis affecting skin Status: Acute (6) Shock, septic, Gram negative Status: Acute (7) Uncontrolled diabetes mellitus Status: Acute (8) Urinary tract infection Status: Acute (9) Acute kidney injury Status: Acute (10) Anemia Status: Acute (11) Mental status change Status: Acute (12) Morbid obesity Status: Acute (13) Sepsis secondary to UTI Status: Acute (14) Urinary tract infection Status: Acute Plan: Plan dated 06/12/2017 We will continue current treatment. Continue present antibiotics IV fluids oxygen. Continue with physical therapy involvement. Prognosis remains poor and guarded. We'll continue to follow. No additional recommendations made at this time. Time with Patient: Less than 30
[2017-06-12 11:39] LABS: Glucose,Whole Blood 132 mg/dL (75-99)
--- NOTE | 2017-06-12 15:24 | P.PN ---
<Isa Arriaza - Last Filed: 06/12/17 15:13> Progress Note - Text DATE OF SERVICE: 06/12/2017 PRESENTING COMPLAINT: Septic shock INTERVAL HISTORY: 76-year-old female patient who resides at [facility] on the [facility]. Status post debridement and wound VAC placement. Presented to the emergency department on 06/05/2017 with cellulitis, and fever. Had an episode of altered mental status and hypotension, transferred to the ICU for closer monitoring, blood pressure and respiratory support, overall condition improved, transferred to [facility] monitored bed. 06/12/2017: Lying in bed, pale appearing comfortable in no distress, afebrile. Urine output appropriate, patient afebrile. No documented bowel movement , REVIEW OF SYSTEMS: Done for constitutional ,cardiovascular, GI, pulmonary, integument with relevant findings as above. CURRENT MEDICATIONS DuoNeb's, heparin, Zosyn, vancomycin, oxycodone, nystatin powder. PHYSICAL EXAM VITAL SIGNS: Temperature 98.0 pulse 64, respiratory rate 16, blood pressure 132/56, oxygen saturation 99% on 2 L. GENERAL APPEARANCE: Lying in bed, not in distress. EYES: Pupils equal. Conjunctiva normal. NECK: JVD not raised. Mass not palpable. RESPIRATORY: Respiratory effort normal. Lungs clear to auscultation. CARDIOVASCULAR: First and second sounds normal. Moderate edema. ABDOMEN: Soft. Liver and spleen not palpable. No tenderness. No mass palpable. PSYCHIATRY: Alert and oriented x3. Mood and affect normal. INTEGUMENT: Large stage III wound to coccyx and buttocks, some necrosis noted. INVESTIGATIONS: White blood cell count 9.0, hemoglobin 7.9, sodium 139, chloride 109, potassium 4.2, blood glucose 135. ASSESSMENT: -Altered mental status secondary to suspected sepsis with hypotension secondary to decubitus ulcers with recent cultures positive for Proteus mirabilis, E. coli , Klebsiella oxytoca. - Acute Septic shock with hypotension requiring pressor support, resolved, currently hemodynamically stable - Acute hypoxic respiratory failure secondary to septic shock, resolved, currently on nasal cannula. - Acute on chronic anemia, current hemoglobin 7.8 - Coronary artery disease. - Chronic congestive heart failure, status post biventricular pacemaker. - Essential hypertension - Hyperlipidemia. - Diabetes mellitus. - Alzheimer's dementia. - Medical debility, secondary to multiple medical problems. - positive bacteremia with positive blood cultures as noted above. Positive Bacteroides species and the blood. PLAN: Continue current course of treatment, antibiotics, IV fluids, oxygen at 2 L nasal cannula. We'll consult physical therapy to aid in increasing activity area discharge planning in the next 1-2 days [employer] statement: Patient was seen and examined by nurse practitioner Isa Arriaza and all elements of the case discussed with attending Dr. Mcdaniels <Gonzales Mcdaniels - Last Filed: 06/13/17 11:01> Progress Note - Text Attending note. Date of service-06/12/2017 This patient was seen and examined by me . I reviewed the note of my nurse practitioner, Arsalan. Discussed with her, additional findings as below. Laying in bed. Doesn't eat too much. answer simple questions. Wound care continues On examination: Lungs-diminished breath sounds, psych-answers only simple questions, sacral decubital ulcers noted-stage IV Investigations: White count 9, hemoglobin 7.9, renal function normal Assessment and plan: -Acute on chronic Multiple infected decubitus ulcers of the sacrum stage IV, infected, causing a septic shock requiring pressors on admission, present on admission, -Diabetes mellitus type 2 chronically on insulin. -Alzheimer's dementia, late onset type. -Medical debility from multiple medical problems. -Coronary artery disease. -Chronic congestive heart failure, ejection fraction unknown. Probably from underlying coronary artery disease -History of essential hypertension. -Primary osteoarthritis of multiple joints bilateral. -Permanent pacemaker. -Charcot foot secondary to diabetes -Morbid obesity, body mass index 40. -Chronic urinary stress incontinence. -Major depression not otherwise specified. -Moderate protein calorie malnutrition with decreased oral intake and severe hypoalbuminemia -Anorexia due to multiple medical problems and probably side effects of medication CODE STATUS: DO NOT RESUSCITATE Prognosis remains guarded. Antibiotics per Dr. Albright.
[2017-06-12] MEDS ORDERED: VANCOMYCIN TROUGH DUE 1 EACH MISC MISCELLANE ONE (17:00)
[2017-06-12 17:12] LABS: Glucose,Whole Blood 109 mg/dL (75-99)
[2017-06-12] MEDS: VANCOMYCIN 1,750 MG in SODIUM CHLORIDE 0.9% 250 ML IVPB SCH (17:38)
[2017-06-12 20:31] LABS: Glucose,Whole Blood 186 mg/dL (75-99)
[2017-06-12] MEDS: DONEPEZIL 10 MG TAB PO SCH (20:46)
[2017-06-12] MEDS: SERTRALINE 25 MG TAB PO SCH (20:46)
[2017-06-12] MEDS: LATANOPROST 0.005% OPHTH DROPS 2.5 ML BTL BOTH EYES SCH (20:46)
[2017-06-12] MEDS: ATORVASTATIN 40 MG TAB PO SCH (20:46)
[2017-06-12] MEDS: INSULIN GLARGINE 100 UNIT/ML 10 ML VIAL SQ SCH (20:47)
[2017-06-12] MEDS: AMMONIUM LACTATE 12% LOTION 225 GM BTL TOPICAL SCH (20:53)
--- NOTE | 2017-06-12 22:38 | P.PN ---
Subjective Principal diagnosis: Increasing weakness ,altered mental status 76-year-old female who suffers from superobesity and has multiple medical conditions that include dementia, coronary artery disease congestive heart failure and diabetes mellitus presents to Hospital from the extended care facility for altered mental status. The patient has a recent hospitalization where she was found evidence of pressure ulceration of the coccyx and buttocks. She underwent surgical debridement during that stay. She was treated with local wound care. However she now had a marked worsening of her status the time of admission. Evidence of sepsis with hypotension, did not respond to fluids and required vasopressor therapy showing evidence of septic shock. She has had difficulties with respiratory failure requiring BiPAP to be placed. With fluid resuscitation her lactic acid did decrease from 4.0-1.9. Wound cultures are available from the recent hospital stay. There is evidence of leukocytosis but fortunately no acute renal failure at this time More awake today As noted he has had improvement of her status. Was moved out of the intensive care unit to selective care. We'll going to the general medical floor later. She is comfortable, is not clear about her next set of plans. Objective - Vital Signs Vital signs: Vital Signs Temp 97.8 F 06/12/17 16:00 Pulse 72 06/12/17 19:34 Resp 16 06/12/17 16:00 BP 135/60 06/12/17 16:00 Pulse Ox 99 06/12/17 16:44 Intake & Output 06/12/17 06/12/17 06/13/17 06:59 18:59 06:59 Intake Total 200 500 400 Output Total 1700 Balance -1500 500 400 Weight 125 kg Intake: IV 200 500 150 Piperacillin-Tazobactam 3 50 100 50 .375 gm In Dextrose/Water 1 50ml.bag @ 12.5 mls/hr IVPB Q8HR [facility] Rx#: [id number] Sodium Chloride 0.9% 1, 150 400 100 000 ml @ 50 mls/hr IV . Q20H [facility] Rx#:[id number] Intake, IV Titration 250 Amount Vancomycin 1,750 mg In 250 Sodium Chloride 0.9% 250 ml @ 125 mls/hr IVPB Q36H [facility] Rx#:[id number] Oral 0 Output: Urine 1700 Uretheral (Baires) 1700 Other: Voiding Method Indwelling Catheter Indwelling Catheter - Exam Superobese 76-year-old female who is comfortable HEENT: Anicteric conjunctiva are pink and moist nasal mucosa grossly intact without significant lesions, there is no thrush. Dentition is poor Neck: The neck is supple without significant lymphadenopathy or thyromegaly. Lungs: Symmetrical air entry with basilar crackles no bronchial sounds no dullness. Heart: Heart rate is slow at just 60,. She 100% paced by the monitor. Audible S1 and S2 soft S4 no murmur click or rub Abdomen: Superobese Positive bowel sounds soft and nontender without palpable masses or organomegaly. There was no guarding or rebound. Extremities: The extremities have some generalized edema and no significant open ulcerations are seen. The heels are intact at this time. Neuro: Patient .awake and alert Skin: Patient is evidence the extensive pressor ulceration to the coccyx and buttocks. Please see the nursing documentation for the photography and measurements of these extensive ulcerations are grossly necrotic. There is still some odor. - Labs CBC & Chem 7: 06/12/17 05:17 06/12/17 05:17 Labs: Abnormal Lab Results - Last 24 Hours (Table) 06/12/17 06/12/17 06/12/17 Range/Units 05:17 05:17 06:06 RBC 2.93 L (3.80-5.40) m/uL Hgb 7.9 L (11.4-16.0) gm/dL Hct 26.1 L (34.0-46.0) % MCHC 30.3 L (31.0-37.0) g/dL RDW 18.6 H (11.5-15.5) % Lymphocytes # 0.8 L (1.0-4.8) k/uL Chloride 109 H (98-107) mmol/L Glucose 135 H (74-99) mg/dL POC Glucose (mg/dL) 155 H (75-99) mg/dL Calcium 8.3 L (8.4-10.2) mg/dL 06/12/17 06/12/17 06/12/17 Range/Units 11:29 16:40 20:14 RBC (3.80-5.40) m/uL Hgb (11.4-16.0) gm/dL Hct (34.0-46.0) % MCHC (31.0-37.0) g/dL RDW (11.5-15.5) % Lymphocytes # (1.0-4.8) k/uL Chloride (98-107) mmol/L Glucose (74-99) mg/dL POC Glucose (mg/dL) 132 H 109 H 186 H (75-99) mg/dL Calcium (8.4-10.2) mg/dL Assessment and Plan (1) Shock, septic, Gram negative Narrative/Plan: 76-year-old female who suffers from superobesity and also medical complaints presents from extended care facility with altered mental status. He does appear to admission the patient had evidence of sepsis and then evidence of shock in that she had lack of improvement after fluid resuscitation and required vasopressor therapy. She is progressed on to respiratory failure requiring BiPAP. She is a DO NOT INTUBATE status. Status discussed with the family. Discussing that pressure ulceration in this situation is a symptom of a person that is chronically ill and declining. The current bout of sepsis is likely related to the infection from the pressure ulcerations. But her progressively declining medical condition remains etiology of the pressure ulcerations. Consequently other procedures are not possible at this point in time. She certainly has surgical debridement. Antibiotic therapy is initiated with Zosyn which recent cultures reveal evidence of susceptibility. Plan to complete 6 weeks and as infection improves consider wound vac Local wound care with Dakin solution . She's on air mattress. Ongoing turning. Supportive care. Status: Acute (2) Pressure ulcer of coccygeal region, stage 4 Status: Acute
[2017-06-12] MEDS: HYDROcodone/APAP 5-325MG 1 EACH TAB PO PRN (23:18)
--- NOTE | 2017-06-13 00:53 | P.PN ---
Subjective Principal diagnosis: Septic shock secondary to decub ulcers Interval history: This a 76-year-old female admitted in the ICU with severe sepsis, septic shock secondary to decubitus ulcers stages 3-4, polymicrobial jaz, hypotension, diabetes mellitus, acute hypoxic respiratory failure and multiple other medical issues. Chest x-ray reporting chronic changes without evidence of acute pulmonary disease.preliminary blood cultures reporting gram- negative bacilli .Maintained on antibiotics as per infectious disease. Maintaining mean arterial pressure of mid 60s on Levophed. Arousable to stimulation, confused. Family at bedside and states patient does not respond to their verbal probing. 06/07/17 weaned from BiPAP, now maintaining on 6 L nasal cannula. Chest x-ray reporting slightly worsening lung volumes, worsening atelectasis/consolidation. Much more alert, and oriented 2 ,consuming dietary supplements of ensure. Telemetry dual paced. Levophed weaning in progress, currently down to 5mcg. blood sugars currently 180s to 190s. Blood cultures positive for Bacteroides species. 06/08/2017 during the night required increased amounts of Levophed, weaned back down to 5 mics this morning. Received a single dose of Lasix for decreased urine output.. Remains off BiPAP and currently on 2 L nasal cannula. Chest x- ray reporting improved aeration left base. Tolerating full liquid diet along with ensure supplements, blood sugars increased in the 200s. Maintained on Zosyn and vancomycin for blood cultures- Bacteroides distasonis. 06/09/17 Levophed weaned off as of 0400, maintaining systolic blood pressures in the 130s, good urine output. Chest x-ray noted included possible new airspace disease . Received a dose of Lasix and home dose of oral Lasix resumed.reporting Maintained on Zosyn. Telemetry dual paced. 06/10/2017 transferred out of ICU and currently on telemetry unit. Maintained on specialty bed. Chest x-ray reporting improvement. Maintaining O2 sats of 98 %on 2 L nasal cannula. Blood sugars continue to improve, currently down to 90. Afebrile, WBC normal, hemoglobin 8. 06/11/2017 patient is lying in the bed comfortably. Maintaining saturation with nozzle cannula later. No fever no chills. No acute overnight issues. Patient is being continued on IV antibiotics and wound care. Prognosis guarded. Objective - Vital Signs Vital signs: Vital Signs Temp 98 F 06/11/17 16:00 Pulse 78 06/11/17 19:42 Resp 16 06/11/17 16:00 BP 129/73 06/11/17 16:00 Pulse Ox 98 06/11/17 16:24 Intake & Output 06/11/17 06/11/17 06/12/17 06:59 18:59 06:59 Intake Total 600 800 Output Total 800 1000 Balance -200 -200 Weight 126.8 kg Intake: IV 600 700 Piperacillin-Tazobactam 3 100 100 .375 gm In Dextrose/Water 1 50ml.bag @ 12.5 mls/hr IVPB Q8HR [facility] Rx#: [id number] Sodium Chloride 0.9% 1, 500 600 000 ml @ 50 mls/hr IV . Q20H [facility] Rx#:[id number] Oral 100 Output: Urine 800 1000 Other: Voiding Method Indwelling Catheter Indwelling Catheter # Voids 0 0 # Bowel Movements 0 - Exam GENERAL: [Sitting up in bed, no acute distress, sleepy HEENT: [Pupils equal conjunctiva normal. Oral mucosa moist] NECK: [Supple, no JVD] RESPIRATORY EFFORT:[normal LUNGS: [Lower bases diminished, no rhonchi, no crackles, no wheezing] CARDIOVASCULAR[ regular S1-S2, telemetry 100% dual paced, positive edema of all 4 extremities] GI: [Abdomen obese, soft, nontender, positive bowel sounds. No guarding, no rigidity.] PSYCH/NEURO: alert and oriented X2, moves all extremities, follows simple commands, no focal deficits SKIN: [Stage III sacral/coccyx decubitus ulcers as prior mentioned, please refer to chart pictures/documentation of sizes] ] - Labs CBC & Chem 7: 06/12/17 05:17 06/12/17 05:17 Labs: Abnormal Lab Results - Last 24 Hours (Table) 06/10/17 06/11/17 06/11/17 Range/Units 21:15 05:33 05:39 RBC 2.92 L (3.80-5.40) m/uL Hgb 7.8 L (11.4-16.0) gm/dL Hct 26.3 L (34.0-46.0) % MCHC 29.5 L (31.0-37.0) g/dL RDW 18.4 H (11.5-15.5) % Neutrophils # 8.4 H (1.3-7.7) k/uL Chloride 110 H (98-107) mmol/L BUN 19 H (7-17) mg/dL Glucose 143 H (74-99) mg/dL POC Glucose (mg/dL) (75-99) mg/dL Vancomycin Trough 30.4 H* ug/mL 06/11/17 06/11/17 06/11/17 Range/Units 06:05 12:04 16:34 RBC (3.80-5.40) m/uL Hgb (11.4-16.0) gm/dL Hct (34.0-46.0) % MCHC (31.0-37.0) g/dL RDW (11.5-15.5) % Neutrophils # (1.3-7.7) k/uL Chloride (98-107) mmol/L BUN (7-17) mg/dL Glucose (74-99) mg/dL POC Glucose (mg/dL) 152 H 116 H 158 H (75-99) mg/dL Vancomycin Trough ug/mL 06/11/17 Range/Units 20:45 RBC (3.80-5.40) m/uL Hgb (11.4-16.0) gm/dL Hct (34.0-46.0) % MCHC (31.0-37.0) g/dL RDW (11.5-15.5) % Neutrophils # (1.3-7.7) k/uL Chloride (98-107) mmol/L BUN (7-17) mg/dL Glucose (74-99) mg/dL POC Glucose (mg/dL) 291 H (75-99) mg/dL Vancomycin Trough ug/mL Assessment and Plan Plan: 1. Decubitus ulcers, sacral stage 3-4, polymicrobial jaz with severe sepsis, septic shock, hypotension. Recent cultures positive for Proteus mirabilis, E. coli, Klebsiella oxytoca. Gram-negative bacilli Bacteremia-Bacteroides distasonis. 2. Change in mental status, acute metabolic encephalopathy secondary to sepsis]. 3. [ Diabetes mellitus type 2, uncontrolled, nonketotic state secondary to sepsis, early controlled]. 4. [ Acute hypoxic respiratory failure possibly secondary to sepsis, improved]. 5. [ Dementia]. 6. [ Obesity, BMI 48.6]. 7. No code, no CPR, no vent Plan: Continue on current medication regime, vancomycin, Zosyn, monitoring and symptomatic treatment.Lantus decreased to 21 units with close monitoring of Accu -Cheks .PT/OT .Antibiotics as per infectious disease. Prognosis guarded. Time with Patient: Greater than 30
[2017-06-13] MEDS: PIPERACILLIN-TAZOBACTAM 3.375 GM in DEXTROSE/WATER 1 50ML.BAG IVPB SCH ×2 (01:10→08:25)
[2017-06-13] MEDS: SODIUM CHLORIDE 0.9% 1,000 ML IV SCH (06:40)
[2017-06-13] MEDS: IPRATROPIUM-ALBUTEROL 3 ML NEB INHALATION SCH ×2 (07:37→11:29)
[2017-06-13 07:39] LABS: Glucose,Whole Blood 99 mg/dL (75-99)
[2017-06-13] MEDS: INSULIN LISPRO (humaLOG) 300 UNIT/3 ML VIAL SQ SCH ×2 (07:42→12:21)
[2017-06-13 07:48] VITALS: BP 116/67; RESP 14; TEMP 97.2
[2017-06-13 08:41] LABS: Anion Gap 3 mmol/L; Blood Urea Nitrogen 13 mg/dL (7-17); Calcium 8.5 mg/dL (8.4-10.2); Carbon Dioxide 29 mmol/L (22-30); Chloride 107 mmol/L (98-107); Glucose 81 mg/dL (74-99); Non-African American GFR(MDRD) >60 (>60 ml/min/1.73 sqM); Potassium 4.6 mmol/L (3.5-5.1); Sodium 139 mmol/L (137-145)
[2017-06-13] MEDS: ASPIRIN 81 MG CHEW PO SCH (10:56)
[2017-06-13] MEDS: CHOLECALCIFEROL 1,000 UNIT TAB PO SCH (10:57)
[2017-06-13] MEDS: CALCIUM CARB-VIT D 500MG-200UN 1 EACH TAB PO SCH (10:57)
[2017-06-13] MEDS: BRIMONIDINE TARTRATE 0.2% DROPS 5 ML BTL BOTH EYES SCH (10:57)
[2017-06-13] MEDS: HEPARIN SODIUM,PORCINE 5,000 UNIT/ML 1 ML VIAL SQ SCH (10:58)
[2017-06-13] MEDS: FUROSEMIDE 20 MG TAB PO SCH (10:58)
[2017-06-13] MEDS: MULTIVITAMINS, THERA 1 EACH TAB PO SCH (10:58)
[2017-06-13] MEDS: FAMOTIDINE 20 MG TAB PO SCH (10:58)
[2017-06-13] MEDS: FERROUS SULFATE 325 MG TAB PO SCH (10:58)
[2017-06-13] MEDS: NYSTATIN 100,000 UNIT/GM POWD 15 GM TOPICAL SCH (10:59)
[2017-06-13] MEDS: SODIUM HYPOCHLORITE 0.5% 480 ML BOT MISCELLANE SCH (11:00)
[2017-06-13] MEDS: TIMOLOL 0.5% OPHTH DROPS 5 ML BTL BOTH EYES SCH (11:00)
--- NOTE | 2017-06-13 11:06 | P.DS ---
Providers Date of admission: 06/04/17 16:04 Expected date of discharge: 06/13/17 Attending physician: Gonzales Mcdaniels Consults: 06/04/17 16:04 Consult Physician Stat Consulting Provider: Mariah Ward Consult Reason/Comments: Decubitus ulcer Do you want consulting provider notified?: Yes 06/05/17 09:14 Consult Physician Routine Consulting Provider: Cruz Albright Consult Reason/Comments: Sepsis Do you want consulting provider notified?: Yes 06/05/17 12:31 Consult Physician Urgent Consulting Provider: Mason Avalos Consult Reason/Comments: ICU managment/hypotension/sepsis Do you want consulting provider notified?: Yes Primary care physician: Cb Grossman Hospital Course: Final diagnoses: -Acute on chronic Multiple infected decubitus ulcers of the sacrum stage IV, infected, causing a septic shock requiring pressors on admission, present on admission, -Diabetes mellitus type 2 chronically on insulin. -Alzheimer's dementia, late onset type. -Medical debility from multiple medical problems. -Coronary artery disease. -Chronic congestive heart failure, ejection fraction unknown. Probably from underlying coronary artery disease -History of essential hypertension. -Primary osteoarthritis of multiple joints bilateral. -Permanent pacemaker. -Charcot foot secondary to diabetes -Morbid obesity, body mass index 40. -Chronic urinary stress incontinence. -Major depression not otherwise specified. -Moderate protein calorie malnutrition with decreased oral intake and severe hypoalbuminemia -Anorexia due to multiple medical problems and probably side effects of medication Hospital course: This patient with multiple medical problems and advanced sacral decubitus ulcers presented with a septic picture, antibiotics were given local wound care was carried out patient did request some pressure support initially. Oral intake is somewhat limited contents were made to increase oral intake. Overall prognosis is guarded. Patient is able to simple questions. Patient has a PICC line. Discharge planning more than 35 minutes On examination: Stage IV decub ulcers, patient is able to answer only simple questions. Consultations: Dr. Albright from infectious disease Dr. Avalos from critical care CODE STATUS: DO NOT RESUSCITATE Disposition: [facility] Accepting physician: Dr. Grossman Patient Condition at Discharge: Serious Plan - Discharge Summary New Discharge Prescriptions: New Piperacillin-Tazobactam [Zosyn] 3.375 gm IVPB Q6H #152 bag Continue Ammonium Lactate Lotion [Lac-Hydrin 12% Lotion] 1 applic TOPICAL HS [place]-3 Acid Ethyl Esters [Lovaza] 1 gm PO BID Calcium Carb-Vit D 500Mg-200Un [Oscal 500+D] 1 tab PO BID Multivitamins, Thera [Multivitamin (formulary)] 1 tab PO DAILY Cholecalciferol (Vitamin D3) [Vitamin D3] 2,000 unit PO DAILY Aspirin EC [Ecotrin Low Dose] 81 mg PO QAM Acetaminophen Tab [Tylenol] 500 mg PO Q6H PRN tab PRN Reason: Pain Atorvastatin [Lipitor] 40 mg PO HS tab Brimonidine Tartrate [Alphagan P 0.2% Ophth Soln] 1 drops BOTH EYES BID bottle Carvedilol [Coreg*] 12.5 mg PO BID-W/MEALS tab Donepezil [Aricept] 10 mg PO HS tab Famotidine [Pepcid] 20 mg PO BID tab Ferrous Sulfate [Iron (65 MG Elemental)] 325 mg PO BID tab Latanoprost Ophth [Xalatan 0.005%] 1 drops BOTH EYES HS bottle Magnesium Hydroxide [Milk of Magnesia Concentrate] 2,400 mg PO DAILY PRN dose PRN Reason: Constipation Sertraline [Zoloft] 75 mg PO HS tab Timolol 0.5% Ophth Soln [Timoptic 0.5% Ophth Soln] 1 drops BOTH EYES BID bottle Potassium Chloride ER [K-Dur 10] 10 meq PO QAM Nystatin 100,000 Unit/gm Powd [Mycostatin Powder] 1 applic TOPICAL BID Lactose-Reduced Food [Ensure Plus] 120 ml PO BID Furosemide [Lasix] 20 mg PO QAM Amino Acids/Protein Hydrolys [Pro-Stat Supplement] 30 ml PO QAM Albuterol Nebulized [Ventolin Nebulized] 2.5 mg INHALATION RT-QID PRN PRN Reason: Shortness Of Breath Bismuth Subsalicylate [Bismatrol] 524 mg PO Q4H PRN PRN Reason: Indigestion HYDROcodone/APAP 5-325MG [[place] 5-325] 1 tab PO Q6HR PRN #20 PRN Reason: Severe Pain oxyCODONE ER [OxyCONTIN] 10 mg PO Q12HR #20 Changed Insulin Glargine,Hum.rec.anlog [Lantus Solostar] 20 unit SQ HS #0 Insulin Lispro [humaLOG Kwikpen] 6 unit SQ BID@0800,1100 #0 Insulin Lispro [humaLOG Kwikpen] 6 unit SQ DAILY@1700 #0 Discontinued Cephalexin [Keflex] 500 mg PO Q8HR Discharge Medication List Ammonium Lactate Lotion [Lac-Hydrin 12% Lotion] 1 applic TOPICAL HS 12/28/15 [ History] Calcium Carb-Vit D 500Mg-200Un [Oscal 500+D] 1 tab PO BID 12/28/15 [History] Multivitamins, Thera [Multivitamin (formulary)] 1 tab PO DAILY 12/28/15 [History ] [place]-3 Acid Ethyl Esters [Lovaza] 1 gm PO BID 12/28/15 [History] Aspirin EC [Ecotrin Low Dose] 81 mg PO QAM 05/24/17 [History] Cholecalciferol (Vitamin D3) [Vitamin D3] 2,000 unit PO DAILY 05/24/17 [History] Acetaminophen Tab [Tylenol] 500 mg PO Q6H PRN tab 05/29/17 [Rx] Atorvastatin [Lipitor] 40 mg PO HS tab 05/29/17 [Rx] Brimonidine Tartrate [Alphagan P 0.2% Ophth Soln] 1 drops BOTH EYES BID bottle 05/29/17 [Rx] Carvedilol [Coreg*] 12.5 mg PO BID-W/MEALS tab 05/29/17 [Rx] Donepezil [Aricept] 10 mg PO HS tab 05/29/17 [Rx] Famotidine [Pepcid] 20 mg PO BID tab 05/29/17 [Rx] Ferrous Sulfate [Iron (65 MG Elemental)] 325 mg PO BID tab 05/29/17 [Rx] Latanoprost Ophth [Xalatan 0.005%] 1 drops BOTH EYES HS bottle 05/29/17 [Rx] Magnesium Hydroxide [Milk of Magnesia Concentrate] 2,400 mg PO DAILY PRN dose 05/29/17 [Rx] Sertraline [Zoloft] 75 mg PO HS tab 05/29/17 [Rx] Timolol 0.5% Ophth Soln [Timoptic 0.5% Ophth Soln] 1 drops BOTH EYES BID bottle 05/29/17 [Rx] Albuterol Nebulized [Ventolin Nebulized] 2.5 mg INHALATION RT-QID PRN 06/04/17 [ History] Amino Acids/Protein Hydrolys [Pro-Stat Supplement] 30 ml PO QAM 06/04/17 [ History] Bismuth Subsalicylate [Bismatrol] 524 mg PO Q4H PRN 06/04/17 [History] Furosemide [Lasix] 20 mg PO QAM 06/04/17 [History] Lactose-Reduced Food [Ensure Plus] 120 ml PO BID 06/04/17 [History] Nystatin 100,000 Unit/gm Powd [Mycostatin Powder] 1 applic TOPICAL BID 06/04/17 [History] Potassium Chloride ER [K-Dur 10] 10 meq PO QAM 06/04/17 [History] HYDROcodone/APAP 5-325MG [[place] 5-325] 1 tab PO Q6HR PRN #20 06/13/17 [Rx] Insulin Glargine,Hum.rec.anlog [Lantus Solostar] 20 unit SQ HS #0 06/13/17 [Rx] Insulin Lispro [humaLOG Kwikpen] 6 unit SQ BID@0800,1100 #0 06/13/17 [Rx] Insulin Lispro [humaLOG Kwikpen] 6 unit SQ DAILY@1700 #0 06/13/17 [Rx] Piperacillin-Tazobactam [Zosyn] 3.375 gm IVPB Q6H #152 bag 06/13/17 [Rx] oxyCODONE ER [OxyCONTIN] 10 mg PO Q12HR #20 06/13/17 [Rx] Follow up Appointment(s)/Referral(s): Cb Grossman MD [Primary Care Provider] - 06/14/17 Peggy eHrnandez MD [STAFF PHYSICIAN] - 1 Week Ambulatory/Diagnostic Orders: Basic Metabolic Panel [LAB.AMB] Location: Determined By Patient Complete Blood Count w/diff [LAB.AMB] Location: Determined By Patient Patient Instructions/Handouts: Urinary Tract Infection in Women (DC), Sepsis ( GEN) Activity/Diet/Wound Care/Special Instructions: Wound vac to be applied at the facility to sacral decub. Black grannula foam 125mm/hg continuous, change MWF. Mechanical altered dysphagia 2, diabetic diet. Continue gong for sacral wound. Maintain PICC line per facility protocol. PICC card given. Nasal cannula at 2Liters O2 to maintain sats greater than 90. Activity as tolerated, turn every 2 hours while awake. Fall precautions. DNR. Continue isolation precautions for ESBL-Ecoli and Klebseilla.
[2017-06-13] MEDS: oxyCODONE ER 10 MG TAB.ER.12H PO SCH (11:38)
[2017-06-13 11:48] VITALS: PULSE 70
--- NOTE | 2017-06-13 12:11 | P.PN ---
Subjective Progress note dated 06/12/2017 76-year-old female with a history of mental status changes secondary to sepsis with hypotension. The cause of her sepsis as the etiology of her sepsis is thought to be related to decubitus ulcers. Blood cultures are apparently positive for Proteus mirabilis E. coli and Klebsiella. She also has a history of septic shock hypoxemic respiratory failure CAD chronic anemia CHF hypertension hyperlipidemia.diabetes dementia and general medical debility the patient seems to be resting comfortably. We'll continue to follow. Not able to give much of a history. Her prognosis is poor. Appears very pale. Not short of breath. Not complaining of any pain. Progress note dated 06/13/2017 76-year-old female with a history of mental status changes secondary to sepsis with hypotension. The cause of her sepsis is not clear but may relate to decubitus ulcers. Blood cultures were apparently positive for Proteus mirabilis and E. coli and Klebsiella. Has a history of septic shock hypoxemic respiratory failure CAD chronic anemia CHF hypertension hyperlipidemia diabetes dementia and general medical debility. The patient is likely to be discharged either today or tomorrow back to the [facility]. I believe her overall prognosis is relatively poor. She is very pale. Not physically short of breath. Not verbal. Does not appear to be any pain or discomfort. Objective - Vital Signs Vital signs: Vital Signs Temp 97.2 F L 06/13/17 07:00 Pulse 70 06/13/17 11:41 Resp 14 06/13/17 07:00 BP 116/67 06/13/17 07:00 Pulse Ox 98 06/13/17 07:00 Intake & Output 06/12/17 06/13/17 06/13/17 18:59 06:59 18:59 Intake Total 500 500 Output Total 1000 Balance 500 -500 Intake: IV 500 150 Piperacillin-Tazobactam 3 100 50 .375 gm In Dextrose/Water 1 50ml.bag @ 12.5 mls/hr IVPB Q8HR [facility] Rx#: [id number] Sodium Chloride 0.9% 1, 400 100 000 ml @ 50 mls/hr IV . Q20H [facility] Rx#:[id number] Intake, IV Titration 250 Amount Vancomycin 1,750 mg In 250 Sodium Chloride 0.9% 250 ml @ 125 mls/hr IVPB Q36H [facility] Rx#:[id number] Oral 0 100 Output: Urine 1000 Uretheral (Baires) 500 Other: Voiding Method Indwelling Catheter Indwelling Catheter - Exam No acute distress. No respiratory distress. HEENT examination is grossly unremarkable. Mucous membranes are dry. Neck supple. Full range of motion. No adenopathy or thyromegaly. Cardiovascular examination reveals regular rhythm rate. S1-S2 normal. Heart rate 90. No murmurs. No S3-S4. Lungs reveal a few scattered mild rhonchi. No wheezes or crackles. Abdomen soft bowel sounds are heard. Extremities are intact. Slight edema. No cyanosis or clubbing. Skin reveals areas of ecchymoses and decubitus ulcer over his her coccyx. Neurologic examination is difficult to evaluate. Alert. No focal deficits. - Labs CBC & Chem 7: 06/12/17 05:17 06/13/17 07:40 Labs: Abnormal Lab Results - Last 24 Hours (Table) 06/12/17 06/12/17 Range/Units 16:40 20:14 POC Glucose (mg/dL) 109 H 186 H (75-99) mg/dL Assessment and Plan (1) Anemia Status: Acute (2) Decubitus skin ulcer Status: Acute (3) Dehydration Status: Acute (4) Pressure ulcer of coccygeal region, stage 4 Status: Acute (5) Sepsis affecting skin Status: Acute (6) Shock, septic, Gram negative Status: Acute (7) Uncontrolled diabetes mellitus Status: Acute (8) Urinary tract infection Status: Acute (9) Acute kidney injury Status: Acute (10) Anemia Status: Acute (11) Mental status change Status: Acute (12) Morbid obesity Status: Acute (13) Sepsis secondary to UTI Status: Acute (14) Urinary tract infection Status: Acute Plan: Plan dated 06/12/2017 We will continue current treatment. Continue present antibiotics IV fluids oxygen. Continue with physical therapy involvement. Prognosis remains poor and guarded. We'll continue to follow. No additional recommendations made at this time. Plan dated 06/13/2017 The patient continues on current treatments. She'll continue on antibiotics IV fluids and oxygen therapy. Physical therapy is involved. Overall prognosis remains very guarded. Possible discharge to the [facility] today. We'll follow. Time with Patient: Less than 30
[2017-06-13 12:16] LABS: Glucose,Whole Blood 88 mg/dL (75-99)
[2017-06-13] MEDS: POTASSIUM CHLORIDE ER 10 MEQ TAB.ER.PRT PO SCH (12:48)
[2017-06-14] MEDS ORDERED: VANCOMYCIN 1,500 MG in SODIUM CHLORIDE 0.9% 250 ML IVPB SCH (08:00)
== END 2017-06-13 14:16 | DRG 871 ==
LOC: EC 14:39 → 6SEL 16:04 → 6ICU 06-05 13:37 → 6SEL 06-09 13:30 → 4MS4W 06-12 22:09
PROVIDERS: ADMIT Hospitalist; ATTEND Hospitalist
PROC: 0T9B70Z Drainage of Bladder with Drainage Device, Via Natural or Artificial Opening (ICD-10-PCS; 2017-06-05)
PROC: 02HV33Z Insertion of Infusion Device into Superior Vena Cava, Percutaneous Approach (ICD-10-PCS; principal; 2017-06-06 09:55)
DX: A41.59 Other Gram-negative sepsis (principal); J96.01 Acute respiratory failure with hypoxia; R65.21 Severe sepsis with septic shock; G93.41 Metabolic encephalopathy; L89.154 Pressure ulcer of sacral region, stage 4; E44.0 Moderate protein-calorie malnutrition; I11.0 Hypertensive heart disease with heart failure; E11.610 Type 2 diabetes mellitus with diabetic neuropathic arthropathy; I50.9 Heart failure, unspecified; D62 Acute posthemorrhagic anemia; Z68.42 Body mass index [BMI] 45.0-49.9, adult; N39.0 Urinary tract infection, site not specified; L03.818 Cellulitis of other sites; I95.9 Hypotension, unspecified; E11.51 Type 2 diabetes mellitus with diabetic peripheral angiopathy without gangrene; E11.628 Type 2 diabetes mellitus with other skin complications; E11.65 Type 2 diabetes mellitus with hyperglycemia; G30.1 Alzheimer's disease with late onset; F02.80 Dementia in other diseases classified elsewhere, unspecified severity, without behavioral disturbance, psychotic disturbance, mood disturbance, and anxiety; Z66 Do not resuscitate; E66.01 Morbid (severe) obesity due to excess calories; E86.0 Dehydration; F32.9 Major depressive disorder, single episode, unspecified; E11.622 Type 2 diabetes mellitus with other skin ulcer; E78.5 Hyperlipidemia, unspecified; I25.10 Atherosclerotic heart disease of native coronary artery without angina pectoris; R48.8 Other symbolic dysfunctions; T50.905A Adverse effect of unspecified drugs, medicaments and biological substances, initial encounter; K21.9 Gastro-esophageal reflux disease without esophagitis; R26.9 Unspecified abnormalities of gait and mobility; M19.91 Primary osteoarthritis, unspecified site; H40.9 Unspecified glaucoma; R53.1 Weakness; N39.3 Stress incontinence (female) (male); Z95.0 Presence of cardiac pacemaker; Z71.3 Dietary counseling and surveillance; Z79.4 Long term (current) use of insulin; Z79.82 Long term (current) use of aspirin; Z88.1 Allergy status to other antibiotic agents; Z79.899 Other long term (current) drug therapy; Z82.49 Family history of ischemic heart disease and other diseases of the circulatory system; Z83.3 Family history of diabetes mellitus; Z74.01 Bed confinement status; Z80.9 Family history of malignant neoplasm, unspecified; Z77.22 Contact with and (suspected) exposure to environmental tobacco smoke (acute) (chronic); Z81.8 Family history of other mental and behavioral disorders; Z90.710 Acquired absence of both cervix and uterus; Z87.01 Personal history of pneumonia (recurrent); Z87.81 Personal history of (healed) traumatic fracture; Z87.440 Personal history of urinary (tract) infections; Z86.14 Personal history of Methicillin resistant Staphylococcus aureus infection; Z86.19 Personal history of other infectious and parasitic diseases; Z87.09 Personal history of other diseases of the respiratory system; Z16.24 Resistance to multiple antibiotics; Z86.79 Personal history of other diseases of the circulatory system; Z98.49 Cataract extraction status, unspecified eye; Z96.1 Presence of intraocular lens; Z98.890 Other specified postprocedural states; Z79.2 Long term (current) use of antibiotics; Z79.891 Long term (current) use of opiate analgesic
CPT/HCPCS: 36415; 36569; 71010; 76937; 80048; 80053; 80202; 81001; 82009; 82272; 82533; 82550; 82553; 83036; 83605; 83735; 84100; 84132; 84484; 85025; 85610; 85730; 86850; 86900; 86901; 87040; 87070; 87086; 87205; 93005; 94640; 94660; 94760; 96365; 96366; 96367; 99291

== ENCOUNTER 2017-06-23 13:01 | Inpatient (IN) | payer MEDICARE, OTHER ==
[2017-06-23 18:49] LABS: Anisocytosis Slight; Basophils % (A) 0 %; CH 26.3; CHCM 30.7; Eosinophils # (A) 0.3 k/uL (0-0.7); Eosinophils % (A) 4 %; HCT 25.9 % (34.0-46.0); HDW 3.91; HGB 8.1 gm/dL (11.4-16.0); Hypochromasia Marked; Luc # (Auto) 0.28; Luc % (Auto) 4; Lymphocytes % (A) 13 %; MCHC 31.3 g/dL (31.0-37.0); MCV 86.4 fL (80.0-100.0); Mean Platelet Volume 6.1; Monocytes # (A) 0.5 k/uL (0-1.0); Monocytes % (A) 6 %; Neutrophils # (A) 5.7 k/uL (1.3-7.7); Neutrophils % (A) 73 %; Poikilocytosis Slight; RDW 18.5 % (11.5-15.5); WBC 7.8 k/uL (3.8-10.6); WBC (Perox) 7.93
[2017-06-23 19:07] LABS: ALT 31 U/L (9-52); AST 24 U/L (14-36); Alkaline Phosphatase 129 U/L (38-126); Anion Gap 5 mmol/L; Blood Urea Nitrogen 24 mg/dL (7-17); Calcium 8.5 mg/dL (8.4-10.2); Carbon Dioxide 31 mmol/L (22-30); Chloride 100 mmol/L (98-107); Glucose 159 mg/dL (74-99); Non-African American GFR(MDRD) >60 (>60 ml/min/1.73 sqM); Sodium 136 mmol/L (137-145); Total Bilirubin 0.4 mg/dL (0.2-1.3); Total Protein 4.5 g/dL (6.3-8.2)
[2017-06-23] MEDS ORDERED: ALBUTEROL NEBULIZED 2.5 MG/3 ML INHALATION PRN (20:14)
[2017-06-23] MEDS ORDERED: HYDROcodone/APAP 5-325MG 1 EACH TAB PO PRN (20:14)
[2017-06-23] MEDS ORDERED: MAGNESIUM HYDROXIDE 2,400 MG/10 ML CUP PO PRN (20:14)
[2017-06-23] MEDS ORDERED: PIPERACILLIN-TAZOBACTAM 3.375 GM VIAL IVPB SCH (20:15)
[2017-06-23 20:53] LABS: Glucose,Whole Blood 205 mg/dL (75-99)
[2017-06-23] MEDS ORDERED: NON-FORMULARY DRUG (Lactose-Reduced Food [Ensure Plus] 120 ML) PO SCH (21:00)
[2017-06-23] MEDS ORDERED: NON-FORMULARY DRUG (Omega-3 Acid Ethyl Esters [Lovaza] 1 GM) PO SCH (21:00)
[2017-06-23] MEDS ORDERED: GOLDENSEAL PO SCH (22:00)
[2017-06-23] MEDS ORDERED: PROSTAT AWC PO SCH (22:00)
[2017-06-23] MEDS: AMMONIUM LACTATE 12% LOTION 225 GM BTL TOPICAL SCH (22:03)
[2017-06-23] MEDS: ATORVASTATIN 40 MG TAB PO SCH (22:03)
[2017-06-23] MEDS: BRIMONIDINE TARTRATE 0.2% DROPS 5 ML BTL BOTH EYES SCH (22:03)
[2017-06-23] MEDS: CLOTRIMAZOLE/BETAMETH 1-0.05% CREAM 45 GM TUBE TOPICAL SCH (22:04)
[2017-06-23] MEDS: CALCIUM CARB-VIT D 500MG-200UN 1 EACH TAB PO SCH (22:04)
[2017-06-23] MEDS: DONEPEZIL 10 MG TAB PO SCH (22:04)
[2017-06-23] MEDS: FERROUS SULFATE 325 MG TAB PO SCH (22:04)
[2017-06-23] MEDS: FAMOTIDINE 20 MG TAB PO SCH (22:04)
[2017-06-23] MEDS: LATANOPROST 0.005% OPHTH DROPS 2.5 ML BTL BOTH EYES SCH (22:05)
[2017-06-23] MEDS: SERTRALINE 25 MG TAB PO SCH (22:05)
[2017-06-23] MEDS: TIMOLOL 0.5% OPHTH DROPS 5 ML BTL BOTH EYES SCH (22:05)
[2017-06-23] MEDS: HEPARIN SODIUM,PORCINE 5,000 UNIT/ML 1 ML VIAL SQ SCH (22:07)
[2017-06-23] MEDS: INSULIN LISPRO (humaLOG) 300 UNIT/3 ML VIAL SQ SCH (22:08)
[2017-06-23] MEDS: INSULIN GLARGINE 100 UNIT/ML 10 ML VIAL SQ SCH (22:08)
[2017-06-23 22:32] LABS: Hemoglobin A1C 6.4 % (4.2-6.1)
[2017-06-23] MEDS: PIPERACILLIN-TAZOBACTAM 3.375 GM in DEXTROSE/WATER 1 50ML.BAG IVPB SCH (23:36)
[2017-06-24] MEDS: oxyCODONE ER 10 MG TAB.ER.12H PO SCH ×3 (00:16→22:12)
[2017-06-24] MEDS: SODIUM CHLORIDE 0.9% 1,000 ML IV SCH ×2 (03:24→15:53)
[2017-06-24 07:31] LABS: Glucose,Whole Blood 120 mg/dL (75-99)
[2017-06-24] MEDS: INSULIN LISPRO (humaLOG) 300 UNIT/3 ML VIAL SQ SCH ×4 (07:34→22:16)
[2017-06-24] MEDS: CLOTRIMAZOLE/BETAMETH 1-0.05% CREAM 45 GM TUBE TOPICAL SCH ×2 (08:25→22:13)
[2017-06-24] MEDS: PIPERACILLIN-TAZOBACTAM 3.375 GM in DEXTROSE/WATER 1 50ML.BAG IVPB SCH ×2 (08:25→15:52)
[2017-06-24] MEDS: BRIMONIDINE TARTRATE 0.2% DROPS 5 ML BTL BOTH EYES SCH ×2 (08:26→22:08)
[2017-06-24] MEDS: HEPARIN SODIUM,PORCINE 5,000 UNIT/ML 1 ML VIAL SQ SCH ×2 (08:26→22:14)
[2017-06-24] MEDS: ASPIRIN 81 MG CHEW PO SCH (08:26)
[2017-06-24] MEDS: FAMOTIDINE 20 MG TAB PO SCH ×2 (08:26→22:13)
[2017-06-24] MEDS: LACTOBACILLUS ACIDOPH & BULGAR 1 EACH PACKET PO SCH (08:26)
[2017-06-24] MEDS: FUROSEMIDE 20 MG TAB PO SCH (08:26)
[2017-06-24] MEDS: FERROUS SULFATE 325 MG TAB PO SCH ×2 (08:27→22:14)
[2017-06-24] MEDS: CALCIUM CARB-VIT D 500MG-200UN 1 EACH TAB PO SCH ×2 (08:27→22:13)
[2017-06-24] MEDS: CARVEDILOL 12.5 MG TAB PO SCH ×2 (08:27→18:24)
[2017-06-24] MEDS: POTASSIUM CHLORIDE ER 10 MEQ TAB.ER.PRT PO SCH (08:27)
[2017-06-24] MEDS: TIMOLOL 0.5% OPHTH DROPS 5 ML BTL BOTH EYES SCH ×2 (08:28→22:08)
[2017-06-24] MEDS: SODIUM HYPOCHLORITE 0.25% 480 ML BOT MISCELLANE SCH (08:28)
[2017-06-24] MEDS ORDERED: NON-FORMULARY DRUG (Amino Acids/Protein Hydrolys [Pro-Stat Supplement] 30 ML) PO SCH (09:00)
--- NOTE | 2017-06-24 11:26 | HP ---
HISTORY AND PHYSICAL DATE OF SERVICE: 06/23/2017. CHIEF COMPLAINT: Decubitus ulcer stage IV. HISTORY OF PRESENT ILLNESS: This 76-year-old woman with a past history of multiple medical problems, including CAD, CHF, dementia, diabetes type 2, GERD, hypertension, hyperlipidemia, DJD, being followed by Dr. Grossman in the [facility] was recently admitted with renal failure and other multiple medical issues. The patient had significant decubitus ulcers which is not improving. The patient also had MRSA in the past as well as ESBL. The patient is on multiple antibiotics. Infectious disease has seen the patient during the previous admissions. Currently Dr. Grossman sent the patient from [facility] for further evaluation and treatment. The patient is unable to give a coherent history. Most of the history is taken from my discussion with the staff and as well as review of chart and discussion with Dr. Grossman at this time. Select specialty referral also has been considered at this time. There is no history of trauma. PAST MEDICAL HISTORY: CAD, dementia, diabetes mellitus, Type 2, GERD, hypertension and hyperlipidemia. MEDICATIONS: Prior to admission include home medications are: 1. Prostat AWC. 2. Lispro 6 units t.i.d. 3. Lotrisone q12. 4. Milk of Magnesia. 5. [place] 5 mg q6h p.r.n. 6. Ventolin 2.5 q.i.d. p.r.n. 7. Oxycodone 10 mg po b.i.d. p.r.n. 8. Timolol 0.5% one drop both eyes b.i.d. 9. Zosyn IV q.6 through PICC line on the right arm. 10.Pepcid 20 mg b.i.d. 12.Iron sulfate 320 mg po b.i.d. 13.Calcium with vitamin D p.o. b.i.d. 14.Ensure Plus 120 mg p.o. b.i.d. 15.Coreg 12.5 mg b.i.d. with meals. 16.Alphagan 0.1 drop both eyes b.i.d. 17.Multivitamins one po daily. 18.Xalatan 0.05% one drop both eyes q.h.s. 19.Vitamin D3 2000 daily. 20.Zoloft 75 mg q.h.s. 21.Probiotic 1 capsule a day. 22.K-Dur 10 mEq p.o. daily. 23.ProStat 30 mL daily. 24.Lasix 20 mg p.o. daily. 25.Lipitor 40 mg q.h.s. 26.Lac-Hydrin q.h.s. 28.Ecotrin 81 mg daily. 29.Aricept 10 mg q.h.s. ALLERGIES: CIPRO, LEVAQUIN AND QUINOLONES. FAMILY HISTORY/ SOCIAL HISTORY: Could not be taken at length because of the patient's change in mental status. Family history of cancer, diabetes and hypertension and social history of no history of smoking, no history of alcohol per chart. PHYSICAL EXAM: The patient is oriented times one. Pulse 67, blood pressure 128/61, respiration 18, temp is 98.2. Pulse ox 99% on 2 L. HEENT: Conjunctivae normal. Oral mucosa moist. NECK: No jugular venous distention. No carotid bruit. No lymph node enlargement. Cardiovascular system: S1, S2 muffled. No S3. Respiratory: Breath sounds diminished at the bases. A few scattered rhonchi. No crackles. ABDOMEN: Soft, nontender. LEGS: Minimal leg edema. Nervous system: Higher functions as mentioned earlier. Diffusely weak. Skin: Decubitus ulcer stage III to IV. Otherwise joints no deforming arthropathy. LABORATORY DATA: Lab investigation at this time: WBC 7.2, hemoglobin is 8.1, sodium 136. ASSESSMENT: 1. Significant decubitus ulcer stage 3-4 with failure of outpatient treatment. 2. Anemia normocytic anemia of chronic disease. 3. History of ESBL Methicillin-resistant Staphylococcus aureus. 4. Status post PICC line on the right arm and broad-spectrum IV antibiotics. 5. Hyponatremia. 6. Dementia. 7. Change in mental status, metabolic encephalopathy. 8. Diabetes type 2. 9. Gait dysfunction. 10.Hypertension. 11.Hyperlipidemia. 12.Obesity. 13.NO CODE, NO CPR, NO VENT. 14.Charcot feet secondary to diabetes mellitus type 2. RECOMMENDATIONS AND DISCUSSION: Continue on current medication management and continue symptomatic treatment. Otherwise at this time broad-spectrum antibiotics. Infectious disease and surgical consultation and evaluation. Otherwise insulin to scale. Prognosis guarded because of multiple complex medical issues. We will also consult social work and case management for possible select speciality referral because of the non improvement in the decubitus ulcer as well. The prognosis is extremely guarded because of multiple complex medical issues. Further recommendations to follow. Please send a copy this to my office and Dr. Grossman's office. ELLI / BHAVANIN: [id number] / MTDD
[2017-06-24 12:22] LABS: Glucose,Whole Blood 113 mg/dL (75-99)
[2017-06-24] MEDS: MULTIVITAMINS, THERA 1 EACH TAB PO SCH (12:30)
[2017-06-24] MEDS: CHOLECALCIFEROL 1,000 UNIT TAB PO SCH (12:30)
[2017-06-24 16:21] LABS: Amorphous Sediment,Urine Occasional /hpf; Appearance,Urine Cloudy (Clear); Bacteria,Urine Occasional /hpf; Bilirubin,Urine Negative (Negative); Glucose,Urine (UA) Negative (Negative); Ketones,Urine Negative (Negative); Leukocyte Esterase,Urine Large (Negative); Mucus,Urine Occasional /hpf; Nitrite,Urine Positive (Negative); PH, Urine 5.5 (5.0-8.0); Particle Count 3077; Protein,Urine Negative (Negative); RBC,Urine 6 /hpf (0-5); Specific Gravity,Urine 1.012 (1.001-1.035); Squamous Epithelial Cell,Urine <1 /hpf (0-4); UA Billing (MACRO vs. MICRO) MICRO; Uric Acid Crystals,Urine Occasional /hpf; Urobilinogen,Urine <2.0 mg/dL (<2.0); WBC,Urine 101 /hpf (0-5)
[2017-06-24 17:01] LABS: Glucose,Whole Blood 142 mg/dL (75-99)
--- NOTE | 2017-06-24 17:11 | CONS ---
CONSULTATION DATE OF CONSULTATION: 06/24/2017. REASON FOR CONSULTATION: Infected sacral pressure ulcer. HISTORY OF PRESENT ILLNESS: The patient is a 76 -year-old female who did have a sacral wound stage IV for which the patient has been evaluated at this facility where the patient was seen by Dr. Albright on her last admission. Patient discharged to the [facility] on the for ongoing wound care. During that visit, the patient did have a wound cultures obtained which did show ESBL E coli and Klebsiella and Proteus mirabilis in addition to the bacteroid descendants. The patient did have a PICC line and has been treated with Zosyn. Apparently the patient's family were not happy with the care they were receiving at [facility] and subsequently patient has been admitted directly to the [facility] for further evaluation. Infectious disease was consulted for further recommendation regarding antibiotic therapy and local wound care. The patient seemed to have been evaluated by Dr. Fairbanks in the outpatient wound Care Center on the where the patient has been. He has been recommending hospice care. The patient currently is awake, alert. However, she is unable to provide any reliable history. She did mention some pain in the sacral wound area. However I was unable to obtain any information further. The patient denies any chest pain, shortness of breath, cough, no abdominal pain. The patient remains history significantly limited because of underlying dementia. Most information has been obtained from chart review of the previous chart. REVIEW OF SYMPTOMS: Review of systems could not be reliably obtained, the positive points have been mentioned in the HPI. PAST MEDICAL HISTORY: Significant for coronary artery disease, dementia, diabetes mellitus, gastroesophageal reflux disease, hypertension, hyperlipidemia and memory impairment, osteoarthritis, pneumonia, ESBL E coli and Klebsiella infection of the sacral wound. PAST SURGICAL HISTORY: Adenoidectomy, bladder surgery, heart catheterization, hernia repair, hysterectomy, pacemaker placement and tonsillectomy. SOCIAL HISTORY: No history of smoking, drinking or drug use. Currently lives and residing at the [facility]. FAMILY HISTORY: Daughter with history of diabetes and hypertension. ALLERGIES: QUINOLONES. THE PATIENT IS: Currently on: 1. Zoloft. 2. K-Dur. 3. Piptazobactam. 4. Theragran. 5. Milk of magnesia. 6. Lactinex. 7. Lac-Hydrin. 8. Lantus. 9. Heparin. 10.Lasix. 11.Pepcid. 12.Aricept. 13.Vitamin D3. 14.Coreg. 15.Lipitor. 16.Aspirin. 17.[place]. EXAMINATION: Blood pressure is 118/50 with a pulse of 61, temperature 98.9, she is 98% on 2 L nasal cannula. General description is an elderly female, lying in bed, no distress, no tachypnea, or accessory muscles of respiration use. HEENT: Shows pallor. No scleral icterus. Oral mucosal membranes dry. Neck trachea midline. No thyromegaly. Lungs unlabored breathing. Clear to auscultation anteriorly. HEART: S1, S2. Regular rate and rhythm. Abdomen soft. No tenderness. No rigidity. Extremities no edema of feet. Examination of the sacral wound in the presence of the RN did show deep stage IV sacral wound with significant amount of slough in the base. Minimal surrounding erythema. There is no foul smell. Neurological the patient is sleepy but arousable. Orientation could not be determined. LAB: Hemoglobin 8.1, white count 7.8 with a BUN of 24, creatinine 0.90. She did have some culture which is currently pending. No blood cultures were done. DIAGNOSTIC IMPRESSION AND PLAN: Patient with a stage IV sacral pressure ulcer infected with a previous culture positive for ESBL E coli and Klebsiella, currently being treated with Zosyn. The patient has been brought back to the hospital in view of the family not been happy with the care that she was receiving at [facility]. The patient's wounds have significant amount of slough tissue and will likely need surgical debridement of the same. PLAN: 1. We will discontinue the Zosyn. 2. Will start the patient on meropenem 1 g q.8 hours. 3. Continue the patient on local wound care with Dakin solution and recommended obtaining a surgical evaluation for surgical debridement of this wound. 4. We will follow up on clinical condition and culture and further adjust medication as needed. 5. As the patient is known to Dr. Albright will be assigned over to him as he is back from vacation on the fifth. MMODL / IJN: [id number] /
--- NOTE | 2017-06-24 21:05 | P.GSCN ---
History of Present Illness Consult date: 06/24/17 Reason for Consult: Multiple sacral decubiti ulcers. Requesting physician: Rasta Mazariegos History of present illness: The patient is a 76-year-old female who comes in primarily bedbound and lives at [facility]. Her arranges her decision making. She has had multiple hospitalizations one month ago at least 3+ times +4 urinary tract infection including debridement of her sacral decubiti ulcers. She has now been brought back to the hospital. Since her previous hospitalizations, her sacral decubiti ulcers are now worse. She has a PICC line and is currently being treated with IV antibiotics. Her reports poor appetite. Review of Systems Unable to obtain as patient minimally conversates. Past Medical History Past Medical History: Coronary Artery Disease (CAD), Heart Failure, Dementia, Diabetes Mellitus, Eye Disorder, GERD/Reflux, Hyperlipidemia, Hypertension, Memory Impairment, Osteoarthritis (OA), Pneumonia Additional Past Medical History / Comment(s): 01-11-16 admitted with uti/sepsis Glaucoma, severe degenerative arthritis with secondary debility to the point where the patient is unable to ambulate,(bedridden)charcot feet morbid obesity , urinary incontinence/idc/ frequent urinary tract infections,coccyx/sacral/ buttocks pressure ulcers. carpal tunnel disease and MRSA in the past. RT UPPER ARM CELLULITIS, rt breast mass,pvd,bronchitis, sinus problems, carpal tunnel, past fx lt ankle History of Any Multi-Drug Resistant Organisms: ESBL, MRSA Year Discovered:: 05/26/17 ESBL E.coli- ESBL Klebsiella /mrsa , MDRO Source:: Tissue-Sacral Ulcer/ [facility] sheet unk date or source Past Surgical History: Adenoidectomy, Bladder Surgery, Heart Catheterization, Hernia Repair, Hysterectomy, Pacemaker, Tonsillectomy Additional Past Surgical History / Comment(s): arthroscopy laser sx for glaucoma bashir eyes, Cataract extraction with intraocular lens implantations, varicose vein stripping.rt breast bx(mass), colonoscopy, lt knee, surgical debridment of pressure ulcers 05-26-17 Past Anesthesia/Blood Transfusion Reactions: No Reported Reaction Type of Cardiac Device: Permanent Pacemaker Device Placement Date:: 2011 replaced Smoking Status: Never smoker - Past Family History Daughter(s) Family Medical History: Cancer, Diabetes Mellitus, Hypertension Mother Family Medical History: Dementia Father Family Medical History: Unable to Obtain Medications and Allergies Home Medications Medication Instructions Recorded Confirmed Type Ammonium Lactate Lotion 1 applic TOPICAL HS 12/28/15 06/23/17 History [Lac-Hydrin 12% Lotion] Calcium Carb-Vit D 500Mg-200Un 1 tab PO BID 12/28/15 06/23/17 History [Oscal 500+D] Multivitamins, Thera [Multivitamin 1 tab PO DAILY 12/28/15 06/23/17 History (formulary)] Almond-3 Acid Ethyl Esters [Lovaza] 1 gm PO BID 12/28/15 06/23/17 History Aspirin EC [Ecotrin Low Dose] 81 mg PO DAILY 05/24/17 06/23/17 History Cholecalciferol (Vitamin D3) 2,000 unit PO DAILY 05/24/17 06/23/17 History [Vitamin D3] Atorvastatin [Lipitor] 40 mg PO HS tab 05/29/17 06/23/17 Rx Brimonidine Tartrate [Alphagan P 1 drops BOTH EYES BID bottle 05/29/17 Rx 0.2% Ophth Soln] Carvedilol [Coreg*] 12.5 mg PO BID-W/MEALS tab 05/29/17 06/23/17 Rx Donepezil [Aricept] 10 mg PO HS tab 05/29/17 06/23/17 Rx Famotidine [Pepcid] 20 mg PO BID tab 05/29/17 06/23/17 Rx Ferrous Sulfate [Iron (65 MG 325 mg PO BID tab 05/29/17 06/23/17 Rx Elemental)] Latanoprost Ophth [Xalatan 0.005%] 1 drops BOTH EYES HS bottle 05/29/17 Rx Magnesium Hydroxide [Milk of 2,400 mg PO DAILY PRN dose 05/29/17 06/23/17 Rx Magnesia Concentrate] Sertraline [Zoloft] 75 mg PO HS tab 05/29/17 06/23/17 Rx Timolol 0.5% Ophth Soln [Timoptic 1 drops BOTH EYES BID bottle 05/29/17 Rx 0.5% Ophth Soln] Albuterol Nebulized [Ventolin 2.5 mg INHALATION RT-QID PRN 06/04/17 06/23/17 History Nebulized] Amino Acids/Protein Hydrolys 30 ml PO DAILY 06/04/17 06/23/17 History [Pro-Stat Supplement] Furosemide [Lasix] 20 mg PO DAILY 06/04/17 06/23/17 History Lactose-Reduced Food [Ensure Plus] 120 ml PO BID 06/04/17 06/23/17 History Potassium Chloride ER [K-Dur 10] 10 meq PO DAILY 06/04/17 06/23/17 History HYDROcodone/APAP 5-325MG [[place] 1 tab PO Q6HR PRN #20 06/13/17 06/23/17 Rx 5-325] Piperacillin-Tazobactam [Zosyn] 3.375 gm IVPB Q6H #152 bag 06/13/17 06/23/17 Rx oxyCODONE ER [OxyCONTIN] 10 mg PO Q12HR #20 06/13/17 06/23/17 Rx Clotrimazole/Betamethasone Dip 1 applic TOPICAL Q12H 06/23/17 06/23/17 History [Lotrisone Cream] Goldenseal 470mg 470 mg PO QID 06/23/17 06/23/17 History Insulin Glargine,Hum.rec.anlog 25 unit SQ HS 06/23/17 06/23/17 History [Basaglar Kwikpen U-100] Insulin Lispro [humaLOG Kwikpen] 6 unit SQ TID 06/23/17 06/23/17 History L.acidoph,Paracasei, B.lactis 1 cap PO DAILY 06/23/17 06/23/17 History [Probiotic] Prostat Awc 15 ml PO TID 06/23/17 06/23/17 History Allergies Allergy/AdvReac Type Severity Reaction Status Date / Time ciprofloxacin [From Cipro] Allergy Unknown Verified 06/23/17 19:15 levofloxacin [From Levaquin] Allergy Unknown Verified 06/23/17 19:15 Quinolones Allergy Unknown Verified 06/23/17 19:15 Surgical - Exam Vital Signs Temp Pulse Resp BP Pulse Ox 98.2 F 67 18 128/61 99 06/23/17 17:49 06/23/17 17:49 06/23/17 17:49 06/23/17 17:49 06/23/17 17:49 GENERAL: Well developed and in no acute distress. Pleasant. HEENT: No sclera icterus. Extraocular movements grossly intact. Moist buccal mucosa. Head is atraumatic, normocephalic. Hears conversational speech. No nasal drainage. NECK: Supple without lymphadenopathy. Has JV distention. CHEST: Non-labored respirations and equal bilateral excursions. CARDIOVASCULAR: Regular rate and rhythm. Palpable 2+ radial pulses. ABDOMEN: Soft, protuberant, nontender. Nondistended. MUSCULOSKELETAL: No clubbing, cyanosis. 1+ edema lower extremity. NEUROLOGIC: No focal or lateralizing signs. PSYCH: Blunt response. Minimally conversational. SKIN: Good skin turgor. Will perfused. Unstageable at least 5 ulcers over 6 to 8 cm along the sacrum with images reviewed with nursing, foul smelling and with fibrinous exudate. Results - Labs 06/23/17 18:34 06/23/17 18:34 Abnormal Lab Results - Last 24 Hours (Table) 06/23/17 06/23/17 06/23/17 Range/Units 18:34 18:34 18:34 RBC 3.00 L (3.80-5.40) m/uL Hgb 8.1 L (11.4-16.0) gm/dL Hct 25.9 L (34.0-46.0) % RDW 18.5 H (11.5-15.5) % Sodium 136 L (137-145) mmol/L Carbon Dioxide 31 H (22-30) mmol/L BUN 24 H (7-17) mg/dL Glucose 159 H (74-99) mg/dL POC Glucose (mg/dL) (75-99) mg/dL Hemoglobin A1c 6.4 H (4.2-6.1) % Alkaline Phosphatase 129 H (38-126) U/L Total Protein 4.5 L (6.3-8.2) g/dL Albumin 2.0 L (3.5-5.0) g/dL 06/23/17 06/24/17 06/24/17 Range/Units 20:52 07:30 12:20 RBC (3.80-5.40) m/uL Hgb (11.4-16.0) gm/dL Hct (34.0-46.0) % RDW (11.5-15.5) % Sodium (137-145) mmol/L Carbon Dioxide (22-30) mmol/L BUN (7-17) mg/dL Glucose (74-99) mg/dL POC Glucose (mg/dL) 205 H 120 H 113 H (75-99) mg/dL Hemoglobin A1c (4.2-6.1) % Alkaline Phosphatase (38-126) U/L Total Protein (6.3-8.2) g/dL Albumin (3.5-5.0) g/dL Microbiology - Last 24 Hours (Table) 06/23/17 18:20 Gram Stain - Preliminary Coccyx Wound Culture - Preliminary 06/23/17 18:20 Anaerobic Culture - Preliminary Coccyx Diabetes panel 06/23/17 06/23/17 Range/Units 18:34 18:34 Sodium 136 L (137-145) mmol/L Potassium 4.0 (3.5-5.1) mmol/L Chloride 100 (98-107) mmol/L Carbon Dioxide 31 H (22-30) mmol/L BUN 24 H (7-17) mg/dL Creatinine 0.90 (0.52-1.04) mg/dL Glucose 159 H (74-99) mg/dL Hemoglobin A1c 6.4 H (4.2-6.1) % Calcium 8.5 (8.4-10.2) mg/dL AST 24 (14-36) U/L ALT 31 (9-52) U/L Alkaline Phosphatase 129 H (38-126) U/L Total Protein 4.5 L (6.3-8.2) g/dL Albumin 2.0 L (3.5-5.0) g/dL Calcium panel 06/23/17 Range/Units 18:34 Calcium 8.5 (8.4-10.2) mg/dL Albumin 2.0 L (3.5-5.0) g/dL Pituitary panel 06/23/17 Range/Units 18:34 Sodium 136 L (137-145) mmol/L Potassium 4.0 (3.5-5.1) mmol/L Chloride 100 (98-107) mmol/L Carbon Dioxide 31 H (22-30) mmol/L BUN 24 H (7-17) mg/dL Creatinine 0.90 (0.52-1.04) mg/dL Glucose 159 H (74-99) mg/dL Calcium 8.5 (8.4-10.2) mg/dL Adrenal panel 06/23/17 Range/Units 18:34 Sodium 136 L (137-145) mmol/L Potassium 4.0 (3.5-5.1) mmol/L Chloride 100 (98-107) mmol/L Carbon Dioxide 31 H (22-30) mmol/L BUN 24 H (7-17) mg/dL Creatinine 0.90 (0.52-1.04) mg/dL Glucose 159 H (74-99) mg/dL Calcium 8.5 (8.4-10.2) mg/dL Total Bilirubin 0.4 (0.2-1.3) mg/dL AST 24 (14-36) U/L ALT 31 (9-52) U/L Alkaline Phosphatase 129 H (38-126) U/L Total Protein 4.5 L (6.3-8.2) g/dL Albumin 2.0 L (3.5-5.0) g/dL Assessment and Plan (1) Decubitus skin ulcer Status: Acute (2) Diabetes Status: Acute (3) Morbid obesity Status: Acute (4) Pressure ulcer of coccygeal region, stage 4 Status: Acute (5) Urinary tract infection Status: Acute Plan: 1. The patient has been seen by the infectious disease provider who also recommended surgical debridement. 2. Soft air mattress bed. 3. PICC line per infectious disease with antibiotic management. 4. Change every 2 hours to prevent further maceration of skin occluding pressure ulcers. 5. Will arrange for debridement while inpatient. Thank you for this kind consultation.
[2017-06-24 21:33] LABS: Glucose,Whole Blood 213 mg/dL (75-99)
[2017-06-24] MEDS: ATORVASTATIN 40 MG TAB PO SCH (22:08)
[2017-06-24] MEDS: LATANOPROST 0.005% OPHTH DROPS 2.5 ML BTL BOTH EYES SCH (22:08)
[2017-06-24] MEDS: SERTRALINE 25 MG TAB PO SCH (22:09)
[2017-06-24] MEDS: AMMONIUM LACTATE 12% LOTION 225 GM BTL TOPICAL SCH (22:10)
[2017-06-24] MEDS: DONEPEZIL 10 MG TAB PO SCH (22:13)
[2017-06-24] MEDS: INSULIN GLARGINE 100 UNIT/ML 10 ML VIAL SQ SCH (22:15)
[2017-06-25] MEDS: MEROPENEM 1 GM in SODIUM CHLORIDE 0.9% 100 ML IVPB SCH ×3 (00:50→16:45)
[2017-06-25 07:30] LABS: Glucose,Whole Blood 122 mg/dL (75-99)
[2017-06-25] MEDS: INSULIN LISPRO (humaLOG) 300 UNIT/3 ML VIAL SQ SCH ×4 (07:31→21:41)
[2017-06-25 07:55] LABS: Anisocytosis Slight; Basophils % (A) 0 %; CH 27.2; CHCM 31.6; Eosinophils # (A) 0.3 k/uL (0-0.7); Eosinophils % (A) 5 %; HCT 25.4 % (34.0-46.0); HDW 3.87; HGB 7.9 gm/dL (11.4-16.0); Hypochromasia Moderate; Luc % (Auto) 2; Lymphocytes # (A) 0.8 k/uL (1.0-4.8); Lymphocytes % (A) 13 %; MCHC 31.1 g/dL (31.0-37.0); MCV 86.9 fL (80.0-100.0); Mean Platelet Volume 6.9; Monocytes # (A) 0.3 k/uL (0-1.0); Monocytes % (A) 5 %; Neutrophils # (A) 4.7 k/uL (1.3-7.7); Neutrophils % (A) 75 %; Poikilocytosis Slight; RBC 2.92 m/uL (3.80-5.40); RDW 18.8 % (11.5-15.5); WBC 6.3 k/uL (3.8-10.6); WBC (Perox) 6.54
[2017-06-25 08:04] LABS: INR 1.1 (<1.2); Prothrombin Time 11.2 sec (9.0-12.0)
[2017-06-25 08:33] LABS: ALT 26 U/L (9-52); AST 27 U/L (14-36); Alkaline Phosphatase 115 U/L (38-126); Anion Gap 5 mmol/L; Blood Urea Nitrogen 20 mg/dL (7-17); Calcium 8.4 mg/dL (8.4-10.2); Carbon Dioxide 32 mmol/L (22-30); Chloride 101 mmol/L (98-107); Glucose 115 mg/dL (74-99); Non-African American GFR(MDRD) 56 (>60 ml/min/1.73 sqM); Potassium 3.9 mmol/L (3.5-5.1); Sodium 138 mmol/L (137-145); Total Bilirubin 0.4 mg/dL (0.2-1.3); Total Protein 4.6 g/dL (6.3-8.2)
[2017-06-25] MEDS: FUROSEMIDE 20 MG TAB PO SCH (08:41)
[2017-06-25] MEDS: CARVEDILOL 12.5 MG TAB PO SCH ×2 (08:41→16:45)
[2017-06-25] MEDS: TIMOLOL 0.5% OPHTH DROPS 5 ML BTL BOTH EYES SCH ×2 (08:42→21:41)
[2017-06-25] MEDS: LACTOBACILLUS ACIDOPH & BULGAR 1 EACH PACKET PO SCH (08:42)
[2017-06-25] MEDS: BRIMONIDINE TARTRATE 0.2% DROPS 5 ML BTL BOTH EYES SCH ×2 (08:42→21:39)
[2017-06-25] MEDS: POTASSIUM CHLORIDE ER 10 MEQ TAB.ER.PRT PO SCH ×2 (08:42→12:05)
[2017-06-25] MEDS: HEPARIN SODIUM,PORCINE 5,000 UNIT/ML 1 ML VIAL SQ SCH ×2 (08:42→21:40)
[2017-06-25] MEDS: SODIUM HYPOCHLORITE 0.25% 480 ML BOT MISCELLANE SCH (08:42)
[2017-06-25] MEDS: CALCIUM CARB-VIT D 500MG-200UN 1 EACH TAB PO SCH ×3 (08:44→21:40)
[2017-06-25] MEDS: oxyCODONE ER 10 MG TAB.ER.12H PO SCH ×2 (08:44→21:48)
[2017-06-25] MEDS: ASPIRIN 81 MG CHEW PO SCH (08:44)
[2017-06-25] MEDS: CHOLECALCIFEROL 1,000 UNIT TAB PO SCH ×2 (08:44→12:05)
[2017-06-25] MEDS: CLOTRIMAZOLE/BETAMETH 1-0.05% CREAM 45 GM TUBE TOPICAL SCH ×2 (08:45→21:43)
[2017-06-25] MEDS: FERROUS SULFATE 325 MG TAB PO SCH ×3 (08:45→21:40)
[2017-06-25] MEDS: FAMOTIDINE 20 MG TAB PO SCH ×2 (08:45→21:40)
[2017-06-25] MEDS: SODIUM CHLORIDE 0.9% 1,000 ML IV SCH (08:46)
--- NOTE | 2017-06-25 11:22 | P.PN ---
Subjective Principal diagnosis: Complicated multiple decubiti ulcers of the sacrum The patient is a 76-year-old female with multiple readmissions in 4 weeks secondary to chronic urine tract infection as well as multiple decubiti ulcers. This morning her hemoglobin had dropped to less than 8. She has poor appetite. Her nutrition is poor. We are following her for her decubiti ulcers. Objective - Vital Signs Vital signs: Vital Signs Temp 95.8 F L 06/25/17 07:00 Pulse 60 06/25/17 08:00 Resp 18 06/25/17 08:00 BP 116/68 06/25/17 07:00 Pulse Ox 100 06/25/17 07:00 Intake & Output 06/24/17 06/25/17 06/25/17 18:59 06:59 18:59 Output Total 475 575 Balance -475 -575 Weight 118 kg 119 kg Output: Urine 475 575 Other: Voiding Method Indwelling Catheter Indwelling Catheter Indwelling Catheter - Exam GENERAL: Well developed and in no acute distress. HEENT: No sclera icterus. Extraocular movements grossly intact. Moist buccal mucosa. Head is atraumatic, normocephalic. Hears conversational speech. No nasal drainage. NECK: Supple without lymphadenopathy. CHEST: Non-labored respirations and equal bilateral excursions. CARDIOVASCULAR: Irregular rate and rhythm. Palpable 2+ radial pulses. ABDOMEN: Soft, nontender. Protuberant MUSCULOSKELETAL: No clubbing, cyanosis. 2+ bilateral edema. NEUROLOGIC: No focal or lateralizing signs. PSYCH: Lethargic. Minimally respondent. SKIN: Good skin turgor. Will perfused. - Labs CBC & Chem 7: 06/25/17 07:39 06/25/17 07:39 Labs: Abnormal Lab Results - Last 24 Hours (Table) 06/24/17 06/24/17 06/24/17 Range/Units 12:20 14:00 16:59 RBC (3.80-5.40) m/uL Hgb (11.4-16.0) gm/dL Hct (34.0-46.0) % RDW (11.5-15.5) % Lymphocytes # (1.0-4.8) k/uL Carbon Dioxide (22-30) mmol/L BUN (7-17) mg/dL Glucose (74-99) mg/dL POC Glucose (mg/dL) 113 H 142 H (75-99) mg/dL Total Protein (6.3-8.2) g/dL Albumin (3.5-5.0) g/dL Urine Appearance Cloudy H (Clear) Urine Nitrite Positive H (Negative) Ur Leukocyte Esterase Large H (Negative) Urine RBC 6 H (0-5) /hpf Urine WBC 101 H (0-5) /hpf Urine WBC Clumps Occasional H (None) /hpf Uric Acid Crystals Occasional H (None) /hpf Amorphous Sediment Occasional H (None) /hpf Urine Bacteria Occasional H (None) /hpf Hyaline Casts 10 H (0-2) /lpf Urine Mucus Occasional H (None) /hpf Urine Yeast (Budding) Moderate H (None) /hpf 06/24/17 06/25/17 06/25/17 Range/Units 21:21 07:28 07:39 RBC 2.92 L (3.80-5.40) m/uL Hgb 7.9 L (11.4-16.0) gm/dL Hct 25.4 L (34.0-46.0) % RDW 18.8 H (11.5-15.5) % Lymphocytes # 0.8 L (1.0-4.8) k/uL Carbon Dioxide (22-30) mmol/L BUN (7-17) mg/dL Glucose (74-99) mg/dL POC Glucose (mg/dL) 213 H 122 H (75-99) mg/dL Total Protein (6.3-8.2) g/dL Albumin (3.5-5.0) g/dL Urine Appearance (Clear) Urine Nitrite (Negative) Ur Leukocyte Esterase (Negative) Urine RBC (0-5) /hpf Urine WBC (0-5) /hpf Urine WBC Clumps (None) /hpf Uric Acid Crystals (None) /hpf Amorphous Sediment (None) /hpf Urine Bacteria (None) /hpf Hyaline Casts (0-2) /lpf Urine Mucus (None) /hpf Urine Yeast (Budding) (None) /hpf 06/25/17 Range/Units 07:39 RBC (3.80-5.40) m/uL Hgb (11.4-16.0) gm/dL Hct (34.0-46.0) % RDW (11.5-15.5) % Lymphocytes # (1.0-4.8) k/uL Carbon Dioxide 32 H (22-30) mmol/L BUN 20 H (7-17) mg/dL Glucose 115 H (74-99) mg/dL POC Glucose (mg/dL) (75-99) mg/dL Total Protein 4.6 L (6.3-8.2) g/dL Albumin 2.1 L (3.5-5.0) g/dL Urine Appearance (Clear) Urine Nitrite (Negative) Ur Leukocyte Esterase (Negative) Urine RBC (0-5) /hpf Urine WBC (0-5) /hpf Urine WBC Clumps (None) /hpf Uric Acid Crystals (None) /hpf Amorphous Sediment (None) /hpf Urine Bacteria (None) /hpf Hyaline Casts (0-2) /lpf Urine Mucus (None) /hpf Urine Yeast (Budding) (None) /hpf Microbiology - Last 24 Hours (Table) 06/23/17 18:20 Gram Stain - Preliminary Coccyx Wound Culture - Preliminary Gram Neg Bacilli Gram Neg Bacilli#2 Assessment and Plan (1) Decubitus skin ulcer Status: Acute (2) Diabetes Status: Acute (3) Morbid obesity Status: Acute (4) Pressure ulcer of coccygeal region, stage 4 Status: Acute (5) Urinary tract infection Status: Acute (6) Inadequate dietary intake of protein Status: Acute (7) Anemia Status: Acute Plan: 1. Recommend correction of nutrition and anemia prior to surgical intervention. 2. May benefit from ensure protein shakes. 3. Recommend repeat iron indices with iron infusions while inpatient. 4. Potential debridement postponed at least 48 hours to allow for correction of nutritional deficiencies including anemia.
[2017-06-25 11:56] LABS: Glucose,Whole Blood 127 mg/dL (75-99)
[2017-06-25] MEDS: MULTIVITAMINS, THERA 1 EACH TAB PO SCH (12:05)
--- NOTE | 2017-06-25 13:05 | PN ---
PROGRESS NOTE DATE OF SERVICE: 06/24/2017 This 76-year-old woman was admitted with extensive decubitus ulcer with a previous history of MRSA and ESBL and failure of outpatient treatment has been closely monitored. Dr. Hernandez and Dr. Escobar have seen the patient. PICC line is being inserted for IV antibiotic management. Wound debridement is being considered by Dr. Hernandez. The patient is mildly confused. PAST MEDICAL HISTORY: Reviewed. REVIEW OF SYSTEMS: CARDIOVASCULAR: No angina. RESPIRATORY: As mentioned. GI: As mentioned. : No dysuria. NERVOUS SYSTEM: No numbness or weakness. MEDICATIONS: Current medications are reviewed and include: 1. [place] 5 mg. 2. Aspirin. 3. Lipitor. 4. Lotrisone. 5. Coreg. 6. Vitamin D2. 7. Fioricet. 8. Pepcid. 9. Iron sulfate. 10.Lasix. 11.Lantus. 12.Humalog. 13.Lactaid. 14.Milk of Magnesia. 15.Multivitamins. 16.K-Dur. Doses reviewed. PHYSICAL EXAMINATION: The patient is alert, oriented x1. Pulse 64, blood pressure 129/68, respiration 18, temperature 97.8, pulse ox 99% on room air. HEENT: Conjunctivae normal. NECK: No jugular venous distention. CARDIOVASCULAR: S1, S2 RESPIRATORY: Breath sounds diminished at the bases. Scattered rhonchi ABDOMEN: Soft, nontender, no mass palpable. LEGS: No edema. NERVOUS SYSTEM: Diffusely weak. BACK: Decubitus ulcer present. LAB: Hemoglobin 8.1, glucose 205, 213. The cultures are gram-negative bacilli one in two from wound cultures. ASSESSMENT: 1. Extensive decubitus ulcer stage III and IV with failure of outpatient treatment with a possible sepsis, present on admission. 2. Anemia normocytic anemia and anemia of chronic disease. 3. ESBL and MRSA. 4. Status post PICC Line on the right arm for IV antibiotics. 5. Hyponatremia. 6. Dementia. 7. Change in mental status metabolic encephalopathy, chronic. 8. Diabetes mellitus type 2. 9. Gait dysfunction. 10.Hypertension. 11.Hyperlipidemia. 12.Obesity. 13. diabetes mellitus type 2. 14.NO CODE, NO CPR, NO VENT. RECOMMENDATIONS AND DISCUSSION: I recommend to continue with current medications and continue with broad- spectrum antibiotics. Otherwise PICC line per Dr. Hernandez. Discussed with staff and the family regarding a possible referral to select specialty because of extensive decubitus ulcers and nonhealing nature and as well as failure for outpatient treatment. I will also discuss with Infectious Disease and as well as case management team also. The overall prognosis is guarded because of the multiple medical problems and further recommendations to follow. Currently the patient is on meropenem. MMODL / IJN: [id number] / MTDD
[2017-06-25 14:28] LABS: % Iron Saturation 18.9 % (20-50)
[2017-06-25 16:56] LABS: Glucose,Whole Blood 127 mg/dL (75-99)
[2017-06-25 21:22] LABS: Glucose,Whole Blood 225 mg/dL (75-99)
[2017-06-25] MEDS: ATORVASTATIN 40 MG TAB PO SCH (21:39)
[2017-06-25] MEDS: DONEPEZIL 10 MG TAB PO SCH (21:40)
[2017-06-25] MEDS: LATANOPROST 0.005% OPHTH DROPS 2.5 ML BTL BOTH EYES SCH (21:41)
[2017-06-25] MEDS: SERTRALINE 25 MG TAB PO SCH (21:41)
[2017-06-25] MEDS: AMMONIUM LACTATE 12% LOTION 225 GM BTL TOPICAL SCH (21:43)
[2017-06-25] MEDS: INSULIN GLARGINE 100 UNIT/ML 10 ML VIAL SQ SCH (21:46)
[2017-06-26] MEDS: MEROPENEM 1 GM in SODIUM CHLORIDE 0.9% 100 ML IVPB SCH ×4 (00:53→23:36)
[2017-06-26] MEDS: SODIUM CHLORIDE 0.9% 1,000 ML IV SCH ×2 (06:42→21:56)
[2017-06-26 07:19] LABS: Glucose,Whole Blood 134 mg/dL (75-99)
[2017-06-26] MEDS: FAMOTIDINE 20 MG TAB PO SCH ×2 (09:17→21:55)
[2017-06-26] MEDS: CALCIUM CARB-VIT D 500MG-200UN 1 EACH TAB PO SCH ×2 (09:17→21:55)
[2017-06-26] MEDS: oxyCODONE ER 10 MG TAB.ER.12H PO SCH ×2 (09:17→21:55)
[2017-06-26] MEDS: HEPARIN SODIUM,PORCINE 5,000 UNIT/ML 1 ML VIAL SQ SCH ×2 (09:17→21:54)
[2017-06-26] MEDS: LACTOBACILLUS ACIDOPH & BULGAR 1 EACH PACKET PO SCH (09:17)
[2017-06-26] MEDS: FERROUS SULFATE 325 MG TAB PO SCH ×2 (09:17→21:55)
[2017-06-26] MEDS: CARVEDILOL 12.5 MG TAB PO SCH ×2 (09:17→16:41)
[2017-06-26] MEDS: FUROSEMIDE 20 MG TAB PO SCH (09:17)
[2017-06-26] MEDS: TIMOLOL 0.5% OPHTH DROPS 5 ML BTL BOTH EYES SCH ×2 (09:18→21:53)
[2017-06-26] MEDS: CHOLECALCIFEROL 1,000 UNIT TAB PO SCH (09:18)
[2017-06-26] MEDS: POTASSIUM CHLORIDE ER 10 MEQ TAB.ER.PRT PO SCH (09:18)
[2017-06-26] MEDS: BRIMONIDINE TARTRATE 0.2% DROPS 5 ML BTL BOTH EYES SCH ×2 (09:18→21:54)
[2017-06-26] MEDS: ASPIRIN 81 MG CHEW PO SCH (09:19)
[2017-06-26] MEDS: INSULIN LISPRO (humaLOG) 300 UNIT/3 ML VIAL SQ SCH ×4 (09:19→21:56)
[2017-06-26] MEDS: SODIUM HYPOCHLORITE 0.25% 480 ML BOT MISCELLANE SCH (09:20)
[2017-06-26] MEDS: CLOTRIMAZOLE/BETAMETH 1-0.05% CREAM 45 GM TUBE TOPICAL SCH ×2 (09:28→21:56)
--- NOTE | 2017-06-26 11:22 | PN ---
PROGRESS NOTE DATE OF SERVICE: 06/25/2017 This 76-year-old woman who was admitted with multiple decubitus ulcers, also had a significant infection with ESBL MRSA previously. The patient also diminished p.o. intake. Gram negative bacilli #1 and 2 grown from the culture. Final ID is pending at this time. Dr. Hernandez has seen the patient, surgical point of view. Tentatively debridement is planned on Monday. senior finance manager and social worker health services are also working towards a possible specialty care. The patient was started on empiric antibiotics. The patient was seen by infectious disease as well. Past medical history reviewed. REVIEW OF SYSTEMS: Could not be taken, the patient is confused. CURRENT MEDICATIONS: Reviewed and include: 1. [place] 5 mg q6 p.r.n. 2. Ventolin. 3. Aspirin 81 a day. 4. Lipitor 40 mg. 5. Lotrisone. 6. Alphagan. 8. Coreg 12.5 mg p.o. b.i.d. 9. Vitamin D. 10.Pepcid. 11.Iron sulfate. 12.Lasix. 13.Heparin. 14.Lantus. 15.Humalog. 16.Lactinex. 17.Meropenem 1 g IV q.8h. 18.K-Dur 10 mEq. 19.Timoptic. PHYSICAL EXAMINATION: Patient is alert oriented x1. Pulse is 60, blood pressure 106/60, respirations 16, temperature 97.9, pulse ox 90% on room air. HEENT: Conjunctivae normal. Oral mucosa moist. NECK: No jugular venous distention. No carotid bruit. No lymph node enlargement. CARDIOVASCULAR: S1/S2 normal. LUNGS: Diminished breath sounds, especially at the bases. Scattered rhonchi and crackles. ABDOMEN: Soft, nontender. LEGS: No edema. NERVOUS SYSTEM: Diffusely weak. LAB INVESTIGATIONS: WBC 6.2, hemoglobin 7.9. Accu-Cheks 127. Otherwise cultures are noted. Albumin is 2.1. ASSESSMENT: 1. Extensive decubitus ulcers, stage III and IV, failure to outpatient treatment , possible sepsis present on admission. 2. Normocytic anemia of chronic disease. 3. Change in mental status, chronic metabolic encephalopathy. 4. ESBL with methicillin-resistant Staphylococcus aureus history. 5. Status post PICC line on the right for IV antibiotics. 6. Hyponatremia. 7. Dementia as mentioned with change in mental status with chronic metabolic encephalopathy. 8. Diabetes mellitus type 2. 9. Gait dysfunction. 10.Hypertension. 11.Hyperlipidemia. 12.Obesity. 13.NO CODE, NO CPR, NO VENT. RECOMMENDATIONS AND DISCUSSION: Recommend to continue current management, continue monitor, continue symptomatic treatment. Continue the bronchodilators and IV antibiotics. Possible debridement per surgery as mentioned earlier. senior finance manager and social worker health services, to work towards possible referral to acute wound care or select specialty center. Repeat the labs. Monitor blood sugars closely. Prognosis guarded. Oral intake is encouraged. I discussed with staff. We will get a dietary evaluation, add supplements. The patient is no code, no CPR, no vent.. Further recommendations to follow. MMODL / IJN: [id number] / MTDMesha
[2017-06-26 12:08] LABS: Glucose,Whole Blood 150 mg/dL (75-99)
--- NOTE | 2017-06-26 12:43 | P.PN ---
Subjective Principal diagnosis: Complicated multiple decubiti ulcers of the sacrum The patient is a 76-year-old female with multiple readmissions in 4 weeks secondary to chronic urine tract infection as well as multiple decubiti ulcers. No new issues overnight. Iron indices are consistent with severe iron deficiency anemia. She has no new complaints. Nursing also confirms poor appetite of the patient. Objective - Vital Signs Vital signs: Vital Signs Temp 96.8 F L 06/26/17 07:00 Pulse 60 06/26/17 07:00 Resp 14 06/26/17 07:00 BP 129/68 06/26/17 07:00 Pulse Ox 96 06/26/17 07:10 Intake & Output 06/25/17 06/26/17 06/26/17 18:59 06:59 18:59 Intake Total 100 Output Total 500 1200 Balance -500 -1100 Weight 119 kg 121 kg Intake: Oral 100 Output: Urine 500 1200 Other: Voiding Method Indwelling Catheter Indwelling Catheter - Exam GENERAL: Well developed and in no acute distress. HEENT: No sclera icterus. Extraocular movements grossly intact. Moist buccal mucosa. Head is atraumatic, normocephalic. Hears conversational speech. No nasal drainage. NECK: Supple without lymphadenopathy. CHEST: Non-labored respirations and equal bilateral excursions. CARDIOVASCULAR: Irregular rate and rhythm. Palpable 2+ radial pulses. ABDOMEN: Soft, nontender. Protuberant MUSCULOSKELETAL: No clubbing, cyanosis. 2+ bilateral edema. NEUROLOGIC: No focal or lateralizing signs. PSYCH: Lethargic. Minimally respondent. SKIN: Good skin turgor. Will perfused. Multiple decubiti ulcers involving the sacrum unstageable with fibrinous exudate captured photographic imaging. - Labs CBC & Chem 7: 06/25/17 07:39 06/25/17 07:39 Labs: Abnormal Lab Results - Last 24 Hours (Table) 06/25/17 06/25/17 06/25/17 Range/Units 07:39 16:54 21:11 POC Glucose (mg/dL) 127 H 225 H (75-99) mg/dL Iron 30 L (37-170) ug/dL TIBC 159 L (265-497) ug/dL % Saturation 18.9 L (20-50) % 06/26/17 06/26/17 Range/Units 07:15 12:04 POC Glucose (mg/dL) 134 H 150 H (75-99) mg/dL Iron (37-170) ug/dL TIBC (265-497) ug/dL % Saturation (20-50) % Microbiology - Last 24 Hours (Table) 06/23/17 18:20 Anaerobic Culture - Preliminary Coccyx Assessment and Plan (1) Decubitus skin ulcer Status: Acute (2) Diabetes Status: Acute (3) Morbid obesity Status: Acute (4) Pressure ulcer of coccygeal region, stage 4 Status: Acute (5) Urinary tract infection Status: Acute (6) Inadequate dietary intake of protein Status: Acute (7) Anemia Status: Acute (8) Iron deficiency anemia due to dietary causes Status: Acute Plan: 1. Her iron indices are consistent with severe iron deficiency anemia despite oral intake. I started her on iron infusion. 2. Recommend repeat CBC for hemoglobin greater than 8 prior to debridement. 3. As her last debridement was done by Dr. Ward, we'll arrange for surgical debridement once anemia and nutrition has improved.
[2017-06-26] MEDS: MULTIVITAMINS, THERA 1 EACH TAB PO SCH (12:57)
[2017-06-26] MEDS: SODIUM FERRIC GLUCONAT-SUCROSE 125 MG in SODIUM CHLORIDE 0.9% 100 ML IVPB SCH (14:31)
[2017-06-26 17:27] LABS: Glucose,Whole Blood 145 mg/dL (75-99)
--- NOTE | 2017-06-26 19:22 | PN ---
PROGRESS NOTE DATE OF SERVICE: 06/26/2017. REASON FOR FOLLOW UP: Infected sacral wound. INTERVAL HISTORY: The patient is afebrile. She is breathing comfortably. Denies chest pain, cough. No abdominal pain or any worsening pain in the sacral wound area. EXAMINATION: Blood pressure 129/69, pulse 80, temperature 96.8. She is 96% on 2 L nasal cannula. General description is an elderly female lying in bed, in no distress. RESPIRATORY SYSTEM: Unlabored breathing. Clear to auscultation anteriorly. Heart is S1, S2. Regular rate and rhythm. Abdomen soft. No tenderness. Sacral wound is currently covered. LABS: Hemoglobin 7.8, white count 6.3. Wound cultures with gram-negative bacilli. DIAGNOSTIC IMPRESSION AND PLAN: Patient with infected sacral wound with a previous culture positive for ESBL Klebsiella and E coli admitted to the hospital with worsening wound. Surgeon on the case and planning for and I&D. Once her clinical condition stabilizes she will continue on the meropenem. Local wound care with Dakin solution. Dr. Albright will resume the care as of tomorrow to which the patient is known. MMODL / IJN: [id number] /
[2017-06-26 20:30] LABS: Glucose,Whole Blood 166 mg/dL (75-99)
[2017-06-26] MEDS ORDERED: oxyCODONE ER 10 MG TAB.ER.12H PO SCH (21:00)
[2017-06-26] MEDS: LATANOPROST 0.005% OPHTH DROPS 2.5 ML BTL BOTH EYES SCH (21:54)
[2017-06-26] MEDS: ATORVASTATIN 40 MG TAB PO SCH (21:55)
[2017-06-26] MEDS: DONEPEZIL 10 MG TAB PO SCH (21:56)
[2017-06-26] MEDS: SERTRALINE 25 MG TAB PO SCH (21:56)
[2017-06-26] MEDS: AMMONIUM LACTATE 12% LOTION 225 GM BTL TOPICAL SCH (21:56)
[2017-06-26] MEDS: INSULIN GLARGINE 100 UNIT/ML 10 ML VIAL SQ SCH (21:57)
[2017-06-27 07:31] LABS: Glucose,Whole Blood 117 mg/dL (75-99)
[2017-06-27] MEDS: INSULIN LISPRO (humaLOG) 300 UNIT/3 ML VIAL SQ SCH ×4 (07:38→20:48)
[2017-06-27] MEDS: MEROPENEM 1 GM in SODIUM CHLORIDE 0.9% 100 ML IVPB SCH ×3 (07:43→23:59)
[2017-06-27] MEDS: CHOLECALCIFEROL 1,000 UNIT TAB PO SCH (08:06)
[2017-06-27] MEDS: BRIMONIDINE TARTRATE 0.2% DROPS 5 ML BTL BOTH EYES SCH ×2 (08:07→20:05)
[2017-06-27] MEDS: FUROSEMIDE 20 MG TAB PO SCH (08:07)
[2017-06-27] MEDS: CALCIUM CARB-VIT D 500MG-200UN 1 EACH TAB PO SCH ×2 (08:07→20:34)
[2017-06-27] MEDS: CARVEDILOL 12.5 MG TAB PO SCH ×2 (08:07→15:09)
[2017-06-27] MEDS: FERROUS SULFATE 325 MG TAB PO SCH ×2 (08:07→20:06)
[2017-06-27] MEDS: FAMOTIDINE 20 MG TAB PO SCH ×2 (08:07→20:06)
[2017-06-27] MEDS: CLOTRIMAZOLE/BETAMETH 1-0.05% CREAM 45 GM TUBE TOPICAL SCH ×2 (08:07→20:15)
[2017-06-27] MEDS: ASPIRIN 81 MG CHEW PO SCH (08:07)
[2017-06-27] MEDS: POTASSIUM CHLORIDE ER 10 MEQ TAB.ER.PRT PO SCH (08:24)
[2017-06-27] MEDS: HEPARIN SODIUM,PORCINE 5,000 UNIT/ML 1 ML VIAL SQ SCH ×2 (08:25→20:07)
[2017-06-27] MEDS: TIMOLOL 0.5% OPHTH DROPS 5 ML BTL BOTH EYES SCH ×2 (08:25→20:05)
[2017-06-27] MEDS: oxyCODONE ER 10 MG TAB.ER.12H PO SCH ×2 (08:26→20:14)
[2017-06-27] MEDS: LACTOBACILLUS ACIDOPH & BULGAR 1 EACH PACKET PO SCH (08:26)
[2017-06-27 08:37] LABS: Anisocytosis Slight; CH 27.3; CHCM 31.9; HCT 24.4 % (34.0-46.0); HDW 3.86; HGB 7.6 gm/dL (11.4-16.0); Hypochromasia Moderate; MCHC 31.3 g/dL (31.0-37.0); MCV 86.2 fL (80.0-100.0); Mean Platelet Volume 7.1; Poikilocytosis Slight; RBC 2.83 m/uL (3.80-5.40); RDW 19.1 % (11.5-15.5)
[2017-06-27] MEDS: SODIUM FERRIC GLUCONAT-SUCROSE 125 MG in SODIUM CHLORIDE 0.9% 100 ML IVPB SCH (09:54)
[2017-06-27] MEDS: SODIUM HYPOCHLORITE 0.25% 480 ML BOT MISCELLANE SCH (09:54)
--- NOTE | 2017-06-27 10:02 | PN ---
PROGRESS NOTE DATE OF SERVICE: 06/26/2017 This is a 76-year-old woman who was admitted with multiple decubitus ulcers, has been closely monitored. The patient also had change in mental status, off and on. P.o. intake appears to be poor. Surgery is planning a possible debridement. IV iron infusion has been planned. Final ID of the organism is still pending at this time. PHYSICAL EXAM: Alert and oriented x2, pulse 60, blood pressure is 100/62, respirations 16, temperature 96.4, pulse ox 100% on 2 L. HEENT: Conjunctivae normal. NECK: No jugular venous distension. CARDIOVASCULAR SYSTEM: S1, S2, muffled. RESPIRATORY: Breath sounds diminished at the bases, a few scattered rhonchi. No crackles. ABDOMEN: Soft, nontender. LEGS: No edema, no swelling. NERVOUS SYSTEM: No focal deficits. LABS: Accu-Cheks 134, 150. ASSESSMENT: 1. Extensive decubitus ulcer, stage III and IV on the sacral area with failure to outpatient treatment. Possible sepsis present on admission. 2. Normocytic anemia of chronic disease. 3. Change in mental status with chronic metabolic encephalopathy. 4. ESBL with methicillin-resistant Staphylococcus aureus. 5. Status post PICC line on the right for IV antibiotics. 6. Hyponatremia. 7. Dementia with change in mental status with chronic metabolic encephalopathy. 8. Diabetes mellitus type 2. 9. Gait dysfunction. 10.Hypertension. 11.Hyperlipidemia. 12.Obesity. 13.NO CODE, NO CARDIOPULMONARY RESUSCITATION, NO VENTILATOR. RECOMMENDATIONS: In this 76-year-old woman who presented with multiple complex medical issues, will monitor the patient closely. Continue with the current medications. Continue with the symptomatic treatment. Otherwise at this time, I would recommend to continue with the antibiotics. Closely follow with multiple consultants. Prognosis guarded as mentioned earlier. Manufacturing Storeperson and Air Defense Artillery Officer to evaluate the possibility of rehab. Further recommendations to follow. MMODL / IJN: [id number] / MTDD
[2017-06-27] MEDS: MULTIVITAMINS, THERA 1 EACH TAB PO SCH (11:28)
[2017-06-27] MEDS: SODIUM CHLORIDE 0.9% 1,000 ML IV SCH (11:28)
[2017-06-27 12:23] LABS: Glucose,Whole Blood 102 mg/dL (75-99)
--- NOTE | 2017-06-27 13:02 | P.PN ---
Subjective Principal diagnosis: Multiple sacral decubitus ulcers Known patient bed bound with multiple sacral decubitus ulcers S/P surgical debridement. Known chronic iron deficiency anemia, severe protein energy malnutrition and poor oral intake . Objective - Vital Signs Vital signs: Vital Signs Temp 97.1 F L 06/27/17 07:00 Pulse 60 06/27/17 10:40 Resp 15 06/27/17 10:40 BP 127/57 06/27/17 07:00 Pulse Ox 99 06/26/17 23:00 Intake & Output 06/26/17 06/27/17 06/27/17 18:59 06:59 18:59 Intake Total 300 Output Total 325 1800 400 Balance -325 -1500 -400 Weight 121.7 kg Intake: Oral 300 Output: Urine 325 1800 400 Uretheral (Baires) 600 Other: Voiding Method Indwelling Catheter Indwelling Catheter Indwelling Catheter # Bowel Movements 0 1 - Exam MUltiple large pressure ulcers with necrotic tissue and exudates. Generalised anasarca - Labs CBC & Chem 7: 06/27/17 07:59 06/25/17 07:39 Labs: Abnormal Lab Results - Last 24 Hours (Table) 06/26/17 06/26/17 06/27/17 Range/Units 16:55 20:26 07:19 RBC (3.80-5.40) m/uL Hgb (11.4-16.0) gm/dL Hct (34.0-46.0) % RDW (11.5-15.5) % POC Glucose (mg/dL) 145 H 166 H 117 H (75-99) mg/dL 06/27/17 06/27/17 Range/Units 07:59 12:21 RBC 2.83 L (3.80-5.40) m/uL Hgb 7.6 L (11.4-16.0) gm/dL Hct 24.4 L (34.0-46.0) % RDW 19.1 H (11.5-15.5) % POC Glucose (mg/dL) 102 H (75-99) mg/dL Microbiology - Last 24 Hours (Table) 06/23/17 18:20 Gram Stain - Final Coccyx Wound Culture - Final Escherichia coli Pseudomonas aeruginosa Assessment and Plan (1) Iron deficiency anemia due to dietary causes Status: Acute (2) Decubitus skin ulcer Status: Acute (3) Diabetes Status: Acute (4) Morbid obesity Status: Acute Plan: 1. Surgical debridement in OR 2. Consent to be obtained from family 3. NPO after midnight 4. Check prealbumin and Hemoglobin A1c 5. Recommend palliative care/hospice
[2017-06-27 17:51] LABS: Glucose,Whole Blood 82 mg/dL (75-99)
--- NOTE | 2017-06-27 17:53 | P.PN ---
Subjective Date of service 07/12/2017. Personal being dictated for Dr. Mazariegos. Interval history: This a 76-year-old female admitted with extensive pressure ulcers of the sacral area with failure of outpatient therapy, possible sepsis and multiple other medical issues. Maintained on Merrem as per ID. Wound cultures reporting MDRO ESBL, moderate E. coli, few pseudomonas aeruginosa. Scheduled for debridement tomorrow with surgery. Afebrile, T-max 99.3. Hemoglobin 7.6. Denies abdominal pain or increased sacral wound pain .Denies chest pain, palpitations or increasing shortness of breath. Objective - Vital Signs Vital signs: Vital Signs Temp 97.9 F 06/27/17 15:00 Pulse 62 06/27/17 15:00 Resp 18 06/27/17 15:00 BP 123/64 06/27/17 15:00 Pulse Ox 96 06/27/17 15:00 Intake & Output 06/26/17 06/27/17 06/27/17 18:59 06:59 18:59 Intake Total 300 Output Total 325 1800 400 Balance -325 -1500 -400 Weight 121.7 kg Intake: Oral 300 Output: Urine 325 1800 400 Uretheral (Baires) 600 Other: Voiding Method Indwelling Catheter Indwelling Catheter Indwelling Catheter # Bowel Movements 0 1 0 - Exam PHYSICAL EXAM: VITAL SIGNS: As above[] GENERAL: Lying in bed-specialty bed, no acute distress HEENT: Conjunctivae normal. eyes normal., Oral mucosa moist NECK: No JVD. No thyroid enlargement. No LNs CARDIOVASCULAR: S1, S2 muffled. No murmur RESPIRATION: Respiratory effort normal, Breath sounds diminished in the bases. Occasional scattered rhonchi, no crackles. No bronchial breathing. ABDOMEN: Soft, nontender . No guarding. no masses palpable. Bowel sounds heard. LEGS: No edema. no swelling PSYCHIATRY: Alert and oriented 2, mood and affect normal, answer simple questions and follows simple commands. NERVOUS SYSTEM: Cranial N 2-12 grossly normal. Diffuse weakness, No focal deficits. Skin: no ulcer no rash Microbiology 06/23/17 18:20 Coccyx Gram Stain - Final 06/23/17 18:20 Coccyx Wound Culture - Final Escherichia coli Pseudomonas aeruginosa 06/23/17 18:20 Coccyx Anaerobic Culture - Preliminary - Labs CBC & Chem 7: 06/27/17 07:59 06/25/17 07:39 Labs: Abnormal Lab Results - Last 24 Hours (Table) 06/26/17 06/27/17 06/27/17 Range/Units 20:26 07:19 07:59 RBC 2.83 L (3.80-5.40) m/uL Hgb 7.6 L (11.4-16.0) gm/dL Hct 24.4 L (34.0-46.0) % RDW 19.1 H (11.5-15.5) % POC Glucose (mg/dL) 166 H 117 H (75-99) mg/dL 06/27/17 Range/Units 12:21 RBC (3.80-5.40) m/uL Hgb (11.4-16.0) gm/dL Hct (34.0-46.0) % RDW (11.5-15.5) % POC Glucose (mg/dL) 102 H (75-99) mg/dL Microbiology - Last 24 Hours (Table) 06/23/17 18:20 Gram Stain - Final Coccyx Wound Culture - Final Escherichia coli Pseudomonas aeruginosa Assessment and Plan Plan: 1. Extensive pressure ulcer, stage III and IV on the sacral area with failure to of outpatient treatment, with possible sepsis present on admission, cultures now reporting MDRO ESBL, Pseudomonas aeruginosa[]. 2. [ Normocytic anemia of chronic disease]. 3. [ Changes in mental status with chronic metabolic encephalopathy, in a patient with dementia]. 4. [ ESBL with MRSA]. 5. [ Diabetes mellitus type 2]. 6. Status post PICC line[]. 7. [ No code, no CPR, no intubation]. Plan: Continue on current medication regime ,monitoring and symptomatic treatment. Maintain antibiotics as per infectious disease. Scheduled for debridement tomorrow with surgery.[facility] consult initiated regarding extensive wounds, failing outpatient treatment. Prognosis guarded given multiple complex medical issues. Further recommendations to follow. The impression and plan of care has been dictated as directed as a scribe. : I performed a H&P examination of this patient and discussed the same with the dictator. I agree with the dictator's note. Any additional findings/opinions/ etc. will be noted.
[2017-06-27] MEDS: AMMONIUM LACTATE 12% LOTION 225 GM BTL TOPICAL SCH (20:03)
[2017-06-27] MEDS: ATORVASTATIN 40 MG TAB PO SCH (20:04)
[2017-06-27] MEDS: LATANOPROST 0.005% OPHTH DROPS 2.5 ML BTL BOTH EYES SCH (20:04)
[2017-06-27] MEDS: SERTRALINE 25 MG TAB PO SCH (20:04)
[2017-06-27] MEDS: DONEPEZIL 10 MG TAB PO SCH (20:06)
[2017-06-27 20:43] LABS: Glucose,Whole Blood 176 mg/dL (75-99)
[2017-06-27] MEDS: INSULIN GLARGINE 100 UNIT/ML 10 ML VIAL SQ SCH (20:50)
--- NOTE | 2017-06-27 23:10 | P.PN ---
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 The patient has a recent hospitalization where she was found evidence of pressure ulceration of the coccyx and buttocks. She underwent surgical debridement during that stay. She was treated with local wound care. Was recently hospitalized [facility] evidence of septic shock. Aggressive therapy she slowly improved. Patient has a very poor overall prognosis. I do believe that she was made DO NOT RESUSCITATE. However other aggressive care continues at this time. The patient has evidence of extensive necrosis that has continued to worsen. The patient has brought to Hospital at this time due to significant disc contentment with care at the [facility]. Objective - Vital Signs - Exam Superobese 76-year-old female who is comfortable HEENT: Anicteric conjunctiva are pink and moist nasal mucosa grossly intact without significant lesions, there is no thrush. Dentition is poor Neck: The neck is supple without significant lymphadenopathy or thyromegaly. Lungs: Symmetrical air entry with basilar crackles no bronchial sounds no dullness. Heart: Heart rate is slow at just 60,. She 100% paced by the monitor. Audible S1 and S2 soft S4 no murmur click or rub Abdomen: Superobese Positive bowel sounds soft and nontender without palpable masses or organomegaly. There was no guarding or rebound. Extremities: The extremities have some generalized edema and no significant open ulcerations are seen. The heels are intact at this time. Neuro: Patient .awake and alert Skin: Patient is evidence the extensive pressure ulceration to the coccyx and buttocks. Please see the nursing documentation for the photography and measurements of these extensive ulcerations are grossly necrotic. The odor is improved with utilization of the Dakin's. However large areas of necrotic material are still seen Laboratory Results WBC 7.0 k/uL (3.8-10.6) 06/27/17 07:59 RBC 2.83 m/uL (3.80-5.40) L 06/27/17 07:59 Hgb 7.6 gm/dL (11.4-16.0) L 06/27/17 07:59 Hct 24.4 % (34.0-46.0) L 06/27/17 07:59 MCV 86.2 fL (80.0-100.0) 06/27/17 07:59 MCH 27.0 pg (25.0-35.0) 06/27/17 07:59 MCHC 31.3 g/dL (31.0-37.0) 06/27/17 07:59 RDW 19.1 % (11.5-15.5) H 06/27/17 07:59 Plt Count 265 k/uL (150-450) 06/27/17 07:59 Neutrophils % 75 % 06/25/17 07:39 Lymphocytes % 13 % 06/25/17 07:39 Monocytes % 5 % 06/25/17 07:39 Eosinophils % 5 % 06/25/17 07:39 Basophils % 0 % 06/25/17 07:39 Neutrophils # 4.7 k/uL (1.3-7.7) 06/25/17 07:39 Lymphocytes # 0.8 k/uL (1.0-4.8) L 06/25/17 07:39 Monocytes # 0.3 k/uL (0-1.0) 06/25/17 07:39 Eosinophils # 0.3 k/uL (0-0.7) 06/25/17 07:39 Basophils # 0.0 k/uL (0-0.2) 06/25/17 07:39 Hypochromasia Moderate 06/27/17 07:59 Poikilocytosis Slight 06/27/17 07:59 Anisocytosis Slight 06/27/17 07:59 PT 11.2 sec (9.0-12.0) 06/25/17 07:39 INR 1.1 (<1.2) 06/25/17 07:39 Sodium 138 mmol/L (137-145) 06/25/17 07:39 Potassium 3.9 mmol/L (3.5-5.1) 06/25/17 07:39 Chloride 101 mmol/L (98-107) 06/25/17 07:39 Carbon Dioxide 32 mmol/L (22-30) H 06/25/17 07:39 Anion Gap 5 mmol/L 06/25/17 07:39 BUN 20 mg/dL (7-17) H 06/25/17 07:39 Creatinine 0.97 mg/dL (0.52-1.04) 06/25/17 07:39 Est GFR (MDRD) Af Amer >60 (>60 ml/min/1.73 sqM) 06/25/17 07:39 Est GFR (MDRD) Non-Af 56 (>60 ml/min/1.73 sqM) 06/25/17 07:39 Glucose 115 mg/dL (74-99) H 06/25/17 07:39 POC Glucose (mg/dL) 176 mg/dL (75-99) H 06/27/17 20:42 POC Glu Enhanced Environmental Operator Odilia Garcia 06/27/17 20:[address] Glu mg/dL 137 mg/dL 06/23/17 18:34 Hemoglobin A1c 6.4 % (4.2-6.1) H 06/23/17 18:34 Calcium 8.4 mg/dL (8.4-10.2) 06/25/17 07:39 Iron 30 ug/dL (37-170) L 06/25/17 07:39 TIBC 159 ug/dL (265-497) L 06/25/17 07:39 % Saturation 18.9 % (20-50) L 06/25/17 07:39 Ferritin 240.9 ng/mL (10.0-291.0) 06/25/17 07:39 Total Bilirubin 0.4 mg/dL (0.2-1.3) 06/25/17 07:39 AST 27 U/L (14-36) 06/25/17 07:39 ALT 26 U/L (9-52) 06/25/17 07:39 Alkaline Phosphatase 115 U/L (38-126) 06/25/17 07:39 Total Protein 4.6 g/dL (6.3-8.2) L 06/25/17 07:39 Albumin 2.1 g/dL (3.5-5.0) L 06/25/17 07:39 Urine Color Yellow 06/24/17 14:00 Urine Appearance Cloudy (Clear) H 06/24/17 14:00 Urine pH 5.5 (5.0-8.0) 06/24/17 14:00 Ur Specific [place] 1.012 (1.001-1.035) 06/24/17 14:00 Urine Protein Negative (Negative) 06/24/17 14:00 Urine Glucose (UA) Negative (Negative) 06/24/17 14:00 Urine Ketones Negative (Negative) 06/24/17 14:00 Urine Blood Negative (Negative) 06/24/17 14:00 Urine Nitrite Positive (Negative) H 06/24/17 14:00 Urine Bilirubin Negative (Negative) 06/24/17 14:00 Urine Urobilinogen <2.0 mg/dL (<2.0) 06/24/17 14:00 Ur Leukocyte Esterase Large (Negative) H 06/24/17 14:00 Urine RBC 6 /hpf (0-5) H 06/24/17 14:00 Urine WBC 101 /hpf (0-5) H 06/24/17 14:00 Urine WBC Clumps Occasional /hpf (None) H 06/24/17 14:00 Ur Squamous Epith Cells <1 /hpf (0-4) 06/24/17 14:00 Uric Acid Crystals Occasional /hpf (None) H 06/24/17 14:00 Amorphous Sediment Occasional /hpf (None) H 06/24/17 14:00 Urine Bacteria Occasional /hpf (None) H 06/24/17 14:00 Hyaline Casts 10 /lpf (0-2) H 06/24/17 14:00 Urine Mucus Occasional /hpf (None) H 06/24/17 14:00 Urine Yeast (Budding) Moderate /hpf (None) H 06/24/17 14:00 Microbiology 06/23/17 18:20 Coccyx Gram Stain - Final 06/23/17 18:20 Coccyx Wound Culture - Final Escherichia coli Pseudomonas aeruginosa 06/23/17 18:20 Coccyx Anaerobic Culture - Preliminary Assessment and Plan (1) Shock, septic, Gram negative Narrative/Plan: 76-year-old female who suffers from superobesity and also medical complaints presents from extended care facility with altered mental status. He does appear to admission the patient had evidence of sepsis and then evidence of shock in that she had lack of improvement after fluid resuscitation and required vasopressor therapy. She is progressed on to respiratory failure requiring BiPAP. She is a DO NOT INTUBATE status. Status discussed with the family. Discussing that pressure ulceration in this situation is a symptom of a person that is chronically ill and declining. The current bout of sepsis is likely related to the infection from the pressure ulcerations. But her progressively declining medical condition remains etiology of the pressure ulcerations. The patient has not been seen by surgery. Surgical debridement we plan during this stay. Overall be debridement of necrotic material. Will not be any type of flap grafting occurring. Patient still has large extensive areas of necrosis. She has poor nutrition. Poor overall functional status. If the family requires further intervention. We'll consider transfer to a tertiary center to see if any further surgical options to exist. However Palliative or Comfort Care continue to remain options at this time. Due to the current culture data Zosyn was transitioned to meropenem which will continue all cultures are in process. She is on a specialty bed. Continue ongoing turning and local wound care with Dakin solution. The case is discussed with the surgeon with plans of surgical debridement tomorrow. (2) Pressure ulcer of coccygeal region, stage 4 Status: Acute
[2017-06-28] MEDS: SODIUM CHLORIDE 0.9% 1,000 ML IV SCH ×2 (03:20→22:05)
[2017-06-28] MEDS: CARVEDILOL 12.5 MG TAB PO SCH ×2 (07:24→15:10)
[2017-06-28] MEDS: CALCIUM CARB-VIT D 500MG-200UN 1 EACH TAB PO SCH ×2 (07:24→22:02)
[2017-06-28] MEDS: ASPIRIN 81 MG CHEW PO SCH (07:24)
[2017-06-28] MEDS: CHOLECALCIFEROL 1,000 UNIT TAB PO SCH (07:24)
[2017-06-28] MEDS: FERROUS SULFATE 325 MG TAB PO SCH ×2 (07:25→22:02)
[2017-06-28] MEDS: POTASSIUM CHLORIDE ER 10 MEQ TAB.ER.PRT PO SCH (07:25)
[2017-06-28] MEDS: FUROSEMIDE 20 MG TAB PO SCH (07:25)
[2017-06-28] MEDS: HEPARIN SODIUM,PORCINE 5,000 UNIT/ML 1 ML VIAL SQ SCH ×2 (07:25→22:02)
[2017-06-28] MEDS: LACTOBACILLUS ACIDOPH & BULGAR 1 EACH PACKET PO SCH (07:25)
[2017-06-28] MEDS: FAMOTIDINE 20 MG TAB PO SCH ×2 (07:25→22:02)
[2017-06-28] MEDS: SODIUM HYPOCHLORITE 0.25% 480 ML BOT MISCELLANE SCH (07:26)
[2017-06-28] MEDS: BRIMONIDINE TARTRATE 0.2% DROPS 5 ML BTL BOTH EYES SCH ×2 (07:29→22:05)
[2017-06-28] MEDS: TIMOLOL 0.5% OPHTH DROPS 5 ML BTL BOTH EYES SCH ×2 (07:29→22:04)
[2017-06-28] MEDS: oxyCODONE ER 10 MG TAB.ER.12H PO SCH ×2 (07:30→22:03)
[2017-06-28] MEDS: CLOTRIMAZOLE/BETAMETH 1-0.05% CREAM 45 GM TUBE TOPICAL SCH ×2 (07:30→22:20)
[2017-06-28] MEDS: INSULIN LISPRO (humaLOG) 300 UNIT/3 ML VIAL SQ SCH ×4 (07:30→22:17)
[2017-06-28] MEDS: MEROPENEM 1 GM in SODIUM CHLORIDE 0.9% 100 ML IVPB SCH ×3 (07:30→23:31)
[2017-06-28 07:51] LABS: Glucose,Whole Blood 109 mg/dL (75-99)
[2017-06-28] MEDS ORDERED: IV FLUID CONTINUATION 1,000 ML IV ONE (09:00)
[2017-06-28 09:40] LABS: Anion Gap 3 mmol/L; Blood Urea Nitrogen 21 mg/dL (7-17); Calcium 8.7 mg/dL (8.4-10.2); Carbon Dioxide 32 mmol/L (22-30); Chloride 105 mmol/L (98-107); Glucose 109 mg/dL (74-99); Non-African American GFR(MDRD) >60 (>60 ml/min/1.73 sqM); Sodium 140 mmol/L (137-145)
--- NOTE | 2017-06-28 09:41 | P.PN ---
Subjective Date of service 06/27/2017. Personal being dictated for Dr. Mazariegos. Interval history: This a 76-year-old female admitted with extensive pressure ulcers of the sacral area with failure of outpatient therapy, possible sepsis and multiple other medical issues. Maintained on Merrem as per ID. Wound cultures reporting MDRO ESBL, moderate E. coli, few pseudomonas aeruginosa. Scheduled for debridement tomorrow with surgery. Afebrile, T-max 99.3. Hemoglobin 7.6. Denies abdominal pain or increased sacral wound pain .Denies chest pain, palpitations or increasing shortness of breath. 06/28/2017 Sitting up on specialty bed, awaiting debridement this morning, T- max 99.4. Labs pending. Denies abdominal pain. Denies chest pain, palpitations or increasing shortness of breath. Objective - Vital Signs Vital signs: Vital Signs Temp 99.4 F 06/27/17 23:00 Pulse 61 06/27/17 23:00 Resp 16 06/27/17 23:00 BP 129/54 06/27/17 23:00 Pulse Ox 100 06/27/17 23:00 Intake & Output 06/27/17 06/28/17 06/28/17 18:59 06:59 18:59 Intake Total 0 Output Total 400 700 Balance -400 -700 Weight 122 kg Intake: Oral 0 Output: Urine 400 700 Uretheral (Baires) 100 Other: Voiding Method Indwelling Catheter Indwelling Catheter # Voids 1 # Bowel Movements 0 1 - Exam PHYSICAL EXAM: VITAL SIGNS: As above GENERAL: Sitting up in bed-specialty bed, no acute distress HEENT: Conjunctivae normal. eyes normal, Oral mucosa moist NECK: No JVD. No thyroid enlargement. No LNs CARDIOVASCULAR: S1, S2 muffled. No murmur RESPIRATION: Respiratory effort normal, Breath sounds diminished in the bases. Occasional scattered rhonchi, no crackles. ABDOMEN: Soft, nontender . No guarding. no masses palpable. Bowel sounds heard. LEGS: No edema. no swelling PSYCHIATRY: Alert and oriented 2, mood and affect normal, answer simple questions and follows simple commands. NERVOUS SYSTEM: Cranial N 2-12 grossly normal. Diffuse weakness, No focal deficits. SKIN: Sacra/coccyxl ulcer covered, clean, dry and intact. refer to nursing documentation re; measurements/pictures Microbiology 06/23/17 18:20 Coccyx Anaerobic Culture - Final 06/23/17 18:20 Coccyx Gram Stain - Final 06/23/17 18:20 Coccyx Wound Culture - Final Escherichia coli Pseudomonas aeruginosa - Labs CBC & Chem 7: 06/27/17 07:59 06/25/17 07:39 Labs: Abnormal Lab Results - Last 24 Hours (Table) 06/27/17 06/27/17 06/27/17 Range/Units 07:59 12:21 20:42 RBC 2.83 L (3.80-5.40) m/uL Hgb 7.6 L (11.4-16.0) gm/dL Hct 24.4 L (34.0-46.0) % RDW 19.1 H (11.5-15.5) % POC Glucose (mg/dL) 102 H 176 H (75-99) mg/dL 06/28/17 Range/Units 07:47 RBC (3.80-5.40) m/uL Hgb (11.4-16.0) gm/dL Hct (34.0-46.0) % RDW (11.5-15.5) % POC Glucose (mg/dL) 109 H (75-99) mg/dL Microbiology - Last 24 Hours (Table) 06/23/17 18:20 Anaerobic Culture - Final Coccyx 06/23/17 18:20 Gram Stain - Final Coccyx Wound Culture - Final Escherichia coli Pseudomonas aeruginosa Assessment and Plan Plan: 1. Extensive pressure ulcer, stage III and IV on the sacral area with failure to of outpatient treatment, with possible sepsis present on admission, cultures now reporting MDRO ESBL, Pseudomonas aeruginosa[]. 2. [ Normocytic anemia of chronic disease]. 3. [ Changes in mental status with chronic metabolic encephalopathy, in a patient with dementia]. 4. [ ESBL with MRSA]. 5. [ Diabetes mellitus type 2]. 6. Status post PICC line[]. 7. [ No code, no CPR, no intubation]. Plan: Continue on current medication regime ,monitoring and symptomatic treatment. Antibiotics as per infectious disease. Debridement this am. Social work/case management assisting with [facility] consult in regards to extensive wounds. Prognosis guarded given multiple complex medical issues. Further recommendations to follow. The impression and plan of care has been dictated as directed as a scribe. : I performed a H&P examination of this patient and discussed the same with the dictator. I agree with the dictator's note. Any additional findings/opinions/ etc. will be noted.
[2017-06-28 09:47] LABS: Anisocytosis Slight; Basophils % (A) 0 %; CH 26.2; Eosinophils # (A) 0.6 k/uL (0-0.7); Eosinophils % (A) 7 %; HCT 26.1 % (34.0-46.0); HDW 3.84; HGB 7.9 gm/dL (11.4-16.0); Hypochromasia Marked; Luc # (Auto) 0.14; Luc % (Auto) 2; Lymphocytes # (A) 0.9 k/uL (1.0-4.8); Lymphocytes % (A) 10 %; MCH 26.7 pg (25.0-35.0); MCHC 30.4 g/dL (31.0-37.0); MCV 87.9 fL (80.0-100.0); Mean Platelet Volume 6.3; Monocytes # (A) 0.5 k/uL (0-1.0); Monocytes % (A) 5 %; Neutrophils # (A) 7.2 k/uL (1.3-7.7); Neutrophils % (A) 76 %; Poikilocytosis Slight; RBC 2.98 m/uL (3.80-5.40); RDW 18.5 % (11.5-15.5); WBC 9.4 k/uL (3.8-10.6); WBC (Perox) 10.18
[2017-06-28] MEDS ORDERED: ePHEDrine SULFATE/0.9% NACL/PF 50 MG/5 ML SYRINGE IV ONE (09:51)
[2017-06-28] MEDS ORDERED: PROPOFOL 10 MG/ML 20 ML VIAL IV ONE (09:51)
[2017-06-28] MEDS ORDERED: LIDOCAINE 1% INJ 10MG/ML (20 ML MDV) ONE (09:51)
[2017-06-28] MEDS ORDERED: fentaNYL (PF) 50 MCG/ML 2 ML AMP ONE (09:51)
[2017-06-28] MEDS ORDERED: SUCCINYLCHOLINE CHLORIDE 100 MG/5 ML SYR IV ONE (09:51)
[2017-06-28] MEDS ORDERED: PHENYLEPHRINE-0.9% NACL SYG 1 MG/10 ML SYRINGE ONE (09:51)
[2017-06-28] MEDS: SODIUM FERRIC GLUCONAT-SUCROSE 125 MG in SODIUM CHLORIDE 0.9% 100 ML IVPB SCH (10:10)
[2017-06-28] MEDS ORDERED: COLLAGENASE 250 UNIT/GM OINTMENT 30 GM TUBE TOPICAL ONE (10:52)
[2017-06-28] MEDS: MULTIVITAMINS, THERA 1 EACH TAB PO SCH (11:10)
--- NOTE | 2017-06-28 11:46 | P.EN ---
Spoke with Patient's George Brand at [phone] after surgery. The wound sizes have increased with worsening undermining . She has severe protein energy malnutrition. Continue local wound care with Santyl . No further surgical debridement unless wound is identified as source of sepsis . Recommend palliative care and/ or hospice. If patient's family want further surgery, recommend plastic surgery evaluation for possible flap closure. Poor nutritional status, diabetes, immobility are contributing factors to her worsening ulcers .
--- NOTE | 2017-06-28 11:49 | P.OP ---
Date of Procedure: 06/28/17 Preoperative Diagnosis: Multiple sacral and coccygeal ulcers Severe protein energy malnutrition Type 2 diabetes mellitus Postoperative Diagnosis: Multiple sacral and coccygeal ulcers Severe protein energy malnutrition Type 2 diabetes mellitus Procedure(s) Performed: Sharp excisional debridement of Stage 4 pressure ulcersx3 and Stage 2 pressure ulcerx1 Implants: NA Anesthesia: ELLYNA Surgeon: Mariah Ward Estimated Blood Loss (ml): 5 Pathology: none sent Indications for Procedure: 76 years old female with multiple comorbid conditions including severe protein energy malnutrition, type 2 diabetes mellitus presents with sacral and coccygeal decubitus ulcers. Informed consent was obtained from the for surgical debridement in the OR. Operative Findings: Post debridement measurements Left 9x5x2 cm Middle 9x10,.5x 2.5 cm Right 8x7x2 cm Right lower 3x2.2 x 0.5 cm Description of Procedure: The patient was brought to the operating room and placed in supine position. Gen. anesthesia with endotracheal intubation was performed as per anesthesia team. She was then positioned prone. A timeout was performed to verify correct patient and correct procedure. Patient was confirmed to receive perioperative IV antibiotics. Betadine was used to prep the skin followed by application of sterile drapes. Using #15 scalpel blade sharp excisional debridement was performed to remove the necrotic skin, subcutaneous fat ,fascia and muscle until fresh bleeding was obtained. Hemostasis was checked. The cavities were irrigated with pulse lavage irrigation and the necrotic skin, subcutaneous tissue and fascia were removed. There was significant undermining noted superiorly at 12 o'clock position for all 3 ulcers Stage IV pressure ulcer involving skin, subcutaneous tissue and fascia and muscles . The right lower ulcer is new and stage III. There is excoriation and cellulitis involving the entire lower back, gluteal region and upper thighs.Post surgical debridement measurements as follows: Left 9x5x2 cm Middle 9x10. 5x 2.5 cm Right 8x7x2 cm Right lower 3x2.2 x 0.5 cm Santyl was applied at the base of the wound. Adaptic dressing was applied. Clean dressings applied. Patient tolerated the procedure well.
[2017-06-28 12:04] LABS: Glucose,Whole Blood 111 mg/dL (75-99)
[2017-06-28 16:54] LABS: Glucose,Whole Blood 151 mg/dL (75-99)
[2017-06-28 21:15] LABS: Glucose,Whole Blood 209 mg/dL (75-99)
[2017-06-28] MEDS: DONEPEZIL 10 MG TAB PO SCH (22:02)
[2017-06-28] MEDS: ATORVASTATIN 40 MG TAB PO SCH (22:02)
[2017-06-28] MEDS: LATANOPROST 0.005% OPHTH DROPS 2.5 ML BTL BOTH EYES SCH (22:03)
[2017-06-28] MEDS: SERTRALINE 25 MG TAB PO SCH (22:03)
[2017-06-28] MEDS: INSULIN GLARGINE 100 UNIT/ML 10 ML VIAL SQ SCH (22:03)
[2017-06-28] MEDS: AMMONIUM LACTATE 12% LOTION 225 GM BTL TOPICAL SCH (22:20)
--- NOTE | 2017-06-28 22:35 | P.PN ---
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 The patient has a recent hospitalization where she was found evidence of pressure ulceration of the coccyx and buttocks. She underwent surgical debridement during that stay. She was treated with local wound care. Was recently hospitalized [facility] evidence of septic shock. Aggressive therapy she slowly improved. Patient has a very poor overall prognosis. I do believe that she was made DO NOT RESUSCITATE. However other aggressive care continues at this time. The patient has evidence of extensive necrosis that has continued to worsen. The patient has brought to Hospital at this time due to significant disc contentment with care at the [facility]. Objective - Vital Signs - Exam Superobese 76-year-old female who is comfortable HEENT: Anicteric conjunctiva are pink and moist nasal mucosa grossly intact without significant lesions, there is no thrush. Dentition is poor Neck: The neck is supple without significant lymphadenopathy or thyromegaly. Lungs: Symmetrical air entry with basilar crackles no bronchial sounds no dullness. Heart: Heart rate is slow at just 60,. She 100% paced by the monitor. Audible S1 and S2 soft S4 no murmur click or rub Abdomen: Superobese Positive bowel sounds soft and nontender without palpable masses or organomegaly. There was no guarding or rebound. Extremities: The extremities have some generalized edema and no significant open ulcerations are seen. The heels are intact at this time. Neuro: Patient .awake and alert Skin: Patient is evidence the extensive pressure ulceration to the coccyx and buttocks. Please see the nursing documentation for the photography and measurements of these extensive ulcerations are grossly necrotic. The odor is improved with utilization of the Dakin's. However large areas of necrotic material are still seen Laboratory Results WBC 9.4 k/uL (3.8-10.6) 06/28/17 08:52 RBC 2.98 m/uL (3.80-5.40) L 06/28/17 08:52 Hgb 7.9 gm/dL (11.4-16.0) L 06/28/17 08:52 Hct 26.1 % (34.0-46.0) L 06/28/17 08:52 MCV 87.9 fL (80.0-100.0) 06/28/17 08:52 MCH 26.7 pg (25.0-35.0) 06/28/17 08:52 MCHC 30.4 g/dL (31.0-37.0) L 06/28/17 08:52 RDW 18.5 % (11.5-15.5) H 06/28/17 08:52 Plt Count 328 k/uL (150-450) 06/28/17 08:52 Neutrophils % 76 % 06/28/17 08:52 Lymphocytes % 10 % 06/28/17 08:52 Monocytes % 5 % 06/28/17 08:52 Eosinophils % 7 % 06/28/17 08:52 Basophils % 0 % 06/28/17 08:52 Neutrophils # 7.2 k/uL (1.3-7.7) 06/28/17 08:52 Lymphocytes # 0.9 k/uL (1.0-4.8) L 06/28/17 08:52 Monocytes # 0.5 k/uL (0-1.0) 06/28/17 08:52 Eosinophils # 0.6 k/uL (0-0.7) 06/28/17 08:52 Basophils # 0.0 k/uL (0-0.2) 06/28/17 08:52 Hypochromasia Marked 06/28/17 08:52 Poikilocytosis Slight 06/28/17 08:52 Anisocytosis Slight 06/28/17 08:52 PT 11.2 sec (9.0-12.0) 06/25/17 07:39 INR 1.1 (<1.2) 06/25/17 07:39 Sodium 140 mmol/L (137-145) 06/28/17 08:52 Potassium 4.0 mmol/L (3.5-5.1) 06/28/17 08:52 Chloride 105 mmol/L (98-107) 06/28/17 08:52 Carbon Dioxide 32 mmol/L (22-30) H 06/28/17 08:52 Anion Gap 3 mmol/L 06/28/17 08:52 BUN 21 mg/dL (7-17) H 06/28/17 08:52 Creatinine 0.76 mg/dL (0.52-1.04) 06/28/17 08:52 Est GFR (MDRD) Af Amer >60 (>60 ml/min/1.73 sqM) 06/28/17 08:52 Est GFR (MDRD) Non-Af >60 (>60 ml/min/1.73 sqM) 06/28/17 08:52 Glucose 109 mg/dL (74-99) H 06/28/17 08:52 POC Glucose (mg/dL) 209 mg/dL (75-99) H 06/28/17 21:13 POC Glu It Trainer ID Katelyn Navarrete 06/28/17 21:[address] Glu mg/dL 137 mg/dL 06/23/17 18:34 Hemoglobin A1c 6.4 % (4.2-6.1) H 06/23/17 18:34 Calcium 8.7 mg/dL (8.4-10.2) 06/28/17 08:52 Iron 30 ug/dL (37-170) L 06/25/17 07:39 TIBC 159 ug/dL (265-497) L 06/25/17 07:39 % Saturation 18.9 % (20-50) L 06/25/17 07:39 Ferritin 240.9 ng/mL (10.0-291.0) 06/25/17 07:39 Total Bilirubin 0.4 mg/dL (0.2-1.3) 06/25/17 07:39 AST 27 U/L (14-36) 06/25/17 07:39 ALT 26 U/L (9-52) 06/25/17 07:39 Alkaline Phosphatase 115 U/L (38-126) 06/25/17 07:39 Total Protein 4.6 g/dL (6.3-8.2) L 06/25/17 07:39 Albumin 2.1 g/dL (3.5-5.0) L 06/25/17 07:39 Urine Color Yellow 06/24/17 14:00 Urine Appearance Cloudy (Clear) H 06/24/17 14:00 Urine pH 5.5 (5.0-8.0) 06/24/17 14:00 Ur Specific [place] 1.012 (1.001-1.035) 06/24/17 14:00 Urine Protein Negative (Negative) 06/24/17 14:00 Urine Glucose (UA) Negative (Negative) 06/24/17 14:00 Urine Ketones Negative (Negative) 06/24/17 14:00 Urine Blood Negative (Negative) 06/24/17 14:00 Urine Nitrite Positive (Negative) H 06/24/17 14:00 Urine Bilirubin Negative (Negative) 06/24/17 14:00 Urine Urobilinogen <2.0 mg/dL (<2.0) 06/24/17 14:00 Ur Leukocyte Esterase Large (Negative) H 06/24/17 14:00 Urine RBC 6 /hpf (0-5) H 06/24/17 14:00 Urine WBC 101 /hpf (0-5) H 06/24/17 14:00 Urine WBC Clumps Occasional /hpf (None) H 06/24/17 14:00 Ur Squamous Epith Cells <1 /hpf (0-4) 06/24/17 14:00 Uric Acid Crystals Occasional /hpf (None) H 06/24/17 14:00 Amorphous Sediment Occasional /hpf (None) H 06/24/17 14:00 Urine Bacteria Occasional /hpf (None) H 06/24/17 14:00 Hyaline Casts 10 /lpf (0-2) H 06/24/17 14:00 Urine Mucus Occasional /hpf (None) H 06/24/17 14:00 Urine Yeast (Budding) Moderate /hpf (None) H 06/24/17 14:00 Blood Type O Positive 06/28/17 08:52 Blood Type Recheck No 06/28/17 08:52 Antibody Screen NEGATIVE 06/28/17 08:52 Spec Expiration Date 07/01/2017235106/28/17 08:52 Microbiology 06/23/17 18:20 Coccyx Anaerobic Culture - Final 06/23/17 18:20 Coccyx Gram Stain - Final 06/23/17 18:20 Coccyx Wound Culture - Final Escherichia coli Pseudomonas aeruginosa Assessment and Plan (1) Shock, septic, Gram negative Narrative/Plan: 76-year-old female who suffers from superobesity and also medical complaints presents from extended care facility with altered mental status. He does appear to admission the patient had evidence of sepsis and then evidence of shock in that she had lack of improvement after fluid resuscitation and required vasopressor therapy. She is progressed on to respiratory failure requiring BiPAP. She is a DO NOT INTUBATE status. Status discussed with the family. Discussing that pressure ulceration in this situation is a symptom of a person that is chronically ill and declining. The current bout of sepsis is likely related to the infection from the pressure ulcerations. But her progressively declining medical condition remains etiology of the pressure ulcerations. The patient has not been seen by surgery. Surgical debridement we plan during this stay. Overall be debridement of necrotic material. Will not be any type of flap grafting occurring. Patient still has large extensive areas of necrosis. She has poor nutrition. Poor overall functional status. If the family requires further intervention. We'll consider transfer to a tertiary center to see if any further surgical options to exist. However Palliative or Comfort Care continue to remain options at this time. Due to the current culture data Zosyn was transitioned to meropenem which will provide coverage for the isolated ESBL E. coli and Pseudomonas. She is on a specialty bed. Continue ongoing turning and local wound care with Dakin solution. The case is discussed with the surgeon surgical debridement has occurred. The patient would need extensive improvement in physical and nutritional status to be a candidate for any extensive surgical interventions. The patient has extensive wounds and need for antibiotic therapy. May be a candidate for select specialty. (2) Pressure ulcer of coccygeal region, stage 4 Status: Acute
[2017-06-29 06:03] LABS: Glucose,Whole Blood 157 mg/dL (75-99)
[2017-06-29] MEDS: CARVEDILOL 12.5 MG TAB PO SCH ×2 (06:30→16:35)
[2017-06-29] MEDS: INSULIN LISPRO (humaLOG) 300 UNIT/3 ML VIAL SQ SCH ×4 (06:30→21:55)
[2017-06-29 06:49] LABS: Anisocytosis Slight; Basophils % (A) 1 %; CH 26.1; CHCM 29.9; Eosinophils # (A) 0.6 k/uL (0-0.7); Eosinophils % (A) 7 %; HCT 26.2 % (34.0-46.0); HDW 3.79; Hypochromasia Marked; Luc # (Auto) 0.14; Luc % (Auto) 2; Lymphocytes # (A) 0.9 k/uL (1.0-4.8); Lymphocytes % (A) 11 %; MCH 26.8 pg (25.0-35.0); MCHC 30.4 g/dL (31.0-37.0); Mean Platelet Volume 6.4; Monocytes # (A) 0.4 k/uL (0-1.0); Monocytes % (A) 5 %; Neutrophils # (A) 6.3 k/uL (1.3-7.7); Neutrophils % (A) 75 %; Poikilocytosis Slight; RBC 2.98 m/uL (3.80-5.40); RDW 18.4 % (11.5-15.5); WBC 8.4 k/uL (3.8-10.6); WBC (Perox) 8.37
[2017-06-29 06:57] LABS: Anion Gap 3 mmol/L; Blood Urea Nitrogen 21 mg/dL (7-17); Calcium 8.5 mg/dL (8.4-10.2); Carbon Dioxide 30 mmol/L (22-30); Chloride 106 mmol/L (98-107); Glucose 137 mg/dL (74-99); Non-African American GFR(MDRD) >60 (>60 ml/min/1.73 sqM); Potassium 4.2 mmol/L (3.5-5.1); Sodium 139 mmol/L (137-145)
[2017-06-29] MEDS: BRIMONIDINE TARTRATE 0.2% DROPS 5 ML BTL BOTH EYES SCH ×2 (08:41→21:51)
[2017-06-29] MEDS: HEPARIN SODIUM,PORCINE 5,000 UNIT/ML 1 ML VIAL SQ SCH ×2 (08:42→21:51)
[2017-06-29] MEDS: LACTOBACILLUS ACIDOPH & BULGAR 1 EACH PACKET PO SCH (08:42)
[2017-06-29] MEDS: FUROSEMIDE 20 MG TAB PO SCH (08:42)
[2017-06-29] MEDS: MULTIVITAMINS, THERA 1 EACH TAB PO SCH (08:42)
[2017-06-29] MEDS: FAMOTIDINE 20 MG TAB PO SCH ×2 (08:42→21:51)
[2017-06-29] MEDS: CHOLECALCIFEROL 1,000 UNIT TAB PO SCH (08:43)
[2017-06-29] MEDS: ASPIRIN 81 MG CHEW PO SCH (08:43)
[2017-06-29] MEDS: oxyCODONE ER 10 MG TAB.ER.12H PO SCH ×2 (08:43→21:52)
[2017-06-29] MEDS: CALCIUM CARB-VIT D 500MG-200UN 1 EACH TAB PO SCH ×2 (08:43→21:51)
[2017-06-29] MEDS: POTASSIUM CHLORIDE ER 10 MEQ TAB.ER.PRT PO SCH (08:43)
[2017-06-29] MEDS: FERROUS SULFATE 325 MG TAB PO SCH ×2 (08:43→21:51)
[2017-06-29] MEDS: TIMOLOL 0.5% OPHTH DROPS 5 ML BTL BOTH EYES SCH ×2 (08:53→21:51)
[2017-06-29] MEDS: MEROPENEM 1 GM in SODIUM CHLORIDE 0.9% 100 ML IVPB SCH ×3 (09:25→23:57)
[2017-06-29] MEDS: SODIUM HYPOCHLORITE 0.25% 480 ML BOT MISCELLANE SCH (11:24)
[2017-06-29] MEDS: CLOTRIMAZOLE/BETAMETH 1-0.05% CREAM 45 GM TUBE TOPICAL SCH ×2 (11:25→21:50)
[2017-06-29 11:56] LABS: Glucose,Whole Blood 145 mg/dL (75-99)
--- NOTE | 2017-06-29 16:00 | P.PN ---
Subjective Date of service 06/27/2017. Personal being dictated for Dr. Mazariegos. Interval history: This a 76-year-old female admitted with extensive pressure ulcers of the sacral area with failure of outpatient therapy, possible sepsis and multiple other medical issues. Maintained on Merrem as per ID. Wound cultures reporting MDRO ESBL, moderate E. coli, few pseudomonas aeruginosa. Scheduled for debridement tomorrow with surgery. Afebrile, T-max 99.3. Hemoglobin 7.6. Denies abdominal pain or increased sacral wound pain .Denies chest pain, palpitations or increasing shortness of breath. 06/28/2017 Sitting up on specialty bed, awaiting debridement this morning, T- max 99.4. Labs pending. Denies abdominal pain. Denies chest pain, palpitations or increasing shortness of breath. 06/29/2017 status post debridement, tolerated procedure well. Post- debridement measurements noted.Wound culture MDRO ESBL, pseudomonas aeruginosa, maintained on Merrem as per ID. Afebrile. Telemetry sinus rhythm. Diet intake remains poor. Minimally conversing, denies pain. Social work assisting in arranging facility specializing in wound care. Select specialty evaluation pending.Hemoglobin 8.0. Objective - Vital Signs Vital signs: Vital Signs Temp 98.3 F 06/29/17 08:30 Pulse 60 06/29/17 08:30 Resp 18 06/29/17 08:30 BP 96/51 06/29/17 08:30 Pulse Ox 95 06/29/17 08:30 Intake & Output 06/28/17 06/29/17 06/29/17 18:59 06:59 18:59 Intake Total 120 940 Output Total 105 700 Balance 15 240 Weight 125.5 kg 125.5 kg Intake: IV 120 Intake, IV Titration 940 Amount Meropenem 1 gm In Sodium 100 Chloride 0.9% 100 ml @ 200 mls/hr IVPB Q8HR [facility] Rx#:[id number] Sodium Chloride 0.9% 1, 840 000 ml @ 60 mls/hr IV . [id number] [facility] Rx#:[id number] Output: Urine 100 700 Estimated Blood Loss 5 Other: Voiding Method Indwelling Catheter Indwelling Catheter Indwelling Catheter # Bowel Movements 0 - Exam PHYSICAL EXAM: VITAL SIGNS: As above GENERAL: lying in bed-specialty bed, no acute distress HEENT: Conjunctivae normal. eyes normal, Oral mucosa moist NECK: No JVD. No thyroid enlargement. No LNs CARDIOVASCULAR: S1, S2 muffled. No murmur RESPIRATION: Respiratory effort normal, Breath sounds diminished in the bases. Occasional scattered rhonchi, no crackles. ABDOMEN: Soft, nontender . No guarding. no masses palpable. Positive Bowel sounds. LEGS: No edema. no swelling. PSYCHIATRY: Alert and oriented 2, mood and affect normal, answer simple questions and follows simple commands. NERVOUS SYSTEM: Cranial N 2-12 grossly normal. Diffuse weakness, No focal deficits. SKIN: Sacra/coccyxl ulcers dressings, clean, dry and intact. Microbiology 06/23/17 18:20 Coccyx Anaerobic Culture - Final 06/23/17 18:20 Coccyx Gram Stain - Final 06/23/17 18:20 Coccyx Wound Culture - Final Escherichia coli Pseudomonas aeruginosa - Labs CBC & Chem 7: 06/29/17 05:28 06/29/17 05:28 Labs: Abnormal Lab Results - Last 24 Hours (Table) 06/28/17 06/28/17 06/28/17 Range/Units 08:52 12:02 16:51 RBC (3.80-5.40) m/uL Hgb (11.4-16.0) gm/dL Hct (34.0-46.0) % MCHC (31.0-37.0) g/dL RDW (11.5-15.5) % Lymphocytes # (1.0-4.8) k/uL BUN (7-17) mg/dL Glucose (74-99) mg/dL POC Glucose (mg/dL) 111 H 151 H (75-99) mg/dL Prealbumin 6.0 L (18.0-42.0) mg/dL 06/28/17 06/29/17 06/29/17 Range/Units 21:13 05:28 05:28 RBC 2.98 L (3.80-5.40) m/uL Hgb 8.0 L (11.4-16.0) gm/dL Hct 26.2 L (34.0-46.0) % MCHC 30.4 L (31.0-37.0) g/dL RDW 18.4 H (11.5-15.5) % Lymphocytes # 0.9 L (1.0-4.8) k/uL BUN 21 H (7-17) mg/dL Glucose 137 H (74-99) mg/dL POC Glucose (mg/dL) 209 H (75-99) mg/dL Prealbumin (18.0-42.0) mg/dL 06/29/17 Range/Units 06:01 RBC (3.80-5.40) m/uL Hgb (11.4-16.0) gm/dL Hct (34.0-46.0) % MCHC (31.0-37.0) g/dL RDW (11.5-15.5) % Lymphocytes # (1.0-4.8) k/uL BUN (7-17) mg/dL Glucose (74-99) mg/dL POC Glucose (mg/dL) 157 H (75-99) mg/dL Prealbumin (18.0-42.0) mg/dL Assessment and Plan Plan: 1. Extensive sacral and coccygeal pressure ulcers, stage III 3, stage II 1, failure to of outpatient treatment, with possible sepsis present on admission, cultures now reporting MDRO ESBL, Pseudomonas aeruginosa. Pressure ulcers, extensive necrosis; increased in size, with tunneling, S/P debridement. 2. [ Normocytic anemia of chronic disease]. 3. [ Changes in mental status with chronic metabolic encephalopathy, in a patient with dementia]. 4. [ ESBL with MRSA]. 5. [ Diabetes mellitus type 2]. 6. Status post PICC line 7. Moderate to severe Protein Malnutrition, Hypoalbumenia. Plan: Continue on current medication regime ,monitoring and symptomatic treatment. Dietary supplements /dietary consulted regarding protein malnutrition. Antibiotics as per infectious disease. Select Specialty consult in place, evaluation pending. Prognosis guarded given multiple complex medical issues. Further recommendations to follow. The impression and plan of care has been dictated as directed as a scribe. : I performed a H&P examination of this patient and discussed the same with the dictator. I agree with the dictator's note. Any additional findings/opinions/ etc. will be noted.
[2017-06-29] MEDS: SODIUM CHLORIDE 0.9% 1,000 ML IV SCH (16:46)
[2017-06-29 17:00] LABS: Glucose,Whole Blood 147 mg/dL (75-99)
--- NOTE | 2017-06-29 20:08 | P.PN ---
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 The patient has a recent hospitalization where she was found evidence of pressure ulceration of the coccyx and buttocks. She underwent surgical debridement during that stay. She was treated with local wound care. Was recently hospitalized [facility] evidence of septic shock. Aggressive therapy she slowly improved. Patient has a very poor overall prognosis. I do believe that she was made DO NOT RESUSCITATE. However other aggressive care continues at this time. The patient has evidence of extensive necrosis that has continued to worsen. The patient has brought to Hospital at this time due to significant disc contentment with care at the [facility]. Objective - Vital Signs - Exam Superobese 76-year-old female who is comfortable HEENT: Anicteric conjunctiva are pink and moist nasal mucosa grossly intact without significant lesions, there is no thrush. Dentition is poor Neck: The neck is supple without significant lymphadenopathy or thyromegaly. Lungs: Symmetrical air entry with basilar crackles no bronchial sounds no dullness. Heart: Heart rate is slow at just 60,. She 100% paced by the monitor. Audible S1 and S2 soft S4 no murmur click or rub Abdomen: Superobese Positive bowel sounds soft and nontender without palpable masses or organomegaly. There was no guarding or rebound. Extremities: The extremities have some generalized edema and no significant open ulcerations are seen. The heels are intact at this time. Neuro: Patient .awake and alert Skin: Patient is evidence the extensive pressure ulceration to the coccyx and buttocks. Please see the nursing documentation for the photography and measurements of these extensive ulcerations are grossly necrotic. The odor is improved with utilization of the Dakin's. However large areas of necrotic material are still seen [place] Laboratory Results WBC 8.4 k/uL (3.8-10.6) 06/29/17 05:28 RBC 2.98 m/uL (3.80-5.40) L 06/29/17 05:28 Hgb 8.0 gm/dL (11.4-16.0) L 06/29/17 05:28 Hct 26.2 % (34.0-46.0) L 06/29/17 05:28 MCV 88.0 fL (80.0-100.0) 06/29/17 05:28 MCH 26.8 pg (25.0-35.0) 06/29/17 05:28 MCHC 30.4 g/dL (31.0-37.0) L 06/29/17 05:28 RDW 18.4 % (11.5-15.5) H 06/29/17 05:28 Plt Count 299 k/uL (150-450) 06/29/17 05:28 Neutrophils % 75 % 06/29/17 05:28 Lymphocytes % 11 % 06/29/17 05:28 Monocytes % 5 % 06/29/17 05:28 Eosinophils % 7 % 06/29/17 05:28 Basophils % 1 % 06/29/17 05:28 Neutrophils # 6.3 k/uL (1.3-7.7) 06/29/17 05:28 Lymphocytes # 0.9 k/uL (1.0-4.8) L 06/29/17 05:28 Monocytes # 0.4 k/uL (0-1.0) 06/29/17 05:28 Eosinophils # 0.6 k/uL (0-0.7) 06/29/17 05:28 Basophils # 0.0 k/uL (0-0.2) 06/29/17 05:28 Hypochromasia Marked 06/29/17 05:28 Poikilocytosis Slight 06/29/17 05:28 Anisocytosis Slight 06/29/17 05:28 PT 11.2 sec (9.0-12.0) 06/25/17 07:39 INR 1.1 (<1.2) 06/25/17 07:39 Sodium 139 mmol/L (137-145) 06/29/17 05:28 Potassium 4.2 mmol/L (3.5-5.1) 06/29/17 05:28 Chloride 106 mmol/L (98-107) 06/29/17 05:28 Carbon Dioxide 30 mmol/L (22-30) 06/29/17 05:28 Anion Gap 3 mmol/L 06/29/17 05:28 BUN 21 mg/dL (7-17) H 06/29/17 05:28 Creatinine 0.77 mg/dL (0.52-1.04) 06/29/17 05:28 Est GFR (MDRD) Af Amer >60 (>60 ml/min/1.73 sqM) 06/29/17 05:28 Est GFR (MDRD) Non-Af >60 (>60 ml/min/1.73 sqM) 06/29/17 05:28 Glucose 137 mg/dL (74-99) H 06/29/17 05:28 POC Glucose (mg/dL) 147 mg/dL (75-99) H 06/29/17 16:58 POC Glu Industrial Diamond Polisher Moisés Avelar 06/29/17 16:[address] Glu mg/dL 137 mg/dL 06/23/17 18:34 Hemoglobin A1c 6.4 % (4.2-6.1) H 06/23/17 18:34 Calcium 8.5 mg/dL (8.4-10.2) 06/29/17 05:28 Iron 30 ug/dL (37-170) L 06/25/17 07:39 TIBC 159 ug/dL (265-497) L 06/25/17 07:39 % Saturation 18.9 % (20-50) L 06/25/17 07:39 Ferritin 240.9 ng/mL (10.0-291.0) 06/25/17 07:39 Total Bilirubin 0.4 mg/dL (0.2-1.3) 06/25/17 07:39 AST 27 U/L (14-36) 06/25/17 07:39 ALT 26 U/L (9-52) 06/25/17 07:39 Alkaline Phosphatase 115 U/L (38-126) 06/25/17 07:39 Total Protein 4.6 g/dL (6.3-8.2) L 06/25/17 07:39 Albumin 2.1 g/dL (3.5-5.0) L 06/25/17 07:39 Prealbumin 6.0 mg/dL (18.0-42.0) L 06/28/17 08:52 Urine Color Yellow 06/24/17 14:00 Urine Appearance Cloudy (Clear) H 06/24/17 14:00 Urine pH 5.5 (5.0-8.0) 06/24/17 14:00 Ur Specific [place] 1.012 (1.001-1.035) 06/24/17 14:00 Urine Protein Negative (Negative) 06/24/17 14:00 Urine Glucose (UA) Negative (Negative) 06/24/17 14:00 Urine Ketones Negative (Negative) 06/24/17 14:00 Urine Blood Negative (Negative) 06/24/17 14:00 Urine Nitrite Positive (Negative) H 06/24/17 14:00 Urine Bilirubin Negative (Negative) 06/24/17 14:00 Urine Urobilinogen <2.0 mg/dL (<2.0) 06/24/17 14:00 Ur Leukocyte Esterase Large (Negative) H 06/24/17 14:00 Urine RBC 6 /hpf (0-5) H 06/24/17 14:00 Urine WBC 101 /hpf (0-5) H 06/24/17 14:00 Urine WBC Clumps Occasional /hpf (None) H 06/24/17 14:00 Ur Squamous Epith Cells <1 /hpf (0-4) 06/24/17 14:00 Uric Acid Crystals Occasional /hpf (None) H 06/24/17 14:00 Amorphous Sediment Occasional /hpf (None) H 06/24/17 14:00 Urine Bacteria Occasional /hpf (None) H 06/24/17 14:00 Hyaline Casts 10 /lpf (0-2) H 06/24/17 14:00 Urine Mucus Occasional /hpf (None) H 06/24/17 14:00 Urine Yeast (Budding) Moderate /hpf (None) H 06/24/17 14:00 Blood Type O Positive 06/28/17 08:52 Blood Type Recheck No 06/28/17 08:52 Antibody Screen NEGATIVE 06/28/17 08:52 Spec Expiration Date 07/01/2017 38806/28/17 08:52 Microbiology 06/23/17 18:20 Coccyx Anaerobic Culture - Final 06/23/17 18:20 Coccyx Gram Stain - Final 06/23/17 18:20 Coccyx Wound Culture - Final Escherichia coli Pseudomonas aeruginosa Assessment and Plan (1) Shock, septic, Gram negative Narrative/Plan: 76-year-old female who suffers from superobesity and also medical complaints presents from extended care facility with altered mental status. He does appear to admission the patient had evidence of sepsis and then evidence of shock in that she had lack of improvement after fluid resuscitation and required vasopressor therapy. She is progressed on to respiratory failure requiring BiPAP. She is a DO NOT INTUBATE status. Status discussed with the family. Discussing that pressure ulceration in this situation is a symptom of a person that is chronically ill and declining. The current bout of sepsis is likely related to the infection from the pressure ulcerations. But her progressively declining medical condition remains etiology of the pressure ulcerations. The patient has not been seen by surgery. Surgical debridement we plan during this stay. Overall be debridement of necrotic material. Will not be any type of flap grafting occurring. Patient still has large extensive areas of necrosis. She has poor nutrition. Poor overall functional status. If the family requires further intervention. We'll consider transfer to a tertiary center to see if any further surgical options to exist. However Palliative or Comfort Care continue to remain options at this time. Due to the current culture data Zosyn was transitioned to meropenem which will provide coverage for the isolated ESBL E. coli and Pseudomonas. She is on a specialty bed. Continue ongoing turning and local wound care with Dakin solution. The case is discussed with the surgeon surgical debridement has occurred. The patient would need extensive improvement in physical and nutritional status to be a candidate for any extensive surgical interventions. The patient has extensive wounds and need for antibiotic therapy. May be a candidate for select specialty. The patient has now had the extensive debridement performed. Last for a bone scan to determine the extent of the infection of the pelvis to help determine the course of antibiotic therapy. (2) Pressure ulcer of coccygeal region, stage 4 Status: Acute
[2017-06-29 20:57] LABS: Glucose,Whole Blood 168 mg/dL (75-99)
[2017-06-29] MEDS: ATORVASTATIN 40 MG TAB PO SCH (21:50)
[2017-06-29] MEDS: LATANOPROST 0.005% OPHTH DROPS 2.5 ML BTL BOTH EYES SCH (21:50)
[2017-06-29] MEDS: AMMONIUM LACTATE 12% LOTION 225 GM BTL TOPICAL SCH (21:50)
[2017-06-29] MEDS: DONEPEZIL 10 MG TAB PO SCH (21:51)
[2017-06-29] MEDS: INSULIN GLARGINE 100 UNIT/ML 10 ML VIAL SQ SCH (21:52)
[2017-06-29] MEDS: SERTRALINE 25 MG TAB PO SCH (21:53)
[2017-06-30 06:08] LABS: Glucose,Whole Blood 81 mg/dL (75-99)
[2017-06-30] MEDS: INSULIN LISPRO (humaLOG) 300 UNIT/3 ML VIAL SQ SCH ×4 (06:33→20:41)
[2017-06-30 06:34] LABS: Anisocytosis Slight; Basophils % (A) 0 %; CH 26.1; CHCM 29.9; Eosinophils # (A) 0.5 k/uL (0-0.7); Eosinophils % (A) 8 %; HCT 26.9 % (34.0-46.0); HDW 3.85; HGB 8.3 gm/dL (11.4-16.0); Hypochromasia Marked; Luc # (Auto) 0.13; Luc % (Auto) 2; Lymphocytes # (A) 0.9 k/uL (1.0-4.8); Lymphocytes % (A) 14 %; MCH 27.2 pg (25.0-35.0); MCV 87.9 fL (80.0-100.0); Mean Platelet Volume 6.5; Monocytes # (A) 0.3 k/uL (0-1.0); Monocytes % (A) 5 %; Neutrophils # (A) 4.7 k/uL (1.3-7.7); Neutrophils % (A) 71 %; Poikilocytosis Slight; RBC 3.06 m/uL (3.80-5.40); RDW 18.4 % (11.5-15.5); WBC 6.6 k/uL (3.8-10.6); WBC (Perox) 6.76
[2017-06-30] MEDS: CARVEDILOL 12.5 MG TAB PO SCH ×2 (06:35→16:58)
[2017-06-30 06:42] LABS: Anion Gap 2 mmol/L; Blood Urea Nitrogen 19 mg/dL (7-17); Calcium 8.6 mg/dL (8.4-10.2); Carbon Dioxide 32 mmol/L (22-30); Chloride 106 mmol/L (98-107); Glucose 78 mg/dL (74-99); Non-African American GFR(MDRD) >60 (>60 ml/min/1.73 sqM); Potassium 3.9 mmol/L (3.5-5.1); Sodium 140 mmol/L (137-145)
[2017-06-30] MEDS: SODIUM CHLORIDE 0.9% 1,000 ML IV SCH ×2 (10:34→20:43)
[2017-06-30] MEDS: MEROPENEM 1 GM in SODIUM CHLORIDE 0.9% 100 ML IVPB SCH ×3 (10:34→23:02)
[2017-06-30] MEDS: BRIMONIDINE TARTRATE 0.2% DROPS 5 ML BTL BOTH EYES SCH ×2 (10:36→20:39)
[2017-06-30] MEDS: ASPIRIN 81 MG CHEW PO SCH (10:36)
[2017-06-30] MEDS: CLOTRIMAZOLE/BETAMETH 1-0.05% CREAM 45 GM TUBE TOPICAL SCH ×2 (10:37→20:56)
[2017-06-30] MEDS: CHOLECALCIFEROL 1,000 UNIT TAB PO SCH (10:37)
[2017-06-30] MEDS: FAMOTIDINE 20 MG TAB PO SCH ×2 (10:37→20:54)
[2017-06-30] MEDS: CALCIUM CARB-VIT D 500MG-200UN 1 EACH TAB PO SCH ×2 (10:37→20:39)
[2017-06-30] MEDS: FERROUS SULFATE 325 MG TAB PO SCH ×2 (10:38→20:40)
[2017-06-30] MEDS: FUROSEMIDE 20 MG TAB PO SCH (10:38)
[2017-06-30] MEDS: HEPARIN SODIUM,PORCINE 5,000 UNIT/ML 1 ML VIAL SQ SCH ×2 (10:38→20:54)
[2017-06-30] MEDS: POTASSIUM CHLORIDE ER 10 MEQ TAB.ER.PRT PO SCH (10:39)
[2017-06-30] MEDS: TIMOLOL 0.5% OPHTH DROPS 5 ML BTL BOTH EYES SCH ×2 (10:39→20:43)
[2017-06-30] MEDS: LACTOBACILLUS ACIDOPH & BULGAR 1 EACH PACKET PO SCH (10:39)
[2017-06-30] MEDS: SODIUM HYPOCHLORITE 0.25% 480 ML BOT MISCELLANE SCH (10:39)
[2017-06-30] MEDS: MULTIVITAMINS, THERA 1 EACH TAB PO SCH (10:40)
[2017-06-30 11:33] LABS: Glucose,Whole Blood 78 mg/dL (75-99)
[2017-06-30] MEDS: oxyCODONE ER 10 MG TAB.ER.12H PO SCH ×2 (12:39→20:38)
--- NOTE | 2017-06-30 13:29 | NM ---
EXAMINATION TYPE: NM bone 3 phase DATE OF EXAM: 06/30/2017 COMPARISON: NONE HISTORY: Pelvic osteomyelitis per order. Open sacral decubitus wound Triple phase bone scintigraphy was performed following the injection of24.7 mCi Tc 99m MDP. Immediat e images and 5 hours post injection images acquired of the pelvis.. FINDINGS: Due to level of clinical concern as well as patient's body habitus sensitivity of exam is low. In add ition there is overlying soft tissue and bowel uptake noted making evaluation suboptimal. There is no convincing three-phase radiotracer uptake in the lower sacrum/coccyx to definitively suggest acute o steomyelitis at this level. IMPRESSION: As above.
[2017-06-30 16:31] LABS: Glucose,Whole Blood 80 mg/dL (75-99)
--- NOTE | 2017-06-30 17:52 | P.PN ---
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 The patient has a recent hospitalization where she was found evidence of pressure ulceration of the coccyx and buttocks. She underwent surgical debridement during that stay. She was treated with local wound care. Was recently hospitalized [facility] evidence of septic shock. Aggressive therapy she slowly improved. Patient has a very poor overall prognosis. I do believe that she was made DO NOT RESUSCITATE. However other aggressive care continues at this time. The patient has evidence of extensive necrosis that has continued to worsen. The patient is now in her sleeping is surgical debridement. Bone scan was requested to further evaluate extent of osteomyelitis of her pelvis. She has no acute changes. Her George is present today and is able to help her eat. Objective - Vital Signs - Exam Superobese 76-year-old female who is comfortable HEENT: Anicteric conjunctiva are pink and moist nasal mucosa grossly intact without significant lesions, there is no thrush. Dentition is poor Neck: The neck is supple without significant lymphadenopathy or thyromegaly. Lungs: Symmetrical air entry with basilar crackles no bronchial sounds no dullness. Heart: Heart rate is slow at just 60,. She 100% paced by the monitor. Audible S1 and S2 soft S4 no murmur click or rub Abdomen: Superobese Positive bowel sounds soft and nontender without palpable masses or organomegaly. There was no guarding or rebound. Extremities: The extremities have some generalized edema and no significant open ulcerations are seen. The heels are intact at this time. Neuro: Patient .awake and alert Skin: Patient is evidence the extensive pressure ulceration to the coccyx and buttocks. Please see the nursing documentation for the photography and measurements of these extensive ulcerations are grossly necrotic. The odor is improved with utilization of the Dakin's. However large areas of necrotic material are still seen Laboratory Results WBC 6.6 k/uL (3.8-10.6) 06/30/17 05:57 RBC 3.06 m/uL (3.80-5.40) L 06/30/17 05:57 Hgb 8.3 gm/dL (11.4-16.0) L 06/30/17 05:57 Hct 26.9 % (34.0-46.0) L 06/30/17 05:57 MCV 87.9 fL (80.0-100.0) 06/30/17 05:57 MCH 27.2 pg (25.0-35.0) 06/30/17 05:57 MCHC 31.0 g/dL (31.0-37.0) 06/30/17 05:57 RDW 18.4 % (11.5-15.5) H 06/30/17 05:57 Plt Count 291 k/uL (150-450) 06/30/17 05:57 Neutrophils % 71 % 06/30/17 05:57 Lymphocytes % 14 % 06/30/17 05:57 Monocytes % 5 % 06/30/17 05:57 Eosinophils % 8 % 06/30/17 05:57 Basophils % 0 % 06/30/17 05:57 Neutrophils # 4.7 k/uL (1.3-7.7) 06/30/17 05:57 Lymphocytes # 0.9 k/uL (1.0-4.8) L 06/30/17 05:57 Monocytes # 0.3 k/uL (0-1.0) 06/30/17 05:57 Eosinophils # 0.5 k/uL (0-0.7) 06/30/17 05:57 Basophils # 0.0 k/uL (0-0.2) 06/30/17 05:57 Hypochromasia Marked 06/30/17 05:57 Poikilocytosis Slight 06/30/17 05:57 Anisocytosis Slight 06/30/17 05:57 PT 11.2 sec (9.0-12.0) 06/25/17 07:39 INR 1.1 (<1.2) 06/25/17 07:39 Sodium 140 mmol/L (137-145) 06/30/17 05:57 Potassium 3.9 mmol/L (3.5-5.1) 06/30/17 05:57 Chloride 106 mmol/L (98-107) 06/30/17 05:57 Carbon Dioxide 32 mmol/L (22-30) H 06/30/17 05:57 Anion Gap 2 mmol/L 06/30/17 05:57 BUN 19 mg/dL (7-17) H 06/30/17 05:57 Creatinine 0.77 mg/dL (0.52-1.04) 06/30/17 05:57 Est GFR (MDRD) Af Amer >60 (>60 ml/min/1.73 sqM) 06/30/17 05:57 Est GFR (MDRD) Non-Af >60 (>60 ml/min/1.73 sqM) 06/30/17 05:57 Glucose 78 mg/dL (74-99) 06/30/17 05:57 POC Glucose (mg/dL) 80 mg/dL (75-99) 06/30/17 16:25 POC Glu [employer] Cook Rula Peralta 06/30/17 16:[address] Glu mg/dL 137 mg/dL 06/23/17 18:34 Hemoglobin A1c 6.4 % (4.2-6.1) H 06/23/17 18:34 Calcium 8.6 mg/dL (8.4-10.2) 06/30/17 05:57 Iron 30 ug/dL (37-170) L 06/25/17 07:39 TIBC 159 ug/dL (265-497) L 06/25/17 07:39 % Saturation 18.9 % (20-50) L 06/25/17 07:39 Ferritin 240.9 ng/mL (10.0-291.0) 06/25/17 07:39 Total Bilirubin 0.4 mg/dL (0.2-1.3) 06/25/17 07:39 AST 27 U/L (14-36) 06/25/17 07:39 ALT 26 U/L (9-52) 06/25/17 07:39 Alkaline Phosphatase 115 U/L (38-126) 06/25/17 07:39 Total Protein 4.6 g/dL (6.3-8.2) L 06/25/17 07:39 Albumin 2.1 g/dL (3.5-5.0) L 06/25/17 07:39 Prealbumin 6.0 mg/dL (18.0-42.0) L 06/28/17 08:52 Urine Color Yellow 06/24/17 14:00 Urine Appearance Cloudy (Clear) H 06/24/17 14:00 Urine pH 5.5 (5.0-8.0) 06/24/17 14:00 Ur Specific [facility] 1.012 (1.001-1.035) 06/24/17 14:00 Urine Protein Negative (Negative) 06/24/17 14:00 Urine Glucose (UA) Negative (Negative) 06/24/17 14:00 Urine Ketones Negative (Negative) 06/24/17 14:00 Urine Blood Negative (Negative) 06/24/17 14:00 Urine Nitrite Positive (Negative) H 06/24/17 14:00 Urine Bilirubin Negative (Negative) 06/24/17 14:00 Urine Urobilinogen <2.0 mg/dL (<2.0) 06/24/17 14:00 Ur Leukocyte Esterase Large (Negative) H 06/24/17 14:00 Urine RBC 6 /hpf (0-5) H 06/24/17 14:00 Urine WBC 101 /hpf (0-5) H 06/24/17 14:00 Urine WBC Clumps Occasional /hpf (None) H 06/24/17 14:00 Ur Squamous Epith Cells <1 /hpf (0-4) 06/24/17 14:00 Uric Acid Crystals Occasional /hpf (None) H 06/24/17 14:00 Amorphous Sediment Occasional /hpf (None) H 06/24/17 14:00 Urine Bacteria Occasional /hpf (None) H 06/24/17 14:00 Hyaline Casts 10 /lpf (0-2) H 06/24/17 14:00 Urine Mucus Occasional /hpf (None) H 06/24/17 14:00 Urine Yeast (Budding) Moderate /hpf (None) H 06/24/17 14:00 Blood Type O Positive 06/28/17 08:52 Blood Type Recheck No 06/28/17 08:52 Antibody Screen NEGATIVE 06/28/17 08:52 Spec Expiration Date 07/01/2017 - 51306/28/17 08:52 Microbiology 06/23/17 18:20 Coccyx Anaerobic Culture - Final 06/23/17 18:20 Coccyx Gram Stain - Final 06/23/17 18:20 Coccyx Wound Culture - Final Escherichia coli Pseudomonas aeruginosa Assessment and Plan (1) Shock, septic, Gram negative Narrative/Plan: 76-year-old female who suffers from superobesity and also medical complaints presents from extended care facility with altered mental status. He does appear to admission the patient had evidence of sepsis and then evidence of shock in that she had lack of improvement after fluid resuscitation and required vasopressor therapy. She is progressed on to respiratory failure requiring BiPAP. She is a DO NOT INTUBATE status. Status discussed with the family. Discussing that pressure ulceration in this situation is a symptom of a person that is chronically ill and declining. The current bout of sepsis is likely related to the infection from the pressure ulcerations. But her progressively declining medical condition remains etiology of the pressure ulcerations. The patient has been seen by surgery. Surgical debridement Will not be any type of flap grafting occurring. Patient still has large extensive areas of necrosis. She has poor nutrition. Poor overall functional status. If the family requires further intervention. We'll consider transfer to a tertiary center to see if any further surgical options to exist. However Palliative or Comfort Care continue to remain options at this time. Due to the current culture data Zosyn was transitioned to meropenem which will provide coverage for the isolated ESBL E. coli and Pseudomonas. She is on a specialty bed. Continue ongoing turning and local wound care with Dakin solution. The case is discussed with the surgeon surgical debridement has occurred. The patient would need extensive improvement in physical and nutritional status to be a candidate for any extensive surgical interventions. The patient has extensive wounds and need for antibiotic therapy. The patient has now had the extensive debridement performed. Bone scan has been performed. Due to many factors not able to exclude osteomyelitis. We'll plan 6 weeks of antibiotics. The patient is being evaluated for potential selective specialty placement (2) Pressure ulcer of coccygeal region, stage 4 Status: Acute
--- NOTE | 2017-06-30 18:41 | P.PN ---
Subjective Date of service 06/27/2017. Personal being dictated for Dr. Mazariegos. Interval history: This a 76-year-old female admitted with extensive pressure ulcers of the sacral area with failure of outpatient therapy, possible sepsis and multiple other medical issues. Maintained on Merrem as per ID. Wound cultures reporting MDRO ESBL, moderate E. coli, few pseudomonas aeruginosa. Scheduled for debridement tomorrow with surgery. Afebrile, T-max 99.3. Hemoglobin 7.6. Denies abdominal pain or increased sacral wound pain .Denies chest pain, palpitations or increasing shortness of breath. 06/28/2017 Sitting up on specialty bed, awaiting debridement this morning, T- max 99.4. Labs pending. Denies abdominal pain. Denies chest pain, palpitations or increasing shortness of breath. 06/29/2017 status post debridement, tolerated procedure well. Post- debridement measurements noted.Wound culture MDRO ESBL, pseudomonas aeruginosa, maintained on Merrem as per ID. Afebrile. Telemetry sinus rhythm. Diet intake remains poor. Minimally conversing, denies pain. Social work assisting in arranging facility specializing in wound care. Select specialty evaluation pending.Hemoglobin 8.0. 06/30/2017. Underwent bone scan, results pending. Evaluation by select specialty in progress. Diet intake poor but increased when at bedside. Blood sugars running lower this morning, in the 70s and 80s. Denies lightheadedness, or dizziness. No acute changes, denies pain. Objective - Vital Signs Vital signs: Vital Signs Temp 96.7 F L 06/30/17 15:24 Pulse 62 06/30/17 15:24 Resp 18 06/30/17 15:24 BP 132/61 06/30/17 15:24 Pulse Ox 97 06/30/17 15:24 Intake & Output 06/29/17 06/30/17 06/30/17 18:59 06:59 18:59 Intake Total 1420 600 Output Total 325 700 900 Balance 1095 -100 -900 Weight 125.5 kg 125.3 kg 125.3 kg Intake: Intake, IV Titration 520 600 Amount Meropenem 1 gm In Sodium 100 Chloride 0.9% 100 ml @ 200 mls/hr IVPB Q8HR [facility] Rx#:[id number] Sodium Chloride 0.9% 1, 420 600 000 ml @ 60 mls/hr IV . [id number] [facility] Rx#:[id number] Oral 900 Output: Urine 325 700 900 Other: Voiding Method Indwelling Catheter Indwelling Catheter Indwelling Catheter # Voids 0 # Bowel Movements 1 - Exam PHYSICAL EXAM: VITAL SIGNS: As above GENERAL: lying in bed-specialty bed, no acute distress HEENT: Conjunctivae normal. eyes normal, Oral mucosa moist NECK: No JVD. No thyroid enlargement. No LNs CARDIOVASCULAR: S1, S2 muffled. No murmur RESPIRATION: Respiratory effort normal, Breath sounds diminished in the bases. Occasional scattered rhonchi, fine bibasilar crackles. ABDOMEN: Soft, nontender . No guarding. no masses palpable. Positive Bowel sounds. LEGS: No edema. no swelling. PSYCHIATRY: Alert and oriented 2, mood and affect normal, answer simple questions and follows simple commands. NERVOUS SYSTEM: Cranial N 2-12 grossly normal. Diffuse weakness, No focal deficits. SKIN: Sacra/coccyxl ulcers dressings, clean, dry and intact. Microbiology 06/23/17 18:20 Coccyx Anaerobic Culture - Final 06/23/17 18:20 Coccyx Gram Stain - Final 06/23/17 18:20 Coccyx Wound Culture - Final Escherichia coli Pseudomonas aeruginosa - Labs CBC & Chem 7: 06/30/17 05:57 06/30/17 05:57 Labs: Abnormal Lab Results - Last 24 Hours (Table) 06/29/17 06/30/17 06/30/17 Range/Units 20:56 05:57 05:57 RBC 3.06 L (3.80-5.40) m/uL Hgb 8.3 L (11.4-16.0) gm/dL Hct 26.9 L (34.0-46.0) % RDW 18.4 H (11.5-15.5) % Lymphocytes # 0.9 L (1.0-4.8) k/uL Carbon Dioxide 32 H (22-30) mmol/L BUN 19 H (7-17) mg/dL POC Glucose (mg/dL) 168 H (75-99) mg/dL Assessment and Plan Plan: 1. Extensive sacral and coccygeal pressure ulcers, stage III 3, stage II 1, failure to of outpatient treatment, with possible sepsis present on admission, cultures now reporting MDRO ESBL, Pseudomonas aeruginosa. Pressure ulcers, extensive necrosis; increased in size, with tunneling, S/P debridement. 2. [ Normocytic anemia of chronic disease]. 3. [ Changes in mental status with chronic metabolic encephalopathy, in a patient with dementia]. 4. [ ESBL with MRSA]. 5. [ Diabetes mellitus type 2]. 6. Status post PICC line 7. Moderate to severe Protein Malnutrition, Hypoalbumenia. Plan: Continue on current medication regime ,monitoring and symptomatic treatment. Bone scan pending.Antibiotics and wound care as per infectious disease. Select Specialty evaluation in progress. Prognosis guarded given multiple complex medical issues. Further recommendations to follow. The impression and plan of care has been dictated as directed as a scribe. : I performed a H&P examination of this patient and discussed the same with the dictator. I agree with the dictator's note. Any additional findings/opinions/ etc. will be noted.
[2017-06-30 20:33] LABS: Glucose,Whole Blood 156 mg/dL (75-99)
[2017-06-30] MEDS: DONEPEZIL 10 MG TAB PO SCH (20:39)
[2017-06-30] MEDS: ATORVASTATIN 40 MG TAB PO SCH (20:39)
[2017-06-30] MEDS: INSULIN GLARGINE 100 UNIT/ML 10 ML VIAL SQ SCH (20:40)
[2017-06-30] MEDS: LATANOPROST 0.005% OPHTH DROPS 2.5 ML BTL BOTH EYES SCH (20:42)
[2017-06-30] MEDS: SERTRALINE 25 MG TAB PO SCH (20:43)
[2017-06-30] MEDS: AMMONIUM LACTATE 12% LOTION 225 GM BTL TOPICAL SCH (20:56)
[2017-07-01] MEDS: INSULIN LISPRO (humaLOG) 300 UNIT/3 ML VIAL SQ SCH ×4 (06:42→21:31)
[2017-07-01] MEDS: CARVEDILOL 12.5 MG TAB PO SCH ×2 (06:43→17:09)
[2017-07-01 06:44] LABS: Glucose,Whole Blood 93 mg/dL (75-99)
[2017-07-01] MEDS: MEROPENEM 1 GM in SODIUM CHLORIDE 0.9% 100 ML IVPB SCH ×3 (09:38→23:19)
[2017-07-01] MEDS: TIMOLOL 0.5% OPHTH DROPS 5 ML BTL BOTH EYES SCH ×2 (09:39→21:26)
[2017-07-01] MEDS: BRIMONIDINE TARTRATE 0.2% DROPS 5 ML BTL BOTH EYES SCH ×2 (09:39→21:23)
[2017-07-01] MEDS: POTASSIUM CHLORIDE ER 10 MEQ TAB.ER.PRT PO SCH (09:40)
[2017-07-01] MEDS: CHOLECALCIFEROL 1,000 UNIT TAB PO SCH (09:41)
[2017-07-01] MEDS: CALCIUM CARB-VIT D 500MG-200UN 1 EACH TAB PO SCH ×2 (09:41→21:23)
[2017-07-01] MEDS: ASPIRIN 81 MG CHEW PO SCH (09:41)
[2017-07-01] MEDS: FUROSEMIDE 20 MG TAB PO SCH (09:42)
[2017-07-01] MEDS: HEPARIN SODIUM,PORCINE 5,000 UNIT/ML 1 ML VIAL SQ SCH ×2 (09:42→21:24)
[2017-07-01] MEDS: FAMOTIDINE 20 MG TAB PO SCH ×2 (09:42→21:24)
[2017-07-01] MEDS: FERROUS SULFATE 325 MG TAB PO SCH ×2 (09:42→21:24)
[2017-07-01] MEDS: LACTOBACILLUS ACIDOPH & BULGAR 1 EACH PACKET PO SCH (09:43)
[2017-07-01] MEDS: CLOTRIMAZOLE/BETAMETH 1-0.05% CREAM 45 GM TUBE TOPICAL SCH ×2 (09:44→21:28)
[2017-07-01] MEDS: SODIUM HYPOCHLORITE 0.25% 480 ML BOT MISCELLANE SCH ×2 (09:44→16:39)
[2017-07-01] MEDS: oxyCODONE ER 10 MG TAB.ER.12H PO SCH ×2 (11:13→21:21)
[2017-07-01] MEDS: MULTIVITAMINS, THERA 1 EACH TAB PO SCH (11:14)
[2017-07-01 11:58] LABS: Glucose,Whole Blood 88 mg/dL (75-99)
[2017-07-01 16:56] LABS: Glucose,Whole Blood 85 mg/dL (75-99)
[2017-07-01] MEDS: SODIUM CHLORIDE 0.9% 1,000 ML IV SCH (17:08)
[2017-07-01] MEDS ORDERED: COLLAGENASE 250 UNIT/GM OINTMENT 30 GM TUBE TOPICAL SCH (17:15)
--- NOTE | 2017-07-01 19:00 | PN ---
PROGRESS NOTE DATE OF SERVICE: July 01, 2017 INTERIM HISTORY: This 76-year-old woman was admitted with extensive sacral coccygeal ulceration, is being closely monitored at this time. The patient underwent debridement. The possibility transfer of referral to [facility] was also considered at this time. Osteomyelitis could not be excluded. Bone scan was done, showed a suboptimal reports. No chest pain. No palpitations. No fever. The patient is stuporous. PAST MEDICAL HISTORY: Reviewed. REVIEW OF SYSTEMS: Could not be taken. CURRENT MEDICATIONS: Reviewed and include: 1. [place] 5 mg q6n p.r.n.. 2. Ventolin q.i.d. p.r.n. 3. Aspirin. 4. Lipitor. 5. Lotrisone. 6. Brimonidine eyedrops. 8. Coreg 12.5 mg b.i.d. 9. Vitamin D3 2000 units b.i.d. 10.Aricept 10 mg q.h.s. 11.Pepcid 20 mg b.i.d. 12.Iron sulfate 320 mg p.o. b.i.d. 13.Lasix 20 mg daily. 14.Heparin 5000 subcutaneous b.i.d. 15.Lantus 10 units subcu q.h.s. 16.Humalog scale. 17.Lactinex. 18.Xalatan. 19.Multivitamins. 20.OxyContin. 21.Zoloft. 22.Timoptic. PHYSICAL EXAM: Patient is stuporous. Arousable. Pulse 62, blood pressure 100/60, respirations 18, temperature 97.4, pulse ox 94% on 2 L. HEENT: Conjunctivae normal. Oral mucosa moist. Neck is no jugular venous distention. No lymph node enlargement. Cardiovascular: S1, S2 muffled. Breath sounds diminished at the bases. Scattered rhonchi and no crackles. ABDOMEN: Soft, obese, nontender. Legs no edema. No swelling. Central nervous system: No focal deficits. LABS: Glucose 88. Otherwise hemoglobin is 8.3. ASSESSMENT: 1. Extensive sacral coccygeal pressure ulcer stage 3 x 3 stage to 1 failure of outpatient treatment. Possibly sepsis present on admission with possible osteomyelitis, culture reporting MDR ESBL pseudomonas aeruginosa, pressure ulcers extensive closely and increase in size and tunneling status post debridement. 2. Normocytic anemia of chronic disease. 3. Change in mental status, chronic metabolic encephalopathy in a patient with dementia. 4. ESBL with Methicillin-resistant Staphylococcus aureus. 5. Diabetes type 2. 6. Status post PICC line. 7. Moderate to severe protein calorie malnutrition. 8. Hypoalbuminemia. RECOMMENDATIONS AND DISCUSSION: Recommend to continue current treatment. Continue with monitoring. Repeat labs. Otherwise monitor blood sugars closely. Currently encourage p.o. feeds. Cautious IV fluids. Continue the rest of the medications. Continue the patient rest of the medications. The patient is on meropenem. Six weeks of antibiotics being planned by Dr. Albright. Otherwise we will closely follow with social work and case management for select specialty referral also. Guarded prognosis. Further recommendations to follow. MMODL / IJN: [id number] / JENNIFER
--- NOTE | 2017-07-01 19:20 | P.PN ---
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 The patient has a recent hospitalization where she was found evidence of pressure ulceration of the coccyx and buttocks. She underwent surgical debridement during that stay. She was treated with local wound care. Was recently hospitalized [facility] evidence of septic shock. Aggressive therapy she slowly improved. Patient has a very poor overall prognosis. I do believe that she was made DO NOT RESUSCITATE. However other aggressive care continues at this time. The patient has evidence of extensive necrosis that has continued to worsen. The patient is now in her sleeping is surgical debridement. Bone scan was requested to further evaluate extent of osteomyelitis of her pelvis. She has no acute changes. Her George is present today and is able to help her eat. Objective - Vital Signs - Exam Superobese 76-year-old female who is comfortable HEENT: Anicteric conjunctiva are pink and moist nasal mucosa grossly intact without significant lesions, there is no thrush. Dentition is poor Neck: The neck is supple without significant lymphadenopathy or thyromegaly. Lungs: Symmetrical air entry with basilar crackles no bronchial sounds no dullness. Heart: Heart rate is slow at just 60,. She 100% paced by the monitor. Audible S1 and S2 soft S4 no murmur click or rub Abdomen: Superobese Positive bowel sounds soft and nontender without palpable masses or organomegaly. There was no guarding or rebound. Extremities: The extremities have some generalized edema and no significant open ulcerations are seen. The heels are intact at this time. Neuro: Patient .awake and alert Skin: Patient is evidence the extensive pressure ulceration to the coccyx and buttocks. Please see the nursing documentation for the photography and measurements of these extensive ulcerations are grossly necrotic. The odor is improved with utilization of the Dakin's. However large areas of necrotic material are still seen Laboratory Results WBC 6.6 k/uL (3.8-10.6) 06/30/17 05:57 RBC 3.06 m/uL (3.80-5.40) L 06/30/17 05:57 Hgb 8.3 gm/dL (11.4-16.0) L 06/30/17 05:57 Hct 26.9 % (34.0-46.0) L 06/30/17 05:57 MCV 87.9 fL (80.0-100.0) 06/30/17 05:57 MCH 27.2 pg (25.0-35.0) 06/30/17 05:57 MCHC 31.0 g/dL (31.0-37.0) 06/30/17 05:57 RDW 18.4 % (11.5-15.5) H 06/30/17 05:57 Plt Count 291 k/uL (150-450) 06/30/17 05:57 Neutrophils % 71 % 06/30/17 05:57 Lymphocytes % 14 % 06/30/17 05:57 Monocytes % 5 % 06/30/17 05:57 Eosinophils % 8 % 06/30/17 05:57 Basophils % 0 % 06/30/17 05:57 Neutrophils # 4.7 k/uL (1.3-7.7) 06/30/17 05:57 Lymphocytes # 0.9 k/uL (1.0-4.8) L 06/30/17 05:57 Monocytes # 0.3 k/uL (0-1.0) 06/30/17 05:57 Eosinophils # 0.5 k/uL (0-0.7) 06/30/17 05:57 Basophils # 0.0 k/uL (0-0.2) 06/30/17 05:57 Hypochromasia Marked 06/30/17 05:57 Poikilocytosis Slight 06/30/17 05:57 Anisocytosis Slight 06/30/17 05:57 PT 11.2 sec (9.0-12.0) 06/25/17 07:39 INR 1.1 (<1.2) 06/25/17 07:39 Sodium 140 mmol/L (137-145) 06/30/17 05:57 Potassium 3.9 mmol/L (3.5-5.1) 06/30/17 05:57 Chloride 106 mmol/L (98-107) 06/30/17 05:57 Carbon Dioxide 32 mmol/L (22-30) H 06/30/17 05:57 Anion Gap 2 mmol/L 06/30/17 05:57 BUN 19 mg/dL (7-17) H 06/30/17 05:57 Creatinine 0.77 mg/dL (0.52-1.04) 06/30/17 05:57 Est GFR (MDRD) Af Amer >60 (>60 ml/min/1.73 sqM) 06/30/17 05:57 Est GFR (MDRD) Non-Af >60 (>60 ml/min/1.73 sqM) 06/30/17 05:57 Glucose 78 mg/dL (74-99) 06/30/17 05:57 POC Glucose (mg/dL) 85 mg/dL (75-99) 07/01/17 16:36 POC Glu [facility] ID Joshua Wiseman 07/01/17 16:[address] Glu mg/dL 137 mg/dL 06/23/17 18:34 Hemoglobin A1c 6.4 % (4.2-6.1) H 06/23/17 18:34 Calcium 8.6 mg/dL (8.4-10.2) 06/30/17 05:57 Iron 30 ug/dL (37-170) L 06/25/17 07:39 TIBC 159 ug/dL (265-497) L 06/25/17 07:39 % Saturation 18.9 % (20-50) L 06/25/17 07:39 Ferritin 240.9 ng/mL (10.0-291.0) 06/25/17 07:39 Total Bilirubin 0.4 mg/dL (0.2-1.3) 06/25/17 07:39 AST 27 U/L (14-36) 06/25/17 07:39 ALT 26 U/L (9-52) 06/25/17 07:39 Alkaline Phosphatase 115 U/L (38-126) 06/25/17 07:39 Total Protein 4.6 g/dL (6.3-8.2) L 06/25/17 07:39 Albumin 2.1 g/dL (3.5-5.0) L 06/25/17 07:39 Prealbumin 6.0 mg/dL (18.0-42.0) L 06/28/17 08:52 Urine Color Yellow 06/24/17 14:00 Urine Appearance Cloudy (Clear) H 06/24/17 14:00 Urine pH 5.5 (5.0-8.0) 06/24/17 14:00 Ur Specific [place] 1.012 (1.001-1.035) 06/24/17 14:00 Urine Protein Negative (Negative) 06/24/17 14:00 Urine Glucose (UA) Negative (Negative) 06/24/17 14:00 Urine Ketones Negative (Negative) 06/24/17 14:00 Urine Blood Negative (Negative) 06/24/17 14:00 Urine Nitrite Positive (Negative) H 06/24/17 14:00 Urine Bilirubin Negative (Negative) 06/24/17 14:00 Urine Urobilinogen <2.0 mg/dL (<2.0) 06/24/17 14:00 Ur Leukocyte Esterase Large (Negative) H 06/24/17 14:00 Urine RBC 6 /hpf (0-5) H 06/24/17 14:00 Urine WBC 101 /hpf (0-5) H 06/24/17 14:00 Urine WBC Clumps Occasional /hpf (None) H 06/24/17 14:00 Ur Squamous Epith Cells <1 /hpf (0-4) 06/24/17 14:00 Uric Acid Crystals Occasional /hpf (None) H 06/24/17 14:00 Amorphous Sediment Occasional /hpf (None) H 06/24/17 14:00 Urine Bacteria Occasional /hpf (None) H 06/24/17 14:00 Hyaline Casts 10 /lpf (0-2) H 06/24/17 14:00 Urine Mucus Occasional /hpf (None) H 06/24/17 14:00 Urine Yeast (Budding) Moderate /hpf (None) H 06/24/17 14:00 Blood Type O Positive 06/28/17 08:52 Blood Type Recheck No 06/28/17 08:52 Antibody Screen NEGATIVE 06/28/17 08:52 Spec Expiration Date 07/01/2017 - 235106/28/17 08:52 Microbiology 06/23/17 18:20 Coccyx Anaerobic Culture - Final 06/23/17 18:20 Coccyx Gram Stain - Final 06/23/17 18:20 Coccyx Wound Culture - Final Escherichia coli Pseudomonas aeruginosa Assessment and Plan (1) Shock, septic, Gram negative Narrative/Plan: 76-year-old female who suffers from superobesity and also medical complaints presents from extended care facility with altered mental status. He does appear to admission the patient had evidence of sepsis and then evidence of shock in that she had lack of improvement after fluid resuscitation and required vasopressor therapy. She is progressed on to respiratory failure requiring BiPAP. She is a DO NOT INTUBATE status. Status discussed with the family. Discussing that pressure ulceration in this situation is a symptom of a person that is chronically ill and declining. The current bout of sepsis is likely related to the infection from the pressure ulcerations. But her progressively declining medical condition remains etiology of the pressure ulcerations. The patient has been seen by surgery. Surgical debridement Will not be any type of flap grafting occurring. Patient still has large extensive areas of necrosis. She has poor nutrition. Poor overall functional status. If the family requires further intervention. We'll consider transfer to a tertiary center to see if any further surgical options to exist. However Palliative or Comfort Care continue to remain options at this time. Due to the current culture data Zosyn was transitioned to meropenem which will provide coverage for the isolated ESBL E. coli and Pseudomonas. She is on a specialty bed. Continue ongoing turning and local wound care with Dakin solution. The case is discussed with the surgeon surgical debridement has occurred. The patient would need extensive improvement in physical and nutritional status to be a candidate for any extensive surgical interventions. The patient has extensive wounds and need for antibiotic therapy. The patient has now had the extensive debridement performed. Bone scan has been performed. Due to many factors not able to exclude osteomyelitis. We'll plan 6 weeks of antibiotics. The patient is being evaluated for potential selective specialty placement Wound care is clarified. Discussed with the surgeon. We will utilize collagenase daily to the large ulcers. (2) Pressure ulcer of coccygeal region, stage 4 Status: Acute
[2017-07-01] MEDS: ATORVASTATIN 40 MG TAB PO SCH (21:23)
[2017-07-01] MEDS: DONEPEZIL 10 MG TAB PO SCH (21:24)
[2017-07-01] MEDS: COLLAGENASE 250 UNIT/GM OINTMENT 30 GM TUBE TOPICAL SCH (21:24)
[2017-07-01] MEDS: SERTRALINE 25 MG TAB PO SCH (21:25)
[2017-07-01] MEDS: LATANOPROST 0.005% OPHTH DROPS 2.5 ML BTL BOTH EYES SCH (21:25)
[2017-07-01 21:28] LABS: Glucose,Whole Blood 204 mg/dL (75-99)
[2017-07-01] MEDS: AMMONIUM LACTATE 12% LOTION 225 GM BTL TOPICAL SCH (21:28)
[2017-07-01] MEDS: INSULIN GLARGINE 100 UNIT/ML 10 ML VIAL SQ SCH (21:31)
[2017-07-02 06:56] LABS: Glucose,Whole Blood 144 mg/dL (75-99)
[2017-07-02] MEDS: CARVEDILOL 12.5 MG TAB PO SCH ×2 (07:02→18:32)
[2017-07-02] MEDS: INSULIN LISPRO (humaLOG) 300 UNIT/3 ML VIAL SQ SCH ×4 (07:02→21:59)
[2017-07-02] MEDS: MEROPENEM 1 GM in SODIUM CHLORIDE 0.9% 100 ML IVPB SCH ×2 (08:43→16:00)
[2017-07-02] MEDS: SODIUM CHLORIDE 0.9% 1,000 ML IV SCH (09:25)
[2017-07-02] MEDS: CHOLECALCIFEROL 1,000 UNIT TAB PO SCH (09:26)
[2017-07-02] MEDS: CALCIUM CARB-VIT D 500MG-200UN 1 EACH TAB PO SCH ×2 (09:26→21:59)
[2017-07-02] MEDS: BRIMONIDINE TARTRATE 0.2% DROPS 5 ML BTL BOTH EYES SCH ×2 (09:26→21:58)
[2017-07-02] MEDS: ASPIRIN 81 MG CHEW PO SCH (09:26)
[2017-07-02] MEDS: FERROUS SULFATE 325 MG TAB PO SCH ×2 (09:28→21:59)
[2017-07-02] MEDS: LACTOBACILLUS ACIDOPH & BULGAR 1 EACH PACKET PO SCH (09:29)
[2017-07-02] MEDS: POTASSIUM CHLORIDE ER 10 MEQ TAB.ER.PRT PO SCH (09:29)
[2017-07-02] MEDS: FAMOTIDINE 20 MG TAB PO SCH ×2 (09:29→21:59)
[2017-07-02] MEDS: HEPARIN SODIUM,PORCINE 5,000 UNIT/ML 1 ML VIAL SQ SCH ×2 (09:29→21:59)
[2017-07-02] MEDS: oxyCODONE ER 10 MG TAB.ER.12H PO SCH ×2 (09:30→22:05)
[2017-07-02] MEDS: TIMOLOL 0.5% OPHTH DROPS 5 ML BTL BOTH EYES SCH ×2 (09:30→21:58)
[2017-07-02] MEDS: FUROSEMIDE 20 MG TAB PO SCH (09:30)
[2017-07-02] MEDS: CLOTRIMAZOLE/BETAMETH 1-0.05% CREAM 45 GM TUBE TOPICAL SCH ×2 (09:32→21:57)
[2017-07-02 11:27] LABS: Glucose,Whole Blood 111 mg/dL (75-99)
[2017-07-02] MEDS: COLLAGENASE 250 UNIT/GM OINTMENT 30 GM TUBE TOPICAL SCH ×2 (13:48→21:57)
[2017-07-02] MEDS: MULTIVITAMINS, THERA 1 EACH TAB PO SCH (13:48)
[2017-07-02 16:39] LABS: Glucose,Whole Blood 102 mg/dL (75-99)
[2017-07-02 21:06] LABS: Glucose,Whole Blood 183 mg/dL (75-99)
--- NOTE | 2017-07-02 21:43 | PN ---
PROGRESS NOTE DATE OF SERVICE: 07/02/2017 This is a progress note. INTERVAL HISTORY: This 76 -year-old woman was admitted with extensive sacral coccygeal ulceration, is being closely monitored. Patient is on IV antibiotics. Possibility of osteomyelitis is also being considered. Oral intake appears to be poor at this time. Patient is stuporous. On exam, pulse 65, blood pressure 105/52, respiration 18, temperature 98.4, pulse ox 94% on 2 L. HEENT: Conjunctivae normal. Neck: No jugular venous distention. Cardiovascular: S1, S2 muffled. Respiratory: Breath sounds diminished in the bases. A few scattered rhonchi and crackles. Abdomen is soft, nontender. Obese. Legs no edema. No swelling. Central nervous system: Unchanged. LABS: WBC 6.6. Otherwise hemoglobin is 8.3. ASSESSMENT: 1. Extensive sacrococcygeal ulceration with pressure ulcers, failure for outpatient treatment with possible sepsis present on admission with possible osteomyelitis, culture reporting MDR, ESBL pseudomonas aeruginosa. 2. Pressure ulcers extensive planned tunneling status post debridement. 3. Normocytic anemia of chronic disease. 4. Change in mental status. Chronic metabolic encephalopathy in a patient with dementia. 5. ESBL with Methicillin-resistant Staphylococcus aureus history. 6. Diabetes type 2. 7. History of status post PICC line. 8. Moderate to severe protein calorie malnutrition. 9. Hypoalbuminemia. RECOMMENDATIONS AND DISCUSSION: Recommend to continue current medications, continue current management and symptomatic treatment. Otherwise at this time, continue antibiotics and nurse outreach case manager and social science teacher to follow with the possibility of transfer to select specialty or tertiary. Further recommendations to follow. MMODL / IJN: [id number] /
[2017-07-02] MEDS: AMMONIUM LACTATE 12% LOTION 225 GM BTL TOPICAL SCH (21:57)
[2017-07-02] MEDS: SERTRALINE 25 MG TAB PO SCH (21:59)
[2017-07-02] MEDS: DONEPEZIL 10 MG TAB PO SCH (21:59)
[2017-07-02] MEDS: LATANOPROST 0.005% OPHTH DROPS 2.5 ML BTL BOTH EYES SCH (21:59)
[2017-07-02] MEDS: ATORVASTATIN 40 MG TAB PO SCH (21:59)
[2017-07-02] MEDS: INSULIN GLARGINE 100 UNIT/ML 10 ML VIAL SQ SCH (22:00)
[2017-07-03] MEDS: MEROPENEM 1 GM in SODIUM CHLORIDE 0.9% 100 ML IVPB SCH ×4 (01:08→23:35)
[2017-07-03] MEDS: SODIUM CHLORIDE 0.9% 1,000 ML IV SCH (04:20)
[2017-07-03 06:32] LABS: Glucose,Whole Blood 105 mg/dL (75-99)
[2017-07-03 06:57] LABS: Anisocytosis Slight; Basophils % (A) 0 %; CH 26.5; CHCM 30.5; Eosinophils # (A) 0.5 k/uL (0-0.7); Eosinophils % (A) 6 %; HCT 27.3 % (34.0-46.0); HGB 8.5 gm/dL (11.4-16.0); Hypochromasia Marked; Luc # (Auto) 0.12; Luc % (Auto) 1; Lymphocytes # (A) 1.3 k/uL (1.0-4.8); Lymphocytes % (A) 13 %; MCH 27.3 pg (25.0-35.0); MCHC 31.3 g/dL (31.0-37.0); MCV 87.4 fL (80.0-100.0); Mean Platelet Volume 6.5; Monocytes # (A) 0.4 k/uL (0-1.0); Monocytes % (A) 5 %; Neutrophils # (A) 6.9 k/uL (1.3-7.7); Neutrophils % (A) 75 %; Poikilocytosis Slight; RBC 3.12 m/uL (3.80-5.40); RDW 19.3 % (11.5-15.5); WBC 9.3 k/uL (3.8-10.6); WBC (Perox) 9.63
[2017-07-03] MEDS: INSULIN LISPRO (humaLOG) 300 UNIT/3 ML VIAL SQ SCH ×4 (06:58→21:41)
[2017-07-03 07:04] LABS: Anion Gap 1 mmol/L; Blood Urea Nitrogen 20 mg/dL (7-17); Calcium 8.6 mg/dL (8.4-10.2); Carbon Dioxide 36 mmol/L (22-30); Chloride 104 mmol/L (98-107); Glucose 101 mg/dL (74-99); Non-African American GFR(MDRD) >60 (>60 ml/min/1.73 sqM); Sodium 141 mmol/L (137-145)
[2017-07-03] MEDS: TIMOLOL 0.5% OPHTH DROPS 5 ML BTL BOTH EYES SCH ×2 (08:35→21:39)
[2017-07-03] MEDS: HEPARIN SODIUM,PORCINE 5,000 UNIT/ML 1 ML VIAL SQ SCH ×2 (08:35→21:39)
[2017-07-03] MEDS: LACTOBACILLUS ACIDOPH & BULGAR 1 EACH PACKET PO SCH (08:36)
[2017-07-03] MEDS: POTASSIUM CHLORIDE ER 10 MEQ TAB.ER.PRT PO SCH (08:36)
[2017-07-03] MEDS: CALCIUM CARB-VIT D 500MG-200UN 1 EACH TAB PO SCH ×2 (08:36→21:40)
[2017-07-03] MEDS: BRIMONIDINE TARTRATE 0.2% DROPS 5 ML BTL BOTH EYES SCH ×2 (08:36→21:39)
[2017-07-03] MEDS: MULTIVITAMINS, THERA 1 EACH TAB PO SCH (08:36)
[2017-07-03] MEDS: oxyCODONE ER 10 MG TAB.ER.12H PO SCH ×2 (08:36→21:40)
[2017-07-03] MEDS: FUROSEMIDE 20 MG TAB PO SCH (08:36)
[2017-07-03] MEDS: ASPIRIN 81 MG CHEW PO SCH (08:36)
[2017-07-03] MEDS: FERROUS SULFATE 325 MG TAB PO SCH ×2 (08:36→21:40)
[2017-07-03] MEDS: CHOLECALCIFEROL 1,000 UNIT TAB PO SCH (08:36)
[2017-07-03] MEDS: CLOTRIMAZOLE/BETAMETH 1-0.05% CREAM 45 GM TUBE TOPICAL SCH ×2 (08:37→21:40)
[2017-07-03] MEDS: CARVEDILOL 12.5 MG TAB PO SCH ×2 (08:37→16:41)
[2017-07-03] MEDS: FAMOTIDINE 20 MG TAB PO SCH ×2 (08:37→21:41)
[2017-07-03 11:33] LABS: Glucose,Whole Blood 125 mg/dL (75-99)
[2017-07-03 16:31] LABS: Glucose,Whole Blood 128 mg/dL (75-99)
--- NOTE | 2017-07-03 17:20 | P.PN ---
Subjective Date of service 06/27/2017. Personal being dictated for Dr. Mazariegos. Interval history: This a 76-year-old female admitted with extensive pressure ulcers of the sacral area with failure of outpatient therapy, possible sepsis and multiple other medical issues. Maintained on Merrem as per ID. Wound cultures reporting MDRO ESBL, moderate E. coli, few pseudomonas aeruginosa. Scheduled for debridement tomorrow with surgery. Afebrile, T-max 99.3. Hemoglobin 7.6. Denies abdominal pain or increased sacral wound pain .Denies chest pain, palpitations or increasing shortness of breath. 06/28/2017 Sitting up on specialty bed, awaiting debridement this morning, T- max 99.4. Labs pending. Denies abdominal pain. Denies chest pain, palpitations or increasing shortness of breath. 06/29/2017 status post debridement, tolerated procedure well. Post- debridement measurements noted.Wound culture MDRO ESBL, pseudomonas aeruginosa, maintained on Merrem as per ID. Afebrile. Telemetry sinus rhythm. Diet intake remains poor. Minimally conversing, denies pain. Social work assisting in arranging facility specializing in wound care. Select specialty evaluation pending.Hemoglobin 8.0. 06/30/2017. Underwent bone scan, results pending. Evaluation by select specialty in progress. Diet intake poor but increased when at bedside. Blood sugars running lower this morning, in the 70s and 80s. Denies lightheadedness, or dizziness. No acute changes, denies pain. 07/03 2017. Maintained on IV antibiotics. Wound care as per infectious disease More alert this morning, diet intake improving up to 25%. Attempts to converse more, smiling. Possible osteomyelitis. Afebrile. Objective - Vital Signs Vital signs: Vital Signs Temp 98.1 F 07/03/17 16:22 Pulse 60 07/03/17 16:22 Resp 16 07/03/17 16:22 BP 105/53 07/03/17 16:22 Pulse Ox 91 L 07/03/17 16:22 Intake & Output 07/02/17 07/03/17 07/03/17 18:59 06:59 18:59 Intake Total 630 100 Output Total 1200 1100 Balance -570 -1100 100 Weight 111 kg 111 kg Intake: IV 100 Meropenem 1 gm In Sodium 100 Chloride 0.9% 100 ml @ 200 mls/hr IVPB Q8HR [facility] Rx#:[id number] Intake, IV Titration 580 Amount Meropenem 1 gm In Sodium 100 Chloride 0.9% 100 ml @ 200 mls/hr IVPB Q8HR [facility] Rx#:[id number] Sodium Chloride 0.9% 1, 480 000 ml @ 60 mls/hr IV . [id number] [facility] Rx#:[id number] Oral 50 Output: Urine 1200 1100 Other: Voiding Method Indwelling Catheter Indwelling Catheter Indwelling Catheter - Exam PHYSICAL EXAM: VITAL SIGNS: As above GENERAL: lying in bed-specialty bed, no acute distress HEENT: Conjunctivae normal. eyes normal, Oral mucosa moist NECK: No JVD. No thyroid enlargement. CARDIOVASCULAR: S1, S2 muffled. No murmur RESPIRATION: Respiratory effort normal, Breath sounds diminished in the bases. Occasional scattered crackles and rhonchi ABDOMEN: Soft, nontender . No guarding. no masses palpable. Positive Bowel sounds. LEGS: No edema. no swelling. PSYCHIATRY: Alert and oriented 2, mood and affect normal, answer simple questions and follows simple commands. NERVOUS SYSTEM: Cranial N 2-12 grossly normal. Diffuse weakness, No focal deficits. SKIN: Sacra/coccyxl ulcers dressings, clean, dry and intact. Microbiology 06/23/17 18:20 Coccyx Anaerobic Culture - Final 06/23/17 18:20 Coccyx Gram Stain - Final 06/23/17 18:20 Coccyx Wound Culture - Final Escherichia coli Pseudomonas aeruginosa - Labs CBC & Chem 7: 07/03/17 06:34 07/03/17 06:34 Labs: Abnormal Lab Results - Last 24 Hours (Table) 07/02/17 07/03/17 07/03/17 Range/Units 21:03 06:31 06:34 RBC 3.12 L (3.80-5.40) m/uL Hgb 8.5 L (11.4-16.0) gm/dL Hct 27.3 L (34.0-46.0) % RDW 19.3 H (11.5-15.5) % Carbon Dioxide (22-30) mmol/L BUN (7-17) mg/dL Glucose (74-99) mg/dL POC Glucose (mg/dL) 183 H 105 H (75-99) mg/dL 07/03/17 07/03/17 07/03/17 Range/Units 06:34 11:32 16:29 RBC (3.80-5.40) m/uL Hgb (11.4-16.0) gm/dL Hct (34.0-46.0) % RDW (11.5-15.5) % Carbon Dioxide 36 H (22-30) mmol/L BUN 20 H (7-17) mg/dL Glucose 101 H (74-99) mg/dL POC Glucose (mg/dL) 125 H 128 H (75-99) mg/dL Assessment and Plan Plan: 1. Extensive sacral and coccygeal pressure ulcers, stage III 3, stage II 1, failure to of outpatient treatment, with possible sepsis present on admission, cultures reporting MDRO ESBL, Pseudomonas aeruginosa. Pressure ulcers, extensive necrosis; increased in size, with tunneling, S/P debridement. Possible osteomyelitis. 2. [ Normocytic anemia of chronic disease]. 3. [ Changes in mental status with chronic metabolic encephalopathy, in a patient with dementia]. 4. [ ESBL with MRSA]. 5. [ Diabetes mellitus type 2]. 6. Status post PICC line 7. Moderate to severe Protein Malnutrition, Hypoalbumenia. Plan: Continue on current medication regime ,monitoring and symptomatic treatment. Antibiotics and wound care as per infectious disease. Discharge planning in progress for [facility] for [facility]. Further recommendations to follow. The impression and plan of care has been dictated as directed as a scribe. : I performed a H&P examination of this patient and discussed the same with the dictator. I agree with the dictator's note. Any additional findings/opinions/ etc. will be noted.
--- NOTE | 2017-07-03 20:36 | P.PN ---
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 The patient has a recent hospitalization where she was found evidence of pressure ulceration of the coccyx and buttocks. She underwent surgical debridement during that stay. She was treated with local wound care. Was recently hospitalized [facility] evidence of septic shock. Aggressive therapy she slowly improved. Patient has a very poor overall prognosis. I do believe that she was made DO NOT RESUSCITATE. However other aggressive care continues at this time. The patient has evidence of extensive necrosis that has continued to worsen. The patient is now in her sleeping is surgical debridement. Bone scan was requested to further evaluate extent of osteomyelitis of her pelvis. She has no acute changes. Her George is present today and is able to help her eat. Objective - Vital Signs - Exam Superobese 76-year-old female who is comfortable HEENT: Anicteric conjunctiva are pink and moist nasal mucosa grossly intact without significant lesions, there is no thrush. Dentition is poor Neck: The neck is supple without significant lymphadenopathy or thyromegaly. Lungs: Symmetrical air entry with basilar crackles no bronchial sounds no dullness. Heart: Heart rate is slow at just 60,. She 100% paced by the monitor. Audible S1 and S2 soft S4 no murmur click or rub Abdomen: Superobese Positive bowel sounds soft and nontender without palpable masses or organomegaly. There was no guarding or rebound. Extremities: The extremities have some generalized edema and no significant open ulcerations are seen. The heels are intact at this time. Neuro: Patient .awake and alert Skin: Patient is evidence the extensive pressure ulceration to the coccyx and buttocks. Please see the nursing documentation for the photography and measurements of these extensive ulcerations which are now postoperative. There is marked improvement. Laboratory Results WBC 9.3 k/uL (3.8-10.6) 07/03/17 06:34 RBC 3.12 m/uL (3.80-5.40) L 07/03/17 06:34 Hgb 8.5 gm/dL (11.4-16.0) L 07/03/17 06:34 Hct 27.3 % (34.0-46.0) L 07/03/17 06:34 MCV 87.4 fL (80.0-100.0) 07/03/17 06:34 MCH 27.3 pg (25.0-35.0) 07/03/17 06:34 MCHC 31.3 g/dL (31.0-37.0) 07/03/17 06:34 RDW 19.3 % (11.5-15.5) H 07/03/17 06:34 Plt Count 314 k/uL (150-450) 07/03/17 06:34 Neutrophils % 75 % 07/03/17 06:34 Lymphocytes % 13 % 07/03/17 06:34 Monocytes % 5 % 07/03/17 06:34 Eosinophils % 6 % 07/03/17 06:34 Basophils % 0 % 07/03/17 06:34 Neutrophils # 6.9 k/uL (1.3-7.7) 07/03/17 06:34 Lymphocytes # 1.3 k/uL (1.0-4.8) 07/03/17 06:34 Monocytes # 0.4 k/uL (0-1.0) 07/03/17 06:34 Eosinophils # 0.5 k/uL (0-0.7) 07/03/17 06:34 Basophils # 0.0 k/uL (0-0.2) 07/03/17 06:34 Hypochromasia Marked 07/03/17 06:34 Poikilocytosis Slight 07/03/17 06:34 Anisocytosis Slight 07/03/17 06:34 PT 11.2 sec (9.0-12.0) 06/25/17 07:39 INR 1.1 (<1.2) 06/25/17 07:39 Sodium 141 mmol/L (137-145) 07/03/17 06:34 Potassium 4.0 mmol/L (3.5-5.1) 07/03/17 06:34 Chloride 104 mmol/L (98-107) 07/03/17 06:34 Carbon Dioxide 36 mmol/L (22-30) H 07/03/17 06:34 Anion Gap 1 mmol/L 07/03/17 06:34 BUN 20 mg/dL (7-17) H 07/03/17 06:34 Creatinine 0.65 mg/dL (0.52-1.04) 07/03/17 06:34 Est GFR (MDRD) Af Amer >60 (>60 ml/min/1.73 sqM) 07/03/17 06:34 Est GFR (MDRD) Non-Af >60 (>60 ml/min/1.73 sqM) 07/03/17 06:34 Glucose 101 mg/dL (74-99) H 07/03/17 06:34 POC Glucose (mg/dL) 128 mg/dL (75-99) H 07/03/17 16:29 POC Glu Ball Warper Tender Daysi Poole 07/03/17 16:[address] Glu mg/dL 137 mg/dL 06/23/17 18:34 Hemoglobin A1c 6.4 % (4.2-6.1) H 06/23/17 18:34 Calcium 8.6 mg/dL (8.4-10.2) 07/03/17 06:34 Iron 30 ug/dL (37-170) L 06/25/17 07:39 TIBC 159 ug/dL (265-497) L 06/25/17 07:39 % Saturation 18.9 % (20-50) L 06/25/17 07:39 Ferritin 240.9 ng/mL (10.0-291.0) 06/25/17 07:39 Total Bilirubin 0.4 mg/dL (0.2-1.3) 06/25/17 07:39 AST 27 U/L (14-36) 06/25/17 07:39 ALT 26 U/L (9-52) 06/25/17 07:39 Alkaline Phosphatase 115 U/L (38-126) 06/25/17 07:39 Total Protein 4.6 g/dL (6.3-8.2) L 06/25/17 07:39 Albumin 2.1 g/dL (3.5-5.0) L 06/25/17 07:39 Prealbumin 6.0 mg/dL (18.0-42.0) L 06/28/17 08:52 Urine Color Yellow 06/24/17 14:00 Urine Appearance Cloudy (Clear) H 06/24/17 14:00 Urine pH 5.5 (5.0-8.0) 06/24/17 14:00 Ur Specific [place] 1.012 (1.001-1.035) 06/24/17 14:00 Urine Protein Negative (Negative) 06/24/17 14:00 Urine Glucose (UA) Negative (Negative) 06/24/17 14:00 Urine Ketones Negative (Negative) 06/24/17 14:00 Urine Blood Negative (Negative) 06/24/17 14:00 Urine Nitrite Positive (Negative) H 06/24/17 14:00 Urine Bilirubin Negative (Negative) 06/24/17 14:00 Urine Urobilinogen <2.0 mg/dL (<2.0) 06/24/17 14:00 Ur Leukocyte Esterase Large (Negative) H 06/24/17 14:00 Urine RBC 6 /hpf (0-5) H 06/24/17 14:00 Urine WBC 101 /hpf (0-5) H 06/24/17 14:00 Urine WBC Clumps Occasional /hpf (None) H 06/24/17 14:00 Ur Squamous Epith Cells <1 /hpf (0-4) 06/24/17 14:00 Uric Acid Crystals Occasional /hpf (None) H 06/24/17 14:00 Amorphous Sediment Occasional /hpf (None) H 06/24/17 14:00 Urine Bacteria Occasional /hpf (None) H 06/24/17 14:00 Hyaline Casts 10 /lpf (0-2) H 06/24/17 14:00 Urine Mucus Occasional /hpf (None) H 06/24/17 14:00 Urine Yeast (Budding) Moderate /hpf (None) H 06/24/17 14:00 Blood Type O Positive 06/28/17 08:52 Blood Type Recheck No 06/28/17 08:52 Antibody Screen NEGATIVE 06/28/17 08:52 Spec Expiration Date 07/01/2017 5848 06/28/17 08:52 Microbiology 06/23/17 18:20 Coccyx Anaerobic Culture - Final 06/23/17 18:20 Coccyx Gram Stain - Final 06/23/17 18:20 Coccyx Wound Culture - Final Escherichia coli Pseudomonas aeruginosa Assessment and Plan (1) Shock, septic, Gram negative Narrative/Plan: 76-year-old female who suffers from superobesity and also medical complaints presents from extended care facility with altered mental status. He does appear to admission the patient had evidence of sepsis and then evidence of shock in that she had lack of improvement after fluid resuscitation and required vasopressor therapy. She is progressed on to respiratory failure requiring BiPAP. She is a DO NOT INTUBATE status. Status discussed with the family. Discussing that pressure ulceration in this situation is a symptom of a person that is chronically ill and declining. The current bout of sepsis is likely related to the infection from the pressure ulcerations. But her progressively declining medical condition remains etiology of the pressure ulcerations. The patient has been seen by surgery. Surgical debridement Will not be any type of flap grafting occurring. Patient still has large extensive areas of necrosis. She has poor nutrition. Poor overall functional status. If the family requires further intervention. We'll consider transfer to a tertiary center to see if any further surgical options to exist. However Palliative or Comfort Care continue to remain options at this time. Due to the current culture data Zosyn was transitioned to meropenem which will provide coverage for the isolated ESBL E. coli and Pseudomonas. She is on a specialty bed. Continue ongoing turning and local wound care with Dakin solution. The case is discussed with the surgeon surgical debridement has occurred. The patient would need extensive improvement in physical and nutritional status to be a candidate for any extensive surgical interventions. The patient has extensive wounds and need for antibiotic therapy. The patient has now had the extensive debridement performed. Bone scan has been performed. Due to many factors not able to exclude osteomyelitis. We'll plan 6 weeks of antibiotics. The patient is being evaluated for potential selective specialty placement Wound care is clarified. Discussed with the surgeon. We will utilize collagenase daily to the large ulcers. Would like to consider the possibility of a negative pressure therapy system. If she will not be transferred to the specialty center soon should be initiated at our unit.. (2) Pressure ulcer of coccygeal region, stage 4 Status: Acute
[2017-07-03 21:07] LABS: Glucose,Whole Blood 198 mg/dL (75-99)
[2017-07-03] MEDS: LATANOPROST 0.005% OPHTH DROPS 2.5 ML BTL BOTH EYES SCH (21:39)
[2017-07-03] MEDS: ATORVASTATIN 40 MG TAB PO SCH (21:40)
[2017-07-03] MEDS: AMMONIUM LACTATE 12% LOTION 225 GM BTL TOPICAL SCH (21:40)
[2017-07-03] MEDS: COLLAGENASE 250 UNIT/GM OINTMENT 30 GM TUBE TOPICAL SCH (21:40)
[2017-07-03] MEDS: DONEPEZIL 10 MG TAB PO SCH (21:40)
[2017-07-03] MEDS: SERTRALINE 25 MG TAB PO SCH (21:40)
[2017-07-03] MEDS: INSULIN GLARGINE 100 UNIT/ML 10 ML VIAL SQ SCH (21:41)
[2017-07-04 06:02] LABS: Glucose,Whole Blood 95 mg/dL (75-99)
[2017-07-04] MEDS: INSULIN LISPRO (humaLOG) 300 UNIT/3 ML VIAL SQ SCH ×4 (06:21→20:55)
[2017-07-04] MEDS: SODIUM CHLORIDE 0.9% 1,000 ML IV SCH (06:47)
[2017-07-04] MEDS: CARVEDILOL 12.5 MG TAB PO SCH ×2 (06:51→17:09)
[2017-07-04 07:22] LABS: Anion Gap 3 mmol/L; Blood Urea Nitrogen 20 mg/dL (7-17); Calcium 8.6 mg/dL (8.4-10.2); Carbon Dioxide 33 mmol/L (22-30); Chloride 104 mmol/L (98-107); Glucose 82 mg/dL (74-99); Non-African American GFR(MDRD) >60 (>60 ml/min/1.73 sqM); Potassium 4.3 mmol/L (3.5-5.1); Sodium 140 mmol/L (137-145)
[2017-07-04 07:23] LABS: Anisocytosis Slight; Basophils % (A) 0 %; CH 26.5; CHCM 30.3; Eosinophils # (A) 0.4 k/uL (0-0.7); Eosinophils % (A) 4 %; HCT 28.3 % (34.0-46.0); HDW 3.52; HGB 8.8 gm/dL (11.4-16.0); Hypochromasia Marked; Luc # (Auto) 0.12; Luc % (Auto) 1; Lymphocytes # (A) 1.1 k/uL (1.0-4.8); Lymphocytes % (A) 13 %; MCH 27.4 pg (25.0-35.0); MCHC 31.1 g/dL (31.0-37.0); MCV 88.1 fL (80.0-100.0); Mean Platelet Volume 6.9; Monocytes # (A) 0.4 k/uL (0-1.0); Monocytes % (A) 5 %; Neutrophils # (A) 6.8 k/uL (1.3-7.7); Neutrophils % (A) 77 %; Poikilocytosis Slight; RBC 3.21 m/uL (3.80-5.40); RDW 19.6 % (11.5-15.5); WBC 8.9 k/uL (3.8-10.6)
[2017-07-04] MEDS: BRIMONIDINE TARTRATE 0.2% DROPS 5 ML BTL BOTH EYES SCH ×2 (09:17→20:54)
[2017-07-04] MEDS: MEROPENEM 1 GM in SODIUM CHLORIDE 0.9% 100 ML IVPB SCH ×3 (09:17→23:33)
[2017-07-04] MEDS: FUROSEMIDE 20 MG TAB PO SCH (09:17)
[2017-07-04] MEDS: HEPARIN SODIUM,PORCINE 5,000 UNIT/ML 1 ML VIAL SQ SCH ×2 (09:17→20:54)
[2017-07-04] MEDS: TIMOLOL 0.5% OPHTH DROPS 5 ML BTL BOTH EYES SCH ×2 (09:17→20:56)
[2017-07-04] MEDS: MULTIVITAMINS, THERA 1 EACH TAB PO SCH (09:18)
[2017-07-04] MEDS: LACTOBACILLUS ACIDOPH & BULGAR 1 EACH PACKET PO SCH (09:18)
[2017-07-04] MEDS: ASPIRIN 81 MG CHEW PO SCH (09:18)
[2017-07-04] MEDS: FAMOTIDINE 20 MG TAB PO SCH ×2 (09:18→20:54)
[2017-07-04] MEDS: FERROUS SULFATE 325 MG TAB PO SCH ×2 (09:18→20:54)
[2017-07-04] MEDS: POTASSIUM CHLORIDE ER 10 MEQ TAB.ER.PRT PO SCH (09:18)
[2017-07-04] MEDS: CALCIUM CARB-VIT D 500MG-200UN 1 EACH TAB PO SCH ×2 (09:18→20:54)
[2017-07-04] MEDS: oxyCODONE ER 10 MG TAB.ER.12H PO SCH ×2 (09:18→20:56)
[2017-07-04] MEDS: CHOLECALCIFEROL 1,000 UNIT TAB PO SCH (09:18)
[2017-07-04] MEDS: CLOTRIMAZOLE/BETAMETH 1-0.05% CREAM 45 GM TUBE TOPICAL SCH ×2 (09:19→23:37)
--- NOTE | 2017-07-04 13:26 | P.DS ---
Providers Date of admission: 06/23/17 17:37 Expected date of discharge: 07/04/17 Attending physician: Rasta Salamanca Consults: 06/23/17 18:08 Consult Physician Routine Consulting Provider: Cruz Albright Consult Reason/Comments: stage 4 coccyx and sacral wounds Do you want consulting provider notified?: Yes 06/24/17 00:13 Consult Physician Routine Consulting Provider: Mariah Ward Consult Reason/Comments: wound care Do you want consulting provider notified?: Yes, Notify in am Primary care physician: Stated None PCP at [facility] Hospital Course: Final diagnoses 1. Extensive sacral and coccygeal pressure ulcers, stage III 3, stage II 1, failure to of outpatient treatment, with possible sepsis present on admission, cultures reporting MDRO ESBL, Pseudomonas aeruginosa. Pressure ulcers, extensive necrosis; increased in size, with tunneling, S/P debridement. Possible osteomyelitis. 2. [ Normocytic anemia of chronic disease]. 3. [ Changes in mental status with chronic metabolic encephalopathy, in a patient with dementia]. 4. [ ESBL with MRSA]. 5. [ Diabetes mellitus type 2]. 6. Status post PICC line 7. Moderate to severe Protein Malnutrition, Hypoalbumenia. Hospital course:This is a 76-year-old female admitted with extensive pressure ulcers of the sacral area with failure of outpatient therapy, possible sepsis and multiple other medical issues. Maintained on Merrem as per ID. Wound cultures reporting MDRO ESBL, moderate E. coli, few pseudomonas aeruginosa. Underwent debridement with surgery. Osteomyelitis cannot be ruled out per bone scan. Wound care and antibiotics as per ID. Patient has been cleared for discharge planning consults. Patient is being discharged to [facility] in stable condition with guarded prognosis. The impression and plan of care has been dictated as directed as a scribe. : I performed a H&P examination of this patient and discussed the same with the dictator. I agree with the dictator's note. Any additional findings/opinions/ etc. will be noted. Patient Condition at Discharge: Stable Plan - Discharge Summary New Discharge Prescriptions: New Collagenase [Santyl] 1 applic TOPICAL 2100 dose Insulin Glargine [Lantus] 20 unit SQ HS vial INSULIN LISPRO (HumaLOG) [humaLOG] 0 unit SQ ACHS #1 vial Megestrol [Megace] 40 mg PO QID #1 tablet Clotrimazole/Betameth Cream [Lotrisone] 1 applic TOPICAL Q12HR dose Continue Ammonium Lactate Lotion [Lac-Hydrin 12% Lotion] 1 applic TOPICAL HS Mclaughlin-3 Acid Ethyl Esters [Lovaza] 1 gm PO BID Calcium Carb-Vit D 500Mg-200Un [Oscal 500+D] 1 tab PO BID Multivitamins, Thera [Multivitamin (formulary)] 1 tab PO DAILY Cholecalciferol (Vitamin D3) [Vitamin D3] 2,000 unit PO DAILY Aspirin EC [Ecotrin Low Dose] 81 mg PO DAILY Atorvastatin [Lipitor] 40 mg PO HS tab Brimonidine Tartrate [Alphagan P 0.2% Ophth Soln] 1 drops BOTH EYES BID bottle Carvedilol [Coreg*] 12.5 mg PO BID-W/MEALS tab Donepezil [Aricept] 10 mg PO HS tab Famotidine [Pepcid] 20 mg PO BID tab Ferrous Sulfate [Iron (65 MG Elemental)] 325 mg PO BID tab Latanoprost Ophth [Xalatan 0.005%] 1 drops BOTH EYES HS bottle Magnesium Hydroxide [Milk of Magnesia Concentrate] 2,400 mg PO DAILY PRN dose PRN Reason: Constipation Sertraline [Zoloft] 75 mg PO HS tab Timolol 0.5% Ophth Soln [Timoptic 0.5% Ophth Soln] 1 drops BOTH EYES BID bottle Potassium Chloride ER [K-Dur 10] 10 meq PO DAILY Furosemide [Lasix] 20 mg PO DAILY Amino Acids/Protein Hydrolys [Pro-Stat Supplement] 30 ml PO DAILY L.acidoph,Paracasei, B.lactis [Probiotic] 1 cap PO DAILY HYDROcodone/APAP 5-325MG [[place] 5-325] 1 tab PO Q6HR PRN #20 PRN Reason: Severe Pain oxyCODONE ER [OxyCONTIN] 10 mg PO Q12HR #20 Changed Albuterol Nebulized [Ventolin Nebulized] 2.5 mg INHALATION RT-QID #0 Lactose-Reduced Food [Ensure Plus] 120 ml PO TID #1 Discontinued Piperacillin-Tazobactam [Zosyn] 3.375 gm IVPB Q6H #152 bag Goldenseal 470mg 470 mg PO QID Insulin Lispro [humaLOG Kwikpen] 6 unit SQ TID Clotrimazole/Betamethasone Dip [Lotrisone Cream] 1 applic TOPICAL Q12H Insulin Glargine,Hum.rec.anlog [Basaglar Kwikpen U-100] 25 unit SQ HS Prostat Awc 15 ml PO TID Discharge Medication List Ammonium Lactate Lotion [Lac-Hydrin 12% Lotion] 1 applic TOPICAL HS 12/28/15 [ History] Calcium Carb-Vit D 500Mg-200Un [Oscal 500+D] 1 tab PO BID 12/28/15 [History] Multivitamins, Thera [Multivitamin (formulary)] 1 tab PO DAILY 12/28/15 [History ] Mclaughlin-3 Acid Ethyl Esters [Lovaza] 1 gm PO BID 12/28/15 [History] Aspirin EC [Ecotrin Low Dose] 81 mg PO DAILY 05/24/17 [History] Cholecalciferol (Vitamin D3) [Vitamin D3] 2,000 unit PO DAILY 05/24/17 [History] Atorvastatin [Lipitor] 40 mg PO HS tab 05/29/17 [Rx] Brimonidine Tartrate [Alphagan P 0.2% Ophth Soln] 1 drops BOTH EYES BID bottle 05/29/17 [Rx] Carvedilol [Coreg*] 12.5 mg PO BID-W/MEALS tab 05/29/17 [Rx] Donepezil [Aricept] 10 mg PO HS tab 05/29/17 [Rx] Famotidine [Pepcid] 20 mg PO BID tab 05/29/17 [Rx] Ferrous Sulfate [Iron (65 MG Elemental)] 325 mg PO BID tab 05/29/17 [Rx] Latanoprost Ophth [Xalatan 0.005%] 1 drops BOTH EYES HS bottle 05/29/17 [Rx] Magnesium Hydroxide [Milk of Magnesia Concentrate] 2,400 mg PO DAILY PRN dose 05/29/17 [Rx] Sertraline [Zoloft] 75 mg PO HS tab 05/29/17 [Rx] Timolol 0.5% Ophth Soln [Timoptic 0.5% Ophth Soln] 1 drops BOTH EYES BID bottle 05/29/17 [Rx] Amino Acids/Protein Hydrolys [Pro-Stat Supplement] 30 ml PO DAILY 06/04/17 [ History] Furosemide [Lasix] 20 mg PO DAILY 06/04/17 [History] Potassium Chloride ER [K-Dur 10] 10 meq PO DAILY 06/04/17 [History] L.acidoph,Paracasei, B.lactis [Probiotic] 1 cap PO DAILY 06/23/17 [History] Collagenase [Santyl] 1 applic TOPICAL 2100 dose 07/03/17 [Rx] INSULIN LISPRO (HumaLOG) [humaLOG] 0 unit SQ ACHS #1 vial 07/03/17 [Rx] Insulin Glargine [Lantus] 20 unit SQ HS vial 07/03/17 [Rx] Megestrol [Megace] 40 mg PO QID #1 tablet 07/03/17 [Rx] Albuterol Nebulized [Ventolin Nebulized] 2.5 mg INHALATION RT-QID #0 07/04/17 [ Rx] Clotrimazole/Betameth Cream [Lotrisone] 1 applic TOPICAL Q12HR dose 07/04/17 [ Rx] HYDROcodone/APAP 5-325MG [[place] 5-325] 1 tab PO Q6HR PRN #20 07/04/17 [Rx] Lactose-Reduced Food [Ensure Plus] 120 ml PO TID #1 07/04/17 [Rx] oxyCODONE ER [OxyCONTIN] 10 mg PO Q12HR #20 07/04/17 [Rx] Follow up Appointment(s)/Referral(s): Cruz Albright MD [STAFF PHYSICIAN] - 1 Week PCP, Dr. Vila-dread [Other] - 3 Days Patient Instructions/Handouts: Heart Failure (DC), Type 2 Diabetes in Adults ( DC) Activity/Diet/Wound Care/Special Instructions: Antibx/wound care as per ID Cadence Yañez DIet;Consist. carb, protein supplements between meals accu cheks achs Activity: as tolerated cbc,bmp in 3 days
--- NOTE | 2017-07-04 15:29 | XR ---
EXAMINATION TYPE: XR chest 1V portable DATE OF EXAM: 07/04/2017 CLINICAL HISTORY: Difficulty breathing progress study. TECHNIQUE: Single AP portable upright view of the chest is obtained. COMPARISON: Chest x-ray from June 10, 2017. FINDINGS: There is persistent cardiomegaly with multi lead pacemaker/AICD. There is persistent athero sclerotic and ectatic thoracic aorta. There is persistent bibasilar opacity More prominent on the right side suggesting small bilateral pleural effusions and associated bibasila r atelectasis and/or infiltrate. Some central vascular congestion is felt present. A right-sided PICC line is stable in appearance. Osseous structures are demineralized with degenerative change both mallika ulders the glenohumeral joint noted. Overall low lung volumes are redemonstrated. IMPRESSION: Cannot exclude CHF exacerbation as there is cardiomegaly with central vascular congestion and small bilateral pleural effusions felt present currently, there is associated bibasilar atelecta sis and/or infiltrate identified. Right basilar findings appear new from prior study.
[2017-07-04 15:54] LABS: Glucose,Whole Blood 105 mg/dL (75-99)
[2017-07-04 16:29] LABS: Glucose,Whole Blood 98 mg/dL (75-99)
[2017-07-04 20:53] LABS: Glucose,Whole Blood 134 mg/dL (75-99)
[2017-07-04] MEDS: ATORVASTATIN 40 MG TAB PO SCH (20:54)
[2017-07-04] MEDS: DONEPEZIL 10 MG TAB PO SCH (20:54)
[2017-07-04] MEDS: INSULIN GLARGINE 100 UNIT/ML 10 ML VIAL SQ SCH (20:55)
[2017-07-04] MEDS: LATANOPROST 0.005% OPHTH DROPS 2.5 ML BTL BOTH EYES SCH (20:55)
[2017-07-04] MEDS: SERTRALINE 25 MG TAB PO SCH (20:56)
--- NOTE | 2017-07-04 21:02 | P.PN ---
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 The patient has a recent hospitalization where she was found evidence of pressure ulceration of the coccyx and buttocks. She underwent surgical debridement during that stay. She was treated with local wound care. Was recently hospitalized [facility] evidence of septic shock. Aggressive therapy she slowly improved. Patient has a very poor overall prognosis. I do believe that she was made DO NOT RESUSCITATE. However other aggressive care continues at this time. The patient has evidence of extensive necrosis that has continued to worsen. The patient is now in her sleeping is surgical debridement. Bone scan was requested to further evaluate extent of osteomyelitis of her pelvis. She has no acute changes. Her George is present today and is able to help her eat. Objective - Vital Signs - Exam Superobese 76-year-old female who is comfortable HEENT: Anicteric conjunctiva are pink and moist nasal mucosa grossly intact without significant lesions, there is no thrush. Dentition is poor Neck: The neck is supple without significant lymphadenopathy or thyromegaly. Lungs: Symmetrical air entry with basilar crackles no bronchial sounds no dullness. Heart: Heart rate is slow at just 60,. She 100% paced by the monitor. Audible S1 and S2 soft S4 no murmur click or rub Abdomen: Superobese Positive bowel sounds soft and nontender without palpable masses or organomegaly. There was no guarding or rebound. Extremities: The extremities have some generalized edema and no significant open ulcerations are seen. The heels are intact at this time. Neuro: Patient .awake and alert Skin: Patient is evidence the extensive pressure ulceration to the coccyx and buttocks Stage IV Please see the nursing documentation for the photography and measurements of these extensive ulcerations which are now postoperative. There is marked improvement after debridement. Laboratory Results WBC 9.3 k/uL (3.8-10.6) 07/03/17 06:34 RBC 3.12 m/uL (3.80-5.40) L 07/03/17 06:34 Hgb 8.5 gm/dL (11.4-16.0) L 07/03/17 06:34 Hct 27.3 % (34.0-46.0) L 07/03/17 06:34 MCV 87.4 fL (80.0-100.0) 07/03/17 06:34 MCH 27.3 pg (25.0-35.0) 07/03/17 06:34 MCHC 31.3 g/dL (31.0-37.0) 07/03/17 06:34 RDW 19.3 % (11.5-15.5) H 07/03/17 06:34 Plt Count 314 k/uL (150-450) 07/03/17 06:34 Neutrophils % 75 % 07/03/17 06:34 Lymphocytes % 13 % 07/03/17 06:34 Monocytes % 5 % 07/03/17 06:34 Eosinophils % 6 % 07/03/17 06:34 Basophils % 0 % 07/03/17 06:34 Neutrophils # 6.9 k/uL (1.3-7.7) 07/03/17 06:34 Lymphocytes # 1.3 k/uL (1.0-4.8) 07/03/17 06:34 Monocytes # 0.4 k/uL (0-1.0) 07/03/17 06:34 Eosinophils # 0.5 k/uL (0-0.7) 07/03/17 06:34 Basophils # 0.0 k/uL (0-0.2) 07/03/17 06:34 Hypochromasia Marked 07/03/17 06:34 Poikilocytosis Slight 07/03/17 06:34 Anisocytosis Slight 07/03/17 06:34 PT 11.2 sec (9.0-12.0) 06/25/17 07:39 INR 1.1 (<1.2) 06/25/17 07:39 Sodium 141 mmol/L (137-145) 07/03/17 06:34 Potassium 4.0 mmol/L (3.5-5.1) 07/03/17 06:34 Chloride 104 mmol/L (98-107) 07/03/17 06:34 Carbon Dioxide 36 mmol/L (22-30) H 07/03/17 06:34 Anion Gap 1 mmol/L 07/03/17 06:34 BUN 20 mg/dL (7-17) H 07/03/17 06:34 Creatinine 0.65 mg/dL (0.52-1.04) 07/03/17 06:34 Est GFR (MDRD) Af Amer >60 (>60 ml/min/1.73 sqM) 07/03/17 06:34 Est GFR (MDRD) Non-Af >60 (>60 ml/min/1.73 sqM) 07/03/17 06:34 Glucose 101 mg/dL (74-99) H 07/03/17 06:34 POC Glucose (mg/dL) 128 mg/dL (75-99) H 07/03/17 16:29 POC Glu Pouncer ID Daysi Hussein 07/03/17 16:[address] Glu mg/dL 137 mg/dL 06/23/17 18:34 Hemoglobin A1c 6.4 % (4.2-6.1) H 06/23/17 18:34 Calcium 8.6 mg/dL (8.4-10.2) 07/03/17 06:34 Iron 30 ug/dL (37-170) L 06/25/17 07:39 TIBC 159 ug/dL (265-497) L 06/25/17 07:39 % Saturation 18.9 % (20-50) L 06/25/17 07:39 Ferritin 240.9 ng/mL (10.0-291.0) 06/25/17 07:39 Total Bilirubin 0.4 mg/dL (0.2-1.3) 06/25/17 07:39 AST 27 U/L (14-36) 06/25/17 07:39 ALT 26 U/L (9-52) 06/25/17 07:39 Alkaline Phosphatase 115 U/L (38-126) 06/25/17 07:39 Total Protein 4.6 g/dL (6.3-8.2) L 06/25/17 07:39 Albumin 2.1 g/dL (3.5-5.0) L 06/25/17 07:39 Prealbumin 6.0 mg/dL (18.0-42.0) L 06/28/17 08:52 Urine Color Yellow 06/24/17 14:00 Urine Appearance Cloudy (Clear) H 06/24/17 14:00 Urine pH 5.5 (5.0-8.0) 06/24/17 14:00 Ur Specific [place] 1.012 (1.001-1.035) 06/24/17 14:00 Urine Protein Negative (Negative) 06/24/17 14:00 Urine Glucose (UA) Negative (Negative) 06/24/17 14:00 Urine Ketones Negative (Negative) 06/24/17 14:00 Urine Blood Negative (Negative) 06/24/17 14:00 Urine Nitrite Positive (Negative) H 06/24/17 14:00 Urine Bilirubin Negative (Negative) 06/24/17 14:00 Urine Urobilinogen <2.0 mg/dL (<2.0) 06/24/17 14:00 Ur Leukocyte Esterase Large (Negative) H 06/24/17 14:00 Urine RBC 6 /hpf (0-5) H 06/24/17 14:00 Urine WBC 101 /hpf (0-5) H 06/24/17 14:00 Urine WBC Clumps Occasional /hpf (None) H 06/24/17 14:00 Ur Squamous Epith Cells <1 /hpf (0-4) 06/24/17 14:00 Uric Acid Crystals Occasional /hpf (None) H 06/24/17 14:00 Amorphous Sediment Occasional /hpf (None) H 06/24/17 14:00 Urine Bacteria Occasional /hpf (None) H 06/24/17 14:00 Hyaline Casts 10 /lpf (0-2) H 06/24/17 14:00 Urine Mucus Occasional /hpf (None) H 06/24/17 14:00 Urine Yeast (Budding) Moderate /hpf (None) H 06/24/17 14:00 Blood Type O Positive 06/28/17 08:52 Blood Type Recheck No 06/28/17 08:52 Antibody Screen NEGATIVE 06/28/17 08:52 Spec Expiration Date 07/01/2017 - 7690 06/28/17 08:52 Microbiology 06/23/17 18:20 Coccyx Anaerobic Culture - Final 06/23/17 18:20 Coccyx Gram Stain - Final 06/23/17 18:20 Coccyx Wound Culture - Final Escherichia coli Pseudomonas aeruginosa Assessment and Plan (1) Shock, septic, Gram negative Narrative/Plan: 76-year-old female who suffers from superobesity and also medical complaints presents from extended care facility with altered mental status. He does appear to admission the patient had evidence of sepsis and then evidence of shock in that she had lack of improvement after fluid resuscitation and required vasopressor therapy. She is progressed on to respiratory failure requiring BiPAP. She is a DO NOT INTUBATE status. Status discussed with the family. Discussing that pressure ulceration in this situation is a symptom of a person that is chronically ill and declining. The current bout of sepsis is likely related to the infection from the pressure ulcerations. But her progressively declining medical condition remains etiology of the pressure ulcerations. The patient has been seen by surgery. Surgical debridement Will not be any type of flap grafting occurring. Patient still has large extensive areas of necrosis. She has poor nutrition. Poor overall functional status. If the family requires further intervention. We'll consider transfer to a tertiary center to see if any further surgical options to exist. However Palliative or Comfort Care continue to remain options at this time. Due to the current culture data Zosyn was transitioned to meropenem which will provide coverage for the isolated ESBL E. coli and Pseudomonas. She is on a specialty bed. Continue ongoing turning and local wound care with Dakin solution. The case is discussed with the surgeon surgical debridement has occurred. The patient would need extensive improvement in physical and nutritional status to be a candidate for any extensive surgical interventions. The patient has extensive wounds and need for antibiotic therapy. The patient has now had the extensive debridement performed. Bone scan has been performed. Due to many factors not able to exclude osteomyelitis. We'll plan 6 weeks of antibiotics. The patient is being evaluated for potential selective specialty placement Wound care is clarified. Discussed with the surgeon. We are utilizing collagenase daily to the large ulcers. Discussed with hospitalist and would like to start negative pressure therapy system. (2) Pressure ulcer of coccygeal region, stage 4 Status: Acute
[2017-07-04] MEDS: AMMONIUM LACTATE 12% LOTION 225 GM BTL TOPICAL SCH (23:37)
[2017-07-05] MEDS: COLLAGENASE 250 UNIT/GM OINTMENT 30 GM TUBE TOPICAL SCH (05:13)
[2017-07-05] MEDS: SODIUM CHLORIDE 0.9% 1,000 ML IV SCH (05:26)
[2017-07-05 06:07] LABS: Glucose,Whole Blood 141 mg/dL (75-99)
[2017-07-05] MEDS: INSULIN LISPRO (humaLOG) 300 UNIT/3 ML VIAL SQ SCH ×2 (06:10→11:30)
[2017-07-05 06:41] LABS: Anisocytosis Moderate; Basophils % (A) 0 %; CH 27.5; CHCM 31.3; Eosinophils # (A) 0.3 k/uL (0-0.7); Eosinophils % (A) 3 %; HCT 26.6 % (34.0-46.0); HDW 3.49; HGB 8.5 gm/dL (11.4-16.0); Hypochromasia Moderate; Luc # (Auto) 0.11; Luc % (Auto) 1; Lymphocytes # (A) 0.8 k/uL (1.0-4.8); Lymphocytes % (A) 9 %; MCH 28.2 pg (25.0-35.0); MCHC 31.9 g/dL (31.0-37.0); MCV 88.5 fL (80.0-100.0); Mean Platelet Volume 7.3; Monocytes # (A) 0.4 k/uL (0-1.0); Monocytes % (A) 5 %; Neutrophils # (A) 6.9 k/uL (1.3-7.7); Neutrophils % (A) 81 %; Poikilocytosis Slight; RBC 3.01 m/uL (3.80-5.40); RDW 20.8 % (11.5-15.5); WBC 8.5 k/uL (3.8-10.6); WBC (Perox) 8.97
[2017-07-05 06:59] LABS: Anion Gap 2 mmol/L; Blood Urea Nitrogen 22 mg/dL (7-17); Calcium 8.5 mg/dL (8.4-10.2); Carbon Dioxide 34 mmol/L (22-30); Chloride 104 mmol/L (98-107); Glucose 130 mg/dL (74-99); Non-African American GFR(MDRD) >60 (>60 ml/min/1.73 sqM); Potassium 4.3 mmol/L (3.5-5.1); Sodium 140 mmol/L (137-145)
[2017-07-05] MEDS: oxyCODONE ER 10 MG TAB.ER.12H PO SCH (07:45)
[2017-07-05] MEDS: MEROPENEM 1 GM in SODIUM CHLORIDE 0.9% 100 ML IVPB SCH (07:45)
[2017-07-05] MEDS: CHOLECALCIFEROL 1,000 UNIT TAB PO SCH (07:45)
[2017-07-05] MEDS: CARVEDILOL 12.5 MG TAB PO SCH (07:45)
[2017-07-05] MEDS: CALCIUM CARB-VIT D 500MG-200UN 1 EACH TAB PO SCH (07:46)
[2017-07-05] MEDS: ASPIRIN 81 MG CHEW PO SCH (07:46)
[2017-07-05] MEDS: LACTOBACILLUS ACIDOPH & BULGAR 1 EACH PACKET PO SCH (07:46)
[2017-07-05] MEDS: POTASSIUM CHLORIDE ER 10 MEQ TAB.ER.PRT PO SCH (07:46)
[2017-07-05] MEDS: BRIMONIDINE TARTRATE 0.2% DROPS 5 ML BTL BOTH EYES SCH (07:47)
[2017-07-05] MEDS: HEPARIN SODIUM,PORCINE 5,000 UNIT/ML 1 ML VIAL SQ SCH (07:47)
[2017-07-05] MEDS: TIMOLOL 0.5% OPHTH DROPS 5 ML BTL BOTH EYES SCH (07:47)
[2017-07-05] MEDS: FERROUS SULFATE 325 MG TAB PO SCH (07:48)
[2017-07-05] MEDS: FAMOTIDINE 20 MG TAB PO SCH (07:48)
[2017-07-05] MEDS: FUROSEMIDE 20 MG TAB PO SCH (07:48)
[2017-07-05] MEDS: CLOTRIMAZOLE/BETAMETH 1-0.05% CREAM 45 GM TUBE TOPICAL SCH (07:48)
[2017-07-05 08:00] VITALS: RESP 20
[2017-07-05] MEDS: MULTIVITAMINS, THERA 1 EACH TAB PO SCH (11:19)
[2017-07-05 11:33] VITALS: BP 106/60; PULSE 64; TEMP 97
[2017-07-05 11:37] LABS: Glucose,Whole Blood 128 mg/dL (75-99)
[2017-07-05 13:49] VITALS: BMI 41.8
--- NOTE | 2017-07-05 16:59 | P.PN ---
Subjective Date of service 06/27/2017. Personal being dictated for Dr. Mazariegos. Interval history: This a 76-year-old female admitted with extensive pressure ulcers of the sacral area with failure of outpatient therapy, possible sepsis and multiple other medical issues. Maintained on Merrem as per ID. Wound cultures reporting MDRO ESBL, moderate E. coli, few pseudomonas aeruginosa. Scheduled for debridement tomorrow with surgery. Afebrile, T-max 99.3. Hemoglobin 7.6. Denies abdominal pain or increased sacral wound pain .Denies chest pain, palpitations or increasing shortness of breath. 06/28/2017 Sitting up on specialty bed, awaiting debridement this morning, T- max 99.4. Labs pending. Denies abdominal pain. Denies chest pain, palpitations or increasing shortness of breath. 06/29/2017 status post debridement, tolerated procedure well. Post- debridement measurements noted.Wound culture MDRO ESBL, pseudomonas aeruginosa, maintained on Merrem as per ID. Afebrile. Telemetry sinus rhythm. Diet intake remains poor. Minimally conversing, denies pain. Social work assisting in arranging facility specializing in wound care. Select specialty evaluation pending.Hemoglobin 8.0. 06/30/2017. Underwent bone scan, results pending. Evaluation by select specialty in progress. Diet intake poor but increased when at bedside. Blood sugars running lower this morning, in the 70s and 80s. Denies lightheadedness, or dizziness. No acute changes, denies pain. 07/03 2017. Maintained on IV antibiotics. Wound care as per infectious disease More alert this morning, diet intake improving up to 25%. Attempts to converse more, smiling. Possible osteomyelitis. Afebrile. 07/04 2017 patient's diet intake improved this morning with staff encouragement and assistance. Afebrile. Normal WBC. Denies pain. Maintained on specialty bed. Objective - Vital Signs Vital signs: Vital Signs Temp 97.4 F L 07/04/17 09:16 Pulse 60 07/04/17 12:23 Resp 16 07/04/17 12:23 BP 101/52 07/04/17 12:23 Pulse Ox 98 07/04/17 12:23 Intake & Output 07/03/17 07/04/17 07/04/17 18:59 06:59 18:59 Intake Total 100 100 Output Total 1300 Balance 100 -1300 100 Weight 111 kg 123.6 kg Intake: IV 100 Meropenem 1 gm In Sodium 100 Chloride 0.9% 100 ml @ 200 mls/hr IVPB Q8HR PENDING SALE TO [facility] Rx#:[id number] Oral 100 Output: Urine 1300 Other: Voiding Method Indwelling Catheter Indwelling Catheter Indwelling Catheter - Exam PHYSICAL EXAM: VITAL SIGNS: As above GENERAL: Sitting up in bed-specialty bed, smiling, no acute distress HEENT: Conjunctivae normal. eyes normal, Oral mucosa moist NECK: No JVD. No thyroid enlargement. CARDIOVASCULAR: S1, S2 muffled. No murmur RESPIRATION: Respiratory effort normal, Breath sounds diminished in the bases. Occasional scattered crackles and rhonchi ABDOMEN: Soft, nontender . No guarding. no masses palpable. Positive Bowel sounds. EXTREMITIES: Mild edema. PSYCHIATRY: Alert and oriented 2, mood and affect calm, cooperative, follows simple commands. NERVOUS SYSTEM: Cranial N 2-12 grossly normal. Diffuse weakness, No focal deficits. SKIN: Sacra/coccyxl ulcers dressings, clean, dry and intact. Microbiology 06/23/17 18:20 Coccyx Anaerobic Culture - Final 06/23/17 18:20 Coccyx Gram Stain - Final 06/23/17 18:20 Coccyx Wound Culture - Final Escherichia coli Pseudomonas aeruginosa - Labs CBC & Chem 7: 07/05/17 06:30 07/05/17 06:30 Labs: Abnormal Lab Results - Last 24 Hours (Table) 07/03/17 07/03/17 07/04/17 Range/Units 16:29 21:04 05:36 RBC 3.21 L (3.80-5.40) m/uL Hgb 8.8 L (11.4-16.0) gm/dL Hct 28.3 L (34.0-46.0) % RDW 19.6 H (11.5-15.5) % Carbon Dioxide (22-30) mmol/L BUN (7-17) mg/dL POC Glucose (mg/dL) 128 H 198 H (75-99) mg/dL 07/04/17 07/04/17 Range/Units 05:36 11:34 RBC (3.80-5.40) m/uL Hgb (11.4-16.0) gm/dL Hct (34.0-46.0) % RDW (11.5-15.5) % Carbon Dioxide 33 H (22-30) mmol/L BUN 20 H (7-17) mg/dL POC Glucose (mg/dL) 105 H (75-99) mg/dL Assessment and Plan Plan: 1. Extensive sacral and coccygeal pressure ulcers, stage IV, failure to of outpatient treatment, with gram-negative sepsis present on admission, cultures reporting MDRO ESBL, Pseudomonas aeruginosa. Pressure ulcers, extensive necrosis ; increased in size, with tunneling, S/P debridement. Possible osteomyelitis. 2. [ Normocytic anemia of chronic disease]. 3. [ Changes in mental status with chronic metabolic encephalopathy, in a patient with dementia]. 4. [ ESBL with MRSA]. 5. [ Diabetes mellitus type 2]. 6. Status post PICC line 7. Moderate to severe Protein Malnutrition, Hypoalbumenia. Plan: Continue on current medication regime ,monitoring and symptomatic treatment. Discharge planning in progress for [facility], pending family's evaluation of the site. Antibiotics and wound care as per infectious disease. Further recommendations to follow. The impression and plan of care has been dictated as directed as a scribe. : I performed a H&P examination of this patient and discussed the same with the dictator. I agree with the dictator's note. Any additional findings/opinions/ etc. will be noted.
--- NOTE | 2017-07-05 20:28 | P.PN ---
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 The patient has a recent hospitalization where she was found evidence of pressure ulceration of the coccyx and buttocks. She underwent surgical debridement during that stay. She was treated with local wound care. Was recently hospitalized [facility] evidence of septic shock. Aggressive therapy she slowly improved. Patient has a very poor overall prognosis. I do believe that she was made DO NOT RESUSCITATE. However other aggressive care continues at this time. The patient has evidence of extensive necrosis that has continued to worsen. The patient is now in her sleeping is surgical debridement. Bone scan was requested to further evaluate extent of osteomyelitis of her pelvis. She has no acute changes. Her George is present today and is able to help her eat. Objective - Vital Signs Temperature 90.7 Blood pressure 106/60 Heart rate 64 Respiratory rate 20 - Exam Superobese 76-year-old female who is comfortable HEENT: Anicteric conjunctiva are pink and moist nasal mucosa grossly intact without significant lesions, there is no thrush. Dentition is poor Neck: The neck is supple without significant lymphadenopathy or thyromegaly. Lungs: Symmetrical air entry with basilar crackles no bronchial sounds no dullness. Heart: Heart rate is slow at just 60,. She 100% paced by the monitor. Audible S1 and S2 soft S4 no murmur click or rub Abdomen: Superobese Positive bowel sounds soft and nontender without palpable masses or organomegaly. There was no guarding or rebound. Extremities: The extremities have some generalized edema and no significant open ulcerations are seen. The heels are intact at this time. Neuro: Patient .awake and alert Skin: Patient is evidence the extensive pressure ulceration to the coccyx and buttocks Stage IV Please see the nursing documentation for the photography and measurements of these extensive ulcerations which are now postoperative. There is marked improvement after debridement. Laboratory Results WBC 8.5 k/uL (3.8-10.6) 07/05/17 06:30 RBC 3.01 m/uL (3.80-5.40) L 07/05/17 06:30 Hgb 8.5 gm/dL (11.4-16.0) L 07/05/17 06:30 Hct 26.6 % (34.0-46.0) L 07/05/17 06:30 MCV 88.5 fL (80.0-100.0) 07/05/17 06:30 MCH 28.2 pg (25.0-35.0) 07/05/17 06:30 MCHC 31.9 g/dL (31.0-37.0) 07/05/17 06:30 RDW 20.8 % (11.5-15.5) H 07/05/17 06:30 Plt Count 243 k/uL (150-450) 07/05/17 06:30 Neutrophils % 81 % 07/05/17 06:30 Lymphocytes % 9 % 07/05/17 06:30 Monocytes % 5 % 07/05/17 06:30 Eosinophils % 3 % 07/05/17 06:30 Basophils % 0 % 07/05/17 06:30 Neutrophils # 6.9 k/uL (1.3-7.7) 07/05/17 06:30 Lymphocytes # 0.8 k/uL (1.0-4.8) L 07/05/17 06:30 Monocytes # 0.4 k/uL (0-1.0) 07/05/17 06:30 Eosinophils # 0.3 k/uL (0-0.7) 07/05/17 06:30 Basophils # 0.0 k/uL (0-0.2) 07/05/17 06:30 Hypochromasia Moderate 07/05/17 06:30 Poikilocytosis Slight 07/05/17 06:30 Anisocytosis Moderate 07/05/17 06:30 PT 11.2 sec (9.0-12.0) 06/25/17 07:39 INR 1.1 (<1.2) 06/25/17 07:39 Sodium 140 mmol/L (137-145) 07/05/17 06:30 Potassium 4.3 mmol/L (3.5-5.1) 07/05/17 06:30 Chloride 104 mmol/L (98-107) 07/05/17 06:30 Carbon Dioxide 34 mmol/L (22-30) H 07/05/17 06:30 Anion Gap 2 mmol/L 07/05/17 06:30 BUN 22 mg/dL (7-17) H 07/05/17 06:30 Creatinine 0.73 mg/dL (0.52-1.04) 07/05/17 06:30 Est GFR (MDRD) Af Amer >60 (>60 ml/min/1.73 sqM) 07/05/17 06:30 Est GFR (MDRD) Non-Af >60 (>60 ml/min/1.73 sqM) 07/05/17 06:30 Glucose 130 mg/dL (74-99) H 07/05/17 06:30 POC Glucose (mg/dL) 128 mg/dL (75-99) H 07/05/17 11:24 POC Glu Social Services Specialist Rula Peralta 07/05/17 11:[address] Glu mg/dL 137 mg/dL 06/23/17 18:34 Hemoglobin A1c 6.4 % (4.2-6.1) H 06/23/17 18:34 Calcium 8.5 mg/dL (8.4-10.2) 07/05/17 06:30 Iron 30 ug/dL (37-170) L 06/25/17 07:39 TIBC 159 ug/dL (265-497) L 06/25/17 07:39 % Saturation 18.9 % (20-50) L 06/25/17 07:39 Ferritin 240.9 ng/mL (10.0-291.0) 06/25/17 07:39 Total Bilirubin 0.4 mg/dL (0.2-1.3) 06/25/17 07:39 AST 27 U/L (14-36) 06/25/17 07:39 ALT 26 U/L (9-52) 06/25/17 07:39 Alkaline Phosphatase 115 U/L (38-126) 06/25/17 07:39 Total Protein 4.6 g/dL (6.3-8.2) L 06/25/17 07:39 Albumin 2.1 g/dL (3.5-5.0) L 06/25/17 07:39 Prealbumin 6.0 mg/dL (18.0-42.0) L 06/28/17 08:52 Urine Color Yellow 06/24/17 14:00 Urine Appearance Cloudy (Clear) H 06/24/17 14:00 Urine pH 5.5 (5.0-8.0) 06/24/17 14:00 Ur Specific [place] 1.012 (1.001-1.035) 06/24/17 14:00 Urine Protein Negative (Negative) 06/24/17 14:00 Urine Glucose (UA) Negative (Negative) 06/24/17 14:00 Urine Ketones Negative (Negative) 06/24/17 14:00 Urine Blood Negative (Negative) 06/24/17 14:00 Urine Nitrite Positive (Negative) H 06/24/17 14:00 Urine Bilirubin Negative (Negative) 06/24/17 14:00 Urine Urobilinogen <2.0 mg/dL (<2.0) 06/24/17 14:00 Ur Leukocyte Esterase Large (Negative) H 06/24/17 14:00 Urine RBC 6 /hpf (0-5) H 06/24/17 14:00 Urine WBC 101 /hpf (0-5) H 06/24/17 14:00 Urine WBC Clumps Occasional /hpf (None) H 06/24/17 14:00 Ur Squamous Epith Cells <1 /hpf (0-4) 06/24/17 14:00 Uric Acid Crystals Occasional /hpf (None) H 06/24/17 14:00 Amorphous Sediment Occasional /hpf (None) H 06/24/17 14:00 Urine Bacteria Occasional /hpf (None) H 06/24/17 14:00 Hyaline Casts 10 /lpf (0-2) H 06/24/17 14:00 Urine Mucus Occasional /hpf (None) H 06/24/17 14:00 Urine Yeast (Budding) Moderate /hpf (None) H 06/24/17 14:00 Blood Type O Positive 06/28/17 08:52 Blood Type Recheck No 06/28/17 08:52 Antibody Screen NEGATIVE 06/28/17 08:52 Spec Expiration Date 07/01/2017 - 8742 06/28/17 08:52 Microbiology 06/23/17 18:20 Coccyx Anaerobic Culture - Final 06/23/17 18:20 Coccyx Gram Stain - Final 06/23/17 18:20 Coccyx Wound Culture - Final Escherichia coli Pseudomonas aeruginosa Assessment and Plan (1) Shock, septic, Gram negative Narrative/Plan: 76-year-old female who suffers from superobesity and also medical complaints presents from extended care facility with altered mental status. He does appear to admission the patient had evidence of sepsis and then evidence of shock in that she had lack of improvement after fluid resuscitation and required vasopressor therapy. She is progressed on to respiratory failure requiring BiPAP. She is a DO NOT INTUBATE status. Status discussed with the family. Discussing that pressure ulceration in this situation is a symptom of a person that is chronically ill and declining. The current bout of sepsis is likely related to the infection from the pressure ulcerations. But her progressively declining medical condition remains etiology of the pressure ulcerations. The patient has been seen by surgery. Surgical debridement Will not be any type of flap grafting occurring. Patient still has large extensive areas of necrosis. She has poor nutrition. Poor overall functional status. If the family requires further intervention. We'll consider transfer to a tertiary center to see if any further surgical options to exist. However Palliative or Comfort Care continue to remain options at this time. Due to the current culture data Zosyn was transitioned to meropenem which will provide coverage for the isolated ESBL E. coli and Pseudomonas. She is on a specialty bed. Continue ongoing turning and local wound care with Dakin solution. The case is discussed with the surgeon surgical debridement has occurred. The patient would need extensive improvement in physical and nutritional status to be a candidate for any extensive surgical interventions. The patient has extensive wounds and need for antibiotic therapy. The patient has now had the extensive debridement performed. Bone scan has been performed. Due to many factors not able to exclude osteomyelitis. We'll plan 6 weeks of antibiotics. The patient is being evaluated for potential selective specialty placement Wound care is clarified. Discussed with the surgeon. We are utilizing collagenase daily to the large ulcers. Discussed with hospitalist and would like to start negative pressure therapy system. The patient has now been evaluated by the LTAC facility. The [facility] and [facility] has accepted her and she will transfer today she is evidence of osteomyelitis to her pelvis and would plan 42 days total of antibiotic therapy Endo-therapy date is 08/05/2017. (2) Pressure ulcer of coccygeal region, stage 4 Status: Acute
== END 2017-07-05 13:46 | DRG 853 ==
LOC: 4MS4W 17:37 → 6SEL 06-28 18:59
PROVIDERS: ADMIT Hospitalist; ATTEND Hospitalist
PROC: 0KBN0ZZ Excision of Right Hip Muscle, Open Approach (ICD-10-PCS; 2017-06-28)
PROC: 0KBP0ZZ Excision of Left Hip Muscle, Open Approach (ICD-10-PCS; principal; 2017-06-28 09:00)
DX: A41.9 Sepsis, unspecified organism (principal); J96.00 Acute respiratory failure, unspecified whether with hypoxia or hypercapnia; R65.21 Severe sepsis with septic shock; E43 Unspecified severe protein-calorie malnutrition; G93.41 Metabolic encephalopathy; L89.154 Pressure ulcer of sacral region, stage 4; M86.9 Osteomyelitis, unspecified; E87.1 Hypo-osmolality and hyponatremia; N39.0 Urinary tract infection, site not specified; I11.0 Hypertensive heart disease with heart failure; F03.90 Unspecified dementia, unspecified severity, without behavioral disturbance, psychotic disturbance, mood disturbance, and anxiety; I50.9 Heart failure, unspecified; E11.69 Type 2 diabetes mellitus with other specified complication; E11.51 Type 2 diabetes mellitus with diabetic peripheral angiopathy without gangrene; D63.8 Anemia in other chronic diseases classified elsewhere; D50.8 Other iron deficiency anemias; E66.01 Morbid (severe) obesity due to excess calories; E78.5 Hyperlipidemia, unspecified; H40.9 Unspecified glaucoma; I25.10 Atherosclerotic heart disease of native coronary artery without angina pectoris; K21.9 Gastro-esophageal reflux disease without esophagitis; M19.90 Unspecified osteoarthritis, unspecified site; R26.9 Unspecified abnormalities of gait and mobility; G56.00 Carpal tunnel syndrome, unspecified upper limb; E11.610 Type 2 diabetes mellitus with diabetic neuropathic arthropathy; L08.9 Local infection of the skin and subcutaneous tissue, unspecified; B96.5 Pseudomonas (aeruginosa) (mallei) (pseudomallei) as the cause of diseases classified elsewhere; B96.20 Unspecified Escherichia coli [E. coli] as the cause of diseases classified elsewhere; Z16.12 Extended spectrum beta lactamase (ESBL) resistance; Z66 Do not resuscitate; Z74.01 Bed confinement status; Z79.82 Long term (current) use of aspirin; Z79.899 Other long term (current) drug therapy; Z86.14 Personal history of Methicillin resistant Staphylococcus aureus infection; Z88.1 Allergy status to other antibiotic agents; Z82.49 Family history of ischemic heart disease and other diseases of the circulatory system
CPT/HCPCS: 71010; 78315; 80048; 80053; 81001; 82728; 83036; 83540; 83550; 84134; 85025; 85027; 85610; 86850; 86900; 86901; 87070; 87075; 87077; 87186; 87205; 94760